=== PATIENT | male | born 1965 | race Caucasian/White ===

== ENCOUNTER 2020-05-24 00:37 | Inpatient (IN) | payer MEDICARE, MEDICAID, SELFPAY ==
[2020-05-24] VITALS (30 sets, daily range): BP systolic 86–154; BP diastolic 46–137; PULSE 53–120; RESP 16–44; TEMP 35.8–39.2; O2SAT 92–99; BMI 50.5; BMI 46.6
--- NOTE | 2020-05-24 00:38 | EKG12_ITS ---
Test Reason : SOB Blood Pressure : / mmHG Vent. Rate : 103 BPM Atrial Rate : 103 BPM P-R Int : 170 ms QRS Dur : 078 ms QT Int : 362 ms P-R-T Axes : 039 031 023 degrees QTc Int : 474 ms Sinus tachycardia Otherwise normal ECG Confirmed by CLOVER COYLE, ED ([id number]), metropolitan editor EUGENE SEGUNDO ([id number]) on 05/26/2020 10:57:55 AM Referred By: THOMAS Confirmed By:ED GALO MD
--- NOTE | 2020-05-24 00:53 | ED.VIS.GEN ---
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 Apparently, the patient was in his normal state of health this morning. Tonight, he was found to be confused, febrile, and in respiratory distress. There was another resident from the facility that was hospitalized this week with pneumonia that was concerning for COVID-19. The patient did have a fever on squad arrival. He did state that he was breathing approximately 40-50 times a minute. Patient has no history of underlying lung disease. Patient does not give any history. He is mostly alert and will try to answer questions, but does seem delirious. He currently denies any pain. Prior similar symptoms: No Recent Illness/Hospitalization: No Past Medical History - Allergies and Home Meds Allergies/Adverse Reactions: Allergies No Known Allergies Allergy (Verified 05/24/20 00:41) Primary Care Physician: Alonso Ramos MD [Primary Care Provider] - Prior records reviewed: Yes Past Medical History: - - Schizophrenia, developmental delay, diabetes, adrenal insufficiency Surgical History: noncontributory Lives: Alf Smoking Status: Unknown if ever smoked Review of Systems ROS: Unable to Obtain Physical Exam Vital Signs/Narrative: Vital Signs Temp Pulse Resp BP Pulse Ox 05/24/20 00:41 99.3 F H 108 H 44 H 96/55 L 95 05/24/20 00:38 99.3 F H 108 H 41 H 95/55 L 95 Inital Vital Signs reviewed: Yes General: Well nourished, Acute Distress Head: Normocephalic, Atraumatic Eyes: Perrl, EOMI ENT: Moist mucous membranes, No rhinorrhea Neck: Supple, Nontender, No lymphadenopathy Cardiovascular: Regular rate, Tachycardia Respiratory: Decreased Air Movement, Retractions Abdomen: Soft, Nontender, Nondistended, Normal bowel sounds, - - Small area of irritation at the distal pannus without cellulitis or abscess. Back: Nontender Extremities: Tenderness - Mild erythema of the left lower extremity with normal pulses. Neurological: Cranial nerves II-XII grossly intact, Inattentive Psychological: Normal affect Diagnostic/Tx/Re-eval Clinical Impression(s) from Imaging Studies Chest X-Ray 05/24/20 00:56 IMPRESSION: Pulmonary hypoexpansion with pulmonary venous congestion. at 0128 Reported and signed by: Baldemar Angulo MD Electronically Signed: Baldemar Angulo MD at 1:27 EDT Tel , Service support , Abnormal Lab Results 05/24/20 05/24/20 05/24/20 00:45 00:45 00:45 WBC 17.1 H RBC 4.85 Hgb 13.1 Hct 39.3 L MCV 81.0 MCH 27.0 MCHC 33.3 RDW Std Deviation 39.7 RDW Coeff of Gume 13.6 Plt Count 127 L MPV 11.7 Immature Gran % (Auto) 1.100 H Neut % (Auto) 90.7 H Lymph % (Auto) 2.3 L [place] % (Auto) 4.7 Eos % (Auto) 1.0 Baso % (Auto) 0.2 Absolute Neuts (auto) 15.5 H Absolute Lymphs (auto) 0.40 L Nucleated RBC % 0 Differential Comment COMMENT Platelet Estimate SLT DEC pH Bicarbonate Actual POC Total CO2 Base Excess O2 Saturation ABG pCO2 ABG pO2 Sodium 127 L Potassium 3.3 L Chloride 94 L Carbon Dioxide 20.0 L Anion Gap 13 BUN 22 H Creatinine 2.29 H Estim Creat Clear Calc 37.19 Est GFR (MDRD) Af Amer 38 L Est GFR (MDRD) Non-Af 32 L BUN/Creatinine Ratio 9.6 L Glucose 171 H Lactic Acid 2.5 H* Calcium 8.2 L Total Bilirubin 1.00 AST 116 H ALT 40 Alkaline Phosphatase 75 Troponin I 0.059 H B-Natriuretic Peptide Total Protein 7.7 Albumin 2.9 L Globulin 4.8 H Albumin/Globulin Ratio 0.6 L Procalcitonin 05/24/20 05/24/20 05/24/20 00:45 00:45 00:54 WBC RBC Hgb Hct MCV MCH MCHC RDW Std Deviation RDW Coeff of Gume Plt Count MPV Immature Gran % (Auto) Neut % (Auto) Lymph % (Auto) [place] % (Auto) Eos % (Auto) Baso % (Auto) Absolute Neuts (auto) Absolute Lymphs (auto) Nucleated RBC % Differential Comment Platelet Estimate pH 7.51 H Bicarbonate Actual 19.3 L POC Total CO2 20 Base Excess -4 L O2 Saturation 95 ABG pCO2 24.1 L ABG pO2 65 L Sodium Potassium Chloride Carbon Dioxide Anion Gap BUN Creatinine Estim Creat Clear Calc Est GFR (MDRD) Af Amer Est GFR (MDRD) Non-Af BUN/Creatinine Ratio Glucose Lactic Acid Calcium Total Bilirubin AST ALT Alkaline Phosphatase Troponin I B-Natriuretic Peptide 136.4 H Total Protein Albumin Globulin Albumin/Globulin Ratio Procalcitonin 17.97 H - Rhythm Strip Rhythm Strip: Sinus Rhythm Rate: 100 Ectopy: None - EKG Initial EKG Interpretation: Sinus Rhythm, No Acute Injury Pattern Prior: No Prior - Medical Decision Making Patient presents with fever, tachypnea, and confusion. There was questionable COVID exposure with someone else at the facility 2 days ago. Blood gas was obtained on patient arrival. It did appear as if he had respiratory alkalosis with likely metabolic acidosis. Patient does have history of adrenal insufficiency. He was given IV fluids and Cortef. I do not want to aggressively bolus him especially in light of suspicion for COVID-19. Chest x-ray shows mild cardiomegaly with some patchy infiltrative changes. Screening labs demonstrate leukocytosis, elevated procalcitonin, elevated lactic acid, evidence of acute kidney injury, and indeterminate troponin. The patient does have some cellulitic changes of the left lower extremity, but I do not feel that this effectively explains his respiratory distress and overwhelming illness. I did cover him with broad-spectrum antibiotics and cultures were obtained. After fluids, the patient's mental status has improved. He is still delirious, but much more active. I did discuss his care with his father, Alon, who is his POA. He does confirm that he wants his son to be full code including intubation. Given the patient's significant infectious symptoms, I do feel that he would benefit from at least observation closely in the ICU until he can demonstrate clinical improvement. The patient was discussed with the hospitalist. Impression 1. Severe sepsis 2. Suspicion for novel COVID-19 infection 3. Left lower extremity cellulitis 4. Dyspnea 5. History of adrenal insufficiency 6. History of significant psychiatric disease - Critical Care Time Critical care time (excluding procedures): 30-74 minutes, Discussing w/Patient &/or Family/Business Education Instructor, Discussing w/Consultants, Arranging Admission or Transfer, Performing Direct Patient Care at Bedside ED Disposition - Plan for ED Patient: Referrals: Alonso Ramos MD [Primary Care Provider] -
[2020-05-24] MEDS: 0.9% Normal Saline 1,000 ML 999 ML IV ×2 (00:56→02:50)
[2020-05-24] MEDS: Hydrocortisone Sod Succinate 100 MG/2 ML Vial IV (00:56)
--- NOTE | 2020-05-24 00:56 | RAD_ITS ---
HISTORY: PER FACILITY PATIENT BECAME CONFUSED AND HAD A FEVER THIS EVENING, ALSO APPEARING SOB. PT IS NORMALLY ORIENTED AND INDEPENDENT. PER EMS BREATHING IN THE 70'S FOR RR EXAM: XR Chest 1 View: COMPARISON: None FINDINGS: # of images incl. paperwork: 2 Perihilar pulmonary venous congestion Lungs are hypoexpanded Heart is borderline enlarged. No acute osseous pathology perceived. Pulmonary vascularity is indistinct. Possible pleural effusions. RAD/Chest 1 View (Portable) IMPRESSION: Pulmonary hypoexpansion with pulmonary venous congestion. at 0128 Reported and signed by: Baldemar Angulo MD Electronically Signed: Baldemar Angulo MD at 1:27 EDT Tel , Service support ,
[2020-05-24 01:18] LABS: Absolute Neutrophil Count 15.5 X10^3/uL (2.0-7.7); Basophil# 0.04 X10^3/uL; Basophil% 0.2 % (0-1); Eosinophil# 0.17 X10^3/uL; Hematocrit 39.3 % (40-54); Hemoglobin 13.1 g/dL (13.0-16.5); Lymphocyte % 2.3 % (19-41); Mean Corp Hgb Conc 33.3 g/dL (32-36); Mean Platelet Vol. 11.7 fl (6.2-12.0); Monocyte% 4.7 % (0-10); NRBC Flagged by Analyzer 0 % (0-5); Neutrophil # 15.54 X10^3/uL (2.7-7.7); Neutrophil % 90.7 % (47-70); POSITIVE DIFFERENTIAL YES; POSITIVE MORPHOLOGY YES; Platelet Count 127 K/mm3 (150-450); RBC Distribution Width CV 13.6 % (11.6-14.6); RBC Distribution Width SD 39.7 fl (35.1-43.9); Red Blood Count 4.85 M/mm3 (4.6-6.2); White Blood Count 17.1 K/mm3 (4.4-11.0)
[2020-05-24 01:30] LABS: ALB/GLOB Ratio 0.6 RATIO (0.9-2.4); AST(SGOT) 116 U/L (15-37); Alanine Aminotransfer ALT/SGPT 40 U/L (16-61); Albumin, Serum 2.9 g/dL (3.2-5.0); Alkaline Phosphatase 75 U/L (45-117); Anion Gap 13 (5-15); BUN 22 mg/dL (7-18); BUN/Creat Ratio 9.6 RATIO (10-20); Calcium,Total 8.2 mg/dL (8.5-10.1); Chloride 94 mmol/L (98-107); Creatinine, Serum 2.29 mg/dL (0.70-1.30); EST Glomerular Filtration Rate 32 mL/min (>60); Est Glom Filt Rate - Afr Amer 38 mL/min (>60); Estimated Creatinine Clearance 37.19 ml/min; Globulin 4.8 g/dL (2.2-4.2); Glucose 171 mg/dL (74-106); Potassium 3.3 mmol/L (3.5-5.1); Protein, Total 7.7 g/dL (6.4-8.2); Sodium Level 127 mmol/L (136-145)
[2020-05-24 01:33] LABS: Procalcitonin 17.97 ng/mL (0.00-0.09)
[2020-05-24 01:41] LABS: Base Excess -4 mmol/L (-2 to +2); Bicarbonate 19.3 mmol/L (22-26); PO2 65 mmHG (75-100); SO2 95 % (95-99); Total Carbon Dioxide 20 mmol/L; pCO2 24.1 mmHg (35-45); pH 7.51 (7.35-7.45)
[2020-05-24 01:44] LABS: BNP,B-Type NATRIURETIC PEPTIDE 136.4 pg/mL (0-100)
[2020-05-24 02:02] LABS: Differential Indicated SCAN CRITERIA MET
[2020-05-24 02:03] LABS: Platelet Estimate SLT DEC (ADEQ)
[2020-05-24] MEDS: LORazepam 2 MG/ML Syringe 1 MG IV ×2 (02:19→05:08)
[2020-05-24 02:35] LABS: Lactic Acid 2.5 mmol/L (0.4-1.9)
[2020-05-24 02:45] LABS: Mucous, Urine 0 SEEN /hpf (<or=2+)
[2020-05-24 02:54] LABS: Color, Urine Yellow (Yellow); Glucose, Dipstick Normal (Normal); Ketone-Dipstick 15 mg/dl (Negative); Leukocyte Esterase-Dipstick 25 /ul (Negative); Nitrite-Dipstick Negative (Negative); Occult Blood-Urine 250 /ul (Negative); Protein-Dipstick 500 mg/dl (Negative); Urine Bilirubin Dipstick Negative (Negative); Urine Clarity Sl. Cloudy (Clear); Urine Urobilinogen Normal (Normal)
[2020-05-24 03:14] LABS: Coarse Granular Cast 5-10 SEEN /lpf (0-5 /lpf); Red Blood Cells-Urine 0-5 SEEN /hpf (0-5); Squamous Epithelial Cells - UA 0-5 SEEN /hpf (0-5); White Blood Cells 5-10 SEEN /hpf (0-5)
[2020-05-24 03:15] LABS: Amorphous Sediment 2+; Bacteria 1+ /hpf (None Seen)
--- NOTE | 2020-05-24 03:39 | PCM.HP.STD ---
Problem List (1) Suspected 2019 novel coronavirus infection Status: Acute (2) Severe sepsis Status: Acute (3) Schizophrenia Status: Acute History of Present Illness Date of Admission: 05/24/20 Chief Complaint: fever The patient is a 55 year old M with a significant history of schizophrenia; diabetes mellitus ; adrenal insufficiency and who lives at the nursing home presenting to the emergency department with fever. Reportedly patient's fever at a nursing home was 102 Fahrenheit. History was taken from emergency department doctor since patient is unable to provide history. Associated with his symptoms is confusion and hypoxia. Reportedly eccentrically patient is alert and oriented to self and place. Reportedly his oxygen saturation was in the 80s. Emergency department doctor reported that per paramedics patient's respiratory rate was in the 70s. Reportedly, one resident at the nursing home where patient lives is currently hospitalized at the hospital with a diagnosis of suspected COVID-19 infection. Per emergency department nurses on arrival patient was unresponsive. At time of examination patient was alert but confused to answer questions. Past Medical History Medical History: Medical History (Last Reviewed 05/24/20 @ 04:[address] Aubrey Powell MD) Diabetes mellitus E11.9 Allergies No Known Allergies Allergy (Verified 05/24/20 00:41) Home Medications: Ambulatory Orders Medication Instructions Recorded Acetaminophen [Tylenol] 650 mg PO Q4H PRN PRN 05/24/20 Aspirin [Aspirin, Baby] 81 mg PO DAILY@0800 05/24/20 Benztropine Mesylate 2 mg PO DAILY 05/24/20 Bisacodyl [Dulcolax] 10 mg RECTAL DAILY PRN PRN 05/24/20 Calcium (Elemental) [Os-Alfredo 500] 500 mg PO BIDCM 05/24/20 Cholecalciferol (Vitamin D3) 2,000 unit PO DAILY 05/24/20 [Vitamin D3] Ergocalciferol [Vitamin D] 50,000 unit PO Q7D 05/24/20 Escitalopram Oxalate [Lexapro] 10 mg PO DAILY 05/24/20 Famotidine [Pepcid] 20 mg PO DAILY 05/24/20 Fludrocortisone Acetate 0.2 mg PO DAILY 05/24/20 Haloperidol [Haldol] 5 mg PO BID 05/24/20 Insulin Aspart [Novolog Flexpen 10 units SUBCUT TIDCM 05/24/20 ([facility])] Insulin Glargine [Lantus (BK)] 36 units SUBCUT QHS 05/24/20 Linagliptin [Tradjenta] 5 mg PO DAILY 05/24/20 Lorazepam 1 mg IM Q6H PRN PRN 05/24/20 Lorazepam [Ativan] 1 mg PO Q6H PRN PRN 05/24/20 Lorazepam [Ativan] 2 mg PO TID 05/24/20 Magnesium Hydroxide [Milk Of 30 ml PO DAILY PRN PRN 05/24/20 Magnesia] Quetiapine Fumarate [Seroquel Xr] 400 mg PO BID 05/24/20 Simvastatin [Zocor] 10 mg PO QHS 05/24/20 Tamsulosin HCl [Flomax] 0.4 mg PO DAILY 05/24/20 Surgical History: - - Unable to obtain since patient is confused. 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 Lives: [facility] Smoking Status: Unknown if ever smoked - *Family History Maternal History Items: - - Unable to obtain since patient is confused. 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 Paternal History Items: - - Unable to obtain since patient is confused. 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 Review of Systems Unable to obtain accurate/complete ROS d/t: Patient is confused. No family by bedside and it is night/telegraphic typewriter operator chief VTE Information - Inpt Only VTE Present on Admission: No VTE Mechan Device Prophylaxis: None VTE Pharm Prophylaxis ordered?: Yes Patient Problems: Active and Suspected Problems (Last Updated 05/24/20 @ 04:[address] Aubrey Powell MD) Suspected 2019 novel coronavirus infection (Acute) Severe sepsis (Acute) Schizophrenia (Acute) - Physical Exam Vitals/I&O's: Vital Signs Temp Pulse Resp BP Pulse Ox 102.1 F H 120 H 21 H 154/93 H 96 05/24/20 02:52 05/24/20 02:52 05/24/20 02:52 05/24/20 02:52 05/24/20 02:52 Oxygen Delivery Method Room Air Weight: 160 kg Body Mass Index (BMI) 50.5 Intake and Output for Last 24 Hours 05/22/20 05/23/20 05/24/20 23:59 23:59 23:59 Intake Total 1000 / 1000 Balance 1000 / 1000 General: Alert, Confused HEENT: Atraumatic, Normocephalic, - - Patient does not allow eye examination. Neck: Supple, Trachea Midline Lungs: Clear to auscultation, Normal air movement Cardiovascular: Normal S1, Normal S2, No murmurs, Tachycardic Abdomen: Bowel Sounds Present, Soft, Non Tender Extremities: Capillary Refill Less than 3 Seconds, Edema - Bilateral legs Skin: Rash Present - Scaly rash on bilateral legs, - - Erythema of left leg with mild increased warmth. Musculoskeletal: No Muscle Wasting Neurological: - - Patient is confused. Does not follow many commands. Open eyes to command. Psych/Mental Status: Agitated Laboratory Results 05/24/20 00:45: WBC 17.1 H, RBC 4.85, Hgb 13.1, Hct 39.3 L, MCV 81.0, MCH 27.0, MCHC 33.3, RDW Std Deviation 39.7, RDW Coeff of Gume 13.6, Plt Count 127 L, MPV 11.7, Immature Gran % (Auto) 1.100 H, Neut % (Auto) 90.7 H, Lymph % (Auto) 2.3 L, [place] % (Auto) 4.7, Eos % (Auto) 1.0, Baso % (Auto) 0.2, Absolute Neuts (auto) 15.5 H, Absolute Lymphs (auto) 0.40 L, Nucleated RBC % 0, Differential Comment COMMENT, Platelet Estimate SLT 05/24/20 00:45: Sodium 127 L, Potassium 3.3 L, Chloride 94 L, Carbon Dioxide 20.0 L, Anion Gap 13, BUN 22 H, Creatinine 2.29 H, Estim Creat Clear Calc 37.19, Est GFR (MDRD) Af Amer 38 L, Est GFR (MDRD) Non-Af 32 L, BUN/Creatinine Ratio 9.6 L, Glucose 171 H, Calcium 8.2 L, Total Bilirubin 1.00, AST 116 H, ALT 40, Alkaline Phosphatase 75, Troponin I 0.059 H, Total Protein 7.7, Albumin 2.9 L, Globulin 4.8 H, Albumin/Globulin Ratio 0.6 L 05/24/20 00:45: Lactic Acid 2.5 H* 05/24/20 00:45: B-Natriuretic Peptide 136.4 H 05/24/20 00:45: Procalcitonin 17.97 H 05/24/20 00:54: pH 7.51 H, Bicarbonate Actual 19.3 L, POC Total CO2 20, Base Excess -4 L, O2 Saturation 95, ABG pCO2 24.1 L, ABG pO2 65 L 05/24/20 00:55: COVID-19 (MARTI) Pending 05/24/20 02:20: Urine Color Yellow, Urine Clarity Sl. Cloudy, Urine pH 6.0, Ur Specific [place] 1.020, Urine Protein 500 H, Urine Glucose (UA) Normal, Urine Ketones 15 H, Urine Occult Blood 250 H, Urine Nitrite Negative, Urine Bilirubin Negative, Urine Urobilinogen Normal, Ur Leukocyte Esterase 25 H, Urine RBC 0-5 SEEN, Urine WBC 5-10 SEEN, Ur Squamous Epith Cells 0-5 SEEN, Amorphous Sediment 2+, Urine Bacteria 1+, Coarse Granular Casts 5-10 SEEN, Urine Mucus 0 SEEN Current Medications Acetaminophen (Tylenol) 650 mg RECTAL Q4H PRN PRN PRN Reason: Pain Score 1-10/Temp > 100.7 F Albuterol Sulfate (Ventolin Aerosols) 2.5 mg INHALATION Q2H PRN PRN PRN Reason: SOB/Wheezing Dextrose (D50w Syringe) 0 gm IV X1 PRN; Protocol PRN Reason: Hypoglycemia Enoxaparin Sodium (Lovenox) 40 mg SC DAILY [facility] Glucagon () 1 mg IM .X1 PRN PRN Reason: Hypoglycemia Haloperidol Lactate (Haldol) 2 mg IV Q4H PRN PRN PRN Reason: AGITATION Hydrocortisone Sodium Succinate (Solu-Cortef) 50 mg IV Q8 [facility] Vancomycin HCl 1,500 mg/ (Sodium Chloride) 530 mls @ 250 mls/hr IV X1 ONE Stop: 05/24/20 03:55 Last Admin: 05/24/20 03:06 Dose: 250 mls/hr Documented by: Piperacillin Sod/Tazobactam (Sod 2.25 mg/ Sodium Chloride) 50.0113 mls @ 100 mls/hr IV X1 [facility] Last Admin: 05/24/20 02:30 Dose: 100 mls/hr Documented by: Potassium Chloride () 10 meq in 100 mls @ 100 mls/hr IV BOLUS Q1H [facility] Stop: 05/24/20 07:29 Sodium Chloride () 1,000 mls @ 100 mls/hr IV .Q10H [facility] Piperacillin Sod/Tazobactam (Sod 3.375 gm/ Sodium Chloride) 50 mls @ 12.5 mls/hr IV Q6 [facility] Stop: 05/31/20 08:01 Famotidine 20 mg/ Sodium (Chloride) 10 mls @ 300 mls/hr IV Q24 [facility] Vancomycin IV Pharmacy to Dose (1 ea/ Sodium Chloride) 500 mls @ 250 mls/hr IV X1 PRN; Protocol PRN Reason: Rx to Dose Insulin Glargine (Lantus (Bkc)) 15 units SC QHS [facility] Insulin Human Lispro (Humalog Kwikpen ([facility])) 0 unit SC Q6 [facility]; Protocol Lorazepam (Ativan) 1 mg IV Q4H PRN PRN PRN Reason: AGITATION Ondansetron HCl (Zofran) 4 mg IV Q8H PRN PRN PRN Reason: NAUSEA/VOMITING Assessment/Plan All Active Problems (Last Updated 05/24/20 @ 04:[address] Aubrey Powell MD) Suspected 2019 novel coronavirus infection (Acute) Severe sepsis (Acute) Schizophrenia (Acute) The patient is a 55 year old M with a significant history of schizophrenia; diabetes mellitus ; adrenal insufficiency and who lives at the nursing home presenting to the emergency department with fever; confusion; hypoxia and tachypnea and found to have neutrophilic leukocytosis with bandemia; lymphopenia; respiratory alkalosis; elevated creatinine; leukocytosis; and with abnormal chest x-ray findings. Suspect SARS secondary to COVID-19 infection. Reportedly one other resident at the nursing home the patient lives is being ruled out for covid Patient with neutrophilic leukocytosis with bandemia; and lymphopenia. At the time of examination at emergency department temperature per Hodgson was 102.9 Fahrenheit. Review of actual chest x-ray image showed enlarged cardiac silhouette with pulmonary infiltrates as well as venous congestion. Admit to the intensive care unit. [employer]or[employer] Operator consult. Received 2 L of normal saline bolus. Judicious use of fluid encouraged. Placed on enhanced covid precautions. Rectal Tylenol PRN. npo CPK; d-dimer; fibrinogen; ferritin; and LDH ordered. Review of emergency department labs shows respiratory alkalosis; hypoxia; and mild anion gap metabolic acidosis likely from lactic acid. Covid test was obtained at the emergency department; follow. Severe sepsis likely from pneumonia Patient with elevated procalcitonin. Although he has MARIA T his procalcitonin of 17.97 is difficult to explain with only MARIA T. Cannot rule out pneumonia. Gram-positive or gram-negative. Strep pneumonia antigen and Legionella urine antigen ordered. Culture and Gram stain of sputum. MRSA nasal screen. Albuterol PRN for shortness of breath. Patient is on home Florinef. In the setting of severe sepsis patient received hydrocortisone IV at emergency department. Will put patient on scheduled hydrocortisone IV as we hold all p.o. medications including home Florinef. And in acute sickness escalates steroids. Lactic acid was 2.5. Trend. Blood cultures x2 was obtained in the emergency department; follow-up. Urinalysis was ordered at emergency department; not impressive for infection. Received vancomycin and Zosyn in the emergency department Vancomycin and Zosyn ordered. Acute encephalopathy Likely source likely secondary to infection. Treat infection as above. Hold all p.o. medication because of risk of aspiration. Venous stasis Patient with bilateral scales on leg. His left leg is erythematous and mildly warm. Most likely this from venous stasis. In case patient has been placed on broad-spectrum antibiotics. Apply Jaspreet wrap to bilateral legs. Diabetes mellitus with nephropathy Urine protein 500. Occult blood in urine. Patient with hyperglycemia on presentation. Hold home oral blood glucose regimen. Put patient n.p.o. because of encephalopathy. Accu-Chek every 6 hours with correction scale insulin. De-escalate home basal insulin secondary to n.p.o. status.. MARIA T His creatinine on presentation was 2.29 Review of nursing home records shows that in May 2020 his creatinine was 1.3. BUN over creatinine is 9.6. Likely prerenal and intrinsic renal from sepsis. Received 2 L normal saline bolus in the emergency department. Gentle IV hydration. Avoid nephrotoxins. Trend CMP. Elevated troponin EKG is unremarkable. Patient is confused and but he is alert enough to say whether he has chest pain. He has no chest pain. Likely demand ischemia. Cannot rule out contributing factors from COVID. We will trend troponin. Hypokalemia Potassium on presentation was 3.3. Replace by IV. However patient is at risk of hyperkalemia because of MARIA T. Hyponatremia This could secondary to lung infection. Treat infection as above. IV hydration. Trend CMP. Schizophrenia On home Haldol p.o. and p.o. Ativan. At the emergency department because of agitation patient required Ativan IV. Haldol IV PRN Ativan IV. Ordered. On home Cogentin p.o. Change Cogentin to IV. GERD On home Pepcid p.o. Change to IV. DVT prophylaxis Subcutaneous Lovenox per COVID protocol. Inpatient E&M: 38915 Init Hosp L3
[2020-05-24] MEDS: Acetaminophen 650 MG Suppository RECTAL (03:50)
[2020-05-24] MEDS: Haloperidol Lactate 5 MG/ML Vial 2 MG IV (03:51)
[2020-05-24 03:58] LABS: Allen Test POS; Blood Gas Specimen Type ART; O2 Delivery Device Room Air; SITE R RADIAL
[2020-05-24 04:00] LABS: Time Given 54
[2020-05-24] MEDS: 0.9% Normal Saline 1,000 ML 100 ML IV ×3 (04:15→19:50)
--- NOTE | 2020-05-24 04:22 | PCM.RX.CS ---
Consult Pharmacy has been consulted to manage selected antiobiotic: Vancomycin Type of Consult: New start Suspected Infection: Sepsis Prior Doses of Antibiotics Received/Current Regimen: Medications Vancomycin HCl 1,500 mg/ (Sodium Chloride) 530 mls @ 250 mls/hr IV Q24H [facility] Discontinued Medications Vancomycin HCl 1,500 mg/ (Sodium Chloride) 530 mls @ 250 mls/hr IV X1 ONE Stop: 05/24/20 03:55 Last Admin: 05/24/20 03:06 Dose: 250 mls/hr Labs: Sodium 127 mmol/L (136-145) L 05/24/20 00:45 Potassium 3.3 mmol/L (3.5-5.1) L 05/24/20 00:45 Chloride 94 mmol/L (98-107) L 05/24/20 00:45 Carbon Dioxide 20.0 mmol/L (21.0-32.0) L 05/24/20 00:45 Anion Gap 13 (5-15) 05/24/20 00:45 BUN 22 mg/dL (7-18) H 05/24/20 00:45 Creatinine 2.29 mg/dL (0.70-1.30) H 05/24/20 00:45 Est GFR (MDRD) Af Amer 38 mL/min (>60) L 05/24/20 00:45 Est GFR (MDRD) Non-Af 32 mL/min (>60) L 05/24/20 00:45 BUN/Creatinine Ratio 9.6 RATIO (10-20) L 05/24/20 00:45 Glucose 171 mg/dL (74-106) H 05/24/20 00:45 Weight used for dosin kg Estimated Creatinine Clearance: 37 Goal Trough: 15-20 mcg/mL Pharmacy Plan for Drug Dosing: Pharmacy Service will continue to monitor and adjust dosing as required. Follow-Up Labs: Trough Vancomycin Labs to be done on [date and time ordered]: 05/26/20 @[id number]
[2020-05-24 04:35] LABS: International Normalized Ratio 1.5; Prothrombin Time (Protime)PT. 17.3 SECONDS (11.7-14.9)
[2020-05-24 04:36] LABS: Fibrinogen 693 mg/dl (203-444)
[2020-05-24 05:01] LABS: Reflex Lactate? Y
[2020-05-24 05:09] LABS: D-Dimer Quantitative (DVT/PE) 7.52 FEU/ug/m (0.27-0.49)
[2020-05-24] MEDS: Hydrocortisone Sod Succinate 100 MG/2 ML Vial 50 MG IV ×3 (05:16→20:52)
[2020-05-24] MEDS: Famotidine 200 MG/20 ML MDV 20 MG in 0.9% Normal Saline (Pres. free 8 ML 300 MG IV (05:18)
[2020-05-24] MEDS: Potassium Chloride 10mEq/100mL 10 MEQ/100 ML IV.SOLN. 100 MEQ IV BOLUS ×4 (05:20→11:09)
[2020-05-24] MEDS: 0.9% Saline Lock 10 ML Syringe IV ×2 (05:22→20:53)
[2020-05-24 06:11] LABS: CPK Total, Creatine Kinase 12192 U/L (39-308); Ferritin 243 ng/mL (26-388); LDH 517 U/L (87-241); Triglycerides 124 mg/dL
[2020-05-24 06:23] LABS: Lactic Acid 1.9 mmol/L (0.4-1.9)
[2020-05-24 06:49] LABS: Magnesium 1.4 mg/dL (1.6-2.6); Phosphorus 2.5 mg/dL (2.5-4.9)
[2020-05-24 07:23] LABS: Partial Thromboplast Time 46.5 Seconds (24.1-36.2)
[2020-05-24 07:30] LABS: Absolute Lymphocyte Count 0.51 X10^3/uL (0.83-4.51); Absolute Neutrophil Count 18.1 X10^3/uL (2.0-7.7); Basophil# 0.05 X10^3/uL; Basophil% 0.3 % (0-1); Eosinophil# 0.09 X10^3/uL; Eosinophils% 0.5 % (0-5); Hematocrit 37.7 % (40-54); Hemoglobin 12.3 g/dL (13.0-16.5); Lymphocyte # 0.51 X10^3/ul (4.0); Lymphocyte % 2.6 % (19-41); Mean Corp Hgb Conc 32.6 g/dL (32-36); Mean Corpuscular Hgb 27.1 pg (27.0-32.0); Mean Platelet Vol. 12.9 fl (6.2-12.0); Monocyte# 0.89 X10^3/uL; Monocyte% 4.5 % (0-10); NRBC Flagged by Analyzer 0 % (0-5); Neutrophil % 91.5 % (47-70); POSITIVE DIFFERENTIAL YES; POSITIVE MORPHOLOGY YES; Platelet Count 134 K/mm3 (150-450); RBC Distribution Width CV 13.8 % (11.6-14.6); RBC Distribution Width SD 41.6 fl (35.1-43.9); Red Blood Count 4.54 M/mm3 (4.6-6.2); White Blood Count 19.8 K/mm3 (4.4-11.0)
[2020-05-24 07:31] LABS: Bedside Glucose 141 mg/dL (70-110)
[2020-05-24] MEDS: Heparin Injection (Vial) 5,000 UNIT/ML VIAL 12000 UNIT IV (07:33)
[2020-05-24 07:34] LABS: Probe Check PASS
[2020-05-24 07:35] LABS: M R Staph aureus DNA By PCR POSITIVE (Negative)
[2020-05-24] MEDS: HEPARIN/D5w 25,000 UNITS 25,000 UNITS/250 ML IV.SOLN. 19 UNITS IV (07:35)
[2020-05-24 07:52] LABS: ALB/GLOB Ratio 0.6 RATIO (0.9-2.4); AST(SGOT) 198 U/L (15-37); Alanine Aminotransfer ALT/SGPT 50 U/L (16-61); Albumin, Serum 2.7 g/dL (3.2-5.0); Alkaline Phosphatase 68 U/L (45-117); Anion Gap 15 (5-15); BUN 24 mg/dL (7-18); BUN/Creat Ratio 10.6 RATIO (10-20); Calcium,Total 7.8 mg/dL (8.5-10.1); Chloride 96 mmol/L (98-107); Creatinine, Serum 2.26 mg/dL (0.70-1.30); EST Glomerular Filtration Rate 32 mL/min (>60); Est Glom Filt Rate - Afr Amer 39 mL/min (>60); Estimated Creatinine Clearance 40.06 ml/min; Globulin 4.5 g/dL (2.2-4.2); Glucose 187 mg/dL (74-106); Potassium 3.4 mmol/L (3.5-5.1); Protein, Total 7.2 g/dL (6.4-8.2); Sodium Level 129 mmol/L (136-145)
[2020-05-24 08:43] LABS: Differential Indicated SCAN CRITERIA MET
[2020-05-24] MEDS: Dexmedetomidine 1,000 mcg in 0.9% NS 240 mL 19.5 MCG CONT INF (08:45)
[2020-05-24 09:09] LABS: Differential Comment SCANNED
--- NOTE | 2020-05-24 09:41 | PN_ITS ---
Patient Problems: Active and Suspected Problems (Last Reviewed 05/24/20 @ 04:[address] Aubrey Powell MD) Suspected 2019 novel coronavirus infection (Acute) Severe sepsis (Acute) Schizophrenia (Acute) Reason for Visit: severe sepsis Subjective: Agitated requiring 4-point restraints. Dexmedetomidine started. Vitals/I&O's: Vital Signs Temp Pulse Resp BP Pulse Ox 38.6 C H 110 H 43 H 138/56 H 93 05/24/20 06:00 05/24/20 06:00 05/24/20 06:00 05/24/20 06:00 05/24/20 06:00 Oxygen Delivery Method Room Air Weight: 156.1 kg Body Mass Index (BMI) 46.6 Intake and Output for Last 24 Hours 05/22/20 05/23/20 05/24/20 23:59 23:59 23:59 Intake Total 2790.5113 / 2790.5113 Output Total 950 / 950 Balance 1840.5113 / 1840.5113 General: - - alert a+o x2 HEENT: Atraumatic, Normocephalic Oral: Dry Mucosa Neck: No Nodes, Thyroid Normal Size and Texture Lungs: Diminished, Tachypneic, - - coarse breath sounds Cardiovascular: Regular rate, Regular Rhythm, Normal S1, Normal S2 Abdomen: Bowel Sounds Present, Soft, Non Tender, Non-Distended Extremities: No edema, No Calf Tenderness Skin: No rashes, No breakdown Psych/Mental Status: Normal Affect, Appropriate Microbiology Past 72 Hours 05/24/20 00:55 Mucosa - Nasopharyngeal Respiratory Panel (PCR) - Final 05/24/20 02:20 Urine Catheter - Catheter Streptococcus pneumoniae Antigen (M - Final 05/24/20 02:20 Urine Catheter - Catheter Legionella Antigen - Final Laboratory Results 05/24/20 00:45: WBC 17.1 H, RBC 4.85, Hgb 13.1, Hct 39.3 L, MCV 81.0, MCH 27.0, MCHC 33.3, RDW Std Deviation 39.7, RDW Coeff of Gume 13.6, Plt Count 127 L, MPV 11.7, Immature Gran % (Auto) 1.100 H, Neut % (Auto) 90.7 H, Lymph % (Auto) 2.3 L , Taylor % (Auto) 4.7, Eos % (Auto) 1.0, Baso % (Auto) 0.2, Absolute Neuts (auto) 15.5 H, Absolute Lymphs (auto) 0.40 L, Nucleated RBC % 0, Differential Comment COMMENT, Platelet Estimate SLT 05/24/20 00:45: Sodium 127 L, Potassium 3.3 L, Chloride 94 L, Carbon Dioxide 20.0 L, Anion Gap 13, BUN 22 H, Creatinine 2.29 H, Estim Creat Clear Calc 37.19, Est GFR (MDRD) Af Amer 38 L, Est GFR (MDRD) Non-Af 32 L, BUN/Creatinine Ratio 9.6 L, Glucose 171 H, Calcium 8.2 L, Total Bilirubin 1.00, AST 116 H, ALT 40, Alkaline Phosphatase 75, Troponin I 0.059 H, Total Protein 7.7, Albumin 2.9 L, Globulin 4.8 H, Albumin/Globulin Ratio 0.6 L 05/24/20 00:45: Lactic Acid 2.5 H* 05/24/20 00:45: B-Natriuretic Peptide 136.4 H 05/24/20 00:45: Procalcitonin 17.97 H 05/24/20 00:54: Specimen Type ART, Sample Site R RADIAL, pH 7.51 H, Bicarbonate Actual 19.3 L, POC Total CO2 20, Base Excess -4 L, O2 Saturation 95, ABG pCO2 24.1 L, ABG pO2 65 L, Nick Test POS, O2 Delivery Device Room Air, Blood Gas Notified Whom ED MD, Blood Gas Notified Time 54 05/24/20 00:55: COVID-19 (MARTI) Pending 05/24/20 00:55: COVID-19 (MARTI) Pending 05/24/20 02:20: Urine Color Yellow, Urine Clarity Sl. Cloudy, Urine pH 6.0, Ur Specific [place] 1.020, Urine Protein 500 H, Urine Glucose (UA) Normal, Urine Ketones 15 H, Urine Occult Blood 250 H, Urine Nitrite Negative, Urine Bilirubin Negative, Urine Urobilinogen Normal, Ur Leukocyte Esterase 25 H, Urine RBC 0-5 SEEN, Urine WBC 5-10 SEEN, Ur Squamous Epith Cells 0-5 SEEN, Amorphous Sediment 2+, Urine Bacteria 1+, Coarse Granular Casts 5-10 SEEN, Urine Mucus 0 SEEN 05/24/20 04:00: PT 17.3 H, INR 1.5, Fibrinogen 693 H, D-Dimer Quant (PE/DVT) 7.52 H* 05/24/20 04:00: Ferritin 243, Lactate Dehydrogenase 517 H, Total Creatine Kinase 97301 H, C-React Prot Ext Range 210.00 H, Triglycerides 124 05/24/20 04:00: WBC 19.8 H, RBC 4.54 L, Hgb 12.3 L, Hct 37.7 L, MCV 83.0, MCH 27.1, MCHC 32.6, RDW Std Deviation 41.6, RDW Coeff of Gume 13.8, Plt Count 134 L, MPV 12.9 H, Immature Gran % (Auto) 0.600, Neut % (Auto) 91.5 H, Lymph % (Auto) 2.6 L, Taylor % (Auto) 4.5, Eos % (Auto) 0.5, Baso % (Auto) 0.3, Absolute Neuts (auto) 18.1 H, Absolute Lymphs (auto) 0.51 L, Nucleated RBC % 0, Differential Comment SCANNED 05/24/20 04:00: Sodium 129 L, Potassium 3.4 L, Chloride 96 L, Carbon Dioxide 18.0 L, Anion Gap 15, BUN 24 H, Creatinine 2.26 H, Estim Creat Clear Calc 40.06, Est GFR (MDRD) Af Amer 39 L, Est GFR (MDRD) Non-Af 32 L, BUN/Creatinine Ratio 10.6, Glucose 187 H, Calcium 7.8 L, Total Bilirubin 1.20 H, AST 198 H, ALT 50, Alkaline Phosphatase 68, Total Protein 7.2, Albumin 2.7 L, Globulin 4.5 H, Albumin/Globulin Ratio 0.6 L 05/24/20 04:00: MRSA (PCR) POSITIVE H 05/24/20 04:00: Troponin I 0.151 H 05/24/20 04:00: APTT 46.5 H 05/24/20 05:15: POC Glucose 141 H 05/24/20 05:30: Phosphorus 2.5, Magnesium 1.4 L, Troponin I 0.195 H 05/24/20 05:30: Lactic Acid 1.9 Current Medications Acetaminophen (Tylenol) 650 mg RECTAL Q4H PRN PRN PRN Reason: Pain Score 1-10/Temp > 100.7 F Last Admin: 05/24/20 03:50 Dose: 650 mg Documented by: Albuterol Sulfate (Ventolin Aerosols) 2.5 mg INHALATION Q2H PRN PRN PRN Reason: SOB/Wheezing Benztropine Mesylate (Cogentin) 1 mg IV BID CATHLEEN Dextrose (D50w Syringe) 0 gm IV X1 PRN; Protocol PRN Reason: Hypoglycemia Glucagon () 1 mg IM .X1 PRN PRN Reason: Hypoglycemia Haloperidol Lactate (Haldol) 2 mg IV Q4H PRN PRN PRN Reason: AGITATION Last Admin: 05/24/20 03:51 Dose: 2 mg Documented by: Heparin Sodium (Porcine) (Heparin Na) 0 unit IV UD PRN; Protocol Hydrocortisone Sodium Succinate (Solu-Cortef) 50 mg IV Q8 CATHLEEN Last Admin: 05/24/20 05:16 Dose: 50 mg Documented by: Sodium Chloride () 1,000 mls @ 100 mls/hr IV .Q10H CATHLEEN Last Admin: 05/24/20 04:15 Dose: 100 mls/hr Documented by: Piperacillin Sod/Tazobactam (Sod 3.375 gm/ Sodium Chloride) 50 mls @ 12.5 mls/hr IV Q8 CATHLEEN Famotidine 20 mg/ Sodium (Chloride) 10 mls @ 300 mls/hr IV Q24 CATHLEEN Last Infusion: 05/24/20 05:23 Dose: Infused Documented by: Vancomycin IV Pharmacy to Dose (1 ea/ Sodium Chloride) 500 mls @ 250 mls/hr IV PRN PRN; Protocol PRN Reason: Rx to Dose Sodium Chloride () 250 mls @ 15 mls/hr IV .[id number] PRN PRN Reason: Saline Flush Last Infusion: 05/24/20 05:20 Dose: 0 mls/hr Documented by: Sodium Chloride () 250 mls @ 15 mls/hr IV .[id number] PRN PRN Reason: Additional IVPB Infusion Vancomycin HCl 1,500 mg/ (Sodium Chloride) 530 mls @ 250 mls/hr IV Q24H CATHLEEN Heparin Sodium/Dextrose () 25,000 units in 250 mls @ 19 mls/hr IV .[id number] CATHLEEN; Protocol Last Admin: 05/24/20 07:35 Dose: 1,900 units/hr, 19 mls/hr Documented by: Magnesium Sulfate 2 gm/ Sodium (Chloride) 104 mls @ 52 mls/hr IV X1 ONE Stop: 05/24/20 09:59 Dexmedetomidine HCl 1,000 mcg/ (Sodium Chloride) 250 mls @ 19.513 mls/hr CONT INF .[id number] [facility]; Protocol Insulin Glargine (Lantus (Bkc)) 15 units SC QHS CATHLEEN Insulin Human Lispro (Humalog Kwikpen (Bkc)) 0 unit SC Q6 CATHLEEN; Protocol Last Admin: 05/24/20 05:21 Dose: Not Given Documented by: Lorazepam (Ativan) 1 mg IV Q4H PRN PRN PRN Reason: AGITATION Last Admin: 05/24/20 05:08 Dose: 1 mg Documented by: Ondansetron HCl (Zofran) 4 mg IV Q8H PRN PRN PRN Reason: NAUSEA/VOMITING Sodium Chloride () 10 - 40 ml IV UD PRN PRN Reason: SALINE FLUSH Last Admin: 05/24/20 05:22 Dose: 20 ml Documented by: STROKE Vital Signs/Narrative: Vital Signs Temp Pulse Resp BP Pulse Ox 05/24/20 06:00 38.6 C H 110 H 43 H 138/56 H 93 Medical Necessity - Tobacco Use Smoking Status: Unknown if ever smoked Assessment/Plan All Active Problems (Last Reviewed 05/24/20 @ 04:[address] Aubrey Powell MD) Suspected 2018 novel coronavirus infection (Acute) Severe sepsis (Acute) Schizophrenia (Acute) 1. severe sepsis * 2/2 pneumonia +/- COVID * COVID [facility], COVID test pending * MRSA positive * Strep Ag, Leg Ag, respiratory panel negative * follow up BCx * continue pip/tazo and vanc 2. pneumonia * abx as above * pulm toilet as able * consider CT imaging when condition warrants 3. MARIA T * suspected, no baseline labs available. * on IVF * monitor 4. rhabdomyolysis * CPK 12k * continue with IVF * monitor 5. elevated troponin * maybe demand ischemia v skewed due to rhabdomyolysis v other * anticoagulated with heparin gtt 6. metabolic encephalopathy * agitated, though A+O * due to severe sepsis, pneumonia in patient with known schizophrenia * dexmedetomidine gtt and 4-point restraints in place 7. Elevated d-dimer * 7.52. maybe secondary to severe sepsis, pneumonia. though cannot rule out VTE at this time. * on heparin gtt * consider VTE evaluation as condition improves 8. Schizophrenia * quetiapine held 9. DM2 * on glargine and SSI 10. VTE prophylaxis: anticoagulated. Procedures: Other Procedure - See Report - non-billable rounding as patient was admitted after midnight.
[2020-05-24] MEDS: Haloperidol Lactate 5 MG/ML Vial IV (09:43)
--- NOTE | 2020-05-24 10:24 | PCM.CON.CC ---
Problem List (1) Suspected 2019 novel coronavirus infection Status: Acute (2) Severe sepsis Status: Acute (3) Schizophrenia Status: Acute Reason for Consult Date of Consultation: 05/24/20 Reason for Consultation: Sepsis History of Present Illness: The patient is a 55 year old M, with past medical history listed below, who presented to [facility] 05/24[facility]2020 secondary to confusion, fever and respiratory distress. Patient reportedly is from a long term facility and had developed fever prior to squad arrival. Patient was also tachypneic at 40 to 50 breaths/min. Patient reportedly has no underlying lung disease and is a very poor historian. Earlier in the week, the patient was transferred to the intensive care unit secondary to a pneumonia. No COVID cases have been noted in the [facility] to this point. In the ER, patient had fever, tachypnea and confusion. ABG showed a respiratory metabolic derangement. Patient was given Cortef secondary to a history of relative adrenal insufficiency. Chest x-ray was reportedly unremarkable, but patient was given broad-spectrum antibiotics and transferred to the intensive care unit for further evaluation. Since being in the intensive care unit, patient has been agitated requiring multiple as needed doses of medications. Patient eventually had to be placed on Precedex therapy. Patient has had fever and tachycardia, but has been saturating well on room air. Patient denies any dyspnea on my examination, but does have abdominal contractions with breathing. No cough is been reported. Patient does have some lower extremity edema, but this appears to be chronic. Patient is not able to provide any further information. Patient does have a POA (father) the reportedly told the ER that he was a full code. Past Medical History Medical History: Medical History (Last Reviewed 05/24/20 @ 04:[address] Aubrey Powell MD) Diabetes mellitus E11.9 Allergies No Known Allergies Allergy (Verified 05/24/20 00:41) Home Medications: Ambulatory Orders Medication Instructions Recorded Acetaminophen [Tylenol] 650 mg PO Q4H PRN PRN 05/24/20 Aspirin [Aspirin, Baby] 81 mg PO DAILY@0800 05/24/20 Benztropine Mesylate 2 mg PO DAILY 05/24/20 Bisacodyl [Dulcolax] 10 mg RECTAL DAILY PRN PRN 05/24/20 Calcium (Elemental) [Os-Alfredo 500] 500 mg PO BIDCM 05/24/20 Cholecalciferol (Vitamin D3) 2,000 unit PO DAILY 05/24/20 [Vitamin D3] Ergocalciferol [Vitamin D] 50,000 unit PO Q7D 05/24/20 Escitalopram Oxalate [Lexapro] 10 mg PO DAILY 05/24/20 Famotidine [Pepcid] 20 mg PO DAILY 05/24/20 Fludrocortisone Acetate 0.2 mg PO DAILY 05/24/20 Haloperidol [Haldol] 5 mg PO BID 05/24/20 Insulin Aspart [Novolog Flexpen 10 units SUBCUT TIDCM 05/24/20 ([facility])] Insulin Glargine [Lantus ([facility])] 36 units SUBCUT QHS 05/24/20 Linagliptin [Tradjenta] 5 mg PO DAILY 05/24/20 Lorazepam 1 mg IM Q6H PRN PRN 05/24/20 Lorazepam [Ativan] 1 mg PO Q6H PRN PRN 05/24/20 Lorazepam [Ativan] 2 mg PO TID 05/24/20 Magnesium Hydroxide [Milk Of 30 ml PO DAILY PRN PRN 05/24/20 Magnesia] Quetiapine Fumarate [Seroquel Xr] 400 mg PO BID 05/24/20 Simvastatin [Zocor] 10 mg PO QHS 05/24/20 Tamsulosin HCl [Flomax] 0.4 mg PO DAILY 05/24/20 Surgical History: - - Unable to obtain since patient is confused. 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 Lives: [facility] Smoking Status: Unknown if ever smoked - *Family History Maternal History Items: - - Unable to obtain since patient is confused. 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 Paternal History Items: - - Unable to obtain since patient is confused. 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 Review of Systems Unable to obtain accurate/complete ROS d/t: [facility] Patient Problems: Active and Suspected Problems (Last Reviewed 05/24/20 @ 04:[address] Aubrey Powell MD) Suspected 2019 novel coronavirus infection (Acute) Severe sepsis (Acute) Schizophrenia (Acute) Objective: Chest x-ray was personally reviewed. This does show hypoinflation, but I believe there is a right lower lobe infiltrate. There is cardiomegaly noted. Some old records were provided by the [facility] showing a normal renal function in the past. - Physical Exam Vitals/I&O's: Vital Signs Temp Pulse Resp BP Pulse Ox 38.6 C H 110 H 43 H 138/56 H 93 05/24/20 06:00 05/24/20 06:00 05/24/20 06:00 05/24/20 06:00 05/24/20 06:00 Oxygen Delivery Method Room Air Weight: 156.1 kg Body Mass Index (BMI) 46.6 Intake and Output for Last 24 Hours 05/22/20 05/23/20 05/24/20 23:59 23:59 23:59 Intake Total 2815.8713 / 2815.8713 Output Total 950 / 950 Balance 1865.8713 / 1865.8713 General: Alert, Confused, Disoriented, - - Morbidly obese. Speaks in abrupt sentences, but does not appear to have conversational dyspnea HEENT: Atraumatic, PERRLA, EOMI, Normocephalic, - - Slight scleral injection without icterus Oral: Moist Mucosa, No Gingival or Mucosal Lesions/ Ulcerations Neck: Supple, No Nodes, Trachea Midline, - - JVD difficult to assess secondary to a lack of cooperation and body habitus Lungs: No wheeze, No rales, Diminished, Rhonchi - Right base Cardiovascular: Normal S1, Normal S2, No murmurs, No rub noted, No Gallop, Tachycardic Abdomen: Bowel Sounds Present, Soft, Non Tender, Non-Distended, Obese Extremities: No clubbing, No cyanosis, Edema Skin: - - Venous stasis changes noted of bilateral lower extremities Musculoskeletal: No Tenderness to Palpation of Joints or Extremities Lymphatic: No Cervical, Supraclavicular, or Inguinal Adenopathy Neurological: Cranial nerves II-XII grossly intact, Neuro grossly intact Psych/Mental Status: Anxious, Impulsive, Restless Microbiology Past 72 Hours 05/24/20 00:55 Mucosa - Nasopharyngeal Respiratory Panel (PCR) - Final 05/24/20 02:20 Urine Catheter - Catheter Streptococcus pneumoniae Antigen (M - Final 05/24/20 02:20 Urine Catheter - Catheter Legionella Antigen - Final Laboratory Results 05/24/20 00:45: WBC 17.1 H, RBC 4.85, Hgb 13.1, Hct 39.3 L, MCV 81.0, MCH 27.0, MCHC 33.3, RDW Std Deviation 39.7, RDW Coeff of Gume 13.6, Plt Count 127 L, MPV 11.7, Immature Gran % (Auto) 1.100 H, Neut % (Auto) 90.7 H, Lymph % (Auto) 2.3 L, [place] % (Auto) 4.7, Eos % (Auto) 1.0, Baso % (Auto) 0.2, Absolute Neuts (auto) 15.5 H, Absolute Lymphs (auto) 0.40 L, Nucleated RBC % 0, Differential Comment COMMENT, Platelet Estimate SLT 05/24/20 00:45: Sodium 127 L, Potassium 3.3 L, Chloride 94 L, Carbon Dioxide 20.0 L, Anion Gap 13, BUN 22 H, Creatinine 2.29 H, Estim Creat Clear Calc 37.19, Est GFR (MDRD) Af Amer 38 L, Est GFR (MDRD) Non-Af 32 L, BUN/Creatinine Ratio 9.6 L, Glucose 171 H, Calcium 8.2 L, Total Bilirubin 1.00, AST 116 H, ALT 40, Alkaline Phosphatase 75, Troponin I 0.059 H, Total Protein 7.7, Albumin 2.9 L, Globulin 4.8 H, Albumin/Globulin Ratio 0.6 L 05/24/20 00:45: Lactic Acid 2.5 H* 05/24/20 00:45: B-Natriuretic Peptide 136.4 H 05/24/20 00:45: Procalcitonin 17.97 H 05/24/20 00:54: Specimen Type ART, Sample Site R RADIAL, pH 7.51 H, Bicarbonate Actual 19.3 L, POC Total CO2 20, Base Excess -4 L, O2 Saturation 95, ABG pCO2 24.1 L, ABG pO2 65 L, Nick Test POS, O2 Delivery Device Room Air, Blood Gas Notified Whom ED , Blood Gas Notified Time 54 05/24/20 00:55: COVID-19 (MARTI) Pending 05/24/20 00:55: COVID-19 (MARTI) Pending 05/24/20 02:20: Urine Color Yellow, Urine Clarity Sl. Cloudy, Urine pH 6.0, Ur Specific [place] 1.020, Urine Protein 500 H, Urine Glucose (UA) Normal, Urine Ketones 15 H, Urine Occult Blood 250 H, Urine Nitrite Negative, Urine Bilirubin Negative, Urine Urobilinogen Normal, Ur Leukocyte Esterase 25 H, Urine RBC 0-5 SEEN, Urine WBC 5-10 SEEN, Ur Squamous Epith Cells 0-5 SEEN, Amorphous Sediment 2+, Urine Bacteria 1+, Coarse Granular Casts 5-10 SEEN, Urine Mucus 0 SEEN 05/24/20 04:00: PT 17.3 H, INR 1.5, Fibrinogen 693 H, D-Dimer Quant (PE/DVT) 7.52 H* 05/24/20 04:00: Ferritin 243, Lactate Dehydrogenase 517 H, Total Creatine Kinase 44688 H, C-React Prot Ext Range 210.00 H, Triglycerides 124 05/24/20 04:00: WBC 19.8 H, RBC 4.54 L, Hgb 12.3 L, Hct 37.7 L, MCV 83.0, MCH 27.1, MCHC 32.6, RDW Std Deviation 41.6, RDW Coeff of Gume 13.8, Plt Count 134 L, MPV 12.9 H, Immature Gran % (Auto) 0.600, Neut % (Auto) 91.5 H, Lymph % (Auto) 2.6 L, [place] % (Auto) 4.5, Eos % (Auto) 0.5, Baso % (Auto) 0.3, Absolute Neuts (auto) 18.1 H, Absolute Lymphs (auto) 0.51 L, Nucleated RBC % 0, Differential Comment SCANNED 05/24/20 04:00: Sodium 129 L, Potassium 3.4 L, Chloride 96 L, Carbon Dioxide 18.0 L, Anion Gap 15, BUN 24 H, Creatinine 2.26 H, Estim Creat Clear Calc 40.06, Est GFR (MDRD) Af Amer 39 L, Est GFR (MDRD) Non-Af 32 L, BUN/Creatinine Ratio 10.6, Glucose 187 H, Calcium 7.8 L, Total Bilirubin 1.20 H, AST 198 H, ALT 50, Alkaline Phosphatase 68, Total Protein 7.2, Albumin 2.7 L, Globulin 4.5 H, Albumin/Globulin Ratio 0.6 L 05/24/20 04:00: MRSA (PCR) POSITIVE H 05/24/20 04:00: Troponin I 0.151 H 05/24/20 04:00: APTT 46.5 H 05/24/20 05:15: POC Glucose 141 H 05/24/20 05:30: Phosphorus 2.5, Magnesium 1.4 L, Troponin I 0.195 H 05/24/20 05:30: Lactic Acid 1.9 Current Medications Acetaminophen (Tylenol) 650 mg RECTAL Q4H PRN PRN PRN Reason: Pain Score 1-10/Temp > 100.7 F Last Admin: 05/24/20 03:50 Dose: 650 mg Documented by: Albuterol Sulfate (Ventolin Aerosols) 2.5 mg INHALATION Q2H PRN PRN PRN Reason: SOB/Wheezing Benztropine Mesylate (Cogentin) 1 mg IV BID CATHLEEN Dextrose (D50w Syringe) 0 gm IV X1 PRN; Protocol PRN Reason: Hypoglycemia Glucagon () 1 mg IM .X1 PRN PRN Reason: Hypoglycemia Haloperidol Lactate (Haldol) 2 mg IV Q4H PRN PRN PRN Reason: AGITATION Last Admin: 05/24/20 03:51 Dose: 2 mg Documented by: Heparin Sodium (Porcine) (Heparin Na) 0 unit IV UD PRN; Protocol Hydrocortisone Sodium Succinate (Solu-Cortef) 50 mg IV Q8 CATHLEEN Last Admin: 05/24/20 05:16 Dose: 50 mg Documented by: Sodium Chloride () 1,000 mls @ 100 mls/hr IV .Q10H CATHLEEN Last Admin: 05/24/20 04:15 Dose: 100 mls/hr Documented by: Piperacillin Sod/Tazobactam (Sod 3.375 gm/ Sodium Chloride) 50 mls @ 12.5 mls/hr IV Q8 CATHLEEN Famotidine 20 mg/ Sodium (Chloride) 10 mls @ 300 mls/hr IV Q24 CATHLEEN Last Infusion: 05/24/20 05:23 Dose: Infused Documented by: Vancomycin IV Pharmacy to Dose (1 ea/ Sodium Chloride) 500 mls @ 250 mls/hr IV PRN PRN; Protocol PRN Reason: Rx to Dose Sodium Chloride () 250 mls @ 15 mls/hr IV .[id number] PRN PRN Reason: Saline Flush Last Infusion: 05/24/20 05:20 Dose: 0 mls/hr Documented by: Sodium Chloride () 250 mls @ 15 mls/hr IV .[id number] PRN PRN Reason: Additional IVPB Infusion Vancomycin HCl 1,500 mg/ (Sodium Chloride) 530 mls @ 250 mls/hr IV Q24H CATHLEEN Heparin Sodium/Dextrose () 25,000 units in 250 mls @ 19 mls/hr IV .[id number] CATHLEEN; Protocol Last Admin: 05/24/20 07:35 Dose: 1,900 units/hr, 19 mls/hr Documented by: Dexmedetomidine HCl 1,000 mcg/ (Sodium Chloride) 250 mls @ 19.513 mls/hr CONT INF .[id number] CATHLEEN; Protocol Last Titration: 05/24/20 09:45 Dose: 0.9 mcg/kg/hr, 35.1 mls/hr Documented by: Insulin Glargine (Lantus (Bkc)) 15 units SC QHS CATHLEEN Insulin Human Lispro (Humalog Kwikpen (Bk)) 0 unit SC Q6 CATHLEEN; Protocol Last Admin: 05/24/20 05:21 Dose: Not Given Documented by: Lorazepam (Ativan) 1 mg IV Q4H PRN PRN PRN Reason: AGITATION Last Admin: 05/24/20 05:08 Dose: 1 mg Documented by: Ondansetron HCl (Zofran) 4 mg IV Q8H PRN PRN PRN Reason: NAUSEA/VOMITING Sodium Chloride () 10 - 40 ml IV UD PRN PRN Reason: SALINE FLUSH Last Admin: 05/24/20 05:22 Dose: 20 ml Documented by: Clinical Impression(s) from Imaging Studies Chest X-Ray 05/24/20 00:56 IMPRESSION: Pulmonary hypoexpansion with pulmonary venous congestion. at 0128 Reported and signed by: Baldemar Angulo MD Electronically Signed: Baldemar Angulo MD at 1:27 EDT Tel , Service support , Assessment/Plan Active and Suspected Problems (Last Reviewed 05/24/20 @ 04:[address] Aubrey Powell MD) Suspected 2019 novel coronavirus infection (Acute) Severe sepsis (Acute) Schizophrenia (Acute) RECOMMENDATIONS: 1. Continue empiric antibiotics pending culture results, keep Vanco given MRSA swab positive 2. Continue fluid resuscitation 3. Obtain echocardiogram 4. Initiate systemic anticoagulation 5. Hold on steroids for now. Monitor sugars closely IMPRESSIONS: 1. Severe sepsis with possible right-sided pneumonia versus COVID-19 Hypoventilation and body habitus make chest x-ray difficult to interpret. Patient does appear to have a right-sided infiltrate on my evaluation of the x-ray. Antigens have been sent. Patient's MRSA swab is positive, so would continue vancomycin. Symptomatic therapy for fevers would be appropriate. Continue to monitor blood cultures. COVID test is currently pending. Difficult to obtain a CT scan of the chest at this time given patient's mentation. 2. Acute kidney injury Baseline renal function is within normal limits. Patient is on IV fluids at this time. Anticipate prerenal etiology. No indication for renal replacement therapy at this time. Will attempt to avoid nephrotoxic medications. Patient does have some mild increase in CPK, but would not account for elevated MARIA T in my opinion. 3. Elevated d-dimer/elevated troponin Unclear etiology. Patient does appear to have RVH on chest x-ray. Will obtain an echocardiogram for evaluation. Given concerns for COVID-19, reasonable to initiate systemic anticoagulation with heparin drip. Renal function precludes Lovenox at this time. 4. Schizophrenia/diabetes mellitus type 2/morbid obesity/metabolic encephalopathy Complicates care, management, recovery and prognosis. Continue with sliding scale insulin. Variable p.o. intake anticipated, so would be careful with basal insulin. Patient has been placed on Precedex drip to attempt to avoid physical restraints. TIME: 33 minutes critical care time spent addressing patient's severe sepsis, acute kidney injury, metabolic encephalopathy, review of all data and collaboration with care team (9 AM to 10:30 AM) [phone] [id number] Critical care first hour
--- NOTE | 2020-05-24 10:28 | ECHOCS_ITS ---
Reason For Study: SOB Procedure This was a 2D Doppler, Color Flow transthoracic echocardiogram. The study was technically difficult. Exam performed portable in ICU/CCU. Left Ventricle Normal LV size. Left ventricular systolic function is normal. No regional wall motion abnormalities noted. Great Vessels Normal aortic root. Pericardium/Pleural No pericardial effusion. MMode/2D Measurements & Calculations RVDd: 3.4 cm Ao root diam: 3.3 cm LAV(MOD-bp): 40.7 ml LAV(MOD-bp) Indexed: 15.1 ml/m2 LAV(MOD-sp2): 32.0 ml LAV(MOD-sp4): 46.4 ml LA dimension(2D): 3.6 cm LA A4 area: 16.9 cm2 RA A4 area: 13.8 cm2 Doppler Measurements & Calculations MV E max rudy: 106.7 cm/sec Lat Peak E' Rudy: 10.6 cm/sec Med Peak E' Rudy: 8.5 cm/sec MV A max rudy: 115.3 cm/sec E/E' lat: 10.0 E/E' med: 12.5 MV E/A: 0.93 Ao V2 max: 138.9 cm/sec LV V1 max: 112.7 cm/sec PA V2 max: 114.6 cm/sec Ao max P.7 mmHg LV V1 max P.1 mmHg Interpretation Summary Normal LV size. Left ventricular systolic function is normal. The study was technically limited. The study was technically difficult. Contrast injection was performed. Ordering Physician: Vishnu Medley Referring Physician: Alonso Ramos Performed By: Julianna Castelan RDCS
[2020-05-24] MEDS: Dexmedetomidine 1,000 mcg in 0.9% NS 240 mL 54.6 MCG CONT INF (12:45)
--- NOTE | 2020-05-24 13:06 | CPS ---
PT AGITATED AND IN RESTRAINTS UNABLE TO DO/COMPREHEND HOW TO USE PEP DEVICE
[2020-05-24] MEDS: Insulin Lispro 100 UNIT/ML INSULN.PEN SC ×2 (13:39→18:10)
[2020-05-24 13:46] LABS: Bedside Glucose 199 mg/dL (70-110)
[2020-05-24 14:52] LABS: Partial Thromboplast Time > 250.0 Seconds (24.1-36.2)
[2020-05-24 15:07] LABS: CPK Total, Creatine Kinase 19511 U/L (39-308)
[2020-05-24] MEDS: Dexmedetomidine 1,000 mcg in 0.9% NS 240 mL 35.1 MCG CONT INF (17:56)
[2020-05-24 18:21] LABS: Bedside Glucose 224 mg/dL (70-110)
[2020-05-24] MEDS: HEPARIN/D5w 25,000 UNITS 25,000 UNITS/250 ML IV.SOLN. 16 UNITS IV (21:05)
[2020-05-25] VITALS (30 sets, daily range): BP systolic 96–184; BP diastolic 49–100; PULSE 54–115; RESP 13–34; TEMP 36.1–39.7; O2SAT 86–99
[2020-05-25] MEDS: Insulin Lispro 100 UNIT/ML INSULN.PEN SC ×5 (00:09→23:50)
[2020-05-25 00:47] LABS: Partial Thromboplast Time 114.4 Seconds (24.1-36.2)
[2020-05-25] MEDS: Dexmedetomidine 1,000 mcg in 0.9% NS 240 mL 35.1 MCG CONT INF (01:10)
[2020-05-25 01:36] LABS: Bedside Glucose 217 mg/dL (70-110)
[2020-05-25 04:39] LABS: Absolute Lymphocyte Count 0.88 X10^3/uL (0.83-4.51); Absolute Neutrophil Count 14.1 X10^3/uL (2.0-7.7); Basophil# 0.03 X10^3/uL; Basophil% 0.2 % (0-1); Eosinophils% 0.6 % (0-5); Hematocrit 38.8 % (40-54); Hemoglobin 12.3 g/dL (13.0-16.5); Lymphocyte # 0.88 X10^3/ul (4.0); Lymphocyte % 5.3 % (19-41); Mean Corp Hgb Conc 31.7 g/dL (32-36); Mean Corpuscular Hgb 27.2 pg (27.0-32.0); Mean Corpuscular Volume 85.7 fL (80-94); Mean Platelet Vol. 12.1 fl (6.2-12.0); Monocyte# 1.09 X10^3/uL; Monocyte% 6.6 % (0-10); NRBC Flagged by Analyzer 0 % (0-5); Neutrophil # 14.07 X10^3/uL (2.7-7.7); POSITIVE MORPHOLOGY YES; Platelet Count 134 K/mm3 (150-450); RBC Distribution Width CV 14.3 % (11.6-14.6); RBC Distribution Width SD 44.2 fl (35.1-43.9); Red Blood Count 4.53 M/mm3 (4.6-6.2); White Blood Count 16.6 K/mm3 (4.4-11.0)
[2020-05-25 04:47] LABS: Differential Indicated SCAN CRITERIA MET
[2020-05-25 05:19] LABS: Differential Comment SCANNED; Toxic Granulation 1+
[2020-05-25 05:20] LABS: Vacuolated Cells 1+
[2020-05-25] MEDS: 0.9% Normal Saline 1,000 ML 100 ML IV (05:22)
[2020-05-25] MEDS: Hydrocortisone Sod Succinate 100 MG/2 ML Vial 50 MG IV ×3 (05:32→20:50)
[2020-05-25 06:16] LABS: ALB/GLOB Ratio 0.5 RATIO (0.9-2.4); AST(SGOT) 276 U/L (15-37); Alanine Aminotransfer ALT/SGPT 94 U/L (16-61); Albumin, Serum 2.2 g/dL (3.2-5.0); Alkaline Phosphatase 60 U/L (45-117); Anion Gap 13 (5-15); BUN 29 mg/dL (7-18); BUN/Creat Ratio 13.1 RATIO (10-20); CPK Total, Creatine Kinase 16141 U/L (39-308); Calcium,Total 7.5 mg/dL (8.5-10.1); Chloride 104 mmol/L (98-107); Creatinine, Serum 2.22 mg/dL (0.70-1.30); EST Glomerular Filtration Rate 33 mL/min (>60); Est Glom Filt Rate - Afr Amer 40 mL/min (>60); Estimated Creatinine Clearance 40.78 ml/min; Globulin 4.8 g/dL (2.2-4.2); Glucose 202 mg/dL (74-106); Magnesium 2.2 mg/dL (1.6-2.6); Potassium 3.4 mmol/L (3.5-5.1); Sodium Level 134 mmol/L (136-145)
--- NOTE | 2020-05-25 06:20 | PN_ITS ---
Subjective: The patient was seen and examined at the bedside this morning. Events from the last 24 hours have been reviewed. The patient is currently febrile but remains hemodynamically stable. Oxygen saturations are stable on room air. Patient remains on Precedex due to underlying behavioral disturbances. The patient remains on a continuous heparin infusion. Potassium was low this morning at 3.4. Creatinine is stable. Objective: The patient's most recent lab work, culture data and imaging studies have all been personally reviewed. Coronavirus PCR pending. MRSA screen was positive. Strep and urine Legionella antigens were negative. Respiratory viral panel was negative. General: Alert, Confused, Disoriented HEENT: Atraumatic, Normocephalic Oral: No Gingival or Mucosal Lesions/ Ulcerations Neck: Supple, No Nodes, Trachea Midline Lungs: Diminished, Rhonchi, Tachypneic Cardiovascular: Normal S1, Normal S2, Tachycardic Abdomen: Bowel Sounds Present, Soft, Non Tender, Obese Extremities: No clubbing, No cyanosis, Edema Skin: - - Lower extremity venous stasis dermatitis Musculoskeletal: No Muscle Wasting Lymphatic: No Cervical, Supraclavicular, or Inguinal Adenopathy Neurological: Neuro grossly intact Psych/Mental Status: Agitated, Impulsive, Restless Vital Signs Temp Pulse Resp BP Pulse Ox 100.6 F H 72 29 H 161/87 H 95 05/25/20 06:00 05/25/20 06:00 05/25/20 06:00 05/25/20 06:00 05/25/20 06:00 Oxygen Delivery Method Room Air Weight: 347 lb 0.121 oz Body Mass Index (BMI) 46.6 Intake and Output for Last 24 Hours 05/23/20 05/24/20 05/25/20 23:59 23:59 23:59 Intake Total 5510.7313 / 5510.7313 1933.14 / 1933.14 Output Total 2050 / 2400 350 / 350 Balance 3460.7313 / 3110.7313 1583.14 / 1583.14 Labs (Last 48 Hours) 05/24/20 05/24/20 05/24/20 00:45 00:45 00:45 WBC 17.1 H RBC 4.85 Hgb 13.1 Hct 39.3 L MCV 81.0 MCH 27.0 MCHC 33.3 RDW Std Deviation 39.7 RDW Coeff of Gume 13.6 Plt Count 127 L MPV 11.7 Immature Gran % (Auto) 1.100 H Neut % (Auto) 90.7 H Lymph % (Auto) 2.3 L [place] % (Auto) 4.7 Eos % (Auto) 1.0 Baso % (Auto) 0.2 Absolute Neuts (auto) 15.5 H Absolute Lymphs (auto) 0.40 L Nucleated RBC % 0 Differential Comment COMMENT Toxic Granulation Toxic Vacuolation Platelet Estimate SLT DEC PT INR APTT Fibrinogen D-Dimer Quant (PE/DVT) Specimen Type Sample Site pH Bicarbonate Actual POC Total CO2 Base Excess O2 Saturation ABG pCO2 ABG pO2 Nick Test O2 Delivery Device Blood Gas Notified Whom Blood Gas Notified Time Sodium 127 L Potassium 3.3 L Chloride 94 L Carbon Dioxide 20.0 L Anion Gap 13 BUN 22 H Creatinine 2.29 H Estim Creat Clear Calc 37.19 Est GFR (MDRD) Af Amer 38 L Est GFR (MDRD) Non-Af 32 L BUN/Creatinine Ratio 9.6 L Glucose 171 H Lactic Acid 2.5 H* Calcium 8.2 L Phosphorus Magnesium Ferritin Total Bilirubin 1.00 AST 116 H ALT 40 Alkaline Phosphatase 75 Lactate Dehydrogenase Total Creatine Kinase Troponin I 0.059 H C-React Prot Ext Range B-Natriuretic Peptide Total Protein 7.7 Albumin 2.9 L Globulin 4.8 H Albumin/Globulin Ratio 0.6 L Triglycerides Procalcitonin Urine Color Urine Clarity Urine pH Ur Specific Midway Urine Protein Urine Glucose (UA) Urine Ketones Urine Occult Blood Urine Nitrite Urine Bilirubin Urine Urobilinogen Ur Leukocyte Esterase Urine RBC Urine WBC Ur Squamous Epith Cells Amorphous Sediment Urine Bacteria Coarse Granular Casts Urine Mucus COVID-19 (MARTI) MRSA (PCR) POC Glucose 05/24/20 05/24/20 05/24/20 00:45 00:45 00:54 WBC RBC Hgb Hct MCV MCH MCHC RDW Std Deviation RDW Coeff of Gume Plt Count MPV Immature Gran % (Auto) Neut % (Auto) Lymph % (Auto) [place] % (Auto) Eos % (Auto) Baso % (Auto) Absolute Neuts (auto) Absolute Lymphs (auto) Nucleated RBC % Differential Comment Toxic Granulation Toxic Vacuolation Platelet Estimate PT INR APTT Fibrinogen D-Dimer Quant (PE/DVT) Specimen Type ART Sample Site R RADIAL pH 7.51 H Bicarbonate Actual 19.3 L POC Total CO2 20 Base Excess -4 L O2 Saturation 95 ABG pCO2 24.1 L ABG pO2 65 L Nick Test POS O2 Delivery Device Room Air Blood Gas Notified Whom ED MD Blood Gas Notified Time 54 Sodium Potassium Chloride Carbon Dioxide Anion Gap BUN Creatinine Estim Creat Clear Calc Est GFR (MDRD) Af Amer Est GFR (MDRD) Non-Af BUN/Creatinine Ratio Glucose Lactic Acid Calcium Phosphorus Magnesium Ferritin Total Bilirubin AST ALT Alkaline Phosphatase Lactate Dehydrogenase Total Creatine Kinase Troponin I C-React Prot Ext Range B-Natriuretic Peptide 136.4 H Total Protein Albumin Globulin Albumin/Globulin Ratio Triglycerides Procalcitonin 17.97 H Urine Color Urine Clarity Urine pH Ur Specific [place]way Urine Protein Urine Glucose (UA) Urine Ketones Urine Occult Blood Urine Nitrite Urine Bilirubin Urine Urobilinogen Ur Leukocyte Esterase Urine RBC Urine WBC Ur Squamous Epith Cells Amorphous Sediment Urine Bacteria Coarse Granular Casts Urine Mucus COVID-19 (MARTI) MRSA (PCR) POC Glucose 05/24/20 05/24/20 05/24/20 00:55 00:55 02:20 WBC RBC Hgb Hct MCV MCH MCHC RDW Std Deviation RDW Coeff of Gume Plt Count MPV Immature Gran % (Auto) Neut % (Auto) Lymph % (Auto) [place] % (Auto) Eos % (Auto) Baso % (Auto) Absolute Neuts (auto) Absolute Lymphs (auto) Nucleated RBC % Differential Comment Toxic Granulation Toxic Vacuolation Platelet Estimate PT INR APTT Fibrinogen D-Dimer Quant (PE/DVT) Specimen Type Sample Site pH Bicarbonate Actual POC Total CO2 Base Excess O2 Saturation ABG pCO2 ABG pO2 Nick Test O2 Delivery Device Blood Gas Notified Whom Blood Gas Notified Time Sodium Potassium Chloride Carbon Dioxide Anion Gap BUN Creatinine Estim Creat Clear Calc Est GFR (MDRD) Af Amer Est GFR (MDRD) Non-Af BUN/Creatinine Ratio Glucose Lactic Acid Calcium Phosphorus Magnesium Ferritin Total Bilirubin AST ALT Alkaline Phosphatase Lactate Dehydrogenase Total Creatine Kinase Troponin I C-React Prot Ext Range B-Natriuretic Peptide Total Protein Albumin Globulin Albumin/Globulin Ratio Triglycerides Procalcitonin Urine Color Yellow Urine Clarity Sl. Cloudy Urine pH 6.0 Ur Specific [place]way 1.020 Urine Protein 500 H Urine Glucose (UA) Normal Urine Ketones 15 H Urine Occult Blood 250 H Urine Nitrite Negative Urine Bilirubin Negative Urine Urobilinogen Normal Ur Leukocyte Esterase 25 H Urine RBC 0-5 SEEN Urine WBC 5-10 SEEN Ur Squamous Epith Cells 0-5 SEEN Amorphous Sediment 2+ Urine Bacteria 1+ Coarse Granular Casts 5-10 SEEN Urine Mucus 0 SEEN COVID-19 (MARTI) Pending Pending MRSA (PCR) POC Glucose 05/24/20 05/24/20 05/24/20 04:00 04:00 04:00 WBC 19.8 H RBC 4.54 L Hgb 12.3 L Hct 37.7 L MCV 83.0 MCH 27.1 MCHC 32.6 RDW Std Deviation 41.6 RDW Coeff of Gume 13.8 Plt Count 134 L MPV 12.9 H Immature Gran % (Auto) 0.600 Neut % (Auto) 91.5 H Lymph % (Auto) 2.6 L [place] % (Auto) 4.5 Eos % (Auto) 0.5 Baso % (Auto) 0.3 Absolute Neuts (auto) 18.1 H Absolute Lymphs (auto) 0.51 L Nucleated RBC % 0 Differential Comment SCANNED Toxic Granulation Toxic Vacuolation Platelet Estimate PT 17.3 H INR 1.5 APTT Fibrinogen 693 H D-Dimer Quant (PE/DVT) 7.52 H* Specimen Type Sample Site pH Bicarbonate Actual POC Total CO2 Base Excess O2 Saturation ABG pCO2 ABG pO2 Nick Test O2 Delivery Device Blood Gas Notified Whom Blood Gas Notified Time Sodium Potassium Chloride Carbon Dioxide Anion Gap BUN Creatinine Estim Creat Clear Calc Est GFR (MDRD) Af Amer Est GFR (MDRD) Non-Af BUN/Creatinine Ratio Glucose Lactic Acid Calcium Phosphorus Magnesium Ferritin 243 Total Bilirubin AST ALT Alkaline Phosphatase Lactate Dehydrogenase 517 H Total Creatine Kinase 69631 H Troponin I C-React Prot Ext Range 210.00 H B-Natriuretic Peptide Total Protein Albumin Globulin Albumin/Globulin Ratio Triglycerides 124 Procalcitonin Urine Color Urine Clarity Urine pH Ur Specific [place] Urine Protein Urine Glucose (UA) Urine Ketones Urine Occult Blood Urine Nitrite Urine Bilirubin Urine Urobilinogen Ur Leukocyte Esterase Urine RBC Urine WBC Ur Squamous Epith Cells Amorphous Sediment Urine Bacteria Coarse Granular Casts Urine Mucus COVID-19 (MARTI) MRSA (PCR) POC Glucose 05/24/20 05/24/20 05/24/20 04:00 04:00 04:00 WBC RBC Hgb Hct MCV MCH MCHC RDW Std Deviation RDW Coeff of Gume Plt Count MPV Immature Gran % (Auto) Neut % (Auto) Lymph % (Auto) [place] % (Auto) Eos % (Auto) Baso % (Auto) Absolute Neuts (auto) Absolute Lymphs (auto) Nucleated RBC % Differential Comment Toxic Granulation Toxic Vacuolation Platelet Estimate PT INR APTT Fibrinogen D-Dimer Quant (PE/DVT) Specimen Type Sample Site pH Bicarbonate Actual POC Total CO2 Base Excess O2 Saturation ABG pCO2 ABG pO2 Nick Test O2 Delivery Device Blood Gas Notified Whom Blood Gas Notified Time Sodium 129 L Potassium 3.4 L Chloride 96 L Carbon Dioxide 18.0 L Anion Gap 15 BUN 24 H Creatinine 2.26 H Estim Creat Clear Calc 40.06 Est GFR (MDRD) Af Amer 39 L Est GFR (MDRD) Non-Af 32 L BUN/Creatinine Ratio 10.6 Glucose 187 H Lactic Acid Calcium 7.8 L Phosphorus Magnesium Ferritin Total Bilirubin 1.20 H AST 198 H ALT 50 Alkaline Phosphatase 68 Lactate Dehydrogenase Total Creatine Kinase Troponin I 0.151 H C-React Prot Ext Range B-Natriuretic Peptide Total Protein 7.2 Albumin 2.7 L Globulin 4.5 H Albumin/Globulin Ratio 0.6 L Triglycerides Procalcitonin Urine Color Urine Clarity Urine pH Ur Specific [place] Urine Protein Urine Glucose (UA) Urine Ketones Urine Occult Blood Urine Nitrite Urine Bilirubin Urine Urobilinogen Ur Leukocyte Esterase Urine RBC Urine WBC Ur Squamous Epith Cells Amorphous Sediment Urine Bacteria Coarse Granular Casts Urine Mucus COVID-19 (MARTI) MRSA (PCR) POSITIVE H POC Glucose 05/24/20 05/24/20 05/24/20 04:00 05:15 05:30 WBC RBC Hgb Hct MCV MCH MCHC RDW Std Deviation RDW Coeff of Gume Plt Count MPV Immature Gran % (Auto) Neut % (Auto) Lymph % (Auto) [place] % (Auto) Eos % (Auto) Baso % (Auto) Absolute Neuts (auto) Absolute Lymphs (auto) Nucleated RBC % Differential Comment Toxic Granulation Toxic Vacuolation Platelet Estimate PT INR APTT 46.5 H Fibrinogen D-Dimer Quant (PE/DVT) Specimen Type Sample Site pH Bicarbonate Actual POC Total CO2 Base Excess O2 Saturation ABG pCO2 ABG pO2 Nick Test O2 Delivery Device Blood Gas Notified Whom Blood Gas Notified Time Sodium Potassium Chloride Carbon Dioxide Anion Gap BUN Creatinine Estim Creat Clear Calc Est GFR (MDRD) Af Amer Est GFR (MDRD) Non-Af BUN/Creatinine Ratio Glucose Lactic Acid Calcium Phosphorus 2.5 Magnesium 1.4 L Ferritin Total Bilirubin AST ALT Alkaline Phosphatase Lactate Dehydrogenase Total Creatine Kinase Troponin I 0.195 H C-React Prot Ext Range B-Natriuretic Peptide Total Protein Albumin Globulin Albumin/Globulin Ratio Triglycerides Procalcitonin Urine Color Urine Clarity Urine pH Ur Specific [place] Urine Protein Urine Glucose (UA) Urine Ketones Urine Occult Blood Urine Nitrite Urine Bilirubin Urine Urobilinogen Ur Leukocyte Esterase Urine RBC Urine WBC Ur Squamous Epith Cells Amorphous Sediment Urine Bacteria Coarse Granular Casts Urine Mucus COVID-19 (MARTI) MRSA (PCR) POC Glucose 141 H 05/24/20 05/24/20 05/24/20 05:30 11:00 13:23 WBC RBC Hgb Hct MCV MCH MCHC RDW Std Deviation RDW Coeff of Gume Plt Count MPV Immature Gran % (Auto) Neut % (Auto) Lymph % (Auto) [place] % (Auto) Eos % (Auto) Baso % (Auto) Absolute Neuts (auto) Absolute Lymphs (auto) Nucleated RBC % Differential Comment Toxic Granulation Toxic Vacuolation Platelet Estimate PT INR APTT Fibrinogen D-Dimer Quant (PE/DVT) Specimen Type Sample Site pH Bicarbonate Actual POC Total CO2 Base Excess O2 Saturation ABG pCO2 ABG pO2 Nick Test O2 Delivery Device Blood Gas Notified Whom Blood Gas Notified Time Sodium Potassium Chloride Carbon Dioxide Anion Gap BUN Creatinine Estim Creat Clear Calc Est GFR (MDRD) Af Amer Est GFR (MDRD) Non-Af BUN/Creatinine Ratio Glucose Lactic Acid 1.9 Calcium Phosphorus Magnesium Ferritin Total Bilirubin AST ALT Alkaline Phosphatase Lactate Dehydrogenase Total Creatine Kinase Troponin I 0.168 H C-React Prot Ext Range B-Natriuretic Peptide Total Protein Albumin Globulin Albumin/Globulin Ratio Triglycerides Procalcitonin Urine Color Urine Clarity Urine pH Ur Specific [place] Urine Protein Urine Glucose (UA) Urine Ketones Urine Occult Blood Urine Nitrite Urine Bilirubin Urine Urobilinogen Ur Leukocyte Esterase Urine RBC Urine WBC Ur Squamous Epith Cells Amorphous Sediment Urine Bacteria Coarse Granular Casts Urine Mucus COVID-19 (MARTI) MRSA (PCR) POC Glucose 199 H 05/24/20 05/24/20 05/24/20 13:35 13:35 18:09 WBC RBC Hgb Hct MCV MCH MCHC RDW Std Deviation RDW Coeff of Gume Plt Count MPV Immature Gran % (Auto) Neut % (Auto) Lymph % (Auto) [place] % (Auto) Eos % (Auto) Baso % (Auto) Absolute Neuts (auto) Absolute Lymphs (auto) Nucleated RBC % Differential Comment Toxic Granulation Toxic Vacuolation Platelet Estimate PT INR APTT > 250.0 H* Fibrinogen D-Dimer Quant (PE/DVT) Specimen Type Sample Site pH Bicarbonate Actual POC Total CO2 Base Excess O2 Saturation ABG pCO2 ABG pO2 Nick Test O2 Delivery Device Blood Gas Notified Whom Blood Gas Notified Time Sodium Potassium Chloride Carbon Dioxide Anion Gap BUN Creatinine Estim Creat Clear Calc Est GFR (MDRD) Af Amer Est GFR (MDRD) Non-Af BUN/Creatinine Ratio Glucose Lactic Acid Calcium Phosphorus Magnesium Ferritin Total Bilirubin AST ALT Alkaline Phosphatase Lactate Dehydrogenase Total Creatine Kinase 89171 H Troponin I C-React Prot Ext Range B-Natriuretic Peptide Total Protein Albumin Globulin Albumin/Globulin Ratio Triglycerides Procalcitonin Urine Color Urine Clarity Urine pH Ur Specific [place] Urine Protein Urine Glucose (UA) Urine Ketones Urine Occult Blood Urine Nitrite Urine Bilirubin Urine Urobilinogen Ur Leukocyte Esterase Urine RBC Urine WBC Ur Squamous Epith Cells Amorphous Sediment Urine Bacteria Coarse Granular Casts Urine Mucus COVID-19 (MARTI) MRSA (PCR) POC Glucose 224 H 05/25/20 05/25/20 05/25/20 00:00 00:08 04:20 WBC 16.6 H RBC 4.53 L Hgb 12.3 L Hct 38.8 L MCV 85.7 MCH 27.2 MCHC 31.7 L RDW Std Deviation 44.2 H RDW Coeff of Gume 14.3 Plt Count 134 L MPV 12.1 H Immature Gran % (Auto) 2.300 H Neut % (Auto) 85.0 H Lymph % (Auto) 5.3 L [place] % (Auto) 6.6 Eos % (Auto) 0.6 Baso % (Auto) 0.2 Absolute Neuts (auto) 14.1 H Absolute Lymphs (auto) 0.88 Nucleated RBC % 0 Differential Comment SCANNED Toxic Granulation 1+ Toxic Vacuolation 1+ Platelet Estimate PT INR APTT 114.4 H* Fibrinogen D-Dimer Quant (PE/DVT) Specimen Type Sample Site pH Bicarbonate Actual POC Total CO2 Base Excess O2 Saturation ABG pCO2 ABG pO2 Nick Test O2 Delivery Device Blood Gas Notified Whom Blood Gas Notified Time Sodium Potassium Chloride Carbon Dioxide Anion Gap BUN Creatinine Estim Creat Clear Calc Est GFR (MDRD) Af Amer Est GFR (MDRD) Non-Af BUN/Creatinine Ratio Glucose Lactic Acid Calcium Phosphorus Magnesium Ferritin Total Bilirubin AST ALT Alkaline Phosphatase Lactate Dehydrogenase Total Creatine Kinase Troponin I C-React Prot Ext Range B-Natriuretic Peptide Total Protein Albumin Globulin Albumin/Globulin Ratio Triglycerides Procalcitonin Urine Color Urine Clarity Urine pH Ur Specific [place] Urine Protein Urine Glucose (UA) Urine Ketones Urine Occult Blood Urine Nitrite Urine Bilirubin Urine Urobilinogen Ur Leukocyte Esterase Urine RBC Urine WBC Ur Squamous Epith Cells Amorphous Sediment Urine Bacteria Coarse Granular Casts Urine Mucus COVID-19 (MARTI) MRSA (PCR) POC Glucose 217 H 05/25/20 04:20 WBC RBC Hgb Hct MCV MCH MCHC RDW Std Deviation RDW Coeff of Gume Plt Count MPV Immature Gran % (Auto) Neut % (Auto) Lymph % (Auto) [place] % (Auto) Eos % (Auto) Baso % (Auto) Absolute Neuts (auto) Absolute Lymphs (auto) Nucleated RBC % Differential Comment Toxic Granulation Toxic Vacuolation Platelet Estimate PT INR APTT Fibrinogen D-Dimer Quant (PE/DVT) Specimen Type Sample Site pH Bicarbonate Actual POC Total CO2 Base Excess O2 Saturation ABG pCO2 ABG pO2 Nick Test O2 Delivery Device Blood Gas Notified Whom Blood Gas Notified Time Sodium 134 L Potassium 3.4 L Chloride 104 Carbon Dioxide 17.0 L Anion Gap 13 BUN 29 H Creatinine 2.22 H Estim Creat Clear Calc 40.78 Est GFR (MDRD) Af Amer 40 L Est GFR (MDRD) Non-Af 33 L BUN/Creatinine Ratio 13.1 Glucose 202 H Lactic Acid Calcium 7.5 L Phosphorus Magnesium 2.2 Ferritin Total Bilirubin 0.60 AST 276 H ALT 94 H Alkaline Phosphatase 60 Lactate Dehydrogenase Total Creatine Kinase 63685 H Troponin I C-React Prot Ext Range B-Natriuretic Peptide Total Protein 7.0 Albumin 2.2 L Globulin 4.8 H Albumin/Globulin Ratio 0.5 L Triglycerides Procalcitonin Urine Color Urine Clarity Urine pH Ur Specific [place] Urine Protein Urine Glucose (UA) Urine Ketones Urine Occult Blood Urine Nitrite Urine Bilirubin Urine Urobilinogen Ur Leukocyte Esterase Urine RBC Urine WBC Ur Squamous Epith Cells Amorphous Sediment Urine Bacteria Coarse Granular Casts Urine Mucus COVID-19 (MARTI) MRSA (PCR) POC Glucose Microbiology 05/24/20 00:45 Blood Culture (Wb) - Right Hand Blood Culture - Preliminary 05/24/20 00:55 Mucosa - Nasopharyngeal Respiratory Panel (PCR) - Final 05/24/20 02:20 Urine Catheter - Catheter Streptococcus pneumoniae Antigen (M - Final 05/24/20 02:20 Urine Catheter - Catheter Legionella Antigen - Final Clinical Impression(s) from Imaging Studies Chest X-Ray 05/24/20 00:56 IMPRESSION: Pulmonary hypoexpansion with pulmonary venous congestion. at 0128 Reported and signed by: Baldemar Angulo MD Electronically Signed: Baldemar Angulo MD at 1:27 EDT Tel , Service support , Medical Necessity - Tobacco Use Smoking Status: Unknown if ever smoked Assessment/Plan All Active Problems (Last Reviewed 05/24/20 @ 04:[address] Aubrey Powell MD) Suspected 2019 novel coronavirus infection (Acute) Severe sepsis (Acute) Schizophrenia (Acute) RECOMMENDATIONS: 1. Continue empiric antimicrobials. 2. Await coronavirus PCR testing. 3. Obtain echocardiogram. 4. Check QT and if not prolonged, restart baseline Haldol and Seroquel. 5. Wean from Precedex therapy as tolerated. 6. Continue stress dose steroids. IMPRESSIONS: 1. Severe sepsis with possible right-sided pneumonia versus COVID-19 infection The patient's initial chest x-ray was difficult to interpret given poor inspiratory effort. However, there is a questionable right-sided infiltrate. Procalcitonin level is also elevated. Therefore, it is reasonable to continue empiric broad-spectrum antimicrobials for now. Coronavirus PCR is pending. Patient will remain in precautions accordingly. Continue systemic anticoagulation, given elevated d-dimer levels. It would be difficult to obtain a new plain film chest x-ray, given the patient's significant underlying behavioral disturbances. 2. Acute kidney injury Unclear etiology. The patient remains on supplemental IV fluids. Continue to monitor urine output for now. No current indication for renal replacement therapy. 3. Hypokalemia Electrolyte repletion as ordered. Recheck levels in the morning. 4. Elevated inflammatory markers/d-dimer Continue systemic anticoagulation for now. 5. History of adrenal insufficiency/schizophrenia/diabetes mellitus/morbid obesity Complicates care, management, recovery and prognosis. Continue stress dose steroids as ordered. If corrected QT is not prolonged, we will plan to add back the patient's baseline Haldol and Seroquel. This note was generated with Dragon dictation software. It may contain incorrect words, spelling, and punctuation that were not noted in checking the note before signing. Inpatient E&M: 21396 Subs Hosp L3
[2020-05-25] MEDS: Dexmedetomidine 1,000 mcg in 0.9% NS 240 mL 42.9 MCG CONT INF (06:33)
[2020-05-25] MEDS: Acetaminophen 650 MG Suppository RECTAL ×2 (09:15→17:13)
[2020-05-25] MEDS: LORazepam 2 MG/ML Syringe 1 MG IV ×3 (09:15→22:14)
[2020-05-25] MEDS: Haloperidol Lactate 5 MG/ML Vial IV (09:30)
--- NOTE | 2020-05-25 09:58 | CASEMGMT ---
RN CM Note: patient presented from SNF with fever, confusion, hypoxia and tachypnea. Suspected SARS secondary to COVID-19. Testing is pending. Currently febrile, and 90% on RA. Presedex, Solu-Cortef, Insulin and BS monitoring w/coverage. DC Planning: consult placed for dc planning to SNF. Shaheed HAYDEN RN ACM
--- NOTE | 2020-05-25 10:15 | CASEMGMT ---
MARIJA called [facility] and spoke with Sweta. She said patient will have to go to one of their other facilities to quarantine for 14 days. She said this is even if he tests negative. She said whichever facility he goes to will need to get insurance authorization. She will have to call her production administrator to see which facility he will go to. She will get back with MARIJA. Noni RAE
[2020-05-25] MEDS: Haloperidol 5 MG Tablet PO ×2 (10:30→20:55)
[2020-05-25] MEDS: QUEtiapine 100 MG Tablet 200 MG PO ×2 (10:30→20:55)
[2020-05-25] MEDS: Famotidine 200 MG/20 ML MDV 20 MG in 0.9% Normal Saline (Pres. free 8 ML 300 MG IV (11:00)
[2020-05-25 11:04] LABS: D-Dimer Quantitative (DVT/PE) 8.97 FEU/ug/m (0.27-0.49)
[2020-05-25 11:56] LABS: Bedside Glucose 171 mg/dL (70-110)
[2020-05-25] MEDS: Dexmedetomidine 1,000 mcg in 0.9% NS 240 mL 58.5 MCG CONT INF ×3 (12:15→20:37)
--- NOTE | 2020-05-25 13:53 | NURSING ---
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 pt info given
[2020-05-25 14:37] LABS: LDH 759 U/L (87-241)
[2020-05-25 14:54] LABS: Procalcitonin 22.43 ng/mL (0.00-0.09)
--- NOTE | 2020-05-25 15:28 | CON.PCM_ITS ---
Problem List (1) Suspected 2019 novel coronavirus infection Status: Acute Reason for Consult: suspected covid Consulted by: Dr. Dumont History of Present Illness: The patient is a 55 year old M with schizophrenia, lives in [facility], presented 05/24 with acute onset tachypnea, dyspnea, fever, altered mental status. Admitted on vanc/zosyn, still febrile, not on O2. Unable to answer questions due to mental status. - Medical History Surgical History: reviewed Allergies/Adverse Reactions: Allergies No Known Allergies Allergy (Verified 05/24/20 00:41) Home Medications: Ambulatory Orders Medication Instructions Recorded Acetaminophen [Tylenol] 650 mg PO Q4H PRN PRN 05/24/20 Aspirin [Aspirin, Baby] 81 mg PO DAILY@0800 05/24/20 Benztropine Mesylate 2 mg PO DAILY 05/24/20 Bisacodyl [Dulcolax] 10 mg RECTAL DAILY PRN PRN 05/24/20 Calcium (Elemental) [Os-Alfredo 500] 500 mg PO BIDCM 05/24/20 Cholecalciferol (Vitamin D3) 2,000 unit PO DAILY 05/24/20 [Vitamin D3] Ergocalciferol [Vitamin D] 50,000 unit PO Q7D 05/24/20 Escitalopram Oxalate [Lexapro] 10 mg PO DAILY 05/24/20 Famotidine [Pepcid] 20 mg PO DAILY 05/24/20 Fludrocortisone Acetate 0.2 mg PO DAILY 05/24/20 Haloperidol [Haldol] 5 mg PO BID 05/24/20 Insulin Aspart [Novolog Flexpen 10 units SUBCUT TIDCM 05/24/20 ([facility])] Insulin Glargine [Lantus ([facility])] 36 units SUBCUT QHS 05/24/20 Linagliptin [Tradjenta] 5 mg PO DAILY 05/24/20 Lorazepam 1 mg IM Q6H PRN PRN 05/24/20 Lorazepam [Ativan] 1 mg PO Q6H PRN PRN 05/24/20 Lorazepam [Ativan] 2 mg PO TID 05/24/20 Magnesium Hydroxide [Milk Of 30 ml PO DAILY PRN PRN 05/24/20 Magnesia] Quetiapine Fumarate [Seroquel Xr] 400 mg PO BID 05/24/20 Simvastatin [Zocor] 10 mg PO QHS 05/24/20 Tamsulosin HCl [Flomax] 0.4 mg PO DAILY 05/24/20 - Social History SMOKING STATUS:: Unknow if ever smoked Vital Signs Temp Pulse Resp BP Pulse Ox 101.8 F H 70 27 H 102/71 92 05/25/20 15:00 05/25/20 15:14 05/25/20 15:00 05/25/20 15:00 05/25/20 15:00 Oxygen Delivery Method Room Air Weight: 157.4 kg Body Mass Index (BMI) 46.6 Microbiology Past 72 Hours 05/24/20 00:45 Blood Culture - Preliminary Blood Culture (Wb) - Right Hand 05/24/20 00:55 Respiratory Panel (PCR) - Final Mucosa - Nasopharyngeal 05/24/20 02:20 Streptococcus pneumoniae Antigen (M - Final Urine Catheter - Catheter 05/24/20 02:20 Legionella Antigen - Final Urine Catheter - Catheter Laboratory Tests Past 24 Hrs 05/25/20 05/25/20 05/25/20 00:00 04:20 04:20 WBC 16.6 H RBC 4.53 L Hgb 12.3 L Hct 38.8 L MCV 85.7 MCH 27.2 MCHC 31.7 L RDW Std Deviation 44.2 H RDW Coeff of Gume 14.3 Plt Count 134 L MPV 12.1 H Immature Gran % (Auto) 2.300 H Neut % (Auto) 85.0 H Lymph % (Auto) 5.3 L Haines % (Auto) 6.6 Eos % (Auto) 0.6 Baso % (Auto) 0.2 Absolute Neuts (auto) 14.1 H Absolute Lymphs (auto) 0.88 Nucleated RBC % 0 Differential Comment SCANNED Toxic Granulation 1+ Toxic Vacuolation 1+ APTT 114.4 H* D-Dimer Quant (PE/DVT) Sodium 134 L Potassium 3.4 L Chloride 104 Carbon Dioxide 17.0 L Anion Gap 13 BUN 29 H Creatinine 2.22 H Estim Creat Clear Calc 40.78 Est GFR (MDRD) Af Amer 40 L Est GFR (MDRD) Non-Af 33 L BUN/Creatinine Ratio 13.1 Glucose 202 H Calcium 7.5 L Magnesium 2.2 Total Bilirubin 0.60 AST 276 H ALT 94 H Alkaline Phosphatase 60 Lactate Dehydrogenase Total Creatine Kinase 26972 H C-React Prot Ext Range Total Protein 7.0 Albumin 2.2 L Globulin 4.8 H Albumin/Globulin Ratio 0.5 L Procalcitonin 05/25/20 05/25/20 05/25/20 10:20 10:20 13:45 WBC RBC Hgb Hct MCV MCH MCHC RDW Std Deviation RDW Coeff of Gume Plt Count MPV Immature Gran % (Auto) Neut % (Auto) Lymph % (Auto) Haines % (Auto) Eos % (Auto) Baso % (Auto) Absolute Neuts (auto) Absolute Lymphs (auto) Nucleated RBC % Differential Comment Toxic Granulation Toxic Vacuolation APTT 34.0 D-Dimer Quant (PE/DVT) 8.97 H* Sodium Potassium Chloride Carbon Dioxide Anion Gap BUN Creatinine Estim Creat Clear Calc Est GFR (MDRD) Af Amer Est GFR (MDRD) Non-Af BUN/Creatinine Ratio Glucose Calcium Magnesium Total Bilirubin AST ALT Alkaline Phosphatase Lactate Dehydrogenase 759 H Total Creatine Kinase C-React Prot Ext Range 222.00 H Total Protein Albumin Globulin Albumin/Globulin Ratio Procalcitonin 05/25/20 13:45 WBC RBC Hgb Hct MCV MCH MCHC RDW Std Deviation RDW Coeff of Gume Plt Count MPV Immature Gran % (Auto) Neut % (Auto) Lymph % (Auto) Haines % (Auto) Eos % (Auto) Baso % (Auto) Absolute Neuts (auto) Absolute Lymphs (auto) Nucleated RBC % Differential Comment Toxic Granulation Toxic Vacuolation APTT D-Dimer Quant (PE/DVT) Sodium Potassium Chloride Carbon Dioxide Anion Gap BUN Creatinine Estim Creat Clear Calc Est GFR (MDRD) Af Amer Est GFR (MDRD) Non-Af BUN/Creatinine Ratio Glucose Calcium Magnesium Total Bilirubin AST ALT Alkaline Phosphatase Lactate Dehydrogenase Total Creatine Kinase C-React Prot Ext Range Total Protein Albumin Globulin Albumin/Globulin Ratio Procalcitonin 22.43 H - Other Studies Radiology: [] reviewed Other Studies: [] Route of nutrition/ use of supplements: [] Nutritional Intake: [] IV Site: [] Hodgson Catheter: [] - Physical Exam General: Non-Cooperative, - - diaphoretic HEENT: Atraumatic, PERRLA, EOMI Neck: Supple, No Nodes Lungs: Diminished Cardiovascular: Tachycardic Abdomen: Soft, Non Tender, Non-Distended, Obese Extremities: No edema Skin: - - L slaughter erythema and warmth IV Site: Peripheral, without redness Musculoskeletal: No Tenderness to Palpation of Joints or Extremities Neurological: Cranial nerves II-XII grossly intact - Assessment/Plan Antibiotics: [] Assessment/Plan: [] Active and Suspected Problems (Last Reviewed 05/24/20 @ 04:[address] Aubrey Powell MD) Suspected 2019 novel coronavirus infection (Acute) Severe sepsis (Acute) Schizophrenia (Acute) Fever, tachypnea, hypoxia at ECF, lymphopenia, elevated CK/Cr/d- dimer/ferritin/CRP. Covid pcr neg here. MRSA nares (+). Some L slaughter cellulitis. Cont vanc/zosyn, keep in isolation for suspected covid. Will order BLE doppler. Will follow, thank you, d/w Dr. Dumont and nursing.
--- NOTE | 2020-05-25 15:43 | PN_ITS ---
Patient Problems: Active and Suspected Problems (Last Reviewed 05/24/20 @ 04:[address] Aubrey Powell MD) Suspected 2019 novel coronavirus infection (Acute) Severe sepsis (Acute) Schizophrenia (Acute) Subjective: Patient was seen and examined today in the ICU, he remains confused and he is in soft restraints. We are still awaiting his COVID test result. Patient's creatinine today was 2.22, CPK still remains elevated but is trending downward. White blood cell count is still elevated but is trending downward from yesterday, d-dimer is elevated at 8.97 and patient is still on full anticoagulation. - Physical Exam Vitals/I&O's: Vital Signs Temp Pulse Resp BP Pulse Ox 101.8 F H 70 27 H 102/71 92 05/25/20 15:00 05/25/20 15:14 05/25/20 15:00 05/25/20 15:00 05/25/20 15:00 Oxygen Delivery Method Room Air Weight: 157.4 kg Body Mass Index (BMI) 46.6 Intake and Output for Last 24 Hours 05/23/20 05/24/20 05/25/20 23:59 23:59 23:59 Intake Total 5510.7313 / 5510.7313 3242.35 / 3242.35 Output Total 2050 / 2400 975 / 975 Balance 3460.7313 / 3110.7313 2267.35 / 2267.35 General: No apparent distress, Well developed, Confused, Lethargic HEENT: Atraumatic, PERRLA, EOMI, Normocephalic Oral: Moist Mucosa Neck: Supple, No JVD, Negative Carotid Bruits, Trachea Midline, Thyroid Normal Size and Texture Lungs: Clear to auscultation, Normal air movement Cardiovascular: Regular rate, Regular Rhythm, Normal S1, Normal S2, No murmurs, PMI Normal Abdomen: Bowel Sounds Present, Soft, Non Tender, Non-Distended, Obese Extremities: No clubbing, No cyanosis, Capillary Refill Less than 3 Seconds Skin: No rashes, No breakdown Neurological: Cranial nerves II-XII grossly intact, Neuro grossly intact Psych/Mental Status: - - Patient is somnolent and at times mildly agitated, he is confused Microbiology Past 72 Hours 05/24/20 00:45 Blood Culture (Wb) - Right Hand Blood Culture - Preliminary 05/24/20 00:55 Mucosa - Nasopharyngeal Respiratory Panel (PCR) - Final 05/24/20 02:20 Urine Catheter - Catheter Streptococcus pneumoniae Antigen (M - Final 05/24/20 02:20 Urine Catheter - Catheter Legionella Antigen - Final Laboratory Results 05/24/20 18:09: POC Glucose 224 H 05/25/20 00:00: APTT 114.4 H* 05/25/20 00:08: POC Glucose 217 H 05/25/20 04:20: WBC 16.6 H, RBC 4.53 L, Hgb 12.3 L, Hct 38.8 L, MCV 85.7, MCH 27.2, MCHC 31.7 L, RDW Std Deviation 44.2 H, RDW Coeff of Gume 14.3, Plt Count 134 L, MPV 12.1 H, Immature Gran % (Auto) 2.300 H, Neut % (Auto) 85.0 H, Lymph % (Auto) 5.3 L, Parker % (Auto) 6.6, Eos % (Auto) 0.6, Baso % (Auto) 0.2, Absolute Neuts (auto) 14.1 H, Absolute Lymphs (auto) 0.88, Nucleated RBC % 0, Differential Comment SCANNED, Toxic Granulation 1+, Toxic Vacuolation 1+ 05/25/20 04:20: Sodium 134 L, Potassium 3.4 L, Chloride 104, Carbon Dioxide 17.0 L, Anion Gap 13, BUN 29 H, Creatinine 2.22 H, Estim Creat Clear Calc 40.78, Est GFR (MDRD) Af Amer 40 L, Est GFR (MDRD) Non-Af 33 L, BUN/Creatinine Ratio 13.1, Glucose 202 H, Calcium 7.5 L, Magnesium 2.2, Total Bilirubin 0.60, AST 276 H, ALT 94 H, Alkaline Phosphatase 60, Total Creatine Kinase 39111 H, Total Protein 7.0, Albumin 2.2 L, Globulin 4.8 H, Albumin/Globulin Ratio 0.5 L 05/25/20 10:20: APTT 34.0 05/25/20 10:20: D-Dimer Quant (PE/DVT) 8.97 H* 05/25/20 11:28: POC Glucose 171 H 05/25/20 13:45: Lactate Dehydrogenase 759 H, C-React Prot Ext Range 222.00 H 05/25/20 13:45: Procalcitonin 22.43 H Current Medications Acetaminophen (Tylenol) 650 mg RECTAL Q4H PRN PRN PRN Reason: Pain Score 1-10/Temp > 100.7 F Last Admin: 05/24/20 03:50 Dose: 650 mg Documented by: Albuterol Sulfate (Ventolin Aerosols) 2.5 mg INHALATION Q2H PRN PRN PRN Reason: SOB/Wheezing Benztropine Mesylate (Cogentin) 1 mg IV BID [facility] Last Admin: 05/25/20 10:30 Dose: 1 mg Documented by: Dextrose (D50w Syringe) 0 gm IV X1 PRN; Protocol PRN Reason: Hypoglycemia Glucagon () 1 mg IM .X1 PRN PRN Reason: Hypoglycemia Haloperidol (Haldol) 5 mg PO BID [facility] Last Admin: 05/25/20 10:30 Dose: 5 mg Documented by: Heparin Sodium (Porcine) (Heparin Na) 0 unit IV UD PRN; Protocol Hydrocortisone Sodium Succinate (Solu-Cortef) 50 mg IV Q8 [facility] Last Admin: 05/25/20 15:16 Dose: 50 mg Documented by: Sodium Chloride () 1,000 mls @ 100 mls/hr IV .Q10H [facility] Last Infusion: 05/25/20 11:00 Dose: 0 mls/hr Documented by: Piperacillin Sod/Tazobactam (Sod 3.375 gm/ Sodium Chloride) 50 mls @ 12.5 mls/hr IV Q8 [facility] Last Admin: 05/25/20 15:17 Dose: Not Given Documented by: Famotidine 20 mg/ Sodium (Chloride) 10 mls @ 300 mls/hr IV Q24 [facility] Last Infusion: 05/25/20 14:51 Dose: Infused Documented by: Vancomycin IV Pharmacy to Dose (1 ea/ Sodium Chloride) 500 mls @ 250 mls/hr IV PRN PRN; Protocol PRN Reason: Rx to Dose Sodium Chloride () 250 mls @ 15 mls/hr IV .[id number] PRN PRN Reason: Saline Flush Last Infusion: 05/25/20 06:36 Dose: 0 mls/hr Documented by: Sodium Chloride () 250 mls @ 15 mls/hr IV .[id number] PRN PRN Reason: Additional IVPB Infusion Vancomycin HCl 1,500 mg/ (Sodium Chloride) 530 mls @ 250 mls/hr IV Q24H [facility] Last Infusion: 05/25/20 05:08 Dose: Infused Documented by: Heparin Sodium/Dextrose () 25,000 units in 250 mls @ 19 mls/hr IV .[id number] [facility]; Protocol Last Admin: 05/25/20 10:00 Dose: Not Given Documented by: Dexmedetomidine HCl 1,000 mcg/ (Sodium Chloride) 250 mls @ 19.513 mls/hr CONT INF .[id number] [facility]; Protocol Last Titration: 05/25/20 14:00 Dose: 1.5 mcg/kg/hr, 58.5 mls/hr Documented by: Insulin Glargine (Lantus ([facility])) 15 units SC QHS [facility] Last Admin: 05/25/20 00:08 Dose: 15 u Documented by: Insulin Human Lispro (Humalog Kwikpen ([facility])) 0 unit SC Q6 [facility]; Protocol Last Admin: 05/25/20 11:45 Dose: 1 u Documented by: Iopamidol (Contrast Allergy Check) 0 ml IV X1 [facility] Last Admin: 05/25/20 08:26 Dose: Not Given Documented by: Lorazepam (Ativan) 1 mg IV Q4H PRN PRN PRN Reason: AGITATION Last Admin: 05/24/20 05:08 Dose: 1 mg Documented by: Quetiapine Fumarate (Seroquel) 200 mg PO BID [facility] Last Admin: 05/25/20 10:30 Dose: 200 mg Documented by: Sodium Chloride () 10 - 40 ml IV UD PRN PRN Reason: SALINE FLUSH Last Admin: 05/24/20 20:53 Dose: 20 ml Documented by: Medical Necessity - Tobacco Use Smoking Status: Unknown if ever smoked Assessment/Plan All Active Problems (Last Reviewed 05/24/20 @ 04:[address] Aubrey Powell MD) Suspected 2019 novel coronavirus infection (Acute) Severe sepsis (Acute) Schizophrenia (Acute) #1 severe sepsis secondary to community-acquired pneumonia-at this point COVID- 19 is being ruled out-patient will remain on his current antibiotic coverage per infectious diseases #2 elevated [id number] unknown at this time, due to the patient's poor renal function he is unable to undergo a CTA of his chest, he will remain anticoagulated for now #3 rhabdomyolysis #4 elevated creatinine-unfortunately I do not have the patient's baseline creatinine, patient's labs will be monitored #5 hypokalemia-this is minor, patient is receiving potassium supplementation #6 schizophrenia #7 type 2 diabetes-to continue to monitor blood sugar and administer sliding scale insulin #8 community-acquired pneumonia-organism unknown, again patient's COVID-19 test is pending at this time #9 adrenal insufficiency-per medical history #10 anxiety disorder Inpatient E&M: 56179 Subs Hosp L2
[2020-05-25 17:47] LABS: Partial Thromboplast Time 54.6 Seconds (24.1-36.2)
--- NOTE | 2020-05-25 19:50 | NURSING ---
Pt's behavior is worsening, attempting to stretch soft restraints to their limits and coming close to rolling self out of bed; unable to redirect pt. Upon entering room, IV tubing found disconnected from pt and a very lg puddle of fluid beside bed on floor. Complete bedbath given, new statlock applied to F/C to lessen tension on penis, chest shaved to have better electrode contact, electrodes and pulse ox sensor changed as well. IV patency verified by flush, Heparin and Precedex reconnected to pt w/new tubing. This RN at bedside until 2099, HS meds given at this time as well in attempt to bundle care. At this time pt has calmed significantly, remains impulsive but redirectable at times.
[2020-05-25] MEDS: HEPARIN/D5w 25,000 UNITS 25,000 UNITS/250 ML IV.SOLN. 17 UNITS IV (20:30)
--- NOTE | 2020-05-25 20:31 | CPS ---
pt unable to do
[2020-05-25 23:31] LABS: Bedside Glucose 162 mg/dL (70-110)
[2020-05-26] VITALS (31 sets, daily range): BP systolic 99–155; BP diastolic 30–105; PULSE 51–123; RESP 15–35; TEMP 37.7–39.4; O2SAT 87–99
[2020-05-26] MEDS: Dexmedetomidine 1,000 mcg in 0.9% NS 240 mL 58.5 MCG CONT INF ×4 (00:36→18:00)
[2020-05-26 02:01] LABS: Bedside Glucose 151 mg/dL (70-110)
[2020-05-26] MEDS: LORazepam 2 MG/ML Syringe 1 MG IV ×2 (02:15→09:28)
[2020-05-26] MEDS: 0.9% Saline Lock 10 ML Syringe IV ×2 (02:32→09:33)
[2020-05-26 02:54] LABS: Partial Thromboplast Time 60.6 Seconds (24.1-36.2)
[2020-05-26] MEDS: Acetaminophen 650 MG Suppository RECTAL ×3 (03:00→15:33)
[2020-05-26] MEDS: Insulin Lispro 100 UNIT/ML INSULN.PEN SC (05:16)
[2020-05-26] MEDS: Hydrocortisone Sod Succinate 100 MG/2 ML Vial 50 MG IV ×3 (05:19→21:00)
--- NOTE | 2020-05-26 06:18 | PN_ITS ---
Subjective: The patient was seen and examined at the bedside this morning. Events from the last 24 hours have been reviewed. The patient remains febrile with a T-max noted to be 103.4 ?F. He remains hemodynamically stable on 3 L/min via nasal cannula. The patient continues to have significant behavioral outbursts. The patient missed a dose of antibiotics overnight due to a lack of access. PICC line is to be placed this morning. Objective: The patient's most recent lab work, culture data and imaging studies have all been personally reviewed. Coronavirus PCR is pending. MRSA screen was positive. Strep and urine Legionella antigens were negative. Respiratory viral panel was negative. General: Alert, - - Ill in appearance HEENT: Atraumatic, Normocephalic Oral: Moist Mucosa Neck: Supple, No Nodes, Trachea Midline Lungs: Diminished, Tachypneic Cardiovascular: Regular rate, Regular Rhythm Abdomen: Bowel Sounds Present, Soft, Non Tender, Obese Extremities: No clubbing, No cyanosis, Edema Skin: - - Left pretibial erythema Musculoskeletal: No Muscle Wasting Lymphatic: No Cervical, Supraclavicular, or Inguinal Adenopathy Neurological: - - No focal deficits. Moves all extremities spontaneously. Psych/Mental Status: Agitated, Impulsive, Restless Vital Signs Temp Pulse Resp BP Pulse Ox 102.1 F H 73 15 133/105 H 97 05/26/20 06:00 05/26/20 06:00 05/26/20 06:00 05/26/20 06:00 05/26/20 06:00 Oxygen Flow Rate (L/min) 3 Oxygen Delivery Method Nasal Cannula Weight: 344 lb 2.265 oz Body Mass Index (BMI) 46.6 Intake and Output for Last 24 Hours 05/24/20 05/25/20 05/26/20 23:59 23:59 23:59 Intake Total 5510.7313 / 5510.7313 4052.67 / 4111.17 517.77 / 517.77 Output Total 2050 / 2400 1600 / 1775 510 / 510 Balance 3460.7313 / 3110.7313 2452.67 / 2336.17 7.77 / 7.77 Labs (Last 48 Hours) 05/24/20 05/24/20 05/24/20 00:55 04:00 04:00 WBC 19.8 H RBC 4.54 L Hgb 12.3 L Hct 37.7 L MCV 83.0 MCH 27.1 MCHC 32.6 RDW Std Deviation 41.6 RDW Coeff of Gume 13.8 Plt Count 134 L MPV 12.9 H Immature Gran % (Auto) 0.600 Neut % (Auto) 91.5 H Lymph % (Auto) 2.6 L Randolph % (Auto) 4.5 Eos % (Auto) 0.5 Baso % (Auto) 0.3 Absolute Neuts (auto) 18.1 H Absolute Lymphs (auto) 0.51 L Nucleated RBC % 0 Differential Comment SCANNED Toxic Granulation Toxic Vacuolation APTT D-Dimer Quant (PE/DVT) Sodium 129 L Potassium 3.4 L Chloride 96 L Carbon Dioxide 18.0 L Anion Gap 15 BUN 24 H Creatinine 2.26 H Estim Creat Clear Calc 40.06 Est GFR (MDRD) Af Amer 39 L Est GFR (MDRD) Non-Af 32 L BUN/Creatinine Ratio 10.6 Glucose 187 H Lactic Acid Calcium 7.8 L Phosphorus Magnesium Total Bilirubin 1.20 H AST 198 H ALT 50 Alkaline Phosphatase 68 Lactate Dehydrogenase Total Creatine Kinase Troponin I C-React Prot Ext Range Total Protein 7.2 Albumin 2.7 L Globulin 4.5 H Albumin/Globulin Ratio 0.6 L Procalcitonin COVID-19 (MARTI) Pending MRSA (PCR) POC Glucose 05/24/20 05/24/20 05/24/20 04:00 04:00 04:00 WBC RBC Hgb Hct MCV MCH MCHC RDW Std Deviation RDW Coeff of Gume Plt Count MPV Immature Gran % (Auto) Neut % (Auto) Lymph % (Auto) Randolph % (Auto) Eos % (Auto) Baso % (Auto) Absolute Neuts (auto) Absolute Lymphs (auto) Nucleated RBC % Differential Comment Toxic Granulation Toxic Vacuolation APTT 46.5 H D-Dimer Quant (PE/DVT) Sodium Potassium Chloride Carbon Dioxide Anion Gap BUN Creatinine Estim Creat Clear Calc Est GFR (MDRD) Af Amer Est GFR (MDRD) Non-Af BUN/Creatinine Ratio Glucose Lactic Acid Calcium Phosphorus Magnesium Total Bilirubin AST ALT Alkaline Phosphatase Lactate Dehydrogenase Total Creatine Kinase Troponin I 0.151 H C-React Prot Ext Range Total Protein Albumin Globulin Albumin/Globulin Ratio Procalcitonin COVID-19 (MARTI) MRSA (PCR) POSITIVE H POC Glucose 05/24/20 05/24/20 05/24/20 05:15 05:30 05:30 WBC RBC Hgb Hct MCV MCH MCHC RDW Std Deviation RDW Coeff of Gume Plt Count MPV Immature Gran % (Auto) Neut % (Auto) Lymph % (Auto) Randolph % (Auto) Eos % (Auto) Baso % (Auto) Absolute Neuts (auto) Absolute Lymphs (auto) Nucleated RBC % Differential Comment Toxic Granulation Toxic Vacuolation APTT D-Dimer Quant (PE/DVT) Sodium Potassium Chloride Carbon Dioxide Anion Gap BUN Creatinine Estim Creat Clear Calc Est GFR (MDRD) Af Amer Est GFR (MDRD) Non-Af BUN/Creatinine Ratio Glucose Lactic Acid 1.9 Calcium Phosphorus 2.5 Magnesium 1.4 L Total Bilirubin AST ALT Alkaline Phosphatase Lactate Dehydrogenase Total Creatine Kinase Troponin I 0.195 H C-React Prot Ext Range Total Protein Albumin Globulin Albumin/Globulin Ratio Procalcitonin COVID-19 (MARTI) MRSA (PCR) POC Glucose 141 H 05/24/20 05/24/20 05/24/20 11:00 13:23 13:35 WBC RBC Hgb Hct MCV MCH MCHC RDW Std Deviation RDW Coeff of Gume Plt Count MPV Immature Gran % (Auto) Neut % (Auto) Lymph % (Auto) Randolph % (Auto) Eos % (Auto) Baso % (Auto) Absolute Neuts (auto) Absolute Lymphs (auto) Nucleated RBC % Differential Comment Toxic Granulation Toxic Vacuolation APTT D-Dimer Quant (PE/DVT) Sodium Potassium Chloride Carbon Dioxide Anion Gap BUN Creatinine Estim Creat Clear Calc Est GFR (MDRD) Af Amer Est GFR (MDRD) Non-Af BUN/Creatinine Ratio Glucose Lactic Acid Calcium Phosphorus Magnesium Total Bilirubin AST ALT Alkaline Phosphatase Lactate Dehydrogenase Total Creatine Kinase 01883 H Troponin I 0.168 H C-React Prot Ext Range Total Protein Albumin Globulin Albumin/Globulin Ratio Procalcitonin COVID-19 (MARTI) MRSA (PCR) POC Glucose 199 H 05/24/20 05/24/20 05/25/20 13:35 18:09 00:00 WBC RBC Hgb Hct MCV MCH MCHC RDW Std Deviation RDW Coeff of Gume Plt Count MPV Immature Gran % (Auto) Neut % (Auto) Lymph % (Auto) Randolph % (Auto) Eos % (Auto) Baso % (Auto) Absolute Neuts (auto) Absolute Lymphs (auto) Nucleated RBC % Differential Comment Toxic Granulation Toxic Vacuolation APTT > 250.0 H* 114.4 H* D-Dimer Quant (PE/DVT) Sodium Potassium Chloride Carbon Dioxide Anion Gap BUN Creatinine Estim Creat Clear Calc Est GFR (MDRD) Af Amer Est GFR (MDRD) Non-Af BUN/Creatinine Ratio Glucose Lactic Acid Calcium Phosphorus Magnesium Total Bilirubin AST ALT Alkaline Phosphatase Lactate Dehydrogenase Total Creatine Kinase Troponin I C-React Prot Ext Range Total Protein Albumin Globulin Albumin/Globulin Ratio Procalcitonin COVID-19 (MARTI) MRSA (PCR) POC Glucose 224 H 05/25/20 05/25/20 05/25/20 00:08 04:20 04:20 WBC 16.6 H RBC 4.53 L Hgb 12.3 L Hct 38.8 L MCV 85.7 MCH 27.2 MCHC 31.7 L RDW Std Deviation 44.2 H RDW Coeff of Gume 14.3 Plt Count 134 L MPV 12.1 H Immature Gran % (Auto) 2.300 H Neut % (Auto) 85.0 H Lymph % (Auto) 5.3 L Randolph % (Auto) 6.6 Eos % (Auto) 0.6 Baso % (Auto) 0.2 Absolute Neuts (auto) 14.1 H Absolute Lymphs (auto) 0.88 Nucleated RBC % 0 Differential Comment SCANNED Toxic Granulation 1+ Toxic Vacuolation 1+ APTT D-Dimer Quant (PE/DVT) Sodium 134 L Potassium 3.4 L Chloride 104 Carbon Dioxide 17.0 L Anion Gap 13 BUN 29 H Creatinine 2.22 H Estim Creat Clear Calc 40.78 Est GFR (MDRD) Af Amer 40 L Est GFR (MDRD) Non-Af 33 L BUN/Creatinine Ratio 13.1 Glucose 202 H Lactic Acid Calcium 7.5 L Phosphorus Magnesium 2.2 Total Bilirubin 0.60 AST 276 H ALT 94 H Alkaline Phosphatase 60 Lactate Dehydrogenase Total Creatine Kinase 80518 H Troponin I C-React Prot Ext Range Total Protein 7.0 Albumin 2.2 L Globulin 4.8 H Albumin/Globulin Ratio 0.5 L Procalcitonin COVID-19 (MARTI) MRSA (PCR) POC Glucose 217 H 05/25/20 05/25/20 05/25/20 10:20 10:20 11:28 WBC RBC Hgb Hct MCV MCH MCHC RDW Std Deviation RDW Coeff of Gume Plt Count MPV Immature Gran % (Auto) Neut % (Auto) Lymph % (Auto) Randolph % (Auto) Eos % (Auto) Baso % (Auto) Absolute Neuts (auto) Absolute Lymphs (auto) Nucleated RBC % Differential Comment Toxic Granulation Toxic Vacuolation APTT 34.0 D-Dimer Quant (PE/DVT) 8.97 H* Sodium Potassium Chloride Carbon Dioxide Anion Gap BUN Creatinine Estim Creat Clear Calc Est GFR (MDRD) Af Amer Est GFR (MDRD) Non-Af BUN/Creatinine Ratio Glucose Lactic Acid Calcium Phosphorus Magnesium Total Bilirubin AST ALT Alkaline Phosphatase Lactate Dehydrogenase Total Creatine Kinase Troponin I C-React Prot Ext Range Total Protein Albumin Globulin Albumin/Globulin Ratio Procalcitonin COVID-19 (MARTI) MRSA (PCR) POC Glucose 171 H 05/25/20 05/25/20 05/25/20 13:45 13:45 17:15 WBC RBC Hgb Hct MCV MCH MCHC RDW Std Deviation RDW Coeff of Gume Plt Count MPV Immature Gran % (Auto) Neut % (Auto) Lymph % (Auto) Randolph % (Auto) Eos % (Auto) Baso % (Auto) Absolute Neuts (auto) Absolute Lymphs (auto) Nucleated RBC % Differential Comment Toxic Granulation Toxic Vacuolation APTT 54.6 H D-Dimer Quant (PE/DVT) Sodium Potassium Chloride Carbon Dioxide Anion Gap BUN Creatinine Estim Creat Clear Calc Est GFR (MDRD) Af Amer Est GFR (MDRD) Non-Af BUN/Creatinine Ratio Glucose Lactic Acid Calcium Phosphorus Magnesium Total Bilirubin AST ALT Alkaline Phosphatase Lactate Dehydrogenase 759 H Total Creatine Kinase Troponin I C-React Prot Ext Range 222.00 H Total Protein Albumin Globulin Albumin/Globulin Ratio Procalcitonin 22.43 H COVID-19 (MARTI) MRSA (PCR) POC Glucose 05/25/20 05/25/20 05/26/20 17:19 23:31 02:20 WBC RBC Hgb Hct MCV MCH MCHC RDW Std Deviation RDW Coeff of Gume Plt Count MPV Immature Gran % (Auto) Neut % (Auto) Lymph % (Auto) Randolph % (Auto) Eos % (Auto) Baso % (Auto) Absolute Neuts (auto) Absolute Lymphs (auto) Nucleated RBC % Differential Comment Toxic Granulation Toxic Vacuolation APTT 60.6 H D-Dimer Quant (PE/DVT) Sodium Potassium Chloride Carbon Dioxide Anion Gap BUN Creatinine Estim Creat Clear Calc Est GFR (MDRD) Af Amer Est GFR (MDRD) Non-Af BUN/Creatinine Ratio Glucose Lactic Acid Calcium Phosphorus Magnesium Total Bilirubin AST ALT Alkaline Phosphatase Lactate Dehydrogenase Total Creatine Kinase Troponin I C-React Prot Ext Range Total Protein Albumin Globulin Albumin/Globulin Ratio Procalcitonin COVID-19 (MARTI) MRSA (PCR) POC Glucose 162 H 151 H Microbiology 05/24/20 00:45 Blood Culture (Wb) - Right Hand Blood Culture - Preliminary 05/24/20 00:55 Mucosa - Nasopharyngeal Respiratory Panel (PCR) - Final 05/24/20 02:20 Urine Catheter - Catheter Streptococcus pneumoniae Antigen (M - Final 05/24/20 02:20 Urine Catheter - Catheter Legionella Antigen - Final Clinical Impression(s) from Imaging Studies Chest X-Ray 05/24/20 00:56 IMPRESSION: Pulmonary hypoexpansion with pulmonary venous congestion. at 0128 Reported and signed by: Baldemar Angulo MD Electronically Signed: Baldemar Angulo MD at 1:27 EDT Tel , Service support , Medical Necessity - Tobacco Use Smoking Status: Unknown if ever smoked Assessment/Plan All Active Problems (Last Reviewed 05/24/20 @ 04:[address] Aubrey Powell MD) Suspected 2019 novel coronavirus infection (Acute) Severe sepsis (Acute) Schizophrenia (Acute) RECOMMENDATIONS: 1. Continue empiric antimicrobials. 2. Await coronavirus PCR testing. 3. Restart baseline Seroquel XR and scheduled Ativan. Attempt to wean Precedex today. 4. Continue stress dose steroids. 5. Patient to remain n.p.o. for now. 6. PICC line placement today. IMPRESSIONS: 1. Severe sepsis with possible right-sided pneumonia versus COVID-19 infection The patient's initial chest x-ray was difficult to interpret given poor inspiratory effort. However, there is a questionable right-sided infiltrate. Procalcitonin level is also elevated. Therefore, it is reasonable to continue empiric broad-spectrum antimicrobials for now. Coronavirus PCR is pending. Patient will remain in precautions accordingly. Continue systemic anticoagulation, given elevated d-dimer levels. 2. Acute kidney injury Unclear etiology. The patient was initially being maintained on normal saline supplemental IV fluids, but is becoming hyperchloremic. Therefore, fluids have been discontinued. Will obtain renal ultrasound today. Continue to monitor urine output for now. No current indication for renal replacement therapy. 3. Elevated inflammatory markers/d-dimer Continue systemic anticoagulation for now. 4. History of adrenal insufficiency/schizophrenia/diabetes mellitus/morbid obesity Complicates care, management, recovery and prognosis. Continue stress dose steroids as ordered. The patient's baseline Seroquel, Haldol and scheduled Ativan have been restarted. Recommend weaning Precedex as tolerated today, as this may be contributing to the patient's fever curve as well. This note was generated with [employer] dictation software. It may contain incorrect words, spelling, and punctuation that were not noted in checking the note before signing. Inpatient E&M: 02930 [facility] L[facility]
--- NOTE | 2020-05-26 06:30 | CPS ---
Patient currently restrained, PEP/CPT not done.
[2020-05-26 07:07] LABS: Absolute Neutrophil Count 8.7 X10^3/uL (2.0-7.7); Basophil# 0.03 X10^3/uL; Basophil% 0.3 % (0-1); Eosinophil# 0.02 X10^3/uL; Eosinophils% 0.2 % (0-5); Hematocrit 35.1 % (40-54); Hemoglobin 11.3 g/dL (13.0-16.5); Lymphocyte % 5.8 % (19-41); Mean Corp Hgb Conc 32.2 g/dL (32-36); Mean Corpuscular Hgb 27.3 pg (27.0-32.0); Mean Corpuscular Volume 84.8 fL (80-94); Mean Platelet Vol. 13.2 fl (6.2-12.0); Monocyte# 0.96 X10^3/uL; Monocyte% 9.2 % (0-10); NRBC Flagged by Analyzer 0 % (0-5); Neutrophil # 8.71 X10^3/uL (2.7-7.7); Neutrophil % 83.8 % (47-70); POSITIVE DIFFERENTIAL YES; POSITIVE MORPHOLOGY YES; Platelet Count 122 K/mm3 (150-450); RBC Distribution Width CV 14.6 % (11.6-14.6); RBC Distribution Width SD 44.6 fl (35.1-43.9); Red Blood Count 4.14 M/mm3 (4.6-6.2); White Blood Count 10.4 K/mm3 (4.4-11.0)
[2020-05-26 07:12] LABS: Differential Indicated SCAN CRITERIA MET
[2020-05-26 07:31] LABS: Bedside Glucose 159 mg/dL (70-110)
[2020-05-26] MEDS: QUEtiapine 100 MG Tablet 200 MG PO (07:39)
[2020-05-26] MEDS: Haloperidol 5 MG Tablet PO ×2 (07:40→21:00)
--- NOTE | 2020-05-26 08:50 | RAD_ITS ---
STUDY: X-RAY CHEST REASON FOR EXAM: Male, 55 years old. Severe sepsis. Suspected covid-19 infection. TECHNIQUE: Single AP portable view of the chest. COMPARISON: Comparison is made with prior examination dated May 24, 2020.. FINDINGS: EKG electrodes are seen. Pulmonary vascular sedation included with the mild degree of CHF. There is no demonstrated pleural abnormality. There is borderline cardiomegaly. Normal mediastinum and dwaine. Normal visualized pulmonary arteries. Normal visualized aortic arch and descending thoracic aorta. Normal visualized thoracic spine. Normal visualized ribs, clavicles, and shoulders. There is no demonstrated abnormality of the visualized soft tissue structures of the upper abdomen. RAD/Chest 1 View (Portable) IMPRESSION: Borderline cardiomegaly with venous congestion. Electronically Signed: Alfredito Hampton, at 9:25 EDT , Service support ,
[2020-05-26 08:55] LABS: Anion Gap 10 (5-15); BUN 46 mg/dL (7-18); BUN/Creat Ratio 17.1 RATIO (10-20); Calcium,Total 7.5 mg/dL (8.5-10.1); Chloride 110 mmol/L (98-107); Creatinine, Serum 2.69 mg/dL (0.70-1.30); EST Glomerular Filtration Rate 26 mL/min (>60); Est Glom Filt Rate - Afr Amer 32 mL/min (>60); Estimated Creatinine Clearance 33.66 ml/min; Glucose 136 mg/dL (74-106); Magnesium 2.9 mg/dL (1.6-2.6); Phosphorus 3.8 mg/dL (2.5-4.9); Sodium Level 140 mmol/L (136-145)
[2020-05-26] MEDS: Famotidine 200 MG/20 ML MDV 20 MG in 0.9% Normal Saline (Pres. free 8 ML 300 MG IV (09:30)
[2020-05-26 09:54] LABS: CPK Total, Creatine Kinase 18998 U/L (39-308)
--- NOTE | 2020-05-26 10:10 | PN.ID_ITS ---
Patient Problems: Active and Suspected Problems (Last Reviewed 05/24/20 @ 04:[address] Aubrey Powell MD) Suspected 2019 novel coronavirus infection (Acute) Severe sepsis (Acute) Schizophrenia (Acute) Subjective: Still high fever overnight. - Physical Exam Vitals/I&O's: Vital Signs Temp Pulse Resp BP Pulse Ox 102.5 F H 64 30 H 119/94 H 92 05/26/20 10:00 05/26/20 10:00 05/26/20 10:00 05/26/20 10:00 05/26/20 10:00 Oxygen Flow Rate (L/min) 3 Oxygen Delivery Method Room Air Weight: 156.1 kg Body Mass Index (BMI) 46.6 Intake and Output for Last 24 Hours 05/24/20 05/25/20 05/26/20 23:59 23:59 23:59 Intake Total 5510.7313 / 5510.7313 4052.67 / 4111.17 854.93 / 854.93 Output Total 2050 / 2400 1600 / 1775 760 / 760 Balance 3460.7313 / 3110.7313 2452.67 / 2336.17 94.93 / 94.93 General: No apparent distress Lungs: Diminished Cardiovascular: Regular rate, Regular Rhythm Abdomen: Soft, Non Tender, Non-Distended Skin: Rash Present - L slaughter erythema Microbiology Past 72 Hours 05/24/20 00:45 Blood Culture (Wb) - Anticubital Left Blood Culture - Preliminary No growth in 48 hours. 05/24/20 00:45 Blood Culture (Wb) - Right Hand Blood Culture - Preliminary Bacillus sp., not anthracis 05/24/20 00:55 Mucosa - Nasopharyngeal Respiratory Panel (PCR) - Final 05/24/20 02:20 Urine Catheter - Catheter Streptococcus pneumoniae Antigen (M - Final 05/24/20 02:20 Urine Catheter - Catheter Legionella Antigen - Final Laboratory Results 05/25/20 10:20: APTT 34.0 05/25/20 10:20: D-Dimer Quant (PE/DVT) 8.97 H* 05/25/20 11:28: POC Glucose 171 H 05/25/20 13:45: Lactate Dehydrogenase 759 H, C-React Prot Ext Range 222.00 H 05/25/20 13:45: Procalcitonin 22.43 H 05/25/20 17:15: APTT 54.6 H 05/25/20 17:19: POC Glucose 162 H 05/25/20 23:31: POC Glucose 151 H 05/26/20 02:20: APTT 60.6 H 05/26/20 02:20: WBC 10.4, RBC 4.14 L, Hgb 11.3 L, Hct 35.1 L, MCV 84.8, MCH 27 .3, MCHC 32.2, RDW Std Deviation 44.6 H, RDW Coeff of Gume 14.6, Plt Count 122 L, MPV 13.2 H, Immature Gran % (Auto) 0.700, Neut % (Auto) 83.8 H, Lymph % (Auto) 5.8 L, [place] % (Auto) 9.2, Eos % (Auto) 0.2, Baso % (Auto) 0.3, Absolute Neuts (auto) 8.7 H, Absolute Lymphs (auto) 0.60 L, Nucleated RBC % 0 05/26/20 05:15: POC Glucose 159 H 05/26/20 08:05: APTT 75.0 H 05/26/20 08:05: Sodium 140, Potassium 4.0, Chloride 110 H, Carbon Dioxide 20.0 L , Anion Gap 10, BUN 46 H, Creatinine 2.69 H, Estim Creat Clear Calc 33.66, Est GFR (MDRD) Af Amer 32 L, Est GFR (MDRD) Non-Af 26 L, BUN/Creatinine Ratio 17.1, Glucose 136 H, Calcium 7.5 L, Phosphorus 3.8, Magnesium 2.9 H 05/26/20 08:05: Total Creatine Kinase 25829 H Current Medications Acetaminophen (Tylenol) 650 mg RECTAL Q4H PRN PRN PRN Reason: Pain Score 1-10/Temp > 100.7 F Last Admin: 05/26/20 09:29 Dose: 650 mg Documented by: Albuterol Sulfate (Ventolin Aerosols) 2.5 mg INHALATION Q2H PRN PRN PRN Reason: SOB/Wheezing Benztropine Mesylate (Cogentin) 1 mg IV BID CATHLEEN Last Admin: 05/26/20 07:40 Dose: 1 mg Documented by: Dextrose (D50w Syringe) 0 gm IV X1 PRN; Protocol PRN Reason: Hypoglycemia Glucagon () 1 mg IM .X1 PRN PRN Reason: Hypoglycemia Haloperidol (Haldol) 5 mg PO BID [facility] Last Admin: 05/26/20 07:40 Dose: 5 mg Documented by: Heparin Sodium (Porcine) (Heparin Na) 0 unit IV UD PRN; Protocol Hydrocortisone Sodium Succinate (Solu-Cortef) 50 mg IV Q8 [facility] Last Admin: 05/26/20 05:19 Dose: 50 mg Documented by: Sodium Chloride () 1,000 mls @ 100 mls/hr IV .Q10H [facility] Last Admin: 05/26/20 07:23 Dose: Not Given Documented by: Piperacillin Sod/Tazobactam (Sod 3.375 gm/ Sodium Chloride) 50 mls @ 12.5 mls/hr IV Q8 [facility] Last Admin: 05/26/20 05:19 Dose: Not Given Documented by: Famotidine 20 mg/ Sodium (Chloride) 10 mls @ 300 mls/hr IV Q24 [facility] Last Admin: 05/26/20 09:30 Dose: 300 mls/hr Documented by: Vancomycin IV Pharmacy to Dose (1 ea/ Sodium Chloride) 500 mls @ 250 mls/hr IV PRN PRN; Protocol PRN Reason: Rx to Dose Sodium Chloride () 250 mls @ 15 mls/hr IV .[id number] PRN PRN Reason: Saline Flush Last Infusion: 05/25/20 06:36 Dose: 0 mls/hr Documented by: Sodium Chloride () 250 mls @ 15 mls/hr IV .[id number] PRN PRN Reason: Additional IVPB Infusion Vancomycin HCl 1,500 mg/ (Sodium Chloride) 530 mls @ 250 mls/hr IV Q24H [facility] Last Admin: 05/26/20 01:45 Dose: Not Given Documented by: Heparin Sodium/Dextrose () 25,000 units in 250 mls @ 19 mls/hr IV .[id number] [facility]; Protocol Last Titration: 05/26/20 08:00 Dose: 1,700 units/hr, 17 mls/hr Documented by: Dexmedetomidine HCl 1,000 mcg/ (Sodium Chloride) 250 mls @ 19.513 mls/hr CONT INF .[id number] [facility]; Protocol Last Titration: 05/26/20 09:00 Dose: 1.5 mcg/kg/hr, 58.5 mls/hr Documented by: Insulin Glargine (Lantus (Bkc)) 20 units SC QHS CATHLEEN Insulin Human Lispro (Humalog Kwikpen (Bkc)) 0 unit SC Q6 CATHLEEN; Protocol Last Admin: 05/26/20 05:16 Dose: 1 u Documented by: Lorazepam (Ativan) 1 mg IV Q4H PRN PRN PRN Reason: AGITATION Last Admin: 05/26/20 09:28 Dose: 1 mg Documented by: Quetiapine Fumarate (Seroquel) 200 mg PO BID CATHLEEN Last Admin: 05/26/20 07:39 Dose: 200 mg Documented by: Sodium Chloride () 10 - 40 ml IV UD PRN PRN Reason: SALINE FLUSH Last Admin: 05/26/20 09:33 Dose: 10 ml Documented by: Medical Necessity - Tobacco Use Smoking Status: Unknown if ever smoked Route of nutrition/ use of supplements: [] Nutritional Intake: [] IV Site: [] Hodgson Catheter: [] - Assessment/Plan Antibiotics: [] Assessment/Plan: [] Active and Suspected Problems (Last Reviewed 05/24/20 @ 04:[address] Aubrey Powell MD) Suspected 2019 novel coronavirus infection (Acute) Severe sepsis (Acute) Schizophrenia (Acute) Fever, tachypnea, hypoxia at ECF, lymphopenia, elevated CK/Cr/d- dimer/ferritin/CRP. Covid pcr pending here. MRSA nares (+). Some L slaughter cellulitis. Cont vanc/zosyn, keep in isolation for suspected covid. Pending BLE doppler. On hep gtt and steroids. Will follow, d/w Dr. Dumont
--- NOTE | 2020-05-26 11:10 | RAD_ITS ---
STUDY: X-RAY CHEST REASON FOR EXAM: Male, 55 years old. PICC INSERTION TECHNIQUE: Single AP portable view of the chest. COMPARISON: Comparison is made with prior study done earlier in the day at 8:53 AM. FINDINGS: A right-sided PICC line catheter has been placed. The tip is at the junction of the superior vena cava and right atrium. The vascular congestion has improved. There is no demonstrated pleural abnormality. There is borderline cardiomegaly. Normal mediastinum and dwaine. Normal visualized pulmonary arteries. Normal visualized aortic arch and descending thoracic aorta. Normal visualized thoracic spine. Normal visualized ribs, clavicles, and shoulders. There is no demonstrated abnormality of the visualized soft tissue structures of the upper abdomen. RAD/CXR for Line Placement IMPRESSION: The tip of the right PICC line catheter is at the junction of the superior vena cava and right atrium. The vascular congestion has improved. Electronically Signed: Alfredito Hampton, at 12:22 EDT , Service support ,
--- NOTE | 2020-05-26 11:19 | US_ITS ---
STUDY: RENAL ULTRASOUND - COMPLETE REASON FOR EXAM: Male, 55 years old. MARIA T TECHNIQUE: Ultrasound evaluation of the kidneys was performed with real-time and static honeycutt-scale imaging. COMPARISON: None. FINDINGS: RIGHT KIDNEY: Normal location of the right kidney, which is normal in size. The right kidney measures 12.6 cm x 5.5 cm x 5.4 cm. There is a normal cortex of the right kidney. The renal cortex measures 1.6 cm. There is no right renal mass or cyst. There are no right renal calculi. There is no right hydronephrosis. DISTAL RIGHT URETER: There is non-visualization of the distal right ureter. There is no demonstrated right ureterovesical junction calculus. There is no demonstrated right ureteral jet. LEFT KIDNEY: Normal location of the left kidney, which is normal in size. The left kidney measures 12.4 cm x 6.3 cm x 6.2 cm. There is a normal cortex of the left kidney. The renal cortex measures 1.5 cm. There is no left renal mass or cyst. There are no left renal calculi. There is no left hydronephrosis. DISTAL LEFT URETER: There is non-visualization of the distal left ureter. There is no demonstrated left ureterovesical junction calculus. There is no demonstrated left ureteral jet. BLADDER: The bladder was not adequately distended for evaluation at the time of the examination. US/Kidney and Bladder IMPRESSION: Normal ultrasound of the kidneys. Electronically Signed: Alfredito Hampton, at 15:32 EDT , Service support ,
[2020-05-26 11:31] LABS: Bedside Glucose 124 mg/dL (70-110)
[2020-05-26] MEDS: Lactated Ringers 1,000 ML 125 ML IV ×3 (12:40→23:24)
[2020-05-26] MEDS: HEPARIN/D5w 25,000 UNITS 25,000 UNITS/250 ML IV.SOLN. 17 UNITS IV (12:43)
--- NOTE | 2020-05-26 13:07 | CASEMGMT ---
[facility] Sw[facility] and Sandra. Sandra said she thinks patient will go to [facility] at discharge for a 14 day quarantine. She has to confirm this and will hopefully be able to let MARIJA know this information by the end of today. Noni PALENCIA MSW
--- NOTE | 2020-05-26 15:29 | CASEMGMT ---
MARIJA received a call from Sandra at [facility]. Patient will be going to [facility] at discharge for 14 days to quarantine. Sandra said MARIJA will just need to send them patient's information and they will get the pre-cert. They will do whatever they can to help. She will take his belongings to [facility]. They will notify patient's dad of the quarantine plan. SW to follow for d/c to SNF. Plan: Patient will discharge to [facility] where he will quarantine for 14 days. After his quarantine he will return to [facility]. Noni PALENCIA ASSET LIABILITY ANALYST
[2020-05-26] MEDS: LORazepam 1 MG Tablet 2 MG PO ×2 (15:32→20:55)
--- NOTE | 2020-05-26 16:42 | PN_ITS ---
Patient Problems: Active and Suspected Problems (Last Reviewed 05/24/20 @ 04:[address] Aubrey Powell MD) Suspected 2019 novel coronavirus infection (Acute) Severe sepsis (Acute) Schizophrenia (Acute) Subjective: Patient was seen and examined today, he still running high fevers, I discussed his care with pulmonary medicine and infectious diseases, there is no obvious source for his presumed infection at this time, one blood culture showed positive for gram-positive bacillus-according to ID, they did not think this was significant. I also talked with ID and pulmonary medicine about possible neuroleptic malignant [id number] thinks that this is probably unlikely but possible, pulmonary medicine stated that they would try to wean the patient from Precedex to make sure that his temperature elevation was not from the use of Precedex for sedation. Patient remains confused at this time and under sedation. - Physical Exam Vitals/I&O's: Vital Signs Temp Pulse Resp BP Pulse Ox 102.5 F H 90 34 H 110/89 H 94 05/26/20 16:00 05/26/20 16:00 05/26/20 16:00 05/26/20 16:00 05/26/20 16:00 Oxygen Flow Rate (L/min) 2 Oxygen Delivery Method Nasal Cannula Weight: 156.1 kg Body Mass Index (BMI) 46.6 Intake and Output for Last 24 Hours 05/24/20 05/25/20 05/26/20 23:59 23:59 23:59 Intake Total 5510.7313 / 5510.7313 4052.67 / 4111.17 1178.60 / 1178.60 Output Total 2050 / 2400 1600 / 1775 1335 / 1335 Balance 3460.7313 / 3110.7313 2452.67 / 2336.17 -156.40 / -156.40 General: Confused, Lethargic HEENT: Atraumatic, PERRLA, EOMI, Normocephalic Oral: Moist Mucosa Neck: Supple, Trachea Midline, Thyroid Normal Size and Texture Lungs: Clear to auscultation, Normal air movement, No rhonchi, No wheeze, No rales Cardiovascular: Regular rate, Regular Rhythm, Normal S1, Normal S2, No murmurs, PMI Normal, No rub noted Abdomen: Bowel Sounds Present, Soft, Non Tender, Non-Distended Extremities: No clubbing, No cyanosis, Capillary Refill Less than 3 Seconds, Edema - There is bilateral lower leg edema worse on the left, there is also redness of the skin over the left lower leg noted. Skin: No breakdown, Rash Present - There is a reddened area over the left lower leg noted along with warmth of the area Neurological: Cranial nerves II-XII grossly intact, Neuro grossly intact Psych/Mental Status: - - Patient is lethargic and confused, he is also under sedation. Microbiology Past 72 Hours 05/24/20 00:45 Blood Culture (Wb) - Anticubital Left Blood Culture - Preliminary No growth in 48 hours. 05/24/20 00:45 Blood Culture (Wb) - Right Hand Blood Culture - Preliminary Bacillus sp., not anthracis 05/24/20 00:55 Mucosa - Nasopharyngeal Respiratory Panel (PCR) - Final 05/24/20 02:20 Urine Catheter - Catheter Streptococcus pneumoniae Antigen (M - Final 05/24/20 02:20 Urine Catheter - Catheter Legionella Antigen - Final Laboratory Results 05/25/20 17:15: APTT 54.6 H 05/25/20 17:19: POC Glucose 162 H 05/25/20 23:31: POC Glucose 151 H 05/26/20 02:20: APTT 60.6 H 05/26/20 02:20: WBC 10.4, RBC 4.14 L, Hgb 11.3 L, Hct 35.1 L, MCV 84.8, MCH 27.3, MCHC 32.2, RDW Std Deviation 44.6 H, RDW Coeff of Gume 14.6, Plt Count 122 L, MPV 13.2 H, Immature Gran % (Auto) 0.700, Neut % (Auto) 83.8 H, Lymph % (Auto) 5.8 L, [place] % (Auto) 9.2, Eos % (Auto) 0.2, Baso % (Auto) 0.3, Absolute Neuts (auto) 8.7 H, Absolute Lymphs (auto) 0.60 L, Nucleated RBC % 0 05/26/20 05:15: POC Glucose 159 H 05/26/20 08:05: APTT 75.0 H 05/26/20 08:05: Sodium 140, Potassium 4.0, Chloride 110 H, Carbon Dioxide 20.0 L , Anion Gap 10, BUN 46 H, Creatinine 2.69 H, Estim Creat Clear Calc 33.66, Est GFR (MDRD) Af Amer 32 L, Est GFR (MDRD) Non-Af 26 L, BUN/Creatinine Ratio 17.1, Glucose 136 H, Calcium 7.5 L, Phosphorus 3.8, Magnesium 2.9 H 05/26/20 08:05: Total Creatine Kinase 53745 H 05/26/20 11:12: POC Glucose 124 H Current Medications Acetaminophen (Tylenol) 650 mg RECTAL Q4H PRN PRN PRN Reason: Pain Score 1-10/Temp > 100.7 F Last Admin: 05/26/20 15:33 Dose: 650 mg Documented by: Albuterol Sulfate (Ventolin Aerosols) 2.5 mg INHALATION Q2H PRN PRN PRN Reason: SOB/Wheezing Benztropine Mesylate (Cogentin) 1 mg IV BID [facility] Last Admin: 05/26/20 07:40 Dose: 1 mg Documented by: Dextrose (D50w Syringe) 0 gm IV X1 PRN; Protocol PRN Reason: Hypoglycemia Glucagon () 1 mg IM .X1 PRN PRN Reason: Hypoglycemia Haloperidol (Haldol) 5 mg PO BID [facility] Last Admin: 05/26/20 07:40 Dose: 5 mg Documented by: Heparin Sodium (Porcine) (Heparin Na) 0 unit IV UD PRN; Protocol Hydrocortisone Sodium Succinate (Solu-Cortef) 50 mg IV Q8 [facility] Last Admin: 05/26/20 12:41 Dose: 50 mg Documented by: Piperacillin Sod/Tazobactam (Sod 3.375 gm/ Sodium Chloride) 50 mls @ 12.5 mls/hr IV Q8 [facility] Last Admin: 05/26/20 12:41 Dose: 12.5 mls/hr Documented by: Famotidine 20 mg/ Sodium (Chloride) 10 mls @ 300 mls/hr IV Q24 [facility] Last Infusion: 05/26/20 10:09 Dose: Infused Documented by: Vancomycin IV Pharmacy to Dose (1 ea/ Sodium Chloride) 500 mls @ 250 mls/hr IV PRN PRN; Protocol PRN Reason: Rx to Dose Sodium Chloride () 250 mls @ 15 mls/hr IV .[id number] PRN PRN Reason: Saline Flush Last Infusion: 05/25/20 06:36 Dose: 0 mls/hr Documented by: Sodium Chloride () 250 mls @ 15 mls/hr IV .[id number] PRN PRN Reason: Additional IVPB Infusion Vancomycin HCl 1,500 mg/ (Sodium Chloride) 530 mls @ 250 mls/hr IV Q24H [facility]ATHLEEN Last Admin: 05/26/20 01:45 Dose: Not Given Documented by: Heparin Sodium/Dextrose () 25,000 units in 250 mls @ 19 mls/hr IV .[id number] [facility]ATHLEEN; Protocol Last Admin: 05/26/20 12:43 Dose: 1,700 units/hr, 17 mls/hr Documented by: Dexmedetomidine HCl 1,000 mcg/ (Sodium Chloride) 250 mls @ 19.513 mls/hr CONT INF .[id number] [facility]ATHLEEN; Protocol Last Titration: 05/26/20 16:00 Dose: Infused Documented by: Lactated Ringer's () 1,000 mls @ 125 mls/hr IV .Q8H [facility]ATH[facility] Last Admin: 05/26/20 12:40 Dose: 125 mls/hr Documented by: Insulin Glargine (Lantus (Bkc)) 20 units SC QHS [facility]ATHLEEN Insulin Human Lispro (Humalog Kwikpen (Bkc)) 0 unit SC Q6 CATHLEEN; Protocol Last Admin: 05/26/20 11:22 Dose: Not Given Documented by: Lorazepam (Ativan) 2 mg PO 0800,1700,2000 [facility]ATHLEEN Last Admin: 05/26/20 15:32 Dose: 2 mg Documented by: Quetiapine Fumarate (Seroquel) 400 mg PO BID [facility] Sodium Chloride () 10 - 40 ml IV UD PRN PRN Reason: SALINE FLUSH Last Admin: 05/26/20 09:33 Dose: 10 ml Documented by: Medical Necessity - Tobacco Use Smoking Status: Unknown if ever smoked Assessment/Plan All Active Problems (Last Reviewed 05/24/20 @ 04:[address] Aubrey Powell MD) Suspected 2019 novel coronavirus infection (Acute) Severe sepsis (Acute) Schizophrenia (Acute) #1 severe sepsis secondary to community-acquired pneumonia-at this point COVID- 19 is being ruled out-patient will remain on his current antibiotic coverage per infectious diseases #2 elevated t-rlfrj-[id number] unknown at this time, due to the patient's poor renal function he is unable to undergo a CTA of his chest, he will remain anticoagulated for now #3 rhabdomyolysis #4 elevated creatinine-this has risen since yesterday, labs will be rechecked tomorrow #5 hypokalemia-corrected at this time #6 schizophrenia #7 type 2 diabetes-to continue to monitor blood sugar and administer sliding scale insulin #8 community-acquired pneumonia-organism unknown, again patient's COVID-19 test is pending at this time, patient's chest x-ray today did not show an extensive infiltrate #9 adrenal insufficiency-per medical history #10 anxiety disorder Inpatient E&M: 20839 Subs Hosp L2
--- NOTE | 2020-05-26 20:30 | NURSING ---
Orders received on day shift from Dr. Dumont to place pt on cooling blanket. Cooling blanket applied d/t elevated temp.
[2020-05-26] MEDS: QUEtiapine 100 MG Tablet 400 MG PO (21:00)
[2020-05-26 22:11] LABS: Bedside Glucose 134 mg/dL (70-110)
[2020-05-26] MEDS: Dexmedetomidine 1,000 mcg in 0.9% NS 240 mL 42.9 MCG CONT INF (23:26)
[2020-05-26 23:36] LABS: Bedside Glucose 142 mg/dL (70-110)
[2020-05-27] VITALS (27 sets, daily range): BP systolic 94–206; BP diastolic 50–101; PULSE 44–121; RESP 13–35; TEMP 35–37.7; O2SAT 94–99
[2020-05-27] MEDS: HEPARIN/D5w 25,000 UNITS 25,000 UNITS/250 ML IV.SOLN. 17 UNITS IV (01:46)
[2020-05-27] MEDS: Albuterol 2.5 MG/3 ML VIAL.NEB. INHALATION (02:30)
[2020-05-27 04:44] LABS: BNP,B-Type NATRIURETIC PEPTIDE 731.4 pg/mL (0-100)
--- NOTE | 2020-05-27 05:13 | EKG12_ITS ---
Test Reason : BRADYCARDIA Blood Pressure : / mmHG Vent. Rate : 067 BPM Atrial Rate : 067 BPM P-R Int : 168 ms QRS Dur : 088 ms QT Int : 482 ms P-R-T Axes : 050 039 018 degrees QTc Int : 509 ms Normal sinus rhythm Low Voltage QRS (Limb Leads) Prolonged QT Abnormal ECG Confirmed by CLOVER COYLE, ED ([id number]), editor magazine DENZEL KOEHLER ([id number]) on 06/03/2020 10:28:47 AM Referred By: COURT Confirmed By:ED GALO MD
[2020-05-27 05:19] LABS: CPK Total, Creatine Kinase 10284 U/L (39-308); Ferritin 602 ng/mL (26-388); LDH 560 U/L (87-241)
[2020-05-27] MEDS: Hydrocortisone Sod Succinate 100 MG/2 ML Vial 50 MG IV ×2 (05:39→22:01)
[2020-05-27 05:47] LABS: Allen Test POS; Bicarbonate 18.1 mmol/L (22-26); Blood Gas Specimen Type ART; O2 Delivery Device Nasal Can; PO2 88 mmHG (75-100); SITE R RADIAL; pCO2 38.7 mmHg (35-45); pH 7.28 (7.35-7.45)
[2020-05-27 05:48] LABS: Base Excess -9 mmol/L (-2 to +2); SO2 95 % (95-99); Total Carbon Dioxide 19 mmol/L
--- NOTE | 2020-05-27 06:38 | PN_ITS ---
Subjective: The patient was seen and examined at the bedside this morning. Events from the last 24 hours have been reviewed. Yesterday afternoon, the patient's fever remained persistently elevated. In light of his presenting symptoms, altered mentation and elevated CK there was some clinical concern for neuroleptic malignant syndrome. However, there was also concern that the patient's Precedex was contributing to his high-grade fevers. Therefore, the patient's Precedex was aggressively weaned and subsequently discontinued at 2 AM this morning. Overnight, the patient actually became hypothermic requiring Tyrese hugger application. For approximately 5 hours, the patient was bradycardic as well. Nevertheless, upon awakening this morning, his bradycardia has resolved. He remains hemodynamically stable on minimal supplemental oxygen. The patient's left lower extremity appears worse and nursing staff accordingly consulted the wound care team. The patient is currently documented to be overall net +7.6 L for the hospital admission. EKG obtained this morning revealed normal sinus rhythm with QT prolongation of 509 ms. Objective: The patient's most recent lab work, culture data and imaging studies have all been personally reviewed. Renal ultrasound was unremarkable. Coronavirus PCR is negative. MRSA screen was positive. Strep and urine Legionella antigens were negative. Respiratory viral panel was negative. Blood and urine cultures are pending. Sputum culture is pending. General: Alert, Confused, Disoriented HEENT: Atraumatic, Normocephalic Oral: Dry Mucosa Neck: Supple, No Nodes, Trachea Midline Lungs: Diminished Cardiovascular: Normal S1, Normal S2, Tachycardic Abdomen: Bowel Sounds Present, Soft, Non Tender, Obese Extremities: No clubbing, No cyanosis, Edema Skin: - - Significant left lower extremity erythema with superficial ulceration Musculoskeletal: No Muscle Wasting Lymphatic: No Cervical, Supraclavicular, or Inguinal Adenopathy Neurological: - - No focal neurological deficits. Moves extremities spontaneously. Psych/Mental Status: Agitated, Impulsive, Restless Vital Signs Temp Pulse Resp BP Pulse Ox 95.0 F L 49 L 14 94/59 L 98 05/27/20 05:00 05/27/20 05:00 05/27/20 05:00 05/27/20 05:00 05/27/20 05:00 Oxygen Flow Rate (L/min) 2 Oxygen Delivery Method Nasal Cannula Weight: 350 lb 5.032 oz Body Mass Index (BMI) 46.6 Intake and Output for Last 24 Hours 05/25/20 05/26/20 05/27/20 23:59 23:59 23:59 Intake Total 4052.67 / 4111.17 2900.27 / 2924.58 1325.02 / 1325.02 Output Total 1600 / 1775 2140 / 2140 350 / 350 Balance 2452.67 / 2336.17 760.27 / 784.58 975.02 / 975.02 Labs (Last 48 Hours) 05/25/20 05/25/20 05/25/20 10:20 10:20 11:28 WBC RBC Hgb Hct MCV MCH MCHC RDW Std Deviation RDW Coeff of Gume Plt Count MPV Immature Gran % (Auto) Neut % (Auto) Lymph % (Auto) [place] % (Auto) Eos % (Auto) Baso % (Auto) Absolute Neuts (auto) Absolute Lymphs (auto) Nucleated RBC % APTT 34.0 D-Dimer Quant (PE/DVT) 8.97 H* Specimen Type Sample Site pH Bicarbonate Actual POC Total CO2 Base Excess O2 Saturation ABG pCO2 ABG pO2 Nick Test O2 Delivery Device Liter Flow Blood Gas Notified Whom Sodium Potassium Chloride Carbon Dioxide Anion Gap BUN Creatinine Estim Creat Clear Calc Est GFR (MDRD) Af Amer Est GFR (MDRD) Non-Af BUN/Creatinine Ratio Glucose Calcium Phosphorus Magnesium Ferritin Lactate Dehydrogenase Total Creatine Kinase Troponin I C-React Prot Ext Range B-Natriuretic Peptide Procalcitonin POC Glucose 171 H 05/25/20 05/25/20 05/25/20 13:45 13:45 17:15 WBC RBC Hgb Hct MCV MCH MCHC RDW Std Deviation RDW Coeff of Gume Plt Count MPV Immature Gran % (Auto) Neut % (Auto) Lymph % (Auto) [place] % (Auto) Eos % (Auto) Baso % (Auto) Absolute Neuts (auto) Absolute Lymphs (auto) Nucleated RBC % APTT 54.6 H D-Dimer Quant (PE/DVT) Specimen Type Sample Site pH Bicarbonate Actual POC Total CO2 Base Excess O2 Saturation ABG pCO2 ABG pO2 Nick Test O2 Delivery Device Liter Flow Blood Gas Notified Whom Sodium Potassium Chloride Carbon Dioxide Anion Gap BUN Creatinine Estim Creat Clear Calc Est GFR (MDRD) Af Amer Est GFR (MDRD) Non-Af BUN/Creatinine Ratio Glucose Calcium Phosphorus Magnesium Ferritin Lactate Dehydrogenase 759 H Total Creatine Kinase Troponin I C-React Prot Ext Range 222.00 H B-Natriuretic Peptide Procalcitonin 22.43 H POC Glucose 05/25/20 05/25/20 05/26/20 17:19 23:31 02:20 WBC RBC Hgb Hct MCV MCH MCHC RDW Std Deviation RDW Coeff of Gume Plt Count MPV Immature Gran % (Auto) Neut % (Auto) Lymph % (Auto) [place] % (Auto) Eos % (Auto) Baso % (Auto) Absolute Neuts (auto) Absolute Lymphs (auto) Nucleated RBC % APTT 60.6 H D-Dimer Quant (PE/DVT) Specimen Type Sample Site pH Bicarbonate Actual POC Total CO2 Base Excess O2 Saturation ABG pCO2 ABG pO2 Nick Test O2 Delivery Device Liter Flow Blood Gas Notified Whom Sodium Potassium Chloride Carbon Dioxide Anion Gap BUN Creatinine Estim Creat Clear Calc Est GFR (MDRD) Af Amer Est GFR (MDRD) Non-Af BUN/Creatinine Ratio Glucose Calcium Phosphorus Magnesium Ferritin Lactate Dehydrogenase Total Creatine Kinase Troponin I C-React Prot Ext Range B-Natriuretic Peptide Procalcitonin POC Glucose 162 H 151 H 05/26/20 05/26/20 05/26/20 02:20 05:15 08:05 WBC 10.4 RBC 4.14 L Hgb 11.3 L Hct 35.1 L MCV 84.8 MCH 27.3 MCHC 32.2 RDW Std Deviation 44.6 H RDW Coeff of Gume 14.6 Plt Count 122 L MPV 13.2 H Immature Gran % (Auto) 0.700 Neut % (Auto) 83.8 H Lymph % (Auto) 5.8 L [place] % (Auto) 9.2 Eos % (Auto) 0.2 Baso % (Auto) 0.3 Absolute Neuts (auto) 8.7 H Absolute Lymphs (auto) 0.60 L Nucleated RBC % 0 APTT 75.0 H D-Dimer Quant (PE/DVT) Specimen Type Sample Site pH Bicarbonate Actual POC Total CO2 Base Excess O2 Saturation ABG pCO2 ABG pO2 Nick Test O2 Delivery Device Liter Flow Blood Gas Notified Whom Sodium Potassium Chloride Carbon Dioxide Anion Gap BUN Creatinine Estim Creat Clear Calc Est GFR (MDRD) Af Amer Est GFR (MDRD) Non-Af BUN/Creatinine Ratio Glucose Calcium Phosphorus Magnesium Ferritin Lactate Dehydrogenase Total Creatine Kinase Troponin I C-React Prot Ext Range B-Natriuretic Peptide Procalcitonin POC Glucose 159 H 05/26/20 05/26/20 05/26/20 08:05 08:05 11:12 WBC RBC Hgb Hct MCV MCH MCHC RDW Std Deviation RDW Coeff of Gume Plt Count MPV Immature Gran % (Auto) Neut % (Auto) Lymph % (Auto) [place] % (Auto) Eos % (Auto) Baso % (Auto) Absolute Neuts (auto) Absolute Lymphs (auto) Nucleated RBC % APTT D-Dimer Quant (PE/DVT) Specimen Type Sample Site pH Bicarbonate Actual POC Total CO2 Base Excess O2 Saturation ABG pCO2 ABG pO2 Nick Test O2 Delivery Device Liter Flow Blood Gas Notified Whom Sodium 140 Potassium 4.0 Chloride 110 H Carbon Dioxide 20.0 L Anion Gap 10 BUN 46 H Creatinine 2.69 H Estim Creat Clear Calc 33.66 Est GFR (MDRD) Af Amer 32 L Est GFR (MDRD) Non-Af 26 L BUN/Creatinine Ratio 17.1 Glucose 136 H Calcium 7.5 L Phosphorus 3.8 Magnesium 2.9 H Ferritin Lactate Dehydrogenase Total Creatine Kinase 18761 H Troponin I C-React Prot Ext Range B-Natriuretic Peptide Procalcitonin POC Glucose 124 H 05/26/20 05/26/20 05/27/20 20:51 23:12 04:00 WBC RBC Hgb Hct MCV MCH MCHC RDW Std Deviation RDW Coeff of Gume Plt Count MPV Immature Gran % (Auto) Neut % (Auto) Lymph % (Auto) [place] % (Auto) Eos % (Auto) Baso % (Auto) Absolute Neuts (auto) Absolute Lymphs (auto) Nucleated RBC % APTT D-Dimer Quant (PE/DVT) Specimen Type Sample Site pH Bicarbonate Actual POC Total CO2 Base Excess O2 Saturation ABG pCO2 ABG pO2 Nick Test O2 Delivery Device Liter Flow Blood Gas Notified Whom Sodium Potassium Chloride Carbon Dioxide Anion Gap BUN Creatinine Estim Creat Clear Calc Est GFR (MDRD) Af Amer Est GFR (MDRD) Non-Af BUN/Creatinine Ratio Glucose Calcium Phosphorus Magnesium Ferritin 602 H Lactate Dehydrogenase 560 H Total Creatine Kinase 97549 H Troponin I 0.291 H C-React Prot Ext Range 186.00 H B-Natriuretic Peptide Procalcitonin POC Glucose 134 H 142 H 05/27/20 05/27/20 05/27/20 04:00 04:00 04:00 WBC RBC Hgb Hct MCV MCH MCHC RDW Std Deviation RDW Coeff of Gume Plt Count MPV Immature Gran % (Auto) Neut % (Auto) Lymph % (Auto) [place] % (Auto) Eos % (Auto) Baso % (Auto) Absolute Neuts (auto) Absolute Lymphs (auto) Nucleated RBC % APTT D-Dimer Quant (PE/DVT) Specimen Type Sample Site pH Bicarbonate Actual POC Total CO2 Base Excess O2 Saturation ABG pCO2 ABG pO2 Nick Test O2 Delivery Device Liter Flow Blood Gas Notified Whom Sodium Pending Potassium Pending Chloride Pending Carbon Dioxide Pending Anion Gap Pending BUN Pending Creatinine Pending Estim Creat Clear Calc Est GFR (MDRD) Af Amer Pending Est GFR (MDRD) Non-Af Pending BUN/Creatinine Ratio Pending Glucose Pending Calcium Pending Phosphorus Pending Magnesium Pending Ferritin Lactate Dehydrogenase Total Creatine Kinase Troponin I C-React Prot Ext Range B-Natriuretic Peptide 731.4 H Procalcitonin Pending POC Glucose 05/27/20 05/27/20 04:00 05:35 WBC RBC Hgb Hct MCV MCH MCHC RDW Std Deviation RDW Coeff of Gume Plt Count MPV Immature Gran % (Auto) Neut % (Auto) Lymph % (Auto) [place] % (Auto) Eos % (Auto) Baso % (Auto) Absolute Neuts (auto) Absolute Lymphs (auto) Nucleated RBC % APTT Pending D-Dimer Quant (PE/DVT) Specimen Type ART Sample Site R RADIAL pH 7.28 L Bicarbonate Actual 18.1 L POC Total CO2 19 Base Excess -9 L O2 Saturation 95 ABG pCO2 38.7 ABG pO2 88 Nick Test POS O2 Delivery Device Nasal Can Liter Flow 2.0 Blood Gas Notified Whom ICU MD Sodium Potassium Chloride Carbon Dioxide Anion Gap BUN Creatinine Estim Creat Clear Calc Est GFR (MDRD) Af Amer Est GFR (MDRD) Non-Af BUN/Creatinine Ratio Glucose Calcium Phosphorus Magnesium Ferritin Lactate Dehydrogenase Total Creatine Kinase Troponin I C-React Prot Ext Range B-Natriuretic Peptide Procalcitonin POC Glucose Microbiology 05/24/20 00:45 Blood Culture (Wb) - Anticubital Left Blood Culture - Preliminary No growth in 48 hours. 05/24/20 00:45 Blood Culture (Wb) - Right Hand Blood Culture - Preliminary Bacillus sp., not anthracis Clinical Impression(s) from Imaging Studies Chest X-Ray 05/24/20 00:56 IMPRESSION: Pulmonary hypoexpansion with pulmonary venous congestion. at 0128 Reported and signed by: Baldemar Angulo MD Electronically Signed: Baldemar Angulo MD at 1:27 EDT Tel , Service support , Chest X-Ray 05/26/20 08:50 IMPRESSION: Borderline cardiomegaly with venous congestion. Electronically Signed: Alfredito Hampton, at 9:25 EDT , Service support , Chest X-Ray 05/26/20 11:10 IMPRESSION: The tip of the right PICC line catheter is at the junction of the superior vena cava and right atrium. The vascular congestion has improved. Electronically Signed: Alfredito Hampton, at 12:22 EDT , Service support , Renal Ultrasound 05/26/20 11:19 IMPRESSION: Normal ultrasound of the kidneys. Electronically Signed: Alfredito Hampton at 15:32 EDT , Service support , Medical Necessity - Tobacco Use Smoking Status: Unknown if ever smoked Assessment/Plan All Active Problems (Last Reviewed 05/24/20 @ 04:[address] Aubrey Powell MD) Suspected 2019 novel coronavirus infection (Acute) Severe sepsis (Acute) Schizophrenia (Acute) RECOMMENDATIONS: 1. Continue antimicrobials per ID recommendations. 2. Obtain arterial blood gas and check TSH. 3. Obtain wound care consultation. 4. Continue baseline psychiatric medications and monitor QT closely. 5. Begin to wean stress dose steroids. 6. Continue systemic anticoagulation. IMPRESSIONS: 1. Severe sepsis with possible right-sided pneumonia versus COVID-19 infection The patient's initial chest x-ray was difficult to interpret given poor inspiratory effort. However, there is a questionable right-sided infiltrate. Procalcitonin level is also elevated. Therefore, it is reasonable to continue empiric broad-spectrum antimicrobials for now. Coronavirus PCR was negative. The patient will remain on systemic anticoagulation given elevated d-dimer levels. The patient's overall fever has improved since Precedex was discontinued. Although there was initial concern for possible neuroleptic malignant syndrome, the patient appears to have stabilized clinically once the Precedex was discontinued. Nevertheless, we will continue to monitor his QT interval closely, given that he is on Seroquel and scheduled Haldol at his baseline. 2. Acute kidney injury Unclear etiology. Renal ultrasound was unremarkable. Will ask nephrology to evaluate. 3. Elevated inflammatory markers/d-dimer Continue systemic anticoagulation for now. 4. History of adrenal insufficiency/schizophrenia/diabetes mellitus/morbid obesity Complicates care, management, recovery and prognosis. Continue stress dose steroids as ordered. Continue baseline Seroquel, Haldol and scheduled Ativan. This note was generated with [employer] dictation software. It may contain incorrect words, spelling, and punctuation that were not noted in checking the note before signing. Inpatient E&M: [id number] [facility] Hosp L3
[2020-05-27 06:57] LABS: Anion Gap 9 (5-15); BUN 51 mg/dL (7-18); Calcium,Total 7.5 mg/dL (8.5-10.1); Chloride 110 mmol/L (98-107); Creatinine, Serum 2.68 mg/dL (0.70-1.30); EST Glomerular Filtration Rate 26 mL/min (>60); Est Glom Filt Rate - Afr Amer 32 mL/min (>60); Estimated Creatinine Clearance 33.78 ml/min; Glucose 169 mg/dL (74-106); Magnesium 3.2 mg/dL (1.6-2.6); Potassium 4.1 mmol/L (3.5-5.1); Sodium Level 139 mmol/L (136-145)
[2020-05-27 07:05] LABS: Partial Thromboplast Time 115.4 Seconds (24.1-36.2)
[2020-05-27 07:14] LABS: Absolute Lymphocyte Count 1.01 X10^3/uL (0.83-4.51); Absolute Neutrophil Count 10.4 X10^3/uL (2.0-7.7); Basophil# 0.04 X10^3/uL; Basophil% 0.3 % (0-1); Eosinophil# 0.02 X10^3/uL; Eosinophils% 0.2 % (0-5); Hematocrit 33.9 % (40-54); Hemoglobin 10.9 g/dL (13.0-16.5); Lymphocyte # 1.01 X10^3/ul (4.0); Mean Corp Hgb Conc 32.2 g/dL (32-36); Mean Corpuscular Volume 84.1 fL (80-94); Mean Platelet Vol. 11.3 fl (6.2-12.0); Monocyte# 0.97 X10^3/uL; Monocyte% 7.7 % (0-10); NRBC Flagged by Analyzer 0 % (0-5); Neutrophil # 10.41 X10^3/uL (2.7-7.7); Neutrophil % 82.6 % (47-70); Platelet Count 127 K/mm3 (150-450); RBC Distribution Width CV 15.1 % (11.6-14.6); Red Blood Count 4.03 M/mm3 (4.6-6.2); White Blood Count 12.6 K/mm3 (4.4-11.0)
[2020-05-27] MEDS: Lactated Ringers 1,000 ML 125 ML IV ×3 (08:12→22:02)
[2020-05-27] MEDS: Famotidine 200 MG/20 ML MDV 20 MG in 0.9% Normal Saline (Pres. free 8 ML 300 MG IV (08:12)
[2020-05-27] MEDS: LORazepam 1 MG Tablet 2 MG PO ×3 (08:51→20:22)
[2020-05-27] MEDS: QUEtiapine 100 MG Tablet 400 MG PO ×2 (08:52→22:01)
[2020-05-27] MEDS: Haloperidol 5 MG Tablet PO ×2 (08:52→22:02)
[2020-05-27 09:29] LABS: Procalcitonin 9.13 ng/mL (0.00-0.09)
--- NOTE | 2020-05-27 10:38 | CASEMGMT ---
MARIJA faxed updates to [facility]. Noni [employer]
[2020-05-27] MEDS: Labetalol 20 MG/4 ML Vial IV (11:28)
--- NOTE | 2020-05-27 12:02 | PCM.CONS.R ---
Consultation - Renal 05/27/20 PCP/ Referring MD: Requesting physician: [] Primary care physician: Dr. Alonso Ramos MD Reason for Consultation:: maria t atn - History of Present Illness History of Present Illness: The patient is a 55 year old with ?component of CKD admitted with severe sepsis secondary to community-acquired pneumonia-at this point COVID-19 is being ruled out-patient will remain on his current antibiotic coverage per infectious diseases. now has MARIA T ATN creatinine peaked at 2.69 with CXR minimal infiltrate - Allergies Allergies: Allergies No Known Allergies Allergy (Verified 05/24/20 00:41) - Current Medications Current Medications: Current Medications Acetaminophen (Tylenol) 650 mg RECTAL Q4H PRN PRN PRN Reason: Pain Score 1-10/Temp > 100.7 F Last Admin: 05/26/20 15:33 Dose: 650 mg Documented by: Albuterol Sulfate (Ventolin Aerosols) 2.5 mg INHALATION Q2H PRN PRN PRN Reason: SOB/Wheezing Last Admin: 05/27/20 02:30 Dose: 2.5 mg Documented by: Benztropine Mesylate (Cogentin) 2 mg PO DAILY [facility] Dextrose (D50w Syringe) 0 gm IV X1 PRN; Protocol PRN Reason: Hypoglycemia Famotidine (Pepcid) 20 mg PO DAILY [facility] Glucagon () 1 mg IM .X1 PRN PRN Reason: Hypoglycemia Haloperidol (Haldol) 5 mg PO BID [facility] Last Admin: 05/27/20 08:52 Dose: 5 mg Documented by: Heparin Sodium (Porcine) (Heparin Na) 0 unit IV UD PRN; Protocol Hydrocortisone Sodium Succinate (Solu-Cortef) 50 mg IV Q12 [facility] Piperacillin Sod/Tazobactam (Sod 3.375 gm/ Sodium Chloride) 50 mls @ 12.5 mls/hr IV Q8 [facility] Last Admin: 05/27/20 07:47 Dose: 12.5 mls/hr Documented by: Vancomycin IV Pharmacy to Dose (1 ea/ Sodium Chloride) 500 mls @ 250 mls/hr IV PRN PRN; Protocol PRN Reason: Rx to Dose Sodium Chloride () 250 mls @ 15 mls/hr IV .[id number] PRN PRN Reason: Saline Flush Last Infusion: 05/25/20 06:36 Dose: 0 mls/hr Documented by: Sodium Chloride () 250 mls @ 15 mls/hr IV .[id number] PRN PRN Reason: Additional IVPB Infusion Vancomycin HCl 1,500 mg/ (Sodium Chloride) 530 mls @ 250 mls/hr IV Q24H [facility] Last Infusion: 05/27/20 08:53 Dose: Infused Documented by: Heparin Sodium/Dextrose () 25,000 units in 250 mls @ 19 mls/hr IV .[id number] [facility]; Protocol Last Titration: 05/27/20 09:05 Dose: 1,400 units/hr, 14 mls/hr Documented by: Lactated Ringer's () 1,000 mls @ 125 mls/hr IV .Q8H [facility] Last Admin: 05/27/20 08:12 Dose: 125 mls/hr Documented by: Insulin Glargine (Lantus ([facility])) 20 units SC QHS [facility] Last Admin: 05/26/20 23:07 Dose: Not Given Documented by: Insulin Human Lispro (Humalog Kwikpen ([facility])) 0 unit SC Q6 [facility]; Protocol Last Admin: 05/27/20 07:35 Dose: Not Given Documented by: Lorazepam (Ativan) 2 mg PO 0800,1700,2000 [facility] Last Admin: 05/27/20 08:51 Dose: 2 mg Documented by: Quetiapine Fumarate (Seroquel) 400 mg PO BID [facility] Last Admin: 05/27/20 08:52 Dose: 400 mg Documented by: Sodium Chloride () 10 - 40 ml IV UD PRN PRN Reason: SALINE FLUSH Last Admin: 05/26/20 09:33 Dose: 10 ml Documented by: - Past Surgical History Surgical History: - - Unable to obtain since patient is confused. No family by bedside and it is late night/audioprosthologist. - Social History Smoking Status: Unknown if ever smoked - Family History Maternal History Items: - - Unable to obtain since patient is confused. No family by bedside and it is late night/audioprosthologist. Paternal History Items: - - Unable to obtain since patient is confused. No family by bedside and it is late night/audioprosthologist. Patient Problems: Active and Suspected Problems (Last Reviewed 05/24/20 @ 04:[address] Aubrey Powell MD) Suspected 2019 novel coronavirus infection (Acute) Severe sepsis (Acute) Schizophrenia (Acute) Objective: not done on COVID floor - Physical Exam Vitals/I&O's: Vital Signs Temp Pulse Resp BP Pulse Ox 98.8 F 120 H 35 H 179/97 H 95 05/27/20 10:00 05/27/20 10:00 05/27/20 10:00 05/27/20 10:00 05/27/20 10:00 Oxygen Flow Rate (L/min) 2 Oxygen Delivery Method Nasal Cannula Weight: 158.9 kg Body Mass Index (BMI) 46.6 Intake and Output for Last 24 Hours 05/25/20 05/26/20 05/27/20 23:59 23:59 23:59 Intake Total 4052.67 / 4111.17 2900.27 / 2924.58 2055.79 / 2055.79 Output Total 1600 / 1775 2140 / 2140 700 / 700 Balance 2452.67 / 2336.17 760.27 / 784.58 1355.79 / 1355.79 Microbiology Past 72 Hours 05/27/20 04:05 Sputum, Expectorated/Coughed Gram Stain - Final 05/25/20 02:20 Urine Catheter - Hodgson Urine Culture - Preliminary Culture exhibits no growth. 05/24/20 00:45 Blood Culture (Wb) - Anticubital Left Blood Culture - Preliminary No growth in 48 hours. 05/24/20 00:45 Blood Culture (Wb) - Right Hand Blood Culture - Preliminary Bacillus sp., not anthracis Laboratory Results 05/24/20 00:55: COVID-19 ([facility]I) Not Detected 05/24/20 00:55: COVID-19 ([facility]ARTI) [employer] 05/26/20 20:51: POC Glucose 134 H 05/26/20 23:12: POC Glucose 142 H 05/27/20 04:00: Ferritin 602 H, Lactate Dehydrogenase 560 H, Total Creatine Kinase 03217 H, Troponin I 0.291 H, C-React Prot Ext Range 186.00 H 05/27/20 04:00: B-Natriuretic Peptide 731.4 H 05/27/20 04:00: Procalcitonin 9.13 H 05/27/20 04:00: Sodium 139, Potassium 4.1, Chloride 110 H, Carbon Dioxide 20.0 L, Anion Gap 9, BUN 51 H, Creatinine 2.68 H, Estim Creat Clear Calc 33.78, Est GFR (MDRD) Af Amer 32 L, Est GFR (MDRD) Non-Af 26 L, BUN/Creatinine Ratio 19.0, Glucose 169 H, Calcium 7.5 L, Phosphorus 4.0, Magnesium 3.2 H 05/27/20 04:00: APTT 115.4 H* 05/27/20 04:00: TSH 1.20 05/27/20 05:35: Specimen Type ART, Sample Site R RADIAL, pH 7.28 L, Bicarbonate Actual 18.1 L, POC Total CO2 19, Base Excess -9 L, O2 Saturation 95, ABG pCO2 38.7, ABG pO2 88, Nick Test POS, O2 Delivery Device Nasal Can, Liter Flow 2.0, Blood Gas Notified Whom ICU 05/27/20 05:41: Specimen Type Cancelled, Sample Site Cancelled, pH Cancelled, Bicarbonate Actual Cancelled, POC Total CO2 Cancelled, Base Excess Cancelled, O2 Saturation Cancelled, O2 % Cancelled, ABG pCO2 Cancelled, ABG pO2 Cancelled, Nick Test Cancelled, Respiration Rate Cancelled, O2 Delivery Device Cancelled, Liter Flow Cancelled, Minute Volume Cancelled, Vent Mode Cancelled, Tidal Volume Cancelled, POC PEEP Cancelled, POC Pressure Suppt Cancelled, Pressure High Cancelled, Pressure Low Cancelled, Time High Cancelled, Time Low Cancelled, EPAP Cancelled, IPAP Cancelled, Blood Gas Notified Whom Cancelled, Blood Gas Notified Time Cancelled 05/27/20 06:40: WBC 12.6 H, RBC 4.03 L, Hgb 10.9 L, Hct 33.9 L, MCV 84.1, MCH 27.0, MCHC 32.2, RDW Std Deviation 46.0 H, RDW Coeff of Gume 15.1 H, Plt Count 127 L, MPV 11.3, Immature Gran % (Auto) 1.200 H, Neut % (Auto) 82.6 H, Lymph % (Auto) 8.0 L, [place] % (Auto) 7.7, Eos % (Auto) 0.2, Baso % (Auto) 0.3, Absolute Neuts (auto) 10.4 H, Absolute Lymphs (auto) 1.01, Nucleated RBC % 0 05/27/20 06:53: COVID-19 ([facility]ARTI) Negative Current Medications Acetaminophen (Tylenol) 650 mg RECTAL Q4H PRN PRN PRN Reason: Pain Score 1-10/Temp > 100.7 F Last Admin: 05/26/20 15:33 Dose: 650 mg Documented by: Albuterol Sulfate (Ventolin Aerosols) 2.5 mg INHALATION Q2H PRN PRN PRN Reason: SOB/Wheezing Last Admin: 05/27/20 02:30 Dose: 2.5 mg Documented by: Benztropine Mesylate (Cogentin) 2 mg PO DAILY [facility] Dextrose (D50w Syringe) 0 gm IV X1 PRN; Protocol PRN Reason: Hypoglycemia Famotidine (Pepcid) 20 mg PO DAILY [facility] Glucagon () 1 mg IM .X1 PRN PRN Reason: Hypoglycemia Haloperidol (Haldol) 5 mg PO BID [facility] Last Admin: 05/27/20 08:52 Dose: 5 mg Documented by: Heparin Sodium (Porcine) (Heparin Na) 0 unit IV UD PRN; Protocol Hydrocortisone Sodium Succinate (Solu-Cortef) 50 mg IV Q12 [facility] Piperacillin Sod/Tazobactam (Sod 3.375 gm/ Sodium Chloride) 50 mls @ 12.5 mls/hr IV Q8 [facility] Last Admin: 05/27/20 07:47 Dose: 12.5 mls/hr Documented by: Vancomycin IV Pharmacy to Dose (1 ea/ Sodium Chloride) 500 mls @ 250 mls/hr IV PRN PRN; Protocol PRN Reason: Rx to Dose Sodium Chloride () 250 mls @ 15 mls/hr IV .[id number] PRN PRN Reason: Saline Flush Last Infusion: 05/25/20 06:36 Dose: 0 mls/hr Documented by: Sodium Chloride () 250 mls @ 15 mls/hr IV .[id number] PRN PRN Reason: Additional IVPB Infusion Vancomycin HCl 1,500 mg/ (Sodium Chloride) 530 mls @ 250 mls/hr IV Q24H [facility] Last Infusion: 05/27/20 08:53 Dose: Infused Documented by: Heparin Sodium/Dextrose () 25,000 units in 250 mls @ 19 mls/hr IV .[id number] [facility]; Protocol Last Titration: 05/27/20 09:05 Dose: 1,400 units/hr, 14 mls/hr Documented by: Lactated Ringer's () 1,000 mls @ 125 mls/hr IV .Q8H [facility] Last Admin: 05/27/20 08:12 Dose: 125 mls/hr Documented by: Insulin Glargine (Lantus ([facility])) 20 units SC QHS [facility] Last Admin: 05/26/20 23:07 Dose: Not Given Documented by: Insulin Human Lispro (Humalog Kwikpen ([facility])) 0 unit SC Q6 [facility]; Protocol Last Admin: 05/27/20 07:35 Dose: Not Given Documented by: Lorazepam (Ativan) 2 mg PO 0800,1700,2000 [facility] Last Admin: 05/27/20 08:51 Dose: 2 mg Documented by: Quetiapine Fumarate (Seroquel) 400 mg PO BID [facility] Last Admin: 05/27/20 08:52 Dose: 400 mg Documented by: Sodium Chloride () 10 - 40 ml IV UD PRN PRN Reason: SALINE FLUSH Last Admin: 05/26/20 09:33 Dose: 10 ml Documented by: Assessment/Plan All Active Problems (Last Reviewed 05/24/20 @ 04:[address] Aubrey Powell MD) Suspected 2019 novel coronavirus infection (Acute) Severe sepsis (Acute) Schizophrenia (Acute) MARIA T ATN non oliguruic MARIA T ERNESTO Class II seconadry to severe sepsis secondary to community-acquired pneumonia-at this point COVID-19 is being ruled out-patient will remain on his current antibiotic coverage per infectious diseases -MARIA T creatinine 2.69 -Solute accumulating ?chemokine burst -Resuscitate with LR -Keep MAP.65 -Hold emma and no IV contrast -hypokalemia-corrected at this time -BP tenous -no need of [employer] - adrenal insufficiency-stress dsoe gina=y help in COVID resp failure
[2020-05-27] MEDS: Insulin Lispro 100 UNIT/ML INSULN.PEN SC ×3 (12:46→23:44)
[2020-05-27 13:29] LABS: Partial Thromboplast Time 52.5 Seconds (24.1-36.2)
[2020-05-27] MEDS: Benztropine 2 MG Tablet 1 MG PO (13:46)
[2020-05-27] MEDS: Heparin Injection (Vial) 5,000 UNIT/ML VIAL IV (15:01)
[2020-05-27] MEDS: LORazepam 2 MG/ML Syringe 1 MG IV (15:02)
--- NOTE | 2020-05-27 15:35 | NURSING ---
wound photo: left posteromedial lower leg
--- NOTE | 2020-05-27 15:47 | PN_ITS ---
Patient Problems: Active and Suspected Problems (Last Reviewed 05/24/20 @ 04:[address] Aubrey Powell MD) Suspected 2019 novel coronavirus infection (Acute) Severe sepsis (Acute) Schizophrenia (Acute) Subjective: Patient was seen and examined today and ICU, he still remains confused but does not appear to be in any distress. Patient was seen by nephrology today who felt that he had ATN and recommended continuing fluid administration. Patient's COVID test came back negative, I talked briefly with infectious diseases about r emoving the patient from isolation, infectious diseases wanted to examine the patient today before making any decisions about removing his isolation. Patient's temperature is been down today, he is not on Precedex presently. Objective: General: Confused, Lethargic HEENT: Atraumatic, PERRLA, EOMI, Normocephalic Oral: Dry mucosa Neck: Supple, Trachea Midline, Thyroid Normal Size and Texture Lungs: Clear to auscultation, Normal air movement, No rhonchi, No wheeze, No rales Cardiovascular: Regular rate, Regular Rhythm, Normal S1, Normal S2, No murmurs, PMI Normal, No rub noted Abdomen: Bowel Sounds Present, Soft, Non Tender, Non-Distended Extremities: No clubbing, No cyanosis, Capillary Refill Less than 3 Seconds, Edema - There is bilateral lower leg edema worse on the left, there is also redness of the skin over the left lower leg noted. Skin: No breakdown, Rash Present - There is a reddened area over the left lower leg noted along with warmth of the area Neurological: Cranial nerves II-XII grossly intact, Neuro grossly intact Psych/Mental Status: - - Patient is lethargic and confused - Physical Exam Vitals/I&O's: Vital Signs Temp Pulse Resp BP Pulse Ox 99.6 F H 103 H 29 H 170/78 H 95 05/27/20 15:05/27/20 15:42 05/27/20 15:05/27/20 15:05/27/20 15:00 Oxygen Flow Rate (L/min) 2 Oxygen Delivery Method Nasal Cannula Weight: 158.9 kg Body Mass Index (BMI) 46.6 Intake and Output for Last 24 Hours 05/25/20 05/26/20 05/27/20 23:59 23:59 23:59 Intake Total 4052.67 / 4111.17 2900.27 / 2924.58 2920.37 / 2920.37 Output Total 1600 / 1775 2140 / 2140 700 / 700 Balance 2452.67 / 2336.17 760.27 / 784.58 2220.37 / 2220.37 Microbiology Past 72 Hours 05/27/20 04:05 Sputum, Expectorated/Coughed Gram Stain - Final 05/25/20 02:20 Urine Catheter - Hodgson Urine Culture - Preliminary Culture exhibits no growth. 05/24/20 00:45 Blood Culture (Wb) - Anticubital Left Blood Culture - Preliminary No growth in 48 hours. 05/24/20 00:45 Blood Culture (Wb) - Right Hand Blood Culture - Preliminary Bacillus sp., not anthracis Laboratory Results 05/24/20 00:55: COVID-19 ([facility]ARTI) Not Detected 05/24/20 00:55: COVID-19 ([facility]I) [employer] 05/26/20 20:51: POC Glucose 134 H 05/26/20 23:12: POC Glucose 142 H 05/27/20 04:00: Ferritin 602 H, Lactate Dehydrogenase 560 H, Total Creatine Kinase 95446 H, Troponin I 0.291 H, C-React Prot Ext Range 186.00 H 05/27/20 04:00: B-Natriuretic Peptide 731.4 H 05/27/20 04:00: Procalcitonin 9.13 H 05/27/20 04:00: Sodium 139, Potassium 4.1, Chloride 110 H, Carbon Dioxide 20.0 L , Anion Gap 9, BUN 51 H, Creatinine 2.68 H, Estim Creat Clear Calc 33.78, Est GFR (MDRD) Af Amer 32 L, Est GFR (MDRD) Non-Af 26 L, BUN/Creatinine Ratio 19.0, Glucose 169 H, Calcium 7.5 L, Phosphorus 4.0, Magnesium 3.2 H 05/27/20 04:00: APTT 115.4 H* 05/27/20 04:00: TSH 1.20 05/27/20 05:35: Specimen Type ART, Sample Site R RADIAL, pH 7.28 L, Bicarbonate Actual 18.1 L, POC Total CO2 19, Base Excess -9 L, O2 Saturation 95, ABG pCO2 38.7, ABG pO2 88, Nick Test POS, O2 Delivery Device Nasal Can, Liter Flow 2.0, Blood Gas Notified Whom ICU 05/27/20 05:41: Specimen Type Cancelled, Sample Site Cancelled, pH Cancelled, Bicarbonate Actual Cancelled, POC Total CO2 Cancelled, Base Excess Cancelled, O2 Saturation Cancelled, O2 % Cancelled, ABG pCO2 Cancelled, ABG pO2 Cancelled, Nick Test Cancelled, Respiration Rate Cancelled, O2 Delivery Device Cancelled, Liter Flow Cancelled, Minute Volume Cancelled, Vent Mode Cancelled, Tidal Volume Cancelled, POC PEEP Cancelled, POC Pressure Suppt Cancelled, Pressure High Cancelled, Pressure Low Cancelled, Time High Cancelled, Time Low Cancelled, EPAP Cancelled, IPAP Cancelled, Blood Gas Notified Whom Cancelled, Blood Gas Notified Time Cancelled 05/27/20 06:40: WBC 12.6 H, RBC 4.03 L, Hgb 10.9 L, Hct 33.9 L, MCV 84.1, MCH 27.0, MCHC 32.2, RDW Std Deviation 46.0 H, RDW Coeff of Gume 15.1 H, Plt Count 127 L, MPV 11.3, Immature Gran % (Auto) 1.200 H, Neut % (Auto) 82.6 H, Lymph % (Auto) 8.0 L, [place] % (Auto) 7.7, Eos % (Auto) 0.2, Baso % (Auto) 0.3, Absolute Neuts (auto) 10.4 H, Absolute Lymphs (auto) 1.01, Nucleated RBC % 0 05/27/20 06:53: COVID-19 ([facility]ARTI) Negative 05/27/20 12:45: APTT 52.5 H Current Medications Acetaminophen (Tylenol) 650 mg RECTAL Q4H PRN PRN PRN Reason: Pain Score 1-10/Temp > 100.7 F Last Admin: 05/26/20 15:33 Dose: 650 mg Documented by: Albuterol Sulfate (Ventolin Aerosols) 2.5 mg INHALATION Q2H PRN PRN PRN Reason: SOB/Wheezing Last Admin: 05/27/20 02:30 Dose: 2.5 mg Documented by: Benztropine Mesylate (Cogentin) 2 mg PO DAILY [facility] Dextrose (D50w Syringe) 0 gm IV X1 PRN; Protocol PRN Reason: Hypoglycemia Famotidine (Pepcid) 20 mg PO DAILY [facility] Glucagon () 1 mg IM .X1 PRN PRN Reason: Hypoglycemia Haloperidol (Haldol) 5 mg PO BID [facility] Last Admin: 05/27/20 08:52 Dose: 5 mg Documented by: Heparin Sodium (Porcine) (Heparin Na) 0 unit IV UD PRN; Protocol Last Admin: 05/27/20 15:01 Dose: 1,000 unit Documented by: Hydrocortisone Sodium Succinate (Solu-Cortef) 50 mg IV Q12 [facility] Piperacillin Sod/Tazobactam (Sod 3.375 gm/ Sodium Chloride) 50 mls @ 12.5 mls/hr IV Q8 [facility] Last Admin: 05/27/20 14:41 Dose: 12.5 mls/hr Documented by: Sodium Chloride () 250 mls @ 15 mls/hr IV .[id number] PRN PRN Reason: Saline Flush Last Infusion: 05/25/20 06:36 Dose: 0 mls/hr Documented by: Sodium Chloride () 250 mls @ 15 mls/hr IV .[id number] PRN PRN Reason: Additional IVPB Infusion Heparin Sodium/Dextrose () 25,000 units in 250 mls @ 19 mls/hr IV .[id number] [facility]; Protocol Last Titration: 05/27/20 09:05 Dose: 1,400 units/hr, 14 mls/hr Documented by: Lactated Ringer's () 1,000 mls @ 125 mls/hr IV .Q8H [facility] Last Admin: 05/27/20 14:43 Dose: 125 mls/hr Documented by: Insulin Glargine (Lantus ([facility])) 20 units SC QHS [facility] Last Admin: 05/26/20 23:07 Dose: Not Given Documented by: Insulin Human Lispro (Humalog Kwikpen ([facility])) 0 unit SC Q6 [facility]; Protocol Last Admin: 05/27/20 12:46 Dose: 2 u Documented by: Lorazepam (Ativan) 2 mg PO 0800,1700,2000 [facility] Last Admin: 05/27/20 08:51 Dose: 2 mg Documented by: Quetiapine Fumarate (Seroquel) 400 mg PO BID [facility] Last Admin: 05/27/20 08:52 Dose: 400 mg Documented by: Sodium Chloride () 10 - 40 ml IV UD PRN PRN Reason: SALINE FLUSH Last Admin: 05/26/20 09:33 Dose: 10 ml Documented by: Medical Necessity - Tobacco Use Smoking Status: Unknown if ever smoked Assessment/Plan All Active Problems (Last Reviewed 05/24/20 @ 04:[address] Aubrey Powell MD) Suspected 2019 novel coronavirus infection (Acute) Severe sepsis (Acute) Schizophrenia (Acute) #1 severe sepsis secondary to community-acquired pneumonia-patient's COVID test was negative, antibiotic coverage per infectious diseases #2 elevated [id number] unknown at this time, due to the patient's poor renal function he is unable to undergo a CTA of his chest, he will remain anticoagulated for now #3 rhabdomyolysis #4 elevated creatinine-secondary to ATN, nephrology recommends continuing IV fluids #5 hypokalemia-corrected at this time #6 schizophrenia #7 type 2 diabetes-to continue to monitor blood sugar and administer sliding scale insulin #8 community-acquired pneumonia-organism unknown, again patient's COVID-19 test resulted negative, antibiotic coverage per infectious diseases #9 adrenal insufficiency-per medical history #10 anxiety disorder Inpatient E&M: 22237 Subs Hosp L2
--- NOTE | 2020-05-27 16:49 | PN.ID_ITS ---
Patient Problems: Active and Suspected Problems (Last Reviewed 05/24/20 @ 04:[address] Aubrey Powell MD) Suspected 2019 novel coronavirus infection (Acute) Severe sepsis (Acute) Schizophrenia (Acute) Subjective: No fever, off precedex. - Physical Exam Vitals/I&O's: Vital Signs Temp Pulse Resp BP Pulse Ox 99.6 F H 103 H 29 H 170/78 H 95 05/27/20 15:00 05/27/20 15:42 05/27/20 15:00 05/27/20 15:00 05/27/20 15:00 Oxygen Flow Rate (L/min) 2 Oxygen Delivery Method Nasal Cannula Weight: 158.9 kg Body Mass Index (BMI) 46.6 Intake and Output for Last 24 Hours 05/25/20 05/26/20 05/27/20 23:59 23:59 23:59 Intake Total 4052.67 / 4111.17 2900.27 / 2924.58 2920.37 / 2920.37 Output Total 1600 / 1775 2140 / 2140 700 / 700 Balance 2452.67 / 2336.17 760.27 / 784.58 2220.37 / 2220.37 General: Confused, - - ill appearing Lungs: Clear to auscultation, Normal air movement Cardiovascular: Tachycardic Abdomen: Soft, Non Tender, Non-Distended, Obese Extremities: Edema Skin: Ulcer/ Wound - L slaughter wrapped Microbiology Past 72 Hours 05/27/20 04:05 Sputum, Expectorated/Coughed Gram Stain - Final 05/25/20 02:20 Urine Catheter - Hodgson Urine Culture - Preliminary Culture exhibits no growth. 05/24/20 00:45 Blood Culture (Wb) - Anticubital Left Blood Culture - Preliminary No growth in 48 hours. 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 05/26/20 20:51: POC Glucose 134 H 05/26/20 23:12: POC Glucose 142 H 05/27/20 04:00: Ferritin 602 H, Lactate Dehydrogenase 560 H, Total Creatine Kinase 68504 H, Troponin I 0.291 H, C-React Prot Ext Range 186.00 H 05/27/20 04:00: B-Natriuretic Peptide 731.4 H 05/27/20 04:00: Procalcitonin 9.13 H 05/27/20 04:00: Sodium 139, Potassium 4.1, Chloride 110 H, Carbon Dioxide 20.0 L , Anion Gap 9, BUN 51 H, Creatinine 2.68 H, Estim Creat Clear Calc 33.78, Est GFR (MDRD) Af Amer 32 L, Est GFR (MDRD) Non-Af 26 L, BUN/Creatinine Ratio 19.0, Glucose 169 H, Calcium 7.5 L, Phosphorus 4.0, Magnesium 3.2 H 05/27/20 04:00: APTT 115.4 H* 05/27/20 04:00: TSH 1.20 05/27/20 05:35: Specimen Type ART, Sample Site R RADIAL, pH 7.28 L, Bicarbonate Actual 18.1 L, POC Total CO2 19, Base Excess -9 L, O2 Saturation 95, ABG pCO2 38.7, ABG pO2 88, Nick Test POS, O2 Delivery Device Nasal Can, Liter Flow 2.0, Blood Gas Notified Whom ICU 05/27/20 05:41: Specimen Type Cancelled, Sample Site Cancelled, pH Cancelled, Bicarbonate Actual Cancelled, POC Total CO2 Cancelled, Base Excess Cancelled, O2 Saturation Cancelled, O2 % Cancelled, ABG pCO2 Cancelled, ABG pO2 Cancelled, Nick Test Cancelled, Respiration Rate Cancelled, O2 Delivery Device Cancelled, Liter Flow Cancelled, Minute Volume Cancelled, Vent Mode Cancelled, Tidal Volume Cancelled, POC PEEP Cancelled, POC Pressure Suppt Cancelled, Pressure High Cancelled, Pressure Low Cancelled, Time High Cancelled, Time Low Cancelled, EPAP Cancelled, IPAP Cancelled, Blood Gas Notified Whom Cancelled, Blood Gas Notified Time Cancelled 05/27/20 06:40: WBC 12.6 H, RBC 4.03 L, Hgb 10.9 L, Hct 33.9 L, MCV 84.1, MCH 27.0, MCHC 32.2, RDW Std Deviation 46.0 H, RDW Coeff of Gume 15.1 H, Plt Count 127 L, MPV 11.3, Immature Gran % (Auto) 1.200 H, Neut % (Auto) 82.6 H, Lymph % (Auto) 8.0 L, [place] % (Auto) 7.7, Eos % (Auto) 0.2, Baso % (Auto) 0.3, Absolute Neuts (auto) 10.4 H, Absolute Lymphs (auto) 1.01, Nucleated RBC % 0 05/27/20 06:53: COVID-19 (MARTI) Negative 05/27/20 12:45: APTT 52.5 H Current Medications Acetaminophen (Tylenol) 650 mg RECTAL Q4H PRN PRN PRN Reason: Pain Score 1-10/Temp > 100.7 F Last Admin: 05/26/20 15:33 Dose: 650 mg Documented by: Albuterol Sulfate (Ventolin Aerosols) 2.5 mg INHALATION Q2H PRN PRN PRN Reason: SOB/Wheezing Last Admin: 05/27/20 02:30 Dose: 2.5 mg Documented by: Benztropine Mesylate (Cogentin) 2 mg PO DAILY [facility] Dextrose (D50w Syringe) 0 gm IV X1 PRN; Protocol PRN Reason: Hypoglycemia Famotidine (Pepcid) 20 mg PO DAILY CATHLEEN Glucagon () 1 mg IM .X1 PRN PRN Reason: Hypoglycemia Haloperidol (Haldol) 5 mg PO BID CATHLEEN Last Admin: 05/27/20 08:52 Dose: 5 mg Documented by: Heparin Sodium (Porcine) (Heparin Na) 0 unit IV UD PRN; Protocol Last Admin: 05/27/20 15:01 Dose: 1,000 unit Documented by: Hydrocortisone Sodium Succinate (Solu-Cortef) 50 mg IV Q12 [facility] Sodium Chloride () 250 mls @ 15 mls/hr IV .[id number] PRN PRN Reason: Saline Flush Last Infusion: 05/25/20 06:36 Dose: 0 mls/hr Documented by: Sodium Chloride () 250 mls @ 15 mls/hr IV .[id number] PRN PRN Reason: Additional IVPB Infusion Heparin Sodium/Dextrose () 25,000 units in 250 mls @ 19 mls/hr IV .[id number] [facility]; Protocol Last Titration: 05/27/20 09:05 Dose: 1,400 units/hr, 14 mls/hr Documented by: Lactated Ringer's () 1,000 mls @ 125 mls/hr IV .Q8H [facility] Last Admin: 05/27/20 14:43 Dose: 125 mls/hr Documented by: Cefazolin Sodium 2 gm/ Sodium (Chloride) 110 mls @ 150 mls/hr IV Q8 CATHLEEN Insulin Glargine (Lantus (Bkc)) 20 units SC QHS [facility] Last Admin: 05/26/20 23:07 Dose: Not Given Documented by: Insulin Human Lispro (Humalog Kwikpen (Bkc)) 0 unit SC Q6 [facility]; Protocol Last Admin: 05/27/20 12:46 Dose: 2 u Documented by: Lorazepam (Ativan) 2 mg PO 0800,1700,2000 [facility] Last Admin: 05/27/20 08:51 Dose: 2 mg Documented by: Quetiapine Fumarate (Seroquel) 400 mg PO BID [facility] Last Admin: 05/27/20 08:52 Dose: 400 mg Documented by: Sodium Chloride () 10 - 40 ml IV UD PRN PRN Reason: SALINE FLUSH Last Admin: 05/26/20 09:33 Dose: 10 ml Documented by: Medical Necessity - Tobacco Use Smoking Status: Unknown if ever smoked Route of nutrition/ use of supplements: [] Nutritional Intake: [] IV Site: [] Hodgson Catheter: [] - Assessment/Plan Antibiotics: [] Assessment/Plan: [] Active and Suspected Problems (Last Reviewed 05/24/20 @ 04:[address] Aubrey Powell MD) Suspected 2019 novel coronavirus infection (Acute) Severe sepsis (Acute) Schizophrenia (Acute) Fever, tachypnea, hypoxia at ECF, lymphopenia, elevated CK/Cr/d- dimer/ferritin/CRP. Covid pcr neg x2. MRSA nares (+). Some L slaughter cellulitis. Narrow abx to cefazolin. Wbc, fever, CK, and PCT improving. Presentation may have been some combination neuroleptic malignant syndrome, adrenal insufficiency, and rhabdo. Will check covid serology, if neg, ok to remove isolation. Will follow, d/w nursing.
[2020-05-27 17:10] LABS: Bedside Glucose 203 mg/dL (70-110)
[2020-05-27 18:41] LABS: Bedside Glucose 204 mg/dL (70-110)
[2020-05-27] MEDS: 0.9% Saline Lock 10 ML Syringe IV ×2 (20:29→23:44)
[2020-05-27 20:32] LABS: Partial Thromboplast Time 54.2 Seconds (24.1-36.2)
[2020-05-27] MEDS: HEPARIN/D5w 25,000 UNITS 25,000 UNITS/250 ML IV.SOLN. 16 UNITS IV (20:42)
[2020-05-27] MEDS: Cefazolin 2 GM in 0.9% Normal Saline 100 ML IV (22:11)
[2020-05-27 23:26] LABS: Bedside Glucose 156 mg/dL (70-110)
[2020-05-27] MEDS: Labetalol 20 MG/4 ML Vial 10 MG IV (23:44)
[2020-05-28] VITALS (28 sets, daily range): BP systolic 127–193; BP diastolic 57–95; PULSE 67–94; RESP 7–30; TEMP 37.2–37.9; O2SAT 94–100
[2020-05-28 03:01] LABS: Hematocrit 32.6 % (40-54); Hemoglobin 10.5 g/dL (13.0-16.5); Mean Corp Hgb Conc 32.2 g/dL (32-36); Mean Corpuscular Hgb 27.1 pg (27.0-32.0); Mean Platelet Vol. 10.9 fl (6.2-12.0); Platelet Count 157 K/mm3 (150-450); RBC Distribution Width CV 15.1 % (11.6-14.6); RBC Distribution Width SD 45.6 fl (35.1-43.9); Red Blood Count 3.88 M/mm3 (4.6-6.2); White Blood Count 13.1 K/mm3 (4.4-11.0)
[2020-05-28 03:10] LABS: Partial Thromboplast Time 66.8 Seconds (24.1-36.2)
[2020-05-28] MEDS: 0.9% Saline Lock 10 ML Syringe IV ×4 (04:13→23:24)
[2020-05-28] MEDS: Lactated Ringers 1,000 ML 125 ML IV (04:47)
[2020-05-28] MEDS: Insulin Lispro 100 UNIT/ML INSULN.PEN SC ×4 (05:16→23:23)
[2020-05-28] MEDS: Labetalol 20 MG/4 ML Vial 10 MG IV ×2 (05:25→18:53)
--- NOTE | 2020-05-28 05:57 | PN_ITS ---
Subjective: The patient was seen and examined at the bedside this morning. Events from the last 24 hours have been reviewed. The patient is currently running a low-grade fever. Blood pressures have been elevated. Oxygen requirement is stable at 2 L/min via nasal cannula. The patient is still not directable and is still not opening his eyes to verbal stimulation. The patient is currently documented to be overall net +9.5 L for the hospital admission. Objective: The patient's most recent lab work, culture data and imaging studies have all been personally reviewed. Renal ultrasound was unremarkable. Coronavirus PCR is negative. MRSA screen was positive. Strep and urine Legionella antigens were negative. Respiratory viral panel was negative. Blood and urine cultures are pending. Sputum culture is pending. General: Confused, Disoriented, Lethargic, - - Not easily directable. HEENT: Atraumatic, Normocephalic Oral: Dry Mucosa Neck: Supple, No Nodes, Trachea Midline Lungs: No rhonchi, No wheeze, No rales, Diminished Cardiovascular: Regular rate, Regular Rhythm Abdomen: Bowel Sounds Present, Soft, Non Tender, Obese Extremities: No clubbing, No cyanosis, Edema Skin: - - No significant change from previous Musculoskeletal: No Muscle Wasting Lymphatic: No Cervical, Supraclavicular, or Inguinal Adenopathy Neurological: - - Moves all extremities spontaneously. Psych/Mental Status: Impulsive, Restless Vital Signs Temp Pulse Resp BP Pulse Ox 99.3 F H 81 27 H 193/95 H 97 05/28/20 05:00 05/28/20 05:00 05/28/20 05:00 05/28/20 05:00 05/28/20 05:00 Oxygen Flow Rate (L/min) 2 Oxygen Delivery Method Nasal Cannula Weight: 350 lb 5.032 oz Body Mass Index (BMI) 46.6 Intake and Output for Last 24 Hours 05/26/20 05/27/20 05/28/20 23:59 23:59 23:59 Intake Total 2900.27 / 2924.58 4322.32 / 4322.32 1027.60 / 1027.60 Output Total 2140 / 2140 1925 / 1925 700 / 700 Balance 760.27 / 784.58 2397.32 / 2397.32 327.60 / 327.60 Labs (Last 48 Hours) 05/24/20 05/24/2005/26/20 00:55 00:55 02:20 WBC 10.4 RBC 4.14 L Hgb 11.3 L Hct 35.1 L MCV 84.8 MCH 27.3 MCHC 32.2 RDW Std Deviation 44.6 H RDW Coeff of Gume 14.6 Plt Count 122 L MPV 13.2 H Immature Gran % (Auto) 0.700 Neut % (Auto) 83.8 H Lymph % (Auto) 5.8 L [place] % (Auto) 9.2 Eos % (Auto) 0.2 Baso % (Auto) 0.3 Absolute Neuts (auto) 8.7 H Absolute Lymphs (auto) 0.60 L Nucleated RBC % 0 APTT Specimen Type Sample Site pH Bicarbonate Actual POC Total CO2 Base Excess O2 Saturation O2 % ABG pCO2 ABG pO2 Nick Test Respiration Rate O2 Delivery Device Liter Flow Minute Volume Vent Mode Tidal Volume POC PEEP POC Pressure Suppt Pressure High Pressure Low Time High Time Low EPAP IPAP Blood Gas Notified Whom Blood Gas Notified Time Sodium Potassium Chloride Carbon Dioxide Anion Gap BUN Creatinine Estim Creat Clear Calc Est GFR (MDRD) Af Amer Est GFR (MDRD) Non-Af BUN/Creatinine Ratio Glucose Calcium Phosphorus Magnesium Ferritin Lactate Dehydrogenase Total Creatine Kinase Troponin I C-React Prot Ext Range B-Natriuretic Peptide Procalcitonin TSH COVID-19 (MARTI) Not Detected 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 Serology POC Glucose 05/26/20 05/26/20 05/26/20 05:15 08:05 08:05 WBC RBC Hgb Hct MCV MCH MCHC RDW Std Deviation RDW Coeff of Gume Plt Count MPV Immature Gran % (Auto) Neut % (Auto) Lymph % (Auto) [place] % (Auto) Eos % (Auto) Baso % (Auto) Absolute Neuts (auto) Absolute Lymphs (auto) Nucleated RBC % APTT 75.0 H Specimen Type Sample Site pH Bicarbonate Actual POC Total CO2 Base Excess O2 Saturation O2 % ABG pCO2 ABG pO2 Nick Test Respiration Rate O2 Delivery Device Liter Flow Minute Volume Vent Mode Tidal Volume POC PEEP POC Pressure Suppt Pressure High Pressure Low Time High Time Low EPAP IPAP Blood Gas Notified Whom Blood Gas Notified Time Sodium 140 Potassium 4.0 Chloride 110 H Carbon Dioxide 20.0 L Anion Gap 10 BUN 46 H Creatinine 2.69 H Estim Creat Clear Calc 33.66 Est GFR (MDRD) Af Amer 32 L Est GFR (MDRD) Non-Af 26 L BUN/Creatinine Ratio 17.1 Glucose 136 H Calcium 7.5 L Phosphorus 3.8 Magnesium 2.9 H Ferritin Lactate Dehydrogenase Total Creatine Kinase Troponin I C-React Prot Ext Range B-Natriuretic Peptide Procalcitonin TSH COVID-19 (MARTI) SARS Serology POC Glucose 159 H 05/26/20 05/26/20 05/26/20 08:05 11:12 20:51 WBC RBC Hgb Hct MCV MCH MCHC RDW Std Deviation RDW Coeff of Gume Plt Count MPV Immature Gran % (Auto) Neut % (Auto) Lymph % (Auto) [place] % (Auto) Eos % (Auto) Baso % (Auto) Absolute Neuts (auto) Absolute Lymphs (auto) Nucleated RBC % APTT Specimen Type Sample Site pH Bicarbonate Actual POC Total CO2 Base Excess O2 Saturation O2 % ABG pCO2 ABG pO2 Nick Test Respiration Rate O2 Delivery Device Liter Flow Minute Volume Vent Mode Tidal Volume POC PEEP POC Pressure Suppt Pressure High Pressure Low Time High Time Low EPAP IPAP Blood Gas Notified Whom Blood Gas Notified Time Sodium Potassium Chloride Carbon Dioxide Anion Gap BUN Creatinine Estim Creat Clear Calc Est GFR (MDRD) Af Amer Est GFR (MDRD) Non-Af BUN/Creatinine Ratio Glucose Calcium Phosphorus Magnesium Ferritin Lactate Dehydrogenase Total Creatine Kinase 64276 H Troponin I C-React Prot Ext Range B-Natriuretic Peptide Procalcitonin TSH COVID-19 (MARTI) SARS Serology POC Glucose 124 H 134 H 05/26/20 05/27/20 05/27/20 23:12 04:00 04:00 WBC RBC Hgb Hct MCV MCH MCHC RDW Std Deviation RDW Coeff of Gume Plt Count MPV Immature Gran % (Auto) Neut % (Auto) Lymph % (Auto) [place] % (Auto) Eos % (Auto) Baso % (Auto) Absolute Neuts (auto) Absolute Lymphs (auto) Nucleated RBC % APTT Specimen Type Sample Site pH Bicarbonate Actual POC Total CO2 Base Excess O2 Saturation O2 % ABG pCO2 ABG pO2 Nick Test Respiration Rate O2 Delivery Device Liter Flow Minute Volume Vent Mode Tidal Volume POC PEEP POC Pressure Suppt Pressure High Pressure Low Time High Time Low EPAP IPAP Blood Gas Notified Whom Blood Gas Notified Time Sodium Potassium Chloride Carbon Dioxide Anion Gap BUN Creatinine Estim Creat Clear Calc Est GFR (MDRD) Af Amer Est GFR (MDRD) Non-Af BUN/Creatinine Ratio Glucose Calcium Phosphorus Magnesium Ferritin 602 H Lactate Dehydrogenase 560 H Total Creatine Kinase 57290 H Troponin I 0.291 H C-React Prot Ext Range 186.00 H B-Natriuretic Peptide 731.4 H Procalcitonin TSH COVID-19 (MARTI) SARS Serology POC Glucose 142 H 05/27/20 05/27/20 05/27/20 04:00 04:00 04:00 WBC RBC Hgb Hct MCV MCH MCHC RDW Std Deviation RDW Coeff of Gume Plt Count MPV Immature Gran % (Auto) Neut % (Auto) Lymph % (Auto) [place] % (Auto) Eos % (Auto) Baso % (Auto) Absolute Neuts (auto) Absolute Lymphs (auto) Nucleated RBC % APTT 115.4 H* Specimen Type Sample Site pH Bicarbonate Actual POC Total CO2 Base Excess O2 Saturation O2 % ABG pCO2 ABG pO2 Nick Test Respiration Rate O2 Delivery Device Liter Flow Minute Volume Vent Mode Tidal Volume POC PEEP POC Pressure Suppt Pressure High Pressure Low Time High Time Low EPAP IPAP Blood Gas Notified Whom Blood Gas Notified Time Sodium 139 Potassium 4.1 Chloride 110 H Carbon Dioxide 20.0 L Anion Gap 9 BUN 51 H Creatinine 2.68 H Estim Creat Clear Calc 33.78 Est GFR (MDRD) Af Amer 32 L Est GFR (MDRD) Non-Af 26 L BUN/Creatinine Ratio 19.0 Glucose 169 H Calcium 7.5 L Phosphorus 4.0 Magnesium 3.2 H Ferritin Lactate Dehydrogenase Total Creatine Kinase Troponin I C-React Prot Ext Range B-Natriuretic Peptide Procalcitonin 9.13 H TSH COVID-19 (MARTI) SARS Serology POC Glucose 05/27/20 05/27/20 05/27/20 04:00 05:35 05:41 WBC RBC Hgb Hct MCV MCH MCHC RDW Std Deviation RDW Coeff of Gume Plt Count MPV Immature Gran % (Auto) Neut % (Auto) Lymph % (Auto) [place] % (Auto) Eos % (Auto) Baso % (Auto) Absolute Neuts (auto) Absolute Lymphs (auto) Nucleated RBC % APTT Specimen Type ART Cancelled Sample Site R RADIAL Cancelled pH 7.28 L Cancelled Bicarbonate Actual 18.1 L Cancelled POC Total CO2 19 Cancelled Base Excess -9 L Cancelled O2 Saturation 95 Cancelled O2 % Cancelled ABG pCO2 38.7 Cancelled ABG pO2 88 Cancelled Nick Test POS Cancelled Respiration Rate Cancelled O2 Delivery Device Nasal Can Cancelled Liter Flow 2.0 Cancelled Minute Volume Cancelled Vent Mode Cancelled Tidal Volume Cancelled POC PEEP Cancelled POC Pressure Suppt Cancelled Pressure High Cancelled Pressure Low Cancelled Time High Cancelled Time Low Cancelled EPAP Cancelled IPAP Cancelled Blood Gas Notified Whom ICU MD Cancelled Blood Gas Notified Time Cancelled Sodium Potassium Chloride Carbon Dioxide Anion Gap BUN Creatinine Estim Creat Clear Calc Est GFR (MDRD) Af Amer Est GFR (MDRD) Non-Af BUN/Creatinine Ratio Glucose Calcium Phosphorus Magnesium Ferritin Lactate Dehydrogenase Total Creatine Kinase Troponin I C-React Prot Ext Range B-Natriuretic Peptide Procalcitonin TSH 1.20 COVID-19 (MARTI) SARS Serology POC Glucose 05/27/20 05/27/20 05/27/20 06:40 06:53 12:41 WBC 12.6 H RBC 4.03 L Hgb 10.9 L Hct 33.9 L MCV 84.1 MCH 27.0 MCHC 32.2 RDW Std Deviation 46.0 H RDW Coeff of Gume 15.1 H Plt Count 127 L MPV 11.3 Immature Gran % (Auto) 1.200 H Neut % (Auto) 82.6 H Lymph % (Auto) 8.0 L [place] % (Auto) 7.7 Eos % (Auto) 0.2 Baso % (Auto) 0.3 Absolute Neuts (auto) 10.4 H Absolute Lymphs (auto) 1.01 Nucleated RBC % 0 APTT Specimen Type Sample Site pH Bicarbonate Actual POC Total CO2 Base Excess O2 Saturation O2 % ABG pCO2 ABG pO2 Nick Test Respiration Rate O2 Delivery Device Liter Flow Minute Volume Vent Mode Tidal Volume POC PEEP POC Pressure Suppt Pressure High Pressure Low Time High Time Low EPAP IPAP Blood Gas Notified Whom Blood Gas Notified Time Sodium Potassium Chloride Carbon Dioxide Anion Gap BUN Creatinine Estim Creat Clear Calc Est GFR (MDRD) Af Amer Est GFR (MDRD) Non-Af BUN/Creatinine Ratio Glucose Calcium Phosphorus Magnesium Ferritin Lactate Dehydrogenase Total Creatine Kinase Troponin I C-React Prot Ext Range B-Natriuretic Peptide Procalcitonin TSH COVID-19 (MARTI) Negative SARS Serology POC Glucose 203 H 05/27/20 05/27/20 05/27/20 12:45 17:13 20:00 WBC RBC Hgb Hct MCV MCH MCHC RDW Std Deviation RDW Coeff of Gume Plt Count MPV Immature Gran % (Auto) Neut % (Auto) Lymph % (Auto) [place] % (Auto) Eos % (Auto) Baso % (Auto) Absolute Neuts (auto) Absolute Lymphs (auto) Nucleated RBC % APTT 52.5 H 54.2 H Specimen Type Sample Site pH Bicarbonate Actual POC Total CO2 Base Excess O2 Saturation O2 % ABG pCO2 ABG pO2 Nick Test Respiration Rate O2 Delivery Device Liter Flow Minute Volume Vent Mode Tidal Volume POC PEEP POC Pressure Suppt Pressure High Pressure Low Time High Time Low EPAP IPAP Blood Gas Notified Whom Blood Gas Notified Time Sodium Potassium Chloride Carbon Dioxide Anion Gap BUN Creatinine Estim Creat Clear Calc Est GFR (MDRD) Af Amer Est GFR (MDRD) Non-Af BUN/Creatinine Ratio Glucose Calcium Phosphorus Magnesium Ferritin Lactate Dehydrogenase Total Creatine Kinase Troponin I C-React Prot Ext Range B-Natriuretic Peptide Procalcitonin TSH COVID-19 (MARTI) SARS Serology POC Glucose 204 H 05/27/20 05/28/20 05/28/20 22:58 02:50 02:50 WBC RBC Hgb Hct MCV MCH MCHC RDW Std Deviation RDW Coeff of Gume Plt Count MPV Immature Gran % (Auto) Neut % (Auto) Lymph % (Auto) [place] % (Auto) Eos % (Auto) Baso % (Auto) Absolute Neuts (auto) Absolute Lymphs (auto) Nucleated RBC % APTT 66.8 H Specimen Type Sample Site pH Bicarbonate Actual POC Total CO2 Base Excess O2 Saturation O2 % ABG pCO2 ABG pO2 Nick Test Respiration Rate O2 Delivery Device Liter Flow Minute Volume Vent Mode Tidal Volume POC PEEP POC Pressure Suppt Pressure High Pressure Low Time High Time Low EPAP IPAP Blood Gas Notified Whom Blood Gas Notified Time Sodium Potassium Chloride Carbon Dioxide Anion Gap BUN Creatinine Estim Creat Clear Calc Est GFR (MDRD) Af Amer Est GFR (MDRD) Non-Af BUN/Creatinine Ratio Glucose Calcium Phosphorus Magnesium Ferritin Lactate Dehydrogenase Total Creatine Kinase Troponin I C-React Prot Ext Range B-Natriuretic Peptide Procalcitonin TSH COVID-19 (MARTI) SARS Serology Pending POC Glucose 156 H 05/28/20 02:50 WBC 13.1 H RBC 3.88 L Hgb 10.5 L Hct 32.6 L MCV 84.0 MCH 27.1 MCHC 32.2 RDW Std Deviation 45.6 H RDW Coeff of Gume 15.1 H Plt Count 157 MPV 10.9 Immature Gran % (Auto) Neut % (Auto) Lymph % (Auto) [place] % (Auto) Eos % (Auto) Baso % (Auto) Absolute Neuts (auto) Absolute Lymphs (auto) Nucleated RBC % APTT Specimen Type Sample Site pH Bicarbonate Actual POC Total CO2 Base Excess O2 Saturation O2 % ABG pCO2 ABG pO2 Nick Test Respiration Rate O2 Delivery Device Liter Flow Minute Volume Vent Mode Tidal Volume POC PEEP POC Pressure Suppt Pressure High Pressure Low Time High Time Low EPAP IPAP Blood Gas Notified Whom Blood Gas Notified Time Sodium Potassium Chloride Carbon Dioxide Anion Gap BUN Creatinine Estim Creat Clear Calc Est GFR (MDRD) Af Amer Est GFR (MDRD) Non-Af BUN/Creatinine Ratio Glucose Calcium Phosphorus Magnesium Ferritin Lactate Dehydrogenase Total Creatine Kinase Troponin I C-React Prot Ext Range B-Natriuretic Peptide Procalcitonin TSH COVID-19 (MARTI) SARS Serology POC Glucose Microbiology 05/27/20 04:05 Sputum, Expectorated/Coughed Gram Stain - Final 05/25/20 02:20 Urine Catheter - Hodgson Urine Culture - Preliminary Culture exhibits no growth. 05/24/20 00:45 Blood Culture (Wb) - Anticubital Left Blood Culture - Preliminary No growth in 48 hours. 05/24/20 00:45 Blood Culture (Wb) - Right Hand Blood Culture - Preliminary Bacillus sp., not anthracis Clinical Impression(s) from Imaging Studies Chest X-Ray 05/24/20 00:56 IMPRESSION: Pulmonary hypoexpansion with pulmonary venous congestion. at 0128 Reported and signed by: Baldemar Angulo MD Electronically Signed: Baldemar Angulo MD at 1:27 EDT Tel , Service support , Chest X-Ray 05/26/20 08:50 IMPRESSION: Borderline cardiomegaly with venous congestion. Electronically Signed: Alfredito Hampton, at 9:25 EDT , Service support , Chest X-Ray 05/26/20 11:10 IMPRESSION: The tip of the right PICC line catheter is at the junction of the superior vena cava and right atrium. The vascular congestion has improved. Electronically Signed: Alfredito Hampton, at 12:22 EDT , Service support , Renal Ultrasound 05/26/20 11:19 IMPRESSION: Normal ultrasound of the kidneys. Electronically Signed: Alfredito Hampton, at 15:32 EDT , Service support , Medical Necessity - Tobacco Use Smoking Status: Unknown if ever smoked Assessment/Plan All Active Problems (Last Reviewed 05/24/20 @ 04:[address] Aubrey Powell MD) Suspected 2019 novel coronavirus infection (Acute) Severe sepsis (Acute) Schizophrenia (Acute) RECOMMENDATIONS: 1. Continue antimicrobials per ID recommendations. 2. Stop continuous supplemental IV fluids. 3. Check liver function profile and ammonia. 4. Obtain CT head. 5. Await coronavirus serology. 6. Continue baseline psychiatric medications. 7. Wean stress dose steroids to once daily. 8. Continue systemic anticoagulation. IMPRESSIONS: 1. Severe sepsis with possible right-sided pneumonia versus COVID-19 infection The patient's initial chest x-ray was difficult to interpret given poor inspiratory effort. However, there is a questionable right-sided infiltrate. Procalcitonin level is also elevated. Therefore, it is reasonable to continue empiric broad-spectrum antimicrobials for now. Coronavirus PCR was negative. The patient will remain on systemic anticoagulation given elevated d-dimer levels. The patient's overall fever has improved since Precedex was discontinued. Although there was initial concern for possible neuroleptic malignant syndrome, the patient appears to have stabilized clinically once the Precedex was discontinued. Nevertheless, we will continue to monitor his QT interval closely, given that he is on Seroquel and scheduled Haldol at his baseline. 2. Encephalopathy Initially felt to be infectious/metabolic in nature. Unclear with the patient's baseline mentation is truly like. Will obtain CT head that this morning. 3. Acute kidney injury Possibly secondary to ATN in the setting #1. Renal ultrasound was unremarkable. Nephrology is currently following. Continue to monitor urine output. No current indication for renal replacement therapy. 4. Elevated inflammatory markers/d-dimer Continue systemic anticoagulation for now. 5. History of adrenal insufficiency/schizophrenia/diabetes mellitus/morbid obesity Complicates care, management, recovery and prognosis. Continue stress dose steroids as ordered. Continue baseline Seroquel, Haldol and scheduled Ativan. This note was generated with [employer] dictation software. It may contain incorrect words, spelling, and punctuation that were not noted in checking the note before signing. Inpatient E&M: 66906 Subs Hosp L3
[2020-05-28] MEDS: Cefazolin 2 GM in 0.9% Normal Saline 100 ML IV ×3 (06:08→21:40)
[2020-05-28 06:46] LABS: Bedside Glucose 183 mg/dL (70-110)
[2020-05-28 06:59] LABS: Anion Gap 7 (5-15); BUN 47 mg/dL (7-18); BUN/Creat Ratio 16.1 RATIO (10-20); CPK Total, Creatine Kinase 10808 U/L (39-308); Calcium,Total 7.4 mg/dL (8.5-10.1); Chloride 113 mmol/L (98-107); Creatinine, Serum 2.92 mg/dL (0.70-1.30); EST Glomerular Filtration Rate 24 mL/min (>60); Est Glom Filt Rate - Afr Amer 29 mL/min (>60); Glucose 185 mg/dL (74-106); Potassium 3.6 mmol/L (3.5-5.1); Sodium Level 144 mmol/L (136-145)
--- NOTE | 2020-05-28 07:48 | CT_ITS ---
STUDY: CT BRAIN WITHOUT CONTRAST REASON FOR EXAM: Male, 55 years old. ENCEPHALOPATHY, FEVER, CONFUSION, HYPOXIA, DB, SCHIZOPHRENIA, IN COVID PRECAUTIONS RADIATION DOSAGE (If Supplied By Facility): CTDIvol = ( 44.99 ) mGy, DLP = ( 1760.95 ) mGycm TECHNIQUE: Transaxial CT imaging of the brain was performed without administration of intravenous contrast material. Limited examination due to patient''s condition. Individualized dose optimization techniques were used for this CT. COMPARISON: No relevant priors. FINDINGS: Normal soft tissue structures. Normal calvarium. Normal size ventricles and extra-axial spaces for the patient''s age. Normal white matter tracts of the cerebral hemispheres. Normal basal ganglia and thalami. Normal brainstem. Normal cerebellum. There is no intracranial hemorrhage. There are no findings of an acute ischemic infarction. Normal visualized paranasal sinuses. CT/Brain/Head without Contrast IMPRESSION: Normal unenhanced CT scan of the brain. Electronically Signed: Alfredito Hampton, at 12:00 EDT , Service support ,
[2020-05-28] MEDS: LORazepam 1 MG Tablet 2 MG PO ×2 (08:49→21:18)
[2020-05-28] MEDS: Benztropine 2 MG Tablet PO (08:50)
[2020-05-28] MEDS: QUEtiapine 100 MG Tablet 400 MG PO ×2 (08:50→21:18)
[2020-05-28] MEDS: Famotidine 20 MG Tablet PO (08:50)
[2020-05-28] MEDS: Haloperidol 5 MG Tablet PO ×2 (08:50→21:18)
[2020-05-28] MEDS: Labetalol 200 MG Tablet PO ×2 (08:51→21:18)
[2020-05-28] MEDS: Hydrocortisone Sod Succinate 100 MG/2 ML Vial 50 MG IV (08:51)
[2020-05-28 09:36] LABS: AST(SGOT) 249 U/L (15-37); Alanine Aminotransfer ALT/SGPT 125 U/L (16-61); Alkaline Phosphatase 56 U/L (45-117); Bilirubin, Direct 0.27 mg/dL (0.00-0.30); Globulin 4.4 g/dL (2.2-4.2); Protein, Total 6.4 g/dL (6.4-8.2)
[2020-05-28 09:54] LABS: Partial Thromboplast Time > 250.0 Seconds (24.1-36.2)
--- NOTE | 2020-05-28 10:14 | PCM.PN.ID ---
Patient Problems: Active and Suspected Problems (Last Reviewed 05/24/20 @ 04:[address] Aubrey Powell MD) Suspected 2019 novel coronavirus infection (Acute) Severe sepsis (Acute) Schizophrenia (Acute) Subjective: Unable to answer questions, no fever - Physical Exam Vitals/I&O's: Vital Signs Temp Pulse Resp BP Pulse Ox 99.5 F H 90 20 H 179/76 H 95 05/28/20 09:00 05/28/20 09:00 05/28/20 09:00 05/28/20 09:00 05/28/20 09:00 Oxygen Flow Rate (L/min) 3 Oxygen Delivery Method Nasal Cannula Weight: 160.7 kg Body Mass Index (BMI) 46.6 Intake and Output for Last 24 Hours 05/26/20 05/27/20 05/28/20 23:59 23:59 23:59 Intake Total 2900.27 / 2924.58 4322.32 / 4322.32 1167.10 / 1167.10 Output Total 2140 / 2140 1925 / 1925 1125 / 1125 Balance 760.27 / 784.58 2397.32 / 2397.32 42.10 / 42.10 General: No apparent distress Lungs: Clear to auscultation, Normal air movement Cardiovascular: Regular rate, Regular Rhythm Abdomen: Soft, Non Tender, Non-Distended Extremities: Edema Skin: Rash Present - L slaughter much less red Microbiology Past 72 Hours 05/25/20 02:20 Urine Catheter - Hodgson Urine Culture - Final Culture exhibits no growth. 05/27/20 04:05 Sputum, Expectorated/Coughed Gram Stain - Final 05/24/20 00:45 Blood Culture (Wb) - Anticubital Left Blood Culture - Preliminary No growth in 48 hours. 05/24/20 00:45 Blood Culture (Wb) - Right Hand Blood Culture - Preliminary Bacillus sp., not anthracis Laboratory Results 05/27/20 12:41: POC Glucose 203 H 05/27/20 12:45: APTT 52.5 H 05/27/20 17:13: POC Glucose 204 H 05/27/20 20:00: APTT 54.2 H 05/27/20 22:58: POC Glucose 156 H 05/28/20 02:50: SARS Serology Pending 05/28/20 02:50: APTT 66.8 H 05/28/20 02:50: WBC 13.1 H, RBC 3.88 L, Hgb 10.5 L, Hct 32.6 L, MCV 84.0, MCH 27.1, MCHC 32.2, RDW Std Deviation 45.6 H, RDW Coeff of Gume 15.1 H, Plt Count 157, MPV 10.9 05/28/20 02:50: Sodium 144, Potassium 3.6, Chloride 113 H, Carbon Dioxide 24.0, Anion Gap 7, BUN 47 H, Creatinine 2.92 H, Estim Creat Clear Calc 31.00, Est GFR (MDRD) Af Amer 29 L, Est GFR (MDRD) Non-Af 24 L, BUN/Creatinine Ratio 16.1, Glucose 185 H, Calcium 7.4 L, Total Creatine Kinase 84109 H 05/28/20 02:50: Total Bilirubin 0.50, Direct Bilirubin 0.27, AST 249 H, ALT 125 H, Alkaline Phosphatase 56, Total Protein 6.4, Albumin 2.0 L, Globulin 4.4 H 05/28/20 05:15: POC Glucose 183 H 05/28/20 09:10: APTT > 250.0 H* 05/28/20 09:10: Ammonia 25.0 Current Medications Acetaminophen (Tylenol) 650 mg RECTAL Q4H PRN PRN PRN Reason: Pain Score 1-10/Temp > 100.7 F Last Admin: 05/26/20 15:33 Dose: 650 mg Documented by: Albuterol Sulfate (Ventolin Aerosols) 2.5 mg INHALATION Q2H PRN PRN PRN Reason: SOB/Wheezing Last Admin: 05/27/20 02:30 Dose: 2.5 mg Documented by: Benztropine Mesylate (Cogentin) 2 mg PO DAILY [facility] Last Admin: 05/28/20 08:50 Dose: 2 mg Documented by: Dextrose (D50w Syringe) 0 gm IV X1 PRN; Protocol PRN Reason: Hypoglycemia Famotidine (Pepcid) 20 mg PO DAILY [facility] Last Admin: 05/28/20 08:50 Dose: 20 mg Documented by: Glucagon () 1 mg IM .X1 PRN PRN Reason: Hypoglycemia Haloperidol (Haldol) 5 mg PO BID [facility] Last Admin: 05/28/20 08:50 Dose: 5 mg Documented by: Heparin Sodium (Porcine) (Heparin Na) 0 unit IV UD PRN; Protocol Last Admin: 05/27/20 15:01 Dose: 1,000 unit Documented by: Hydrocortisone Sodium Succinate (Solu-Cortef) 50 mg IV Q24 [facility] Last Admin: 05/28/20 08:51 Dose: 50 mg Documented by: Sodium Chloride () 250 mls @ 15 mls/hr IV .[id number] PRN PRN Reason: Saline Flush Last Infusion: 05/28/20 06:52 Dose: 15 mls/hr Documented by: Sodium Chloride () 250 mls @ 15 mls/hr IV .[id number] PRN PRN Reason: Additional IVPB Infusion Heparin Sodium/Dextrose () 25,000 units in 250 mls @ 19 mls/hr IV .[id number] [facility]; Protocol Last Admin: 05/28/20 04:14 Dose: Not Given Documented by: Cefazolin Sodium 2 gm/ Sodium (Chloride) 110 mls @ 150 mls/hr IV Q8 [facility] Last Infusion: 05/28/20 06:52 Dose: Infused Documented by: Insulin Glargine (Lantus (Bkc)) 20 units SC QHS [facility] Last Admin: 05/27/20 23:33 Dose: Not Given Documented by: Insulin Human Lispro (Humalog Kwikpen (Bk)) 0 unit SC Q6 [facility]; Protocol Last Admin: 05/28/20 05:16 Dose: 1 u Documented by: Labetalol HCl (Trandate) 10 mg IV Q6H PRN PRN Reason: SBP>160 Last Admin: 05/28/20 05:25 Dose: 10 mg Documented by: Labetalol HCl (Trandate) 200 mg PO BID [facility] Last Admin: 05/28/20 08:51 Dose: 200 mg Documented by: Lorazepam (Ativan) 2 mg PO 0800,1700,2000 [facility] Last Admin: 05/28/20 08:49 Dose: 2 mg Documented by: Quetiapine Fumarate (Seroquel) 400 mg PO BID [facility] Last Admin: 05/28/20 08:50 Dose: 400 mg Documented by: Sodium Chloride () 10 - 40 ml IV UD PRN PRN Reason: SALINE FLUSH Last Admin: 05/28/20 08:56 Dose: 10 ml Documented by: Medical Necessity - Tobacco Use Smoking Status: Unknown if ever smoked Route of nutrition/ use of supplements: [] Nutritional Intake: [] IV Site: [] Hodgson Catheter: [] - Assessment/Plan Antibiotics: [] Assessment/Plan: [] Active and Suspected Problems (Last Reviewed 05/24/20 @ 04:[address] Aubrey Powell MD) Suspected 2019 novel coronavirus infection (Acute) Severe sepsis (Acute) Schizophrenia (Acute) Fever, tachypnea, hypoxia at ECF, lymphopenia, elevated CK/Cr/d-dimer/ferritin/CRP. Covid pcr neg x2. MRSA nares (+). Some L slaughter cellulitis. Narrow abx to cefazolin. Fever, CK, and PCT improving. Presentation may have been some combination neuroleptic malignant syndrome, adrenal insufficiency, and rhabdo. Pending covid serology, if neg, ok to remove isolation. Leg much less red. Plan on stopping abx 05/30. Will follow
[2020-05-28 11:31] LABS: Bedside Glucose 184 mg/dL (70-110)
--- NOTE | 2020-05-28 12:34 | CASEMGMT ---
SW participated in ICU rounds. Pt is not ready to leave ICU yet. SW let both [facility] and [facility] pt is not ready, and is still in ICU, too soon to start precert. MARIJA will follow up Monday. JOY Mcfarlane
[2020-05-28] MEDS: HEPARIN/D5w 25,000 UNITS 25,000 UNITS/250 ML IV.SOLN. 13 UNITS IV (13:27)
--- NOTE | 2020-05-28 16:06 | PN.RENAL_ITS ---
Patient Problems: Active and Suspected Problems (Last Reviewed 05/24/20 @ 04:[address] Aubrey Powell MD) Suspected 2019 novel coronavirus infection (Acute) Severe sepsis (Acute) Schizophrenia (Acute) Subjective: no new events - Physical Exam Vitals/I&O's: Vital Signs Temp Pulse Resp BP Pulse Ox 99 F 72 19 H 136/69 H 99 05/28/20 13:00 05/28/20 13:00 05/28/20 13:00 05/28/20 13:00 05/28/20 13:00 Oxygen Flow Rate (L/min) 2 Oxygen Delivery Method Nasal Cannula Weight: 160.7 kg Body Mass Index (BMI) 46.6 Intake and Output for Last 24 Hours 05/26/20 05/27/20 05/28/20 23:59 23:59 23:59 Intake Total 2900.27 / 2924.58 4322.32 / 4322.32 2305.68 / 2305.68 Output Total 2140 / 2140 1925 / 1925 1125 / 1125 Balance 760.27 / 784.58 2397.32 / 2397.32 1180.68 / 1180.68 General: Alert HEENT: Atraumatic, PERRLA, EOMI, Normocephalic Neck: Supple, No JVD, Negative Carotid Bruits Lungs: Clear to auscultation, Normal air movement Cardiovascular: Regular rate, No murmurs Abdomen: Bowel Sounds Present, Soft, Non Tender Extremities: No edema, Capillary Refill Less than 3 Seconds Skin: No rashes, No breakdown Musculoskeletal: No Tenderness to Palpation of Joints or Extremities Neurological: Cranial nerves II-XII grossly intact Psych/Mental Status: Normal Affect, Appropriate Microbiology Past 72 Hours 05/27/20 04:05 Sputum, Expectorated/Coughed Gram Stain - Final 05/27/20 04:05 Sputum, Expectorated/Coughed Respiratory Culture - Preliminary Staphylococcus aureus 05/25/20 02:20 Urine Catheter - Hodgson Urine Culture - Final Culture exhibits no growth. 05/24/20 00:45 Blood Culture (Wb) - Anticubital Left Blood Culture - Preliminary No growth in 48 hours. 05/24/20 00:45 Blood Culture (Wb) - Right Hand Blood Culture - Preliminary Bacillus sp., not anthracis Laboratory Results 05/27/20 12:41: POC Glucose 203 H 05/27/20 17:13: POC Glucose 204 H 05/27/20 20:00: APTT 54.2 H 05/27/20 22:58: POC Glucose 156 H 05/28/20 02:50: SARS Serology Pending 05/28/20 02:50: APTT 66.8 H 05/28/20 02:50: WBC 13.1 H, RBC 3.88 L, Hgb 10.5 L, Hct 32.6 L, MCV 84.0, MCH 27.1, MCHC 32.2, RDW Std Deviation 45.6 H, RDW Coeff of Gume 15.1 H, Plt Count 157, MPV 10.9 05/28/20 02:50: Sodium 144, Potassium 3.6, Chloride 113 H, Carbon Dioxide 24.0, Anion Gap 7, BUN 47 H, Creatinine 2.92 H, Estim Creat Clear Calc 31.00, Est GFR (MDRD) Af Amer 29 L, Est GFR (MDRD) Non-Af 24 L, BUN/Creatinine Ratio 16.1, Glucose 185 H, Calcium 7.4 L, Total Creatine Kinase 62179 H 05/28/20 02:50: Total Bilirubin 0.50, Direct Bilirubin 0.27, AST 249 H, ALT 125 H, Alkaline Phosphatase 56, Total Protein 6.4, Albumin 2.0 L, Globulin 4.4 H 05/28/20 05:15: POC Glucose 183 H 05/28/20 09:10: APTT > 250.0 H* 05/28/20 09:10: Ammonia 25.0 05/28/20 11:20: POC Glucose 184 H Current Medications Acetaminophen (Tylenol) 650 mg RECTAL Q4H PRN PRN PRN Reason: Pain Score 1-10/Temp > 100.7 F Last Admin: 05/26/20 15:33 Dose: 650 mg Documented by: Albuterol Sulfate (Ventolin Aerosols) 2.5 mg INHALATION Q2H PRN PRN PRN Reason: SOB/Wheezing Last Admin: 05/27/20 02:30 Dose: 2.5 mg Documented by: Benztropine Mesylate (Cogentin) 2 mg PO DAILY [facility] Last Admin: 05/28/20 08:50 Dose: 2 mg Documented by: Dextrose (D50w Syringe) 0 gm IV X1 PRN; Protocol PRN Reason: Hypoglycemia Famotidine (Pepcid) 20 mg PO DAILY [facility] Last Admin: 05/28/20 08:50 Dose: 20 mg Documented by: Glucagon () 1 mg IM .X1 PRN PRN Reason: Hypoglycemia Haloperidol (Haldol) 5 mg PO BID [facility] Last Admin: 05/28/20 08:50 Dose: 5 mg Documented by: Heparin Sodium (Porcine) (Heparin Na) 0 unit IV UD PRN; Protocol Last Admin: 05/27/20 15:01 Dose: 1,000 unit Documented by: Hydrocortisone Sodium Succinate (Solu-Cortef) 50 mg IV Q24 [facility] Last Admin: 05/28/20 08:51 Dose: 50 mg Documented by: Sodium Chloride () 250 mls @ 15 mls/hr IV .[id number] PRN PRN Reason: Saline Flush Last Admin: 05/28/20 13:29 Dose: 15 mls/hr Documented by: Sodium Chloride () 250 mls @ 15 mls/hr IV .[id number] PRN PRN Reason: Additional IVPB Infusion Heparin Sodium/Dextrose () 25,000 units in 250 mls @ 19 mls/hr IV .[id number] [facility]; Protocol Last Admin: 05/28/20 13:27 Dose: 1,300 units/hr, 13 mls/hr Documented by: Cefazolin Sodium 2 gm/ Sodium (Chloride) 110 mls @ 150 mls/hr IV Q8 [facility] Last Admin: 05/28/20 13:27 Dose: 150 mls/hr Documented by: Insulin Glargine (Lantus (Bkc)) 20 units SC QHS [facility] Last Admin: 05/27/20 23:33 Dose: Not Given Documented by: Insulin Human Lispro (Humalog Kwikpen (Bkc)) 0 unit SC Q6 [facility]; Protocol Last Admin: 05/28/20 11:27 Dose: 1 u Documented by: Labetalol HCl (Trandate) 10 mg IV Q6H PRN PRN Reason: SBP>160 Last Admin: 05/28/20 05:25 Dose: 10 mg Documented by: Labetalol HCl (Trandate) 200 mg PO BID [facility] Last Admin: 05/28/20 08:51 Dose: 200 mg Documented by: Lorazepam (Ativan) 2 mg PO 0800,1700,2000 [facility] Last Admin: 05/28/20 08:49 Dose: 2 mg Documented by: Quetiapine Fumarate (Seroquel) 400 mg PO BID [facility] Last Admin: 05/28/20 08:50 Dose: 400 mg Documented by: Sodium Chloride () 10 - 40 ml IV UD PRN PRN Reason: SALINE FLUSH Last Admin: 05/28/20 08:56 Dose: 10 ml Documented by: Medical Necessity - Tobacco Use Smoking Status: Unknown if ever smoked Assessment/Plan All Active Problems (Last Reviewed 05/24/20 @ 04:[address] Aubrey Powell MD) Suspected 2019 novel coronavirus infection (Acute) Severe sepsis (Acute) Schizophrenia (Acute) MARIA T. Pneumonia suspected COVID Rhabdomyolysis possible NMS now better Urine output is adequate CK better UA shows protein and blood renal US is ok no acute indications for [employer] will decrease fluids to 75 cc hr can dc fluids once ck below 5000
--- NOTE | 2020-05-28 17:30 | PCM.PROGNOTE ---
Patient Problems: Active and Suspected Problems (Last Reviewed 05/24/20 @ 04:[address] Aubrey Powell MD) Suspected 2019 novel coronavirus infection (Acute) Severe sepsis (Acute) Schizophrenia (Acute) Subjective: Patient was seen and examined today, he remains confused and lethargic, according to nursing he did have some oral intake today however. We were not able to get his COVID 19 antibody test performed due to difficulties at the lab, this test will be done tomorrow, patient remains in isolation at this time Objective: General: Confused, Lethargic HEENT: Atraumatic, PERRLA, EOMI, Normocephalic Oral: Dry mucosa Neck: Supple, Trachea Midline, Thyroid Normal Size and Texture Lungs: Clear to auscultation, Normal air movement, No rhonchi, No wheeze, No rales Cardiovascular: Regular rate, Regular Rhythm, Normal S1, Normal S2, No murmurs, PMI Normal, No rub noted Abdomen: Bowel Sounds Present, Soft, Non Tender, Non-Distended Extremities: No clubbing, No cyanosis, Capillary Refill Less than 3 Seconds, Edema - There is bilateral lower leg edema worse on the left, there is also redness of the skin over the left lower leg noted. Skin: No breakdown, Rash Present - There is a reddened area over the left lower leg noted along with warmth of the area Neurological: Cranial nerves II-XII grossly intact, Neuro grossly intact Psych/Mental Status: - - Patient is lethargic and confused - Physical Exam Vitals/I&O's: Vital Signs Temp Pulse Resp BP Pulse Ox 98.9 F 77 15 155/71 H 100 05/28/20 16:00 05/28/20 16:00 05/28/20 16:00 05/28/20 16:00 05/28/20 16:00 Oxygen Flow Rate (L/min) 3 Oxygen Delivery Method Nasal Cannula Weight: 160.7 kg Body Mass Index (BMI) 46.6 Intake and Output for Last 24 Hours 05/26/20 05/27/20 05/28/20 23:59 23:59 23:59 Intake Total 2900.27 / 2924.58 4322.32 / 4322.32 2305.68 / 2305.68 Output Total 2140 / 2140 1925 / 1925 1725 / 1725 Balance 760.27 / 784.58 2397.32 / 2397.32 580.68 / 580.68 Microbiology Past 72 Hours 05/27/20 04:05 Sputum, Expectorated/Coughed Gram Stain - Final 05/27/20 04:05 Sputum, Expectorated/Coughed Respiratory Culture - Preliminary Staphylococcus aureus 05/25/20 02:20 Urine Catheter - Hodgson Urine Culture - Final Culture exhibits no growth. 05/24/20 00:45 Blood Culture (Wb) - Anticubital Left Blood Culture - Preliminary No growth in 48 hours. 05/24/20 00:45 Blood Culture (Wb) - Right Hand Blood Culture - Preliminary Bacillus sp., not anthracis Laboratory Results 05/27/20 17:13: POC Glucose 204 H 05/27/20 20:00: APTT 54.2 H 05/27/20 22:58: POC Glucose 156 H 05/28/20 02:50: SARS Serology Pending 05/28/20 02:50: APTT 66.8 H 05/28/20 02:50: WBC 13.1 H, RBC 3.88 L, Hgb 10.5 L, Hct 32.6 L, MCV 84.0, MCH 27.1, MCHC 32.2, RDW Std Deviation 45.6 H, RDW Coeff of Gume 15.1 H, Plt Count 157, MPV 10.9 05/28/20 02:50: Sodium 144, Potassium 3.6, Chloride 113 H, Carbon Dioxide 24.0, Anion Gap 7, BUN 47 H, Creatinine 2.92 H, Estim Creat Clear Calc 31.00, Est GFR (MDRD) Af Amer 29 L, Est GFR (MDRD) Non-Af 24 L, BUN/Creatinine Ratio 16.1, Glucose 185 H, Calcium 7.4 L, Total Creatine Kinase 98323 H 05/28/20 02:50: Total Bilirubin 0.50, Direct Bilirubin 0.27, AST 249 H, ALT 125 H, Alkaline Phosphatase 56, Total Protein 6.4, Albumin 2.0 L, Globulin 4.4 H 05/28/20 05:15: POC Glucose 183 H 05/28/20 09:10: APTT > 250.0 H* 05/28/20 09:10: Ammonia 25.0 05/28/20 11:20: POC Glucose 184 H Current Medications Acetaminophen (Tylenol) 650 mg RECTAL Q4H PRN PRN PRN Reason: Pain Score 1-10/Temp > 100.7 F Last Admin: 05/26/20 15:33 Dose: 650 mg Documented by: Albuterol Sulfate (Ventolin Aerosols) 2.5 mg INHALATION Q2H PRN PRN PRN Reason: SOB/Wheezing Last Admin: 05/27/20 02:30 Dose: 2.5 mg Documented by: Benztropine Mesylate (Cogentin) 2 mg PO DAILY [facility] Last Admin: 05/28/20 08:50 Dose: 2 mg Documented by: Dextrose (D50w Syringe) 0 gm IV X1 PRN; Protocol PRN Reason: Hypoglycemia Famotidine (Pepcid) 20 mg PO DAILY [facility] Last Admin: 05/28/20 08:50 Dose: 20 mg Documented by: Glucagon () 1 mg IM .X1 PRN PRN Reason: Hypoglycemia Haloperidol (Haldol) 5 mg PO BID [facility] Last Admin: 05/28/20 08:50 Dose: 5 mg Documented by: Heparin Sodium (Porcine) (Heparin Na) 0 unit IV UD PRN; Protocol Last Admin: 05/27/20 15:01 Dose: 1,000 unit Documented by: Hydrocortisone Sodium Succinate (Solu-Cortef) 50 mg IV Q24 [facility] Last Admin: 05/28/20 08:51 Dose: 50 mg Documented by: Sodium Chloride () 250 mls @ 15 mls/hr IV .[id number] PRN PRN Reason: Saline Flush Last Admin: 05/28/20 13:29 Dose: 15 mls/hr Documented by: Sodium Chloride () 250 mls @ 15 mls/hr IV .[id number] PRN PRN Reason: Additional IVPB Infusion Heparin Sodium/Dextrose () 25,000 units in 250 mls @ 19 mls/hr IV .[id number] [facility]; Protocol Last Admin: 05/28/20 13:27 Dose: 1,300 units/hr, 13 mls/hr Documented by: Cefazolin Sodium 2 gm/ Sodium (Chloride) 110 mls @ 150 mls/hr IV Q8 [facility] Last Admin: 05/28/20 13:27 Dose: 150 mls/hr Documented by: Lactated Ringer's () 1,000 mls @ 75 mls/hr IV .[id number] [facility] Insulin Glargine (Lantus (Bkc)) 20 units SC QHS [facility] Last Admin: 05/27/20 23:33 Dose: Not Given Documented by: Insulin Human Lispro (Humalog Kwikpen (Bk)) 0 unit SC Q6 [facility]; Protocol Last Admin: 05/28/20 11:27 Dose: 1 u Documented by: Labetalol HCl (Trandate) 10 mg IV Q6H PRN PRN Reason: SBP>160 Last Admin: 05/28/20 05:25 Dose: 10 mg Documented by: Labetalol HCl (Trandate) 200 mg PO BID [facility] Last Admin: 05/28/20 08:51 Dose: 200 mg Documented by: Lorazepam (Ativan) 2 mg PO 0800,1700,2000 [facility] Last Admin: 05/28/20 17:28 Dose: Not Given Documented by: Quetiapine Fumarate (Seroquel) 400 mg PO BID [facility] Last Admin: 05/28/20 08:50 Dose: 400 mg Documented by: Sodium Chloride () 10 - 40 ml IV UD PRN PRN Reason: SALINE FLUSH Last Admin: 05/28/20 08:56 Dose: 10 ml Documented by: Medical Necessity - Tobacco Use Smoking Status: Unknown if ever smoked Assessment/Plan All Active Problems (Last Reviewed 05/24/20 @ 04:[address] Aubrey Powell MD) Suspected 2019 novel coronavirus infection (Acute) Severe sepsis (Acute) Schizophrenia (Acute) #1 severe sepsis secondary to community-acquired pneumonia-patient's COVID test was negative, COVID antibody test will be performed tomorrow #2 elevated v-hucbo-fzjgvahuojcy unknown at this time, due to the patient's poor renal function he is unable to undergo a CTA of his chest, he will remain anticoagulated for now #3 rhabdomyolysis #4 elevated creatinine-secondary to ATN, remains on IV fluids, patient's creatinine was more elevated today than yesterday #5 hypokalemia-corrected at this time #6 schizophrenia #7 type 2 diabetes-to continue to monitor blood sugar and administer sliding scale insulin #8 community-acquired pneumonia-organism unknown, again patient's COVID-19 test resulted negative #9 adrenal insufficiency-per medical history #10 anxiety disorder #11 cellulitis of the left slaughter area-patient is now on IV Ancef per ID Inpatient E&M: 50113 Subs Hosp L2
[2020-05-28] MEDS: Lactated Ringers 1,000 ML 75 ML IV (17:34)
[2020-05-28 18:35] LABS: Partial Thromboplast Time 66.9 Seconds (24.1-36.2)
[2020-05-28] MEDS: Albuterol 2.5 MG/3 ML VIAL.NEB. INHALATION (19:01)
[2020-05-28 19:11] LABS: Bedside Glucose 189 mg/dL (70-110)
[2020-05-28 23:51] LABS: Bedside Glucose 171 mg/dL (70-110)
[2020-05-29] VITALS (24 sets, daily range): BP systolic 130–172; BP diastolic 51–82; PULSE 58–89; RESP 7–24; TEMP 36.6–37.7; O2SAT 68–99
[2020-05-29 05:12] LABS: Hematocrit 31.3 % (40-54); Mean Corp Hgb Conc 31.9 g/dL (32-36); Mean Corpuscular Hgb 27.3 pg (27.0-32.0); Mean Corpuscular Volume 85.5 fL (80-94); Mean Platelet Vol. 10.7 fl (6.2-12.0); Platelet Count 171 K/mm3 (150-450); RBC Distribution Width CV 15.7 % (11.6-14.6); RBC Distribution Width SD 47.4 fl (35.1-43.9); Red Blood Count 3.66 M/mm3 (4.6-6.2); White Blood Count 10.4 K/mm3 (4.4-11.0)
[2020-05-29] MEDS: 0.9% Saline Lock 10 ML Syringe IV ×2 (05:19→22:33)
[2020-05-29] MEDS: Insulin Lispro 100 UNIT/ML INSULN.PEN SC ×2 (05:19→17:31)
[2020-05-29 05:22] LABS: Partial Thromboplast Time 66.1 Seconds (24.1-36.2)
[2020-05-29] MEDS: Cefazolin 2 GM in 0.9% Normal Saline 100 ML IV ×3 (05:34→23:01)
--- NOTE | 2020-05-29 06:06 | PN_ITS ---
Subjective: The patient was seen and examined at the bedside this morning. Events from the last 24 hours have been reviewed. The patient is currently afebrile, hemodynamically stable and maintaining appropriate oxygen saturations on 2 L/min via nasal cannula. The patient is currently only in soft wrist restraints. His mentation appears to be slowly improving. No overnight issues were identified by the nursing staff. Unfortunately, the patient's coronavirus serology is still pending. Objective: The patient's most recent lab work, culture data and imaging studies have all been personally reviewed. Renal ultrasound was unremarkable. Coronavirus PCR is negative. MRSA screen was positive. Strep and urine Legionella antigens were negative. Respiratory viral panel was negative. Blood and urine cultures are pending. Sputum culture is pending. General: Confused, Disoriented, - - Seems a bit more responsive this morning. HEENT: Atraumatic, PERRLA, Normocephalic Oral: Dry Mucosa Neck: Supple, No Nodes, Trachea Midline Lungs: Diminished Cardiovascular: Regular rate, Regular Rhythm Abdomen: Bowel Sounds Present, Soft, Non Tender, Obese Extremities: No clubbing, No cyanosis, Edema Skin: - - No significant change from previous Musculoskeletal: No Muscle Wasting Lymphatic: No Cervical, Supraclavicular, or Inguinal Adenopathy Neurological: - - No focal deficits. Continues to move all extremities spontaneously. Psych/Mental Status: Restless Vital Signs Temp Pulse Resp BP Pulse Ox 99.5 F H 73 16 163/67 H 99 05/29/20 06:00 05/29/20 06:00 05/29/20 06:00 05/29/20 06:00 05/29/20 06:00 Oxygen Flow Rate (L/min) 2 Oxygen Delivery Method Nasal Cannula Weight: 351 lb 6.669 oz Body Mass Index (BMI) 46.6 Intake and Output for Last 24 Hours 05/27/20 05/28/20 05/29/20 23:59 23:59 23:59 Intake Total 4322.32 / 4322.32 3574.47 / 3574.47 503.12 / 503.12 Output Total 1925 / 1925 2975 / 2975 475 / 475 Balance 2397.32 / 2397.32 599.47 / 599.47 28.12 / 28.12 Labs (Last 48 Hours) 05/24/20 05/24/20 05/27/20 00:55 00:55 04:00 WBC RBC Hgb Hct MCV MCH MCHC RDW Std Deviation RDW Coeff of Gume Plt Count MPV Immature Gran % (Auto) Neut % (Auto) Lymph % (Auto) [place] % (Auto) Eos % (Auto) Baso % (Auto) Absolute Neuts (auto) Absolute Lymphs (auto) Nucleated RBC % APTT Specimen Type Sample Site pH Bicarbonate Actual POC Total CO2 Base Excess O2 Saturation O2 % ABG pCO2 ABG pO2 Nick Test Respiration Rate O2 Delivery Device Liter Flow Minute Volume Vent Mode Tidal Volume POC PEEP POC Pressure Suppt Pressure High Pressure Low Time High Time Low EPAP IPAP Blood Gas Notified Whom Blood Gas Notified Time Sodium Potassium Chloride Carbon Dioxide Anion Gap BUN Creatinine Estim Creat Clear Calc Est GFR (MDRD) Af Amer Est GFR (MDRD) Non-Af BUN/Creatinine Ratio Glucose Calcium Phosphorus Magnesium Total Bilirubin Direct Bilirubin AST ALT Alkaline Phosphatase Ammonia Total Creatine Kinase Total Protein Albumin Globulin Procalcitonin 9.13 H TSH COVID-19 ([facility]) Not Detected 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 SARS Serology POC Glucose 05/27/20 05/27/20 05/27/20 04:00 04:00 04:00 WBC RBC Hgb Hct MCV MCH MCHC RDW Std Deviation RDW Coeff of Gume Plt Count MPV Immature Gran % (Auto) Neut % (Auto) Lymph % (Auto) [place] % (Auto) Eos % (Auto) Baso % (Auto) Absolute Neuts (auto) Absolute Lymphs (auto) Nucleated RBC % APTT 115.4 H* Specimen Type Sample Site pH Bicarbonate Actual POC Total CO2 Base Excess O2 Saturation O2 % ABG pCO2 ABG pO2 Nick Test Respiration Rate O2 Delivery Device Liter Flow Minute Volume Vent Mode Tidal Volume POC PEEP POC Pressure Suppt Pressure High Pressure Low Time High Time Low EPAP IPAP Blood Gas Notified Whom Blood Gas Notified Time Sodium 139 Potassium 4.1 Chloride 110 H Carbon Dioxide 20.0 L Anion Gap 9 BUN 51 H Creatinine 2.68 H Estim Creat Clear Calc 33.78 Est GFR (MDRD) Af Amer 32 L Est GFR (MDRD) Non-Af 26 L BUN/Creatinine Ratio 19.0 Glucose 169 H Calcium 7.5 L Phosphorus 4.0 Magnesium 3.2 H Total Bilirubin Direct Bilirubin AST ALT Alkaline Phosphatase Ammonia Total Creatine Kinase Total Protein Albumin Globulin Procalcitonin TSH 1.20 COVID-19 ([facility]) SARS Serology POC Glucose 05/27/20 05/27/20 05/27/20 05:35 05:41 06:40 WBC 12.6 H RBC 4.03 L Hgb 10.9 L Hct 33.9 L MCV 84.1 MCH 27.0 MCHC 32.2 RDW Std Deviation 46.0 H RDW Coeff of Gume 15.1 H Plt Count 127 L MPV 11.3 Immature Gran % (Auto) 1.200 H Neut % (Auto) 82.6 H Lymph % (Auto) 8.0 L [place] % (Auto) 7.7 Eos % (Auto) 0.2 Baso % (Auto) 0.3 Absolute Neuts (auto) 10.4 H Absolute Lymphs (auto) 1.01 Nucleated RBC % 0 APTT Specimen Type ART Cancelled Sample Site R RADIAL Cancelled pH 7.28 L Cancelled Bicarbonate Actual 18.1 L Cancelled POC Total CO2 19 Cancelled Base Excess -9 L Cancelled O2 Saturation 95 Cancelled O2 % Cancelled ABG pCO2 38.7 Cancelled ABG pO2 88 Cancelled Nick Test POS Cancelled Respiration Rate Cancelled O2 Delivery Device Nasal Can Cancelled Liter Flow 2.0 Cancelled Minute Volume Cancelled Vent Mode Cancelled Tidal Volume Cancelled POC PEEP Cancelled POC Pressure Suppt Cancelled Pressure High Cancelled Pressure Low Cancelled Time High Cancelled Time Low Cancelled EPAP Cancelled IPAP Cancelled Blood Gas Notified Whom ICU MD Cancelled Blood Gas Notified Time Cancelled Sodium Potassium Chloride Carbon Dioxide Anion Gap BUN Creatinine Estim Creat Clear Calc Est GFR (MDRD) Af Amer Est GFR (MDRD) Non-Af BUN/Creatinine Ratio Glucose Calcium Phosphorus Magnesium Total Bilirubin Direct Bilirubin AST ALT Alkaline Phosphatase Ammonia Total Creatine Kinase Total Protein Albumin Globulin Procalcitonin TSH COVID-19 ([facility]) SARS Serology POC Glucose 05/27/20 05/27/20 05/27/20 06:53 12:41 12:45 WBC RBC Hgb Hct MCV MCH MCHC RDW Std Deviation RDW Coeff of Gume Plt Count MPV Immature Gran % (Auto) Neut % (Auto) Lymph % (Auto) [place] % (Auto) Eos % (Auto) Baso % (Auto) Absolute Neuts (auto) Absolute Lymphs (auto) Nucleated RBC % APTT 52.5 H Specimen Type Sample Site pH Bicarbonate Actual POC Total CO2 Base Excess O2 Saturation O2 % ABG pCO2 ABG pO2 Nick Test Respiration Rate O2 Delivery Device Liter Flow Minute Volume Vent Mode Tidal Volume POC PEEP POC Pressure Suppt Pressure High Pressure Low Time High Time Low EPAP IPAP Blood Gas Notified Whom Blood Gas Notified Time Sodium Potassium Chloride Carbon Dioxide Anion Gap BUN Creatinine Estim Creat Clear Calc Est GFR (MDRD) Af Amer Est GFR (MDRD) Non-Af BUN/Creatinine Ratio Glucose Calcium Phosphorus Magnesium Total Bilirubin Direct Bilirubin AST ALT Alkaline Phosphatase Ammonia Total Creatine Kinase Total Protein Albumin Globulin Procalcitonin TSH COVID-19 ([facility]) Negative SARS Serology POC Glucose 203 H 05/27/20 05/27/20 05/27/20 17:13 20:00 22:58 WBC RBC Hgb Hct MCV MCH MCHC RDW Std Deviation RDW Coeff of Gume Plt Count MPV Immature Gran % (Auto) Neut % (Auto) Lymph % (Auto) [place] % (Auto) Eos % (Auto) Baso % (Auto) Absolute Neuts (auto) Absolute Lymphs (auto) Nucleated RBC % APTT 54.2 H Specimen Type Sample Site pH Bicarbonate Actual POC Total CO2 Base Excess O2 Saturation O2 % ABG pCO2 ABG pO2 Nick Test Respiration Rate O2 Delivery Device Liter Flow Minute Volume Vent Mode Tidal Volume POC PEEP POC Pressure Suppt Pressure High Pressure Low Time High Time Low EPAP IPAP Blood Gas Notified Whom Blood Gas Notified Time Sodium Potassium Chloride Carbon Dioxide Anion Gap BUN Creatinine Estim Creat Clear Calc Est GFR (MDRD) Af Amer Est GFR (MDRD) Non-Af BUN/Creatinine Ratio Glucose Calcium Phosphorus Magnesium Total Bilirubin Direct Bilirubin AST ALT Alkaline Phosphatase Ammonia Total Creatine Kinase Total Protein Albumin Globulin Procalcitonin TSH COVID-19 ([facility]) SARS Serology POC Glucose 204 H 156 H 05/28/20 05/28/20 05/28/20 02:50 02:50 02:50 WBC 13.1 H RBC 3.88 L Hgb 10.5 L Hct 32.6 L MCV 84.0 MCH 27.1 MCHC 32.2 RDW Std Deviation 45.6 H RDW Coeff of Gume 15.1 H Plt Count 157 MPV 10.9 Immature Gran % (Auto) Neut % (Auto) Lymph % (Auto) [place] % (Auto) Eos % (Auto) Baso % (Auto) Absolute Neuts (auto) Absolute Lymphs (auto) Nucleated RBC % APTT 66.8 H Specimen Type Sample Site pH Bicarbonate Actual POC Total CO2 Base Excess O2 Saturation O2 % ABG pCO2 ABG pO2 Nick Test Respiration Rate O2 Delivery Device Liter Flow Minute Volume Vent Mode Tidal Volume POC PEEP POC Pressure Suppt Pressure High Pressure Low Time High Time Low EPAP IPAP Blood Gas Notified Whom Blood Gas Notified Time Sodium Potassium Chloride Carbon Dioxide Anion Gap BUN Creatinine Estim Creat Clear Calc Est GFR (MDRD) Af Amer Est GFR (MDRD) Non-Af BUN/Creatinine Ratio Glucose Calcium Phosphorus Magnesium Total Bilirubin Direct Bilirubin AST ALT Alkaline Phosphatase Ammonia Total Creatine Kinase Total Protein Albumin Globulin Procalcitonin TSH COVID-19 ([facility]) SARS Serology Pending POC Glucose 05/28/20 05/28/20 05/28/20 02:50 02:50 05:15 WBC RBC Hgb Hct MCV MCH MCHC RDW Std Deviation RDW Coeff of Gume Plt Count MPV Immature Gran % (Auto) Neut % (Auto) Lymph % (Auto) [place] % (Auto) Eos % (Auto) Baso % (Auto) Absolute Neuts (auto) Absolute Lymphs (auto) Nucleated RBC % APTT Specimen Type Sample Site pH Bicarbonate Actual POC Total CO2 Base Excess O2 Saturation O2 % ABG pCO2 ABG pO2 Nick Test Respiration Rate O2 Delivery Device Liter Flow Minute Volume Vent Mode Tidal Volume POC PEEP POC Pressure Suppt Pressure High Pressure Low Time High Time Low EPAP IPAP Blood Gas Notified Whom Blood Gas Notified Time Sodium 144 Potassium 3.6 Chloride 113 H Carbon Dioxide 24.0 Anion Gap 7 BUN 47 H Creatinine 2.92 H Estim Creat Clear Calc 31.00 Est GFR (MDRD) Af Amer 29 L Est GFR (MDRD) Non-Af 24 L BUN/Creatinine Ratio 16.1 Glucose 185 H Calcium 7.4 L Phosphorus Magnesium Total Bilirubin 0.50 Direct Bilirubin 0.27 AST 249 H ALT 125 H Alkaline Phosphatase 56 Ammonia Total Creatine Kinase 04351 H Total Protein 6.4 Albumin 2.0 L Globulin 4.4 H Procalcitonin TSH COVID-19 ([facility]) SARS Serology POC Glucose 183 H 05/28/20 05/28/20 05/28/20 09:10 09:10 11:20 WBC RBC Hgb Hct MCV MCH MCHC RDW Std Deviation RDW Coeff of Gume Plt Count MPV Immature Gran % (Auto) Neut % (Auto) Lymph % (Auto) [place] % (Auto) Eos % (Auto) Baso % (Auto) Absolute Neuts (auto) Absolute Lymphs (auto) Nucleated RBC % APTT > 250.0 H* Specimen Type Sample Site pH Bicarbonate Actual POC Total CO2 Base Excess O2 Saturation O2 % ABG pCO2 ABG pO2 Nick Test Respiration Rate O2 Delivery Device Liter Flow Minute Volume Vent Mode Tidal Volume POC PEEP POC Pressure Suppt Pressure High Pressure Low Time High Time Low EPAP IPAP Blood Gas Notified Whom Blood Gas Notified Time Sodium Potassium Chloride Carbon Dioxide Anion Gap BUN Creatinine Estim Creat Clear Calc Est GFR (MDRD) Af Amer Est GFR (MDRD) Non-Af BUN/Creatinine Ratio Glucose Calcium Phosphorus Magnesium Total Bilirubin Direct Bilirubin AST ALT Alkaline Phosphatase Ammonia 25.0 Total Creatine Kinase Total Protein Albumin Globulin Procalcitonin TSH COVID-19 ([facility]) SARS Serology POC Glucose 184 H 05/28/20 05/28/20 05/28/20 17:45 17:45 23:15 WBC RBC Hgb Hct MCV MCH MCHC RDW Std Deviation RDW Coeff of Gume Plt Count MPV Immature Gran % (Auto) Neut % (Auto) Lymph % (Auto) [place] % (Auto) Eos % (Auto) Baso % (Auto) Absolute Neuts (auto) Absolute Lymphs (auto) Nucleated RBC % APTT 66.9 H 55.0 H Specimen Type Sample Site pH Bicarbonate Actual POC Total CO2 Base Excess O2 Saturation O2 % ABG pCO2 ABG pO2 Nick Test Respiration Rate O2 Delivery Device Liter Flow Minute Volume Vent Mode Tidal Volume POC PEEP POC Pressure Suppt Pressure High Pressure Low Time High Time Low EPAP IPAP Blood Gas Notified Whom Blood Gas Notified Time Sodium Potassium Chloride Carbon Dioxide Anion Gap BUN Creatinine Estim Creat Clear Calc Est GFR (MDRD) Af Amer Est GFR (MDRD) Non-Af BUN/Creatinine Ratio Glucose Calcium Phosphorus Magnesium Total Bilirubin Direct Bilirubin AST ALT Alkaline Phosphatase Ammonia Total Creatine Kinase Total Protein Albumin Globulin Procalcitonin TSH COVID-19 ([facility]) SARS Serology POC Glucose 189 H 05/28/20 05/29/20 05/29/20 23:15 05:00 05:00 WBC 10.4 RBC 3.66 L Hgb 10.0 L Hct 31.3 L MCV 85.5 MCH 27.3 MCHC 31.9 L RDW Std Deviation 47.4 H RDW Coeff of Gume 15.7 H Plt Count 171 MPV 10.7 Immature Gran % (Auto) Neut % (Auto) Lymph % (Auto) [place] % (Auto) Eos % (Auto) Baso % (Auto) Absolute Neuts (auto) Absolute Lymphs (auto) Nucleated RBC % APTT 66.1 H Specimen Type Sample Site pH Bicarbonate Actual POC Total CO2 Base Excess O2 Saturation O2 % ABG pCO2 ABG pO2 Nick Test Respiration Rate O2 Delivery Device Liter Flow Minute Volume Vent Mode Tidal Volume POC PEEP POC Pressure Suppt Pressure High Pressure Low Time High Time Low EPAP IPAP Blood Gas Notified Whom Blood Gas Notified Time Sodium Potassium Chloride Carbon Dioxide Anion Gap BUN Creatinine Estim Creat Clear Calc Est GFR (MDRD) Af Amer Est GFR (MDRD) Non-Af BUN/Creatinine Ratio Glucose Calcium Phosphorus Magnesium Total Bilirubin Direct Bilirubin AST ALT Alkaline Phosphatase Ammonia Total Creatine Kinase Total Protein Albumin Globulin Procalcitonin TSH COVID-19 ([facility]) SARS Serology POC Glucose 171 H Microbiology 05/27/20 04:05 Sputum, Expectorated/Coughed Gram Stain - Final 05/27/20 04:05 Sputum, Expectorated/Coughed Respiratory Culture - Preliminary Staphylococcus aureus 05/25/20 02:20 Urine Catheter - Hodgson Urine Culture - Final Culture exhibits no growth. Clinical Impression(s) from Imaging Studies Chest X-Ray 05/24/20 00:56 IMPRESSION: Pulmonary hypoexpansion with pulmonary venous congestion. at 0128 Reported and signed by: Baldemar Angulo MD Electronically Signed: Baldemar Angulo MD at 1:27 EDT Tel , Service support , Chest X-Ray 05/26/20 08:50 IMPRESSION: Borderline cardiomegaly with venous congestion. Electronically Signed: Alfredito Hampton, at 9:25 EDT , Service support , Chest X-Ray 05/26/20 11:10 IMPRESSION: The tip of the right PICC line catheter is at the junction of the superior vena cava and right atrium. The vascular congestion has improved. Electronically Signed: Alfredito Hampton, at 12:22 EDT , Service support , Renal Ultrasound 05/26/20 11:19 IMPRESSION: Normal ultrasound of the kidneys. Electronically Signed: Alfredito Cesarmuniradiane, at 15:32 EDT , Service support , Brain CT 05/28/20 07:48 IMPRESSION: Normal unenhanced CT scan of the brain. Electronically Signed: Alfredito Cesarmuniradiane, at 12:00 EDT , Service support , Medical Necessity - Tobacco Use Smoking Status: Unknown if ever smoked Assessment/Plan All Active Problems (Last Reviewed 05/24/20 @ 04:[address] Aubrey Powell MD) Encephalopathy (Acute) Community acquired pneumonia (Acute) Rhabdomyolysis (Acute) Acute kidney injury (Acute) Severe sepsis (Acute) RECOMMENDATIONS: 1. Continue antimicrobials per ID recommendations. 2. Await coronavirus serology. 3. Continue baseline psychiatric medications. 4. Transition from IV stress dose steroids back to home Florinef regimen. 5. Continue systemic anticoagulation. 6. If coronavirus serology is negative, precautions can be discontinued and the patient can be transferred out of the intensive care unit. IMPRESSIONS: 1. Severe sepsis with possible right-sided pneumonia versus COVID-19 infection The patient's initial chest x-ray was difficult to interpret given poor inspiratory effort. However, there is a questionable right-sided infiltrate. The patient also appeared to have a possible source of infection with cellulitis affecting his left lower extremity. Procalcitonin level was also elevated. Therefore, it is reasonable to continue empiric antimicrobials. Coronavirus PCR was negative. The patient will remain on systemic anticoagulation given elevated d-dimer levels. The patient's overall fever has improved since Precedex was discontinued. Although there was initial concern for possible neuroleptic malignant syndrome, the patient appears to have stabilized clinically once the Precedex was discontinued. Nevertheless, we will continue to monitor his QT interval closely, given that he is on Seroquel and scheduled Haldol at his baseline. If the patient's coronavirus serology is negative, precautions can be discontinued. 2. Encephalopathy Improving. Initially felt to be infectious/metabolic in nature. Unclear with the patient's baseline mentation is truly like. CT head was obtained and found to be negative. 3. Acute kidney injury Possibly secondary to ATN in the setting #1. Renal ultrasound was unremarkable. Nephrology is currently following. Continue to monitor urine output. No c urrent indication for renal replacement therapy. 4. Elevated inflammatory markers/d-dimer Continue systemic anticoagulation for now. 5. History of adrenal insufficiency/schizophrenia/diabetes mellitus/morbid obesity Complicates care, management, recovery and prognosis. Continue baseline Seroquel, Haldol and scheduled Ativan. This note was generated with [employer] dictation software. It may contain incorrect words, spelling, and punctuation that were not noted in checking the note before signing. Inpatient E&M: 81297 Subs Hosp L2
[2020-05-29 06:15] LABS: Bedside Glucose 155 mg/dL (70-110)
[2020-05-29] MEDS: Lactated Ringers 1,000 ML 75 ML IV (06:15)
[2020-05-29] MEDS: HEPARIN/D5w 25,000 UNITS 25,000 UNITS/250 ML IV.SOLN. 13 UNITS IV (06:16)
[2020-05-29 06:44] LABS: Anion Gap 6 (5-15); BUN 43 mg/dL (7-18); BUN/Creat Ratio 15.1 RATIO (10-20); CPK Total, Creatine Kinase 4451 U/L (39-308); Calcium,Total 7.4 mg/dL (8.5-10.1); Chloride 117 mmol/L (98-107); Creatinine, Serum 2.85 mg/dL (0.70-1.30); EST Glomerular Filtration Rate 25 mL/min (>60); Est Glom Filt Rate - Afr Amer 30 mL/min (>60); Estimated Creatinine Clearance 31.77 ml/min; Glucose 174 mg/dL (74-106); Potassium 3.4 mmol/L (3.5-5.1); Sodium Level 149 mmol/L (136-145)
[2020-05-29 07:23] LABS: SARS-COV-2 TOTAL ABS Nonreactive (Nonreactive)
--- NOTE | 2020-05-29 08:47 | PN_ITS ---
Patient Problems: Active and Suspected Problems (Last Reviewed 05/24/20 @ 04:[address] Aubrey Powell MD) Encephalopathy (Acute) Community acquired pneumonia (Acute) Rhabdomyolysis (Acute) Acute kidney injury (Acute) Severe sepsis (Acute) Subjective: Chief complaint: Follow-up after admission for severe sepsis secondary to prob able pneumonia versus COVID-19 infection, encephalopathy, acute kidney injury and left leg cellulitis. Patient seen and examined. No acute events overnight. This morning, patient was alert, opening his eyes spontaneously to verbal stimuli, responds to questions appropriately. He denied any pain. Denied shortness of breath. He was coughing. Currently, he is on soft wrist restraints. Maximum temperature overnight was 99.5 Fahrenheit, heart rate stable, blood pressure slight elevated, pulse ox is 97% on 2 L. - Physical Exam Vitals/I&O's: Vital Signs Temp Pulse Resp BP Pulse Ox 99.3 F H 68 7 L 166/68 H 68 05/29/20 07:39 05/29/20 07:39 05/29/20 07:39 05/29/20 07:39 05/29/20 07:39 Oxygen Flow Rate (L/min) 2 Oxygen Delivery Method Nasal Cannula Weight: 351 lb 6.669 oz Body Mass Index (BMI) 46.6 Intake and Output for Last 24 Hours 05/27/20 05/28/20 05/29/20 23:59 23:59 23:59 Intake Total 4322.32 / 4322.32 3574.47 / 3574.47 1107.00 / 1107.00 Output Total 1925 / 1925 2975 / 2975 475 / 475 Balance 2397.32 / 2397.32 599.47 / 599.47 632.00 / 632.00 General: Alert, Cooperative, Confused, Disoriented, - - Opening eyes spontaneously, responds to simple questions. HEENT: Atraumatic, PERRLA, EOMI, Normocephalic Oral: Moist Mucosa, No Gingival or Mucosal Lesions/ Ulcerations Neck: Supple, No JVD, Negative Carotid Bruits, Trachea Midline, Thyroid Normal Size and Texture Lungs: Clear to auscultation, No rhonchi, No wheeze, No rales, Diminished Cardiovascular: Regular rate, Regular Rhythm, Normal S1, Normal S2, PMI Normal Abdomen: Bowel Sounds Present, Soft, Non Tender, Non-Distended, No Hepato- splenomegaly, Obese Extremities: No clubbing, No cyanosis, Edema, - - Swelling and erythema of the left leg is improving. Skin: No rashes, No breakdown Lymphatic: No Cervical, Supraclavicular, or Inguinal Adenopathy Neurological: Cranial nerves II-XII grossly intact, - - Moving all limbs. Psych/Mental Status: Agitated, Restless Microbiology Past 72 Hours 05/24/20 00:45 Blood Culture (Wb) - Right Hand Blood Culture - Final Bacillus sp., not anthracis 05/24/20 00:45 Blood Culture (Wb) - Anticubital Left Blood Culture - Final No growth in 5 days. 05/27/20 04:05 Sputum, Expectorated/Coughed Gram Stain - Final 05/27/20 04:05 Sputum, Expectorated/Coughed Respiratory Culture - Preliminary Staphylococcus aureus 05/25/20 02:20 Urine Catheter - Hodgson Urine Culture - Final Culture exhibits no growth. Laboratory Results 05/28/20 02:50: SARS Serology Nonreactive 05/28/20 02:50: Total Bilirubin 0.50, Direct Bilirubin 0.27, AST 249 H, ALT 125 H, Alkaline Phosphatase 56, Total Protein 6.4, Albumin 2.0 L, Globulin 4.4 H 05/28/20 09:10: APTT > 250.0 H* 05/28/20 09:10: Ammonia 25.0 05/28/20 11:20: POC Glucose 184 H 05/28/20 17:45: APTT 66.9 H 05/28/20 17:45: POC Glucose 189 H 05/28/20 23:15: APTT 55.0 H 05/28/20 23:15: POC Glucose 171 H 05/29/20 05:00: WBC 10.4, RBC 3.66 L, Hgb 10.0 L, Hct 31.3 L, MCV 85.5, MCH 27.3, MCHC 31.9 L, RDW Std Deviation 47.4 H, RDW Coeff of Gume 15.7 H, Plt Count 171, MPV 10.7 05/29/20 05:00: APTT 66.1 H 05/29/20 05:00: Sodium 149 H, Potassium 3.4 L, Chloride 117 H, Carbon Dioxide 26.0, Anion Gap 6, BUN 43 H, Creatinine 2.85 H, Estim Creat Clear Calc 31.77, Est GFR (MDRD) Af Amer 30 L, Est GFR (MDRD) Non-Af 25 L, BUN/Creatinine Ratio 15.1, Glucose 174 H, Calcium 7.4 L, Total Creatine Kinase 4451 H 05/29/20 05:03: POC Glucose 155 H Clinical Impression(s) from Imaging Studies Brain CT 05/28/20 07:48 IMPRESSION: Normal unenhanced CT scan of the brain. Electronically Signed: Alfredito Memo, at 12:00 EDT , Service support , Current Medications Acetaminophen (Tylenol) 650 mg RECTAL Q4H PRN PRN PRN Reason: Pain Score 1-10/Temp > 100.7 F Last Admin: 05/26/20 15:33 Dose: 650 mg Documented by: Albuterol Sulfate (Ventolin Aerosols) 2.5 mg INHALATION Q2H PRN PRN PRN Reason: SOB/Wheezing Last Admin: 05/28/20 19:01 Dose: 2.5 mg Documented by: Benztropine Mesylate (Cogentin) 2 mg PO DAILY [facility] Last Admin: 05/28/20 08:50 Dose: 2 mg Documented by: Dextrose (D50w Syringe) 0 gm IV X1 PRN; Protocol PRN Reason: Hypoglycemia Famotidine (Pepcid) 20 mg PO DAILY [facility] Last Admin: 05/28/20 08:50 Dose: 20 mg Documented by: Fludrocortisone Acetate (Florinef) 0.2 mg PO DAILY@0800 [facility] Glucagon () 1 mg IM .X1 PRN PRN Reason: Hypoglycemia Haloperidol (Haldol) 5 mg PO BID [facility] Last Admin: 05/28/20 21:18 Dose: 5 mg Documented by: Heparin Sodium (Porcine) (Heparin Na) 0 unit IV UD PRN; Protocol Last Admin: 05/27/20 15:01 Dose: 1,000 unit Documented by: Sodium Chloride () 250 mls @ 15 mls/hr IV .[id number] PRN PRN Reason: Saline Flush Last Admin: 07/03/20 06:18 Dose: 15 mls/hr Documented by: Sodium Chloride () 250 mls @ 15 mls/hr IV .[id number] PRN PRN Reason: Additional IVPB Infusion Heparin Sodium/Dextrose () 25,000 units in 250 mls @ 19 mls/hr IV .[id number] [facility]; Protocol Last Admin: 05/29/20 06:17 Dose: Not Given Documented by: Cefazolin Sodium 2 gm/ Sodium (Chloride) 110 mls @ 150 mls/hr IV Q8 [facility] Last Infusion: 05/29/20 06:18 Dose: Infused Documented by: Lactated Ringer's () 1,000 mls @ 75 mls/hr IV .[id number] [facility] Last Admin: 05/29/20 06:15 Dose: 75 mls/hr Documented by: Insulin Glargine (Lantus ([facility])) 20 units SC QHS [facility] Last Admin: 05/28/20 23:23 Dose: Not Given Documented by: Insulin Human Lispro (Humalog Kwikpen ([facility])) 0 unit SC Q6 [facility]; Protocol Last Admin: 05/29/20 05:19 Dose: 1 u Documented by: Labetalol HCl (Trandate) 10 mg IV Q6H PRN PRN Reason: SBP>160 Last Admin: 05/28/20 18:53 Dose: 10 mg Documented by: Labetalol HCl (Trandate) 200 mg PO BID [facility] Last Admin: 05/28/20 21:18 Dose: 200 mg Documented by: Lorazepam (Ativan) 2 mg PO 0800,1700,2000 [facility] Last Admin: 05/28/20 21:18 Dose: 2 mg Documented by: Quetiapine Fumarate (Seroquel) 400 mg PO BID [facility] Last Admin: 05/28/20 21:18 Dose: 400 mg Documented by: Sodium Chloride () 10 - 40 ml IV UD PRN PRN Reason: SALINE FLUSH Last Admin: 05/29/20 05:19 Dose: 20 ml Documented by: Medical Necessity - Tobacco Use Smoking Status: Unknown if ever smoked Assessment/Plan All Active Problems (Last Reviewed 05/24/20 @ 04:[address] Aubrey Powell MD) Encephalopathy (Acute) Community acquired pneumonia (Acute) Rhabdomyolysis (Acute) Acute kidney injury (Acute) Severe sepsis (Acute) This is a 55 years old male patient presented to the emergency room because of shortness of breath, has been having high-grade fever, initially there was a concern that patient may have neuroleptic management syndrome, found to have rhabdomyolysis with acute kidney injury as well as severe sepsis secondary to community-acquired pneumonia. #1 severe sepsis: Secondary to both probable pneumonia and left leg cellulitis. He is on IV cefazolin. Vital signs stabilized, maximum temperature overnight was 99.5 Fahrenheit. 1 bottle of blood culture revealed bacillus species, not bacillus anthracis and the other bottle of blood culture showed no growth in 5 days. Urine culture showed no growth. COVID-19 PCR came back negative. COVID- 19 antibody serology was nonreactive. Plan: Continue clear liquids, discontinue IV fluids, transfer to PCU, repeat CBC and BMP tomorrow morning. #2 probable community-acquired pneumonia: He is on IV cefazolin as above. Pneumococcal and Legionella antigen were negative. Sputum culture revealed staph aureus, final is pending. COVID-19 ruled out. Plan to continue same treatment, plan as above. #3 acute left leg cellulitis: He is on IV cefazolin as above. Erythema and swelling of the left leg is improving. Plan to continue same treatment. #4 acute kidney injury/rhabdomyolysis: IV fluids continued. CPK is 4451 today. Serum creatinine today is 2.85, remained almost the same compared to yesterday. Kidney ultrasound was unremarkable. Nephrology on the case. Nephrology fito mmended to stop IV fluids when CPK is less than 5000. #5 encephalopathy: Multifactorial secondary to severe sepsis in addition to history of schizophrenia and anxiety. Patient has been on high doses of Ativan and Seroquel XR. Today, patient is opening his eyes spontaneously, was able to answer couple of simple questions and his mentation is slowly improving. CT scan brain done yesterday and showed no acute findings. #6 type 2 diabetes mellitus: Blood sugar stable, he is only on sliding scale. #7 schizophrenia/anxiety: Doses of Ativan and Seroquel adjusted. #8 hyperlipidemia: Statins held. #9 history of adrenal insufficiency: Continue Florinef. #10 DVT prophylaxis: Subcu Lovenox. This note was generated with MOGation software. It may contain incorrect words, spelling, and punctuation that were not noted in checking the note before signing. Inpatient E&M: 91987 Subs Hosp L2
[2020-05-29] MEDS: Potassium Chloride 10mEq/100mL 10 MEQ/100 ML IV.SOLN. 100 MEQ IV BOLUS ×4 (09:53→13:44)
[2020-05-29] MEDS: LORazepam 1 MG Tablet 2 MG PO ×3 (10:00→19:52)
[2020-05-29] MEDS: Haloperidol 5 MG Tablet PO ×2 (10:00→22:33)
[2020-05-29] MEDS: Famotidine 20 MG Tablet PO (10:01)
[2020-05-29] MEDS: QUEtiapine 100 MG Tablet 400 MG PO ×2 (10:01→23:01)
[2020-05-29] MEDS: Benztropine 2 MG Tablet PO (10:01)
[2020-05-29] MEDS: Labetalol 200 MG Tablet PO ×2 (10:01→22:33)
[2020-05-29] MEDS: Fludrocortisone Acetate 0.1 MG Tablet 0.2 MG PO (10:01)
[2020-05-29] MEDS: Enoxaparin 40 MG/0.4 ML Syringe SC (10:03)
--- NOTE | 2020-05-29 10:58 | CASEMGMT ---
SOCIAL WORK Call to [facility], spoke with Kimber. Clinical information faxed to [facility] for precert. Alanna Manzano, [employer], [employer]
[2020-05-29 12:26] LABS: Bedside Glucose 76 mg/dL (70-110)
--- NOTE | 2020-05-29 14:38 | NURSING ---
face timed with pokodi Father
--- NOTE | 2020-05-29 15:37 | NURSING ---
report called to [facility] for transfer per bed with belongings to room 124
[2020-05-29 17:00] LABS: Bedside Glucose 168 mg/dL (70-110)
--- NOTE | 2020-05-29 20:11 | NURSING ---
unclear what time heparin gtt was stopped on 05/29. heparin gtt was not running when this RN arrived at 1900
[2020-05-29 22:41] LABS: Bedside Glucose 189 mg/dL (70-110)
[2020-05-30] VITALS (12 sets, daily range): BP systolic 137–158; BP diastolic 67–76; PULSE 50–69; RESP 2–26; TEMP 36.3–36.8; O2SAT 91–97
[2020-05-30] MEDS: Insulin Lispro 100 UNIT/ML INSULN.PEN SC ×5 (00:05→23:56)
[2020-05-30 00:11] LABS: Bedside Glucose 165 mg/dL (70-110)
[2020-05-30] MEDS: Cefazolin 2 GM in 0.9% Normal Saline 100 ML IV (05:13)
[2020-05-30 05:16] LABS: Bedside Glucose 184 mg/dL (70-110)
[2020-05-30 06:10] LABS: Hematocrit 31.1 % (40-54); Hemoglobin 9.5 g/dL (13.0-16.5); Mean Corp Hgb Conc 30.5 g/dL (32-36); Mean Corpuscular Hgb 26.6 pg (27.0-32.0); Mean Corpuscular Volume 87.1 fL (80-94); POSITIVE COUNT YES; POSITIVE MORPHOLOGY YES; Platelet Count 191 K/mm3 (150-450); RBC Distribution Width CV 15.7 % (11.6-14.6); RBC Distribution Width SD 49.6 fl (35.1-43.9); Red Blood Count 3.57 M/mm3 (4.6-6.2); White Blood Count 12.3 K/mm3 (4.4-11.0)
[2020-05-30 06:11] LABS: Differential Indicated MANUAL DIFF
[2020-05-30 06:44] LABS: Eosinophil 1 % (0-5); Lymphocyte 19 % (19-41); Metamyelocyte 3 % (0-1); Monocyte 5 % (0-10); Neutrophil-Band 7 % (0-5); Neutrophil-Segmented 65 % (47-70); Total Cells Counted 100 (MANUAL DIFF)
[2020-05-30 06:46] LABS: Absolute Lymphocyte Count 2.33 X10^3/uL (0.83-4.51); Absolute Neutrophil Count 8.8 X10^3/uL (2.0-7.7); Lymphocyte # 2.33 X10^3/ul (4.0); Neutrophil # 8.83 X10^3/uL (2.7-7.7)
[2020-05-30 06:47] LABS: Platelet Estimate ADEQUATE (ADEQ); Red Cell Morphology NORM C+C NORMAL (NORM C&C)
[2020-05-30 06:52] LABS: Anion Gap 6 (5-15); BUN 39 mg/dL (7-18); BUN/Creat Ratio 13.8 RATIO (10-20); Calcium,Total 7.4 mg/dL (8.5-10.1); Chloride 120 mmol/L (98-107); Creatinine, Serum 2.82 mg/dL (0.70-1.30); EST Glomerular Filtration Rate 25 mL/min (>60); Est Glom Filt Rate - Afr Amer 30 mL/min (>60); Glucose 194 mg/dL (74-106); Potassium 3.6 mmol/L (3.5-5.1); Sodium Level 149 mmol/L (136-145)
--- NOTE | 2020-05-30 07:53 | PN_ITS ---
Patient Problems: Active and Suspected Problems (Last Reviewed 05/24/20 @ 04:[address] Aubrey Powell MD) Severe sepsis (Acute) Subjective: Chief complaint: Follow-up after admission for severe sepsis secondary to probable pneumonia versus COVID-19 infection, encephalopathy, acute kidney injury and left leg cellulitis. Patient seen and examined. No acute events overnight. This morning, he is still very sleepy and lethargic. He is barely able to open his eyes, was not able to respond to questions appropriately. He has been afebrile, blood pressure and heart rate are stable, pulse ox is 96% on 2 L. - Physical Exam Vitals/I&O's: Vital Signs Temp Pulse Resp BP Pulse Ox 97.9 F 68 19 H 137/69 H 96 05/30/20 05:08 05/30/20 06:52 05/30/20 05:08 05/30/20 05:08 05/30/20 05:08 Oxygen Flow Rate (L/min) 2 Oxygen Delivery Method Nasal Cannula Weight: 350 lb 15.614 oz Body Mass Index (BMI) 46.6 Intake and Output for Last 24 Hours 05/28/20 05/29/20 05/30/20 23:59 23:59 23:59 Intake Total 3574.47 / 3574.47 4149.28 / 4149.28 561.25 / 561.25 Output Total 2975 / 2975 2300 / 2300 Balance 599.47 / 599.47 1849.28 / 1849.28 561.25 / 561.25 General: Cooperative, Lethargic, - - Sleeping, arousable. Minimally short of breath. HEENT: Atraumatic, PERRLA, EOMI, Normocephalic Oral: No Gingival or Mucosal Lesions/ Ulcerations, Dry Mucosa Neck: Supple, No JVD, Negative Carotid Bruits, Trachea Midline, Thyroid Normal Size and Texture Lungs: No rales, Diminished, Rhonchi, Wheezes, - - Decreased breath sounds bi lateral, bilateral end expiratory wheezes, scattered rhonchi. Cardiovascular: Regular rate, Regular Rhythm, Normal S1, Normal S2, PMI Normal Abdomen: Bowel Sounds Present, Soft, Non Tender, Non-Distended, No Hepato- splenomegaly, Obese Extremities: No clubbing, No cyanosis, Edema Skin: No rashes, No breakdown Lymphatic: No Cervical, Supraclavicular, or Inguinal Adenopathy Neurological: Cranial nerves II-XII grossly intact, - - Moving all limbs. Very sleepy and lethargic. Psych/Mental Status: - - Unable to assess, patient is very lethargic. Microbiology Past 72 Hours 05/27/20 04:05 Sputum, Expectorated/Coughed Gram Stain - Final 05/27/20 04:05 Sputum, Expectorated/Coughed Respiratory Culture - Final Meth. resistant Staph. aureus 05/24/20 00:45 Blood Culture (Wb) - Right Hand Blood Culture - Final Bacillus sp., not anthracis 05/24/20 00:45 Blood Culture (Wb) - Anticubital Left Blood Culture - Final No growth in 5 days. 05/25/20 02:20 Urine Catheter - Hodgson Urine Culture - Final Culture exhibits no growth. Laboratory Results 05/29/20 11:55: POC Glucose 76 05/29/20 16:26: POC Glucose 168 H 05/29/20 22:29: POC Glucose 189 H 05/29/20 23:58: POC Glucose 165 H 05/30/20 05:10: POC Glucose 184 H 05/30/20 05:38: WBC 12.3 H, RBC 3.57 L, Hgb 9.5 L, Hct 31.1 L, MCV 87.1, MCH 26.6 L, MCHC 30.5 L, RDW Std Deviation 49.6 H, RDW Coeff of Gume 15.7 H, Plt Count 191, MPV 11.0, Neut % (Auto) Not Reportable, Absolute Neuts (auto) 8.8 H, Absolute Lymphs (auto) 2.33, Total Counted 100, Neutrophils % (Manual) 65, Band Neutrophils % 7 H, Lymphocytes % (Manual) 19, Monocytes % (Manual) 5, Eosinophils % (Manual) 1, Metamyelocytes % 3 H, Diff Path Review May , Platelet Estimate ADEQUATE, RBC Morphology NORM C+C 05/30/20 05:38: Sodium 149 H, Potassium 3.6, Chloride 120 H, Carbon Dioxide 23.0, Anion Gap 6, BUN 39 H, Creatinine 2.82 H, Estim Creat Clear Calc 32.10, Est GFR (MDRD) Af Amer 30 L, Est GFR (MDRD) Non-Af 25 L, BUN/Creatinine Ratio 13.8, Glucose 194 H, Calcium 7.4 L Current Medications Acetaminophen (Tylenol) 650 mg RECTAL Q4H PRN PRN PRN Reason: Pain Score 1-10/Temp > 100.7 F Last Admin: 05/26/20 15:33 Dose: 650 mg Documented by: Albuterol Sulfate (Ventolin Aerosols) 2.5 mg INHALATION Q2H PRN PRN PRN Reason: SOB/Wheezing Last Admin: 05/28/20 19:01 Dose: 2.5 mg Documented by: Benztropine Mesylate (Cogentin) 2 mg PO DAILY [facility] Last Admin: 05/29/20 10:01 Dose: 2 mg Documented by: Dextrose (D50w Syringe) 0 gm IV X1 PRN; Protocol PRN Reason: Hypoglycemia Enoxaparin Sodium (Lovenox) 40 mg SC DAILY [facility] Last Admin: 05/29/20 10:03 Dose: 40 mg Documented by: Famotidine (Pepcid) 20 mg PO DAILY [facility] Last Admin: 05/29/20 10:01 Dose: 20 mg Documented by: Fludrocortisone Acetate (Florinef) 0.2 mg PO DAILY@0800 [facility] Last Admin: 05/29/20 10:01 Dose: 0.2 mg Documented by: Glucagon () 1 mg IM .X1 PRN PRN Reason: Hypoglycemia Haloperidol (Haldol) 5 mg PO BID [facility] Last Admin: 05/29/20 22:33 Dose: 5 mg Documented by: Sodium Chloride () 250 mls @ 15 mls/hr IV .[id number] PRN PRN Reason: Saline Flush Last Infusion: 05/29/20 19:00 Dose: 0 mls/hr Documented by: Sodium Chloride () 250 mls @ 15 mls/hr IV .[id number] PRN PRN Reason: Additional IVPB Infusion Cefazolin Sodium 2 gm/ Sodium (Chloride) 110 mls @ 150 mls/hr IV Q8 [facility] Stop: 05/30/20 22:43 Last Infusion: 05/30/20 05:57 Dose: Infused Documented by: Dextrose () 1,000 mls @ 75 mls/hr IV .[id number] [facility] Last Infusion: 05/30/20 06:00 Dose: 75 mls/hr Documented by: Insulin Glargine (Lantus ([facility])) 20 units SC QHS [facility] Last Admin: 05/29/20 22:30 Dose: Not Given Documented by: Insulin Human Lispro (Humalog Kwikpen ([facility])) 0 unit SC Q6 [facility]; Protocol Last Admin: 05/30/20 05:11 Dose: 1 u Documented by: Labetalol HCl (Trandate) 10 mg IV Q6H PRN PRN Reason: SBP>160 Last Admin: 05/28/20 18:53 Dose: 10 mg Documented by: Labetalol HCl (Trandate) 200 mg PO BID [facility] Last Admin: 05/29/20 22:33 Dose: 200 mg Documented by: Lorazepam (Ativan) 2 mg PO 0800,1700,2000 [facility] Last Admin: 05/29/20 19:52 Dose: 2 mg Documented by: Quetiapine Fumarate (Seroquel) 400 mg PO BID [facility] Last Admin: 05/29/20 23:01 Dose: 400 mg Documented by: Sodium Chloride () 10 - 40 ml IV UD PRN PRN Reason: SALINE FLUSH Last Admin: 05/29/20 22:33 Dose: 20 ml Documented by: Medical Necessity - Tobacco Use Smoking Status: Unknown if ever smoked Assessment/Plan All Active Problems (Last Reviewed 05/24/20 @ 04:[address] Aubrey Powell MD) Encephalopathy (Acute) Community acquired pneumonia (Acute) Rhabdomyolysis (Acute) Acute kidney injury (Acute) Severe sepsis (Acute) This is a 55 years old male patient presented to the emergency room because of shortness of breath, has been having high-grade fever, initially there was a concern that patient may have neuroleptic management syndrome, found to have r habdomyolysis with acute kidney injury as well as severe sepsis secondary to community-acquired pneumonia. #1 severe sepsis: Secondary to both probable pneumonia and left leg cellulitis. Remained on IV cefazolin. He has been afebrile since yesterday morning, blood pressure and heart rate are stable. 1 bottle of blood culture revealed bacillus species, not bacillus anthracis and the other bottle of blood culture showed no growth in 5 days. Urine culture showed no growth. COVID-19 PCR came back negative. COVID-19 antibody serology was nonreactive. Sputum culture revealed MRSA. Plan: DC IV cefazolin, start IV vancomycin, repeat CBC and CMP tomorrow morning. #2 probable community-acquired pneumonia: He is on IV cefazolin as above. Pneumococcal and Legionella antigen were negative. Sputum culture revealed MRSA. COVID-19 ruled out. Plan as above to start IV vancomycin, DC IV cefazolin. #3 acute left leg cellulitis: He is on day 5 of IV cefazolin as above. Erythema and swelling of the left leg is improving. Plan to discontinue IV cefazolin and start IV vancomycin as above. #4 acute kidney injury/rhabdomyolysis: IV fluids continued. CPK is trending down. Serum creatinine today is 2.82, remained the same as yesterday. Urine output satisfactory. Kidney ultrasound was unremarkable. Nephrology on the case. Patient is on maintenance fluids and clear liquids. #5 encephalopathy: Multifactorial secondary to severe sepsis in addition to history of schizophrenia and anxiety, being on Seroquel XL, Haldol and Ativan. Today, patient remained very sleepy and lethargic. CT scan brain done and showed no acute findings. Plan: Continue Seroquel and Haldol, taper Ativan down to 1 mg every 8 hours. #6 type 2 diabetes mellitus: Blood sugar stable, he is only on sliding scale. #7 schizophrenia/anxiety: Plan as above, continue Seroquel and Haldol, decrease Ativan down to 1 mg every 8 hours instead of 2 mg 8 hours. #8 hyperlipidemia: Statins held. #9 history of adrenal insufficiency: Continue Florinef. #10 DVT prophylaxis: Subcu Lovenox. This note was generated with [employer] dictation software. It may contain incorrect words, spelling, and punctuation that were not noted in checking the note before signing. Inpatient E&M: 57765 Subs Hosp L2
--- NOTE | 2020-05-30 08:22 | PCM.PN.PUL ---
Patient Problems: Active and Suspected Problems (Last Reviewed 05/24/20 @ 04:[address] Aubrey Powell MD) Severe sepsis (Acute) Subjective: The patient was seen and examined at the bedside this morning. Events from the last 24 hours have been reviewed. The patient is currently afebrile, hemodynamically stable and maintaining appropriate oxygen saturations on 2 L/min via nasal cannula. The patient was able to be transferred out of the intensive care unit yesterday after his coronavirus serology was found to be nonreactive. Patient seems more somnolent this morning. Objective: The patient's most recent lab work, culture data and imaging studies have all been personally reviewed. Renal ultrasound was unremarkable. Coronavirus PCR is negative. Coronavirus serology was nonreactive. MRSA screen was positive. Strep and urine Legionella antigens were negative. Respiratory viral panel was negative. Blood and urine cultures are pending. Sputum culture was positive for MRSA. - Physical Exam Vitals/I&O's: Vital Signs Temp Pulse Resp BP Pulse Ox 97.9 F 64 26 H 137/69 H 96 05/30/20 05:08 05/30/20 08:10 05/30/20 08:10 05/30/20 05:08 05/30/20 08:10 Oxygen Flow Rate (L/min) 2 Oxygen Delivery Method Nasal Cannula Weight: 350 lb 15.614 oz Body Mass Index (BMI) 46.6 Intake and Output for Last 24 Hours 05/28/20 05/29/20 05/30/20 23:59 23:59 23:59 Intake Total 3574.47 / 3574.47 4149.28 / 4149.28 561.25 / 561.25 Output Total 2975 / 2975 2300 / 2300 Balance 599.47 / 599.47 1849.28 / 1849.28 561.25 / 561.25 General: Lethargic HEENT: Atraumatic, Normocephalic Oral: Dry Mucosa Neck: Supple, No Nodes, Trachea Midline Lungs: Diminished, Rhonchi Cardiovascular: Regular rate, Regular Rhythm Abdomen: Bowel Sounds Present, Soft, Non Tender, Obese Extremities: No clubbing, No cyanosis, Edema Skin: - - No significant change from previous Musculoskeletal: No Muscle Wasting Lymphatic: No Cervical, Supraclavicular, or Inguinal Adenopathy Neurological: - - No focal deficits. The patient is quite somnolent. Labs (Last 48 Hours) 05/28/20 05/28/20 05/28/20 02:50 02:50 09:10 WBC RBC Hgb Hct MCV MCH MCHC RDW Std Deviation RDW Coeff of Gume Plt Count MPV Neut % (Auto) Absolute Neuts (auto) Absolute Lymphs (auto) Total Counted Neutrophils % (Manual) Band Neutrophils % Lymphocytes % (Manual) Monocytes % (Manual) Eosinophils % (Manual) Metamyelocytes % Diff Path Review Platelet Estimate RBC Morphology APTT > 250.0 H* Sodium Potassium Chloride Carbon Dioxide Anion Gap BUN Creatinine Estim Creat Clear Calc Est GFR (MDRD) Af Amer Est GFR (MDRD) Non-Af BUN/Creatinine Ratio Glucose Calcium Total Bilirubin 0.50 Direct Bilirubin 0.27 AST 249 H ALT 125 H Alkaline Phosphatase 56 Ammonia Total Creatine Kinase Total Protein 6.4 Albumin 2.0 L Globulin 4.4 H SARS Serology Nonreactive POC Glucose 05/28/20 05/28/20 05/28/20 09:10 11:20 17:45 WBC RBC Hgb Hct MCV MCH MCHC RDW Std Deviation RDW Coeff of Gume Plt Count MPV Neut % (Auto) Absolute Neuts (auto) Absolute Lymphs (auto) Total Counted Neutrophils % (Manual) Band Neutrophils % Lymphocytes % (Manual) Monocytes % (Manual) Eosinophils % (Manual) Metamyelocytes % Diff Path Review Platelet Estimate RBC Morphology APTT 66.9 H Sodium Potassium Chloride Carbon Dioxide Anion Gap BUN Creatinine Estim Creat Clear Calc Est GFR (MDRD) Af Amer Est GFR (MDRD) Non-Af BUN/Creatinine Ratio Glucose Calcium Total Bilirubin Direct Bilirubin AST ALT Alkaline Phosphatase Ammonia 25.0 Total Creatine Kinase Total Protein Albumin Globulin SARS Serology POC Glucose 184 H 05/28/20 05/28/20 05/28/20 17:45 23:15 23:15 WBC RBC Hgb Hct MCV MCH MCHC RDW Std Deviation RDW Coeff of Gume Plt Count MPV Neut % (Auto) Absolute Neuts (auto) Absolute Lymphs (auto) Total Counted Neutrophils % (Manual) Band Neutrophils % Lymphocytes % (Manual) Monocytes % (Manual) Eosinophils % (Manual) Metamyelocytes % Diff Path Review Platelet Estimate RBC Morphology APTT 55.0 H Sodium Potassium Chloride Carbon Dioxide Anion Gap BUN Creatinine Estim Creat Clear Calc Est GFR (MDRD) Af Amer Est GFR (MDRD) Non-Af BUN/Creatinine Ratio Glucose Calcium Total Bilirubin Direct Bilirubin AST ALT Alkaline Phosphatase Ammonia Total Creatine Kinase Total Protein Albumin Globulin SARS Serology POC Glucose 189 H 171 H 05/29/20 05/29/20 05/29/20 05:00 05:00 05:00 WBC 10.4 RBC 3.66 L Hgb 10.0 L Hct 31.3 L MCV 85.5 MCH 27.3 MCHC 31.9 L RDW Std Deviation 47.4 H RDW Coeff of Gume 15.7 H Plt Count 171 MPV 10.7 Neut % (Auto) Absolute Neuts (auto) Absolute Lymphs (auto) Total Counted Neutrophils % (Manual) Band Neutrophils % Lymphocytes % (Manual) Monocytes % (Manual) Eosinophils % (Manual) Metamyelocytes % Diff Path Review Platelet Estimate RBC Morphology APTT 66.1 H Sodium 149 H Potassium 3.4 L Chloride 117 H Carbon Dioxide 26.0 Anion Gap 6 BUN 43 H Creatinine 2.85 H Estim Creat Clear Calc 31.77 Est GFR (MDRD) Af Amer 30 L Est GFR (MDRD) Non-Af 25 L BUN/Creatinine Ratio 15.1 Glucose 174 H Calcium 7.4 L Total Bilirubin Direct Bilirubin AST ALT Alkaline Phosphatase Ammonia Total Creatine Kinase 4451 H Total Protein Albumin Globulin SARS Serology POC Glucose 05/29/20 05/29/20 05/29/20 05:03 11:55 16:26 WBC RBC Hgb Hct MCV MCH MCHC RDW Std Deviation RDW Coeff of Gume Plt Count MPV Neut % (Auto) Absolute Neuts (auto) Absolute Lymphs (auto) Total Counted Neutrophils % (Manual) Band Neutrophils % Lymphocytes % (Manual) Monocytes % (Manual) Eosinophils % (Manual) Metamyelocytes % Diff Path Review Platelet Estimate RBC Morphology APTT Sodium Potassium Chloride Carbon Dioxide Anion Gap BUN Creatinine Estim Creat Clear Calc Est GFR (MDRD) Af Amer Est GFR (MDRD) Non-Af BUN/Creatinine Ratio Glucose Calcium Total Bilirubin Direct Bilirubin AST ALT Alkaline Phosphatase Ammonia Total Creatine Kinase Total Protein Albumin Globulin SARS Serology POC Glucose 155 H 76 168 H 05/29/20 05/29/20 05/30/20 22:29 23:58 05:10 WBC RBC Hgb Hct MCV MCH MCHC RDW Std Deviation RDW Coeff of Gume Plt Count MPV Neut % (Auto) Absolute Neuts (auto) Absolute Lymphs (auto) Total Counted Neutrophils % (Manual) Band Neutrophils % Lymphocytes % (Manual) Monocytes % (Manual) Eosinophils % (Manual) Metamyelocytes % Diff Path Review Platelet Estimate RBC Morphology APTT Sodium Potassium Chloride Carbon Dioxide Anion Gap BUN Creatinine Estim Creat Clear Calc Est GFR (MDRD) Af Amer Est GFR (MDRD) Non-Af BUN/Creatinine Ratio Glucose Calcium Total Bilirubin Direct Bilirubin AST ALT Alkaline Phosphatase Ammonia Total Creatine Kinase Total Protein Albumin Globulin SARS Serology POC Glucose 189 H 165 H 184 H 05/30/20 05/30/20 05:38 05:38 WBC 12.3 H RBC 3.57 L Hgb 9.5 L Hct 31.1 L MCV 87.1 MCH 26.6 L MCHC 30.5 L RDW Std Deviation 49.6 H RDW Coeff of Gume 15.7 H Plt Count 191 MPV 11.0 Neut % (Auto) Not Reportable Absolute Neuts (auto) 8.8 H Absolute Lymphs (auto) 2.33 Total Counted 100 Neutrophils % (Manual) 65 Band Neutrophils % 7 H Lymphocytes % (Manual) 19 Monocytes % (Manual) 5 Eosinophils % (Manual) 1 Metamyelocytes % 3 H Diff Path Review May foll Platelet Estimate ADEQUATE RBC Morphology NORM C+C APTT Sodium 149 H Potassium 3.6 Chloride 120 H Carbon Dioxide 23.0 Anion Gap 6 BUN 39 H Creatinine 2.82 H Estim Creat Clear Calc 32.10 Est GFR (MDRD) Af Amer 30 L Est GFR (MDRD) Non-Af 25 L BUN/Creatinine Ratio 13.8 Glucose 194 H Calcium 7.4 L Total Bilirubin Direct Bilirubin AST ALT Alkaline Phosphatase Ammonia Total Creatine Kinase Total Protein Albumin Globulin SARS Serology POC Glucose Microbiology 05/27/20 04:05 Sputum, Expectorated/Coughed Gram Stain - Final 05/27/20 04:05 Sputum, Expectorated/Coughed Respiratory Culture - Final Meth. resistant Staph. aureus 05/24/20 00:45 Blood Culture (Wb) - Right Hand Blood Culture - Final Bacillus sp., not anthracis 05/24/20 00:45 Blood Culture (Wb) - Anticubital Left Blood Culture - Final No growth in 5 days. 05/25/20 02:20 Urine Catheter - Hodgson Urine Culture - Final Culture exhibits no growth. Clinical Impression(s) from Imaging Studies Chest X-Ray 05/24/20 00:56 IMPRESSION: Pulmonary hypoexpansion with pulmonary venous congestion. at 0128 Reported and signed by: Baldemar Angulo MD Electronically Signed: Baldemar Angulo MD at 1:27 EDT Tel , Service support , Chest X-Ray 05/26/20 08:50 IMPRESSION: Borderline cardiomegaly with venous congestion. Electronically Signed: Alfredito Hampton, at 9:25 EDT , Service support , Chest X-Ray 05/26/20 11:10 IMPRESSION: The tip of the right PICC line catheter is at the junction of the superior vena cava and right atrium. The vascular congestion has improved. Electronically Signed: Alfredito Hampton, at 12:22 EDT , Service support , Renal Ultrasound 05/26/20 11:19 IMPRESSION: Normal ultrasound of the kidneys. Electronically Signed: Alfredito Hampton, at 15:32 EDT , Service support , Brain CT 05/28/20 07:48 IMPRESSION: Normal unenhanced CT scan of the brain. Electronically Signed: Alfredito Hampton, at 12:00 EDT , Service support , Current Medications Acetaminophen (Tylenol) 650 mg RECTAL Q4H PRN PRN PRN Reason: Pain Score 1-10/Temp > 100.7 F Last Admin: 05/26/20 15:33 Dose: 650 mg Documented by: Albuterol Sulfate (Ventolin Aerosols) 2.5 mg INHALATION Q2H PRN PRN PRN Reason: SOB/Wheezing Last Admin: 05/28/20 19:01 Dose: 2.5 mg Documented by: Albuterol/Ipratropium (Duoneb) 3 ml INHALATION Q6H.RT [facility] Benztropine Mesylate (Cogentin) 2 mg PO DAILY [facility] Last Admin: 05/29/20 10:01 Dose: 2 mg Documented by: Dextrose (D50w Syringe) 0 gm IV X1 PRN; Protocol PRN Reason: Hypoglycemia Enoxaparin Sodium (Lovenox) 40 mg SC DAILY [facility] Last Admin: 05/29/20 10:03 Dose: 40 mg Documented by: Famotidine (Pepcid) 20 mg PO DAILY [facility] Last Admin: 05/29/20 10:01 Dose: 20 mg Documented by: Fludrocortisone Acetate (Florinef) 0.2 mg PO DAILY@0800 [facility] Last Admin: 05/29/20 10:01 Dose: 0.2 mg Documented by: Glucagon () 1 mg IM .X1 PRN PRN Reason: Hypoglycemia Haloperidol (Haldol) 5 mg PO BID [facility] Last Admin: 05/29/20 22:33 Dose: 5 mg Documented by: Sodium Chloride () 250 mls @ 15 mls/hr IV .[id number] PRN PRN Reason: Saline Flush Last Infusion: 05/29/20 19:00 Dose: 0 mls/hr Documented by: Sodium Chloride () 250 mls @ 15 mls/hr IV .[id number] PRN PRN Reason: Additional IVPB Infusion Dextrose () 1,000 mls @ 75 mls/hr IV .[id number] [facility] Last Infusion: 05/30/20 06:00 Dose: 75 mls/hr Documented by: Vancomycin HCl 1,250 mg/ (Sodium Chloride) 275 mls @ 167 mls/hr IV Q12H [facility] Insulin Glargine (Lantus (Bkc)) 20 units SC QHS [facility] Last Admin: 05/29/20 22:30 Dose: Not Given Documented by: Insulin Human Lispro (Humalog Kwikpen (Bkc)) 0 unit SC Q6 [facility]; Protocol Last Admin: 05/30/20 05:11 Dose: 1 u Documented by: Labetalol HCl (Trandate) 10 mg IV Q6H PRN PRN Reason: SBP>160 Last Admin: 05/28/20 18:53 Dose: 10 mg Documented by: Labetalol HCl (Trandate) 200 mg PO BID [facility] Last Admin: 05/29/20 22:33 Dose: 200 mg Documented by: Lorazepam (Ativan) 1 mg PO 0800,1700,2000 [facility] Quetiapine Fumarate (Seroquel) 400 mg PO BID [facility] Last Admin: 05/29/20 23:01 Dose: 400 mg Documented by: Sodium Chloride () 10 - 40 ml IV UD PRN PRN Reason: SALINE FLUSH Last Admin: 05/29/20 22:33 Dose: 20 ml Documented by: Medical Necessity - Tobacco Use Smoking Status: Unknown if ever smoked Assessment/Plan All Active Problems (Last Reviewed 05/24/20 @ 04:[address] Aubrey Powell MD) Encephalopathy (Acute) Community acquired pneumonia (Acute) Rhabdomyolysis (Acute) Acute kidney injury (Acute) Severe sepsis (Acute) RECOMMENDATIONS: 1. Continue antimicrobials per ID recommendations. 2. Consider de-escalation of Ativan while continuing Haldol and Seroquel for now. 3. Continue home Florinef regimen. IMPRESSIONS: 1. Severe sepsis with possible right-sided pneumonia versus COVID-19 infection The patient's initial chest x-ray was difficult to interpret given poor inspiratory effort. However, there is a questionable right-sided infiltrate. The patient also appeared to have a possible source of infection with cellulitis affecting his left lower extremity. Procalcitonin level was also elevated. Therefore, it is reasonable to continue empiric antimicrobials. Coronavirus PCR was negative. The patient will remain on systemic anticoagulation given elevated d-dimer levels. The patient's overall fever has improved since Precedex was discontinued. Although there was initial concern for possible neuroleptic malignant syndrome, the patient appears to have stabilized clinically once the Precedex was discontinued. Nevertheless, we will continue to monitor his QT interval closely, given that he is on Seroquel and scheduled Haldol at his baseline. If the patient's coronavirus serology is negative, precautions can be discontinued. 2. Encephalopathy Improving. Initially felt to be infectious/metabolic in nature. Unclear with the patient's baseline mentation is truly like. CT head was obtained and found to be negative. 3. Acute kidney injury Possibly secondary to ATN in the setting #1. Renal ultrasound was unremarkable. Nephrology is currently following. Continue to monitor urine output. No current indication for renal replacement therapy. 4. History of adrenal insufficiency/schizophrenia/diabetes mellitus/morbid obesity Complicates care, management, recovery and prognosis. Continue baseline Seroquel, Haldol and scheduled Ativan. This note was generated with [employer] dictation software. It may contain incorrect words, spelling, and punctuation that were not noted in checking the note before signing. Inpatient E&M: 54211 Subs Hosp L2
[2020-05-30] MEDS: LORazepam 1 MG Tablet PO (09:27)
[2020-05-30] MEDS: Haloperidol 5 MG Tablet PO (09:28)
[2020-05-30] MEDS: Benztropine 2 MG Tablet PO (09:28)
[2020-05-30] MEDS: Fludrocortisone Acetate 0.1 MG Tablet 0.2 MG PO (09:28)
[2020-05-30] MEDS: Labetalol 200 MG Tablet PO (09:29)
[2020-05-30] MEDS: Enoxaparin 40 MG/0.4 ML Syringe SC (09:29)
[2020-05-30] MEDS: Famotidine 20 MG Tablet PO (09:29)
[2020-05-30] MEDS: QUEtiapine 100 MG Tablet 400 MG PO (09:29)
[2020-05-30 11:14] LABS: Vancomycin, Random Level 3.8 ug/mL (0.0-15.0)
[2020-05-30 11:51] LABS: Bedside Glucose 189 mg/dL (70-110)
[2020-05-30] MEDS: Ipratropium/Albuterol Sulfate 3 ML AMPUL.NEB INHALATION ×2 (12:44→20:01)
--- NOTE | 2020-05-30 17:05 | EKG12_ITS ---
Test Reason : ARRYTHMIA Blood Pressure : / mmHG Vent. Rate : 051 BPM Atrial Rate : 051 BPM P-R Int : 164 ms QRS Dur : 078 ms QT Int : 510 ms P-R-T Axes : 017 054 023 degrees QTc Int : 470 ms Sinus bradycardia Low Voltage QRS (Limb Leads) Nonspecific T wave abnormality Prolonged QT Abnormal ECG Confirmed by CLOVER COYLE, ED ([id number]), index editor DENZEL KOEHLER ([id number]) on 06/03/2020 10:38:20 AM Referred By: GI Confirmed By:ED GALO MD
--- NOTE | 2020-05-30 17:24 | PCM.RX.CS ---
Consult Pharmacy has been consulted to manage selected antiobiotic: Vancomycin Type of Consult: New start Suspected Infection: Pneumonia Labs: Sodium 149 mmol/L (136-145) H 05/30/20 05:38 Potassium 3.6 mmol/L (3.5-5.1) 05/30/20 05:38 Chloride 120 mmol/L (98-107) H 05/30/20 05:38 Carbon Dioxide 23.0 mmol/L (21.0-32.0) 05/30/20 05:38 Anion Gap 6 (5-15) 05/30/20 05:38 BUN 39 mg/dL (7-18) H 05/30/20 05:38 Creatinine 2.82 mg/dL (0.70-1.30) H 05/30/20 05:38 Est GFR (MDRD) Af Amer 30 mL/min (>60) L 05/30/20 05:38 Est GFR (MDRD) Non-Af 25 mL/min (>60) L 05/30/20 05:38 BUN/Creatinine Ratio 13.8 RATIO (10-20) 05/30/20 05:38 Glucose 194 mg/dL (74-106) H 05/30/20 05:38 Random Vancomycin 3.8 ug/mL (0.0-15.0) 05/30/20 10:10 Microbiology: Microbiology 05/27/20 04:05 Sputum, Expectorated/Coughed Gram Stain - Final 05/27/20 04:05 Sputum, Expectorated/Coughed Respiratory Culture - Final Meth. resistant Staph. aureus 05/24/20 00:45 Blood Culture (Wb) - Right Hand Blood Culture - Final Bacillus sp., not anthracis 05/24/20 00:45 Blood Culture (Wb) - Anticubital Left Blood Culture - Final No growth in 5 days. 05/25/20 02:20 Urine Catheter - Hodgson Urine Culture - Final Culture exhibits no growth. 05/24/20 00:55 Mucosa - Nasopharyngeal Respiratory Panel (PCR) - Final 05/24/20 02:20 Urine Catheter - Catheter Streptococcus pneumoniae Antigen (M - Final 05/24/20 02:20 Urine Catheter - Catheter Legionella Antigen - Final Goal Trough: 15-20 mcg/mL Pharmacy Plan for Drug Dosing: NEW START IV VANCOMYCIN Consulting Physician: Gabriela Indication: Pneumonia Goal Trough: 15-20 SrCr: 2.82 CrCl: 45 Comments: sputum is MRSA (+), random level from drawn before any doses sent due to poor renal function and previous Vancomycin therapy. Random level resulted at 3.6. Will load with a 15mg/kg loading dose = 2000mg IV x1 Vancomcyin Dose: 1000mg IV q12h () Pending Level: 05/31 Pharmacy Service will continue to monitor and adjust dosing as required. Follow-Up Labs: Trough Vancomycin - 05/31
[2020-05-30 18:41] LABS: Bedside Glucose 162 mg/dL (70-110)
[2020-05-30] MEDS: Vancomycin IV 1,000 MG/200 ML BAG 200 MG IV (21:25)
[2020-05-31] VITALS (14 sets, daily range): BP systolic 144–167; BP diastolic 72–91; PULSE 55–77; RESP 16–24; TEMP 36.2–36.7; O2SAT 92–97
[2020-05-31 00:11] LABS: Bedside Glucose 183 mg/dL (70-110)
[2020-05-31] MEDS: Haloperidol 5 MG Tablet PO (00:40)
[2020-05-31] MEDS: Ipratropium/Albuterol Sulfate 3 ML AMPUL.NEB INHALATION ×4 (00:51→20:09)
--- NOTE | 2020-05-31 02:27 | PCM.PN.BLA ---
Progress Note Called to bedside to evaluate patient after a fall. Patient alert and oriented x 2 and with baseline mental activation. Nurse reported patient has been lethargic entire night. Reportedly with patient's fall he landed on his buttocks. The fall was witnessed and patient did not hit his head. -S1-S2 present Patient with mild rhonchi. Extremities without any edema Fall Likely secondary to patient's baseline mental retardation and in the setting of new environment. Routine vitals. STROKE Vital Signs/Narrative: Vital Signs Temp Pulse Resp BP Pulse Ox 05/31/20 02:10 98.0 F 65 20 H 161/78 H 94 05/31/20 00:51 55 L 24 H 05/31/20 00:00 55 L 05/30/20 23:10 97.3 F L 55 L 20 H 146/67 H 97
--- NOTE | 2020-05-31 02:53 | NURSING ---
nursing staff walking past room and noted patient at the edge of the bed, standing up. She entered the room and the patient turned around and fall, landing on his butt. Per staff member who witnessed the fall the patient did not hit his head. When this nurse entered the room the patient was on belly on all 4 trying to get up. Patient assisted to lay on his back while this nurse supported his head and neck. Hover Wally was brought into the room and patient was placed on it with the assist of 5 staff members. Hover Wally was inflated and patient was assisted back into bed. No injuries noted on full assessment. Patient did have some stool around his rectum. Care done and patient denies need to have BM. Patient unable to state why he was attempting to get out of bed. Dr. Powell notified of patient fall and came to the bedside to assess patient. Patient more alert than he was previously and states he is in [place]. Able to verbalize his name and date of . Condom cath roberson placed on patient due to incontinence and patient reminded not to get out of bed. Bed alarm set to the exiting setting. Will continue to monitor.
[2020-05-31 02:56] LABS: Bedside Glucose 175 mg/dL (70-110)
--- NOTE | 2020-05-31 05:55 | EKG12_ITS ---
Test Reason : LONG QT Blood Pressure : / mmHG Vent. Rate : 059 BPM Atrial Rate : 059 BPM P-R Int : 166 ms QRS Dur : 078 ms QT Int : 542 ms P-R-T Axes : 040 041 005 degrees QTc Int : 536 ms Sinus bradycardia Nonspecific T wave abnormality Prolonged QT Abnormal ECG Confirmed by CLOVER COYLE, ED ([id number]), publications editor DENZEL KOEHLER ([id number]) on 06/03/2020 10:31:49 AM Referred By: DR EDWARDS Confirmed By:ED GALO MD
[2020-05-31] MEDS: Insulin Lispro 100 UNIT/ML INSULN.PEN SC ×4 (06:32→23:18)
[2020-05-31 06:45] LABS: Bedside Glucose 166 mg/dL (70-110)
[2020-05-31] MEDS: LORazepam 1 MG Tablet PO ×3 (06:52→20:21)
[2020-05-31 07:17] LABS: Absolute Lymphocyte Count 1.93 X10^3/uL (0.83-4.51); Absolute Neutrophil Count 12.6 X10^3/uL (2.0-7.7); Basophil# 0.08 X10^3/uL; Basophil% 0.5 % (0-1); Eosinophil# 0.52 X10^3/uL; Hematocrit 32.8 % (40-54); Hemoglobin 10.4 g/dL (13.0-16.5); Lymphocyte # 1.93 X10^3/ul (4.0); Lymphocyte % 11.3 % (19-41); Mean Corp Hgb Conc 31.7 g/dL (32-36); Mean Corpuscular Hgb 26.9 pg (27.0-32.0); Mean Corpuscular Volume 84.8 fL (80-94); Mean Platelet Vol. 11.7 fl (6.2-12.0); Monocyte# 1.23 X10^3/uL; Monocyte% 7.2 % (0-10); NRBC Flagged by Analyzer 0 % (0-5); Neutrophil # 12.59 X10^3/uL (2.7-7.7); Neutrophil % 73.7 % (47-70); POSITIVE COUNT YES; POSITIVE MORPHOLOGY YES; Platelet Count 144 K/mm3 (150-450); RBC Distribution Width CV 15.8 % (11.6-14.6); RBC Distribution Width SD 47.7 fl (35.1-43.9); Red Blood Count 3.87 M/mm3 (4.6-6.2); White Blood Count 17.1 K/mm3 (4.4-11.0)
[2020-05-31 07:18] LABS: Differential Indicated SCAN CRITERIA MET
[2020-05-31 07:28] LABS: Atypical Lymphocyte 2+ %; Differential Comment SCANNED; Reactive Lymphocyte 1+
[2020-05-31 07:38] LABS: ALB/GLOB Ratio 0.4 RATIO (0.9-2.4); AST(SGOT) 85 U/L (15-37); Alanine Aminotransfer ALT/SGPT 29 U/L (16-61); Alkaline Phosphatase 75 U/L (45-117); Anion Gap 7 (5-15); BUN 38 mg/dL (7-18); BUN/Creat Ratio 13.5 RATIO (10-20); CPK Total, Creatine Kinase 2217 U/L (39-308); Calcium,Total 7.6 mg/dL (8.5-10.1); Chloride 116 mmol/L (98-107); Creatinine, Serum 2.81 mg/dL (0.70-1.30); EST Glomerular Filtration Rate 25 mL/min (>60); Est Glom Filt Rate - Afr Amer 30 mL/min (>60); Estimated Creatinine Clearance 32.22 ml/min; Globulin 5.1 g/dL (2.2-4.2); Glucose 187 mg/dL (74-106); Potassium 3.4 mmol/L (3.5-5.1); Protein, Total 7.1 g/dL (6.4-8.2); Sodium Level 148 mmol/L (136-145)
--- NOTE | 2020-05-31 08:02 | PCM.PN.PUL ---
Patient Problems: Active and Suspected Problems (Last Reviewed 05/24/20 @ 04:[address] Aubrey Powell MD) Severe sepsis (Acute) Subjective: The patient was seen and examined at the bedside this morning. Events from the last 24 hours have been reviewed. The patient is currently afebrile, hemodynamically stable and maintaining appropriate oxygen saturations on room air. Last evening, the patient apparently developed QT prolongation. Given that he was also more somnolent yesterday, his evening dose of Seroquel was held. The patient then developed an acute behavioral disturbance overnight, requiring additional Ativan. During this episode, the patient apparently fell from his bed. Objective: The patient's most recent lab work, culture data and imaging studies have all been personally reviewed. Renal ultrasound was unremarkable. Coronavirus PCR is negative. Coronavirus serology was nonreactive. MRSA screen was positive. Strep and urine Legionella antigens were negative. Respiratory viral panel was negative. Sputum culture was positive for MRSA. - Physical Exam Vitals/I&O's: Vital Signs Temp Pulse Resp BP Pulse Ox 98.0 F 66 22 H 161/78 H 92 05/31/20 02:10 05/31/20 07:26 05/31/20 07:26 05/31/20 02:10 05/31/20 07:26 Oxygen Flow Rate (L/min) 2 Oxygen Delivery Method Room Air Weight: 353 lb 6.416 oz Body Mass Index (BMI) 46.6 Intake and Output for Last 24 Hours 05/29/20 05/30/20 05/31/20 23:59 23:59 23:59 Intake Total 4149.28 / 4149.28 50 / 240 / 240 Output Total 2300 / 2300 550 / 800 370 / 370 Balance 1849.28 / 1849.28 1462.50 / 1212.50 -130 / -130 General: - - The patient is more alert this morning. He will open his eyes to verbal stimulation but still nonverbal. HEENT: Atraumatic, Normocephalic Oral: No Gingival or Mucosal Lesions/ Ulcerations, Dry Mucosa Neck: Supple, No Nodes, Trachea Midline Lungs: Diminished, Rhonchi - Scant, Wheezes Cardiovascular: Regular rate, Regular Rhythm, Normal S1, Normal S2 Abdomen: Bowel Sounds Present, Soft, Non Tender, Obese Extremities: No clubbing, No cyanosis, Edema, - - Wrapped lower extremities Skin: - - No significant change from previous. Musculoskeletal: No Muscle Wasting Lymphatic: No Cervical, Supraclavicular, or Inguinal Adenopathy Neurological: - - Neurologically unchanged from previous. Psych/Mental Status: Flat Affect Labs (Last 48 Hours) 05/29/20 05/29/20 05/29/20 11:55 16:26 22:29 WBC RBC Hgb Hct MCV MCH MCHC RDW Std Deviation RDW Coeff of Gume Plt Count MPV Immature Gran % (Auto) Neut % (Auto) Lymph % (Auto) [place] % (Auto) Eos % (Auto) Baso % (Auto) Absolute Neuts (auto) Absolute Lymphs (auto) Total Counted Neutrophils % (Manual) Band Neutrophils % Lymphocytes % (Manual) Monocytes % (Manual) Eosinophils % (Manual) Metamyelocytes % Nucleated RBC % Differential Comment Diff Path Review Atypical Lymphocytes Reactive Lymphocytes Platelet Estimate RBC Morphology Sodium Potassium Chloride Carbon Dioxide Anion Gap BUN Creatinine Estim Creat Clear Calc Est GFR (MDRD) Af Amer Est GFR (MDRD) Non-Af BUN/Creatinine Ratio Glucose Calcium Total Bilirubin AST ALT Alkaline Phosphatase Total Creatine Kinase Total Protein Albumin Globulin Albumin/Globulin Ratio Random Vancomycin POC Glucose 76 168 H 189 H 05/29/20 05/30/20 05/30/20 23:58 05:10 05:38 WBC 12.3 H RBC 3.57 L Hgb 9.5 L Hct 31.1 L MCV 87.1 MCH 26.6 L MCHC 30.5 L RDW Std Deviation 49.6 H RDW Coeff of Gume 15.7 H Plt Count 191 MPV 11.0 Immature Gran % (Auto) Neut % (Auto) Not Reportable Lymph % (Auto) [place] % (Auto) Eos % (Auto) Baso % (Auto) Absolute Neuts (auto) 8.8 H Absolute Lymphs (auto) 2.33 Total Counted 100 Neutrophils % (Manual) 65 Band Neutrophils % 7 H Lymphocytes % (Manual) 19 Monocytes % (Manual) 5 Eosinophils % (Manual) 1 Metamyelocytes % 3 H Nucleated RBC % Differential Comment Diff Path Review May foll Atypical Lymphocytes Reactive Lymphocytes Platelet Estimate ADEQUATE RBC Morphology NORM C+C Sodium Potassium Chloride Carbon Dioxide Anion Gap BUN Creatinine Estim Creat Clear Calc Est GFR (MDRD) Af Amer Est GFR (MDRD) Non-Af BUN/Creatinine Ratio Glucose Calcium Total Bilirubin AST ALT Alkaline Phosphatase Total Creatine Kinase Total Protein Albumin Globulin Albumin/Globulin Ratio Random Vancomycin POC Glucose 165 H 184 H 05/30/20 05/30/20 05/30/20 05:38 10:10 11:42 WBC RBC Hgb Hct MCV MCH MCHC RDW Std Deviation RDW Coeff of Gume Plt Count MPV Immature Gran % (Auto) Neut % (Auto) Lymph % (Auto) [place] % (Auto) Eos % (Auto) Baso % (Auto) Absolute Neuts (auto) Absolute Lymphs (auto) Total Counted Neutrophils % (Manual) Band Neutrophils % Lymphocytes % (Manual) Monocytes % (Manual) Eosinophils % (Manual) Metamyelocytes % Nucleated RBC % Differential Comment Diff Path Review Atypical Lymphocytes Reactive Lymphocytes Platelet Estimate RBC Morphology Sodium 149 H Potassium 3.6 Chloride 120 H Carbon Dioxide 23.0 Anion Gap 6 BUN 39 H Creatinine 2.82 H Estim Creat Clear Calc 32.10 Est GFR (MDRD) Af Amer 30 L Est GFR (MDRD) Non-Af 25 L BUN/Creatinine Ratio 13.8 Glucose 194 H Calcium 7.4 L Total Bilirubin AST ALT Alkaline Phosphatase Total Creatine Kinase Total Protein Albumin Globulin Albumin/Globulin Ratio Random Vancomycin 3.8 POC Glucose 189 H 05/30/20 05/30/20 05/31/20 17:35 23:51 02:50 WBC RBC Hgb Hct MCV MCH MCHC RDW Std Deviation RDW Coeff of Gume Plt Count MPV Immature Gran % (Auto) Neut % (Auto) Lymph % (Auto) [place] % (Auto) Eos % (Auto) Baso % (Auto) Absolute Neuts (auto) Absolute Lymphs (auto) Total Counted Neutrophils % (Manual) Band Neutrophils % Lymphocytes % (Manual) Monocytes % (Manual) Eosinophils % (Manual) Metamyelocytes % Nucleated RBC % Differential Comment Diff Path Review Atypical Lymphocytes Reactive Lymphocytes Platelet Estimate RBC Morphology Sodium Potassium Chloride Carbon Dioxide Anion Gap BUN Creatinine Estim Creat Clear Calc Est GFR (MDRD) Af Amer Est GFR (MDRD) Non-Af BUN/Creatinine Ratio Glucose Calcium Total Bilirubin AST ALT Alkaline Phosphatase Total Creatine Kinase Total Protein Albumin Globulin Albumin/Globulin Ratio Random Vancomycin POC Glucose 162 H 183 H 175 H 05/31/20 05/31/20 05/31/20 06:00 06:19 06:50 WBC 17.1 H RBC 3.87 L Hgb 10.4 L Hct 32.8 L MCV 84.8 MCH 26.9 L MCHC 31.7 L RDW Std Deviation 47.7 H RDW Coeff of Gume 15.8 H Plt Count 144 L MPV 11.7 Immature Gran % (Auto) 4.300 H Neut % (Auto) 73.7 H Lymph % (Auto) 11.3 L [place] % (Auto) 7.2 Eos % (Auto) 3.0 Baso % (Auto) 0.5 Absolute Neuts (auto) 12.6 H Absolute Lymphs (auto) 1.93 Total Counted Neutrophils % (Manual) Band Neutrophils % Lymphocytes % (Manual) Monocytes % (Manual) Eosinophils % (Manual) Metamyelocytes % Nucleated RBC % 0 Differential Comment SCANNED Diff Path Review Atypical Lymphocytes 2+ Reactive Lymphocytes 1+ Platelet Estimate RBC Morphology Sodium 148 H Potassium 3.4 L Chloride 116 H Carbon Dioxide 25.0 Anion Gap 7 BUN 38 H Creatinine 2.81 H Estim Creat Clear Calc 32.22 Est GFR (MDRD) Af Amer 30 L Est GFR (MDRD) Non-Af 25 L BUN/Creatinine Ratio 13.5 Glucose 187 H Calcium 7.6 L Total Bilirubin 0.80 AST 85 H ALT 29 Alkaline Phosphatase 75 Total Creatine Kinase 2217 H Total Protein 7.1 Albumin 2.0 L Globulin 5.1 H Albumin/Globulin Ratio 0.4 L Random Vancomycin POC Glucose 166 H Microbiology 05/27/20 04:05 Sputum, Expectorated/Coughed Gram Stain - Final 05/27/20 04:05 Sputum, Expectorated/Coughed Respiratory Culture - Final Meth. resistant Staph. aureus 05/24/20 00:45 Blood Culture (Wb) - Right Hand Blood Culture - Final Bacillus sp., not anthracis 05/24/20 00:45 Blood Culture (Wb) - Anticubital Left Blood Culture - Final No growth in 5 days. Clinical Impression(s) from Imaging Studies Chest X-Ray 05/24/20 00:56 IMPRESSION: Pulmonary hypoexpansion with pulmonary venous congestion. at 0128 Reported and signed by: Baldemar Angulo MD Electronically Signed: Baldemar Angulo MD at 1:27 EDT Tel , Service support , Chest X-Ray 05/26/20 08:50 IMPRESSION: Borderline cardiomegaly with venous congestion. Electronically Signed: Alfredito Hampton, at 9:25 EDT , Service support , Chest X-Ray 05/26/20 11:10 IMPRESSION: The tip of the right PICC line catheter is at the junction of the superior vena cava and right atrium. The vascular congestion has improved. Electronically Signed: Alfredito Hampton, at 12:22 EDT , Service support , Renal Ultrasound 05/26/20 11:19 IMPRESSION: Normal ultrasound of the kidneys. Electronically Signed: Alfredito Hampton, at 15:32 EDT , Service support , Brain CT 05/28/20 07:48 IMPRESSION: Normal unenhanced CT scan of the brain. Electronically Signed: Alfredito Hampton, at 12:00 EDT , Service support , Current Medications Acetaminophen (Tylenol) 650 mg RECTAL Q4H PRN PRN PRN Reason: Pain Score 1-10/Temp > 100.7 F Last Admin: 05/26/20 15:33 Dose: 650 mg Documented by: Albuterol Sulfate (Ventolin Aerosols) 2.5 mg INHALATION Q2H PRN PRN PRN Reason: SOB/Wheezing Last Admin: 05/28/20 19:01 Dose: 2.5 mg Documented by: Albuterol/Ipratropium (Duoneb) 3 ml INHALATION Q6H.RT CATHLENE Last Admin: 05/31/20 07:26 Dose: 3 ml Documented by: Benztropine Mesylate (Cogentin) 2 mg PO DAILY [facility] Last Admin: 05/30/20 09:28 Dose: 2 mg Documented by: Dextrose (D50w Syringe) 0 gm IV X1 PRN; Protocol PRN Reason: Hypoglycemia Enoxaparin Sodium (Lovenox) 40 mg SC DAILY [facility] Last Admin: 05/30/20 09:29 Dose: 40 mg Documented by: Famotidine (Pepcid) 20 mg PO DAILY [facility] Last Admin: 05/30/20 09:29 Dose: 20 mg Documented by: Fludrocortisone Acetate (Florinef) 0.2 mg PO DAILY@0800 [facility] Last Admin: 05/30/20 09:28 Dose: 0.2 mg Documented by: Glucagon () 1 mg IM .X1 PRN PRN Reason: Hypoglycemia Haloperidol (Haldol) 5 mg PO BID [facility] Last Admin: 05/31/20 00:40 Dose: 5 mg Documented by: Sodium Chloride () 250 mls @ 15 mls/hr IV .[id number] PRN PRN Reason: Saline Flush Last Infusion: 05/31/20 00:32 Dose: Infused Documented by: Sodium Chloride () 250 mls @ 15 mls/hr IV .[id number] PRN PRN Reason: Additional IVPB Infusion Dextrose () 1,000 mls @ 75 mls/hr IV .[id number] [facility] Last Infusion: 05/30/20 22:25 Dose: 75 mls/hr Documented by: Vancomycin HCl (Vancomycin) 1,000 mg in 200 mls @ 200 mls/hr IV Q12H [facility] Last Infusion: 05/30/20 22:25 Dose: Infused Documented by: Insulin Glargine (Lantus (Bkc)) 20 units SC QHS [facility] Last Admin: 05/31/20 00:07 Dose: Not Given Documented by: Insulin Human Lispro (Humalog Kwikpen (Bkc)) 0 unit SC Q6 [facility]; Protocol Last Admin: 05/31/20 06:32 Dose: 1 u Documented by: Labetalol HCl (Trandate) 10 mg IV Q6H PRN PRN Reason: SBP>160 Last Admin: 05/28/20 18:53 Dose: 10 mg Documented by: Labetalol HCl (Trandate) 200 mg PO BID [facility] Last Admin: 05/30/20 17:37 Dose: Not Given Documented by: Lorazepam (Ativan) 1 mg PO 0800,1700,2000 [facility] Last Admin: 05/31/20 06:52 Dose: 1 mg Documented by: Quetiapine Fumarate (Seroquel) 400 mg PO BID [facility] Last Admin: 05/30/20 17:37 Dose: Not Given Documented by: Sodium Chloride () 10 - 40 ml IV UD PRN PRN Reason: SALINE FLUSH Last Admin: 05/29/20 22:33 Dose: 20 ml Documented by: Medical Necessity - Tobacco Use Smoking Status: Unknown if ever smoked Assessment/Plan All Active Problems (Last Reviewed 05/24/20 @ 04:[address] Aubrey Poewll MD) Encephalopathy (Acute) Community acquired pneumonia (Acute) Rhabdomyolysis (Acute) Acute kidney injury (Acute) Severe sepsis (Acute) RECOMMENDATIONS: 1. Continue antimicrobials per ID recommendations. 2. Consider current psychiatric medication regimen with dose adjustments having been made to Ativan, Haldol and Seroquel. 3. Continue home Florinef regimen. 4. Continue to work with therapy. IMPRESSIONS: 1. Severe sepsis with possible right-sided pneumonia versus COVID-19 infection The patient's initial chest x-ray was difficult to interpret given poor inspiratory effort. However, there is a questionable right-sided infiltrate. The patient also appeared to have a possible source of infection with cellulitis affecting his left lower extremity. Procalcitonin level was also elevated. The patient has been managed with antimicrobials under the discretion of infectious diseases. Although there was initial concern for possible neuroleptic malignant syndrome, the patient appears to have stabilized clinically once the Precedex was discontinued. Coronavirus PCR was negative and serology was nonreactive. 2. Encephalopathy Improving. Initially felt to be infectious/metabolic in nature. Unclear with the patient's baseline mentation is truly like. CT head was obtained and found to be negative. Adjustments have been made to the patient's baseline psychiatric medication regimen. 3. Acute kidney injury Possibly secondary to ATN in the setting #1. Renal ultrasound was unremarkable. Nephrology is currently following. Continue to monitor urine output. No current indication for renal replacement therapy. 4. History of adrenal insufficiency/schizophrenia/diabetes mellitus/morbid obesity Complicates care, management, recovery and prognosis. Continue baseline Seroquel, Haldol and scheduled Ativan. This note was generated with Book[employer] software. It may contain incorrect words, spelling, and punctuation that were not noted in checking the note before signing. Inpatient E&M: 07988 Subs Hosp L2
--- NOTE | 2020-05-31 08:10 | PCM.PROGNOTE ---
Patient Problems: Active and Suspected Problems (Last Reviewed 05/24/20 @ 04:[address] Aubrey Powell MD) Severe sepsis (Acute) Subjective: Chief complaint: Follow-up after admission for severe sepsis secondary to probable pneumonia versus COVID-19 infection, encephalopathy, acute kidney injury and left leg cellulitis. Patient seen and examined. Early this morning, he had fallen from bed, there was no significant trauma. This morning, patient is sleepy, lethargic but arousable, opens eyes to verbal stimuli. He was able to answer call questions. He denied any pain. Denied shortness of breath. He goes back to sleep very quick. He has been afebrile, blood pressure slight elevated, heart rate stable, pulse ox is 94% on room air. - Physical Exam Vitals/I&O's: Vital Signs Temp Pulse Resp BP Pulse Ox 98.0 F 66 22 H 161/78 H 92 05/31/20 02:10 05/31/20 07:26 05/31/20 07:26 05/31/20 02:10 05/31/20 07:26 Oxygen Flow Rate (L/min) 2 Oxygen Delivery Method Room Air Weight: 353 lb 6.416 oz Body Mass Index (BMI) 46.6 Intake and Output for Last 24 Hours 05/29/20 05/30/20 05/31/20 23:59 23:59 23:59 Intake Total 4149.28 / 4149.28 50 / 2011.50 240 / 240 Output Total 2300 / 2300 550 / 800 370 / 370 Balance 1849.28 / 1849.28 1462.50 / 1212.50 -130 / -130 General: Cooperative, Confused, - - Sleepy, lethargic, arousable. HEENT: Atraumatic, PERRLA, EOMI, Normocephalic Oral: Moist Mucosa, No Gingival or Mucosal Lesions/ Ulcerations Neck: Supple, No JVD, Negative Carotid Bruits, Trachea Midline, Thyroid Normal Size and Texture Lungs: No wheeze, No rales, Diminished, Rhonchi, - - Decreased breath sounds bilateral, bilateral scattered rhonchi. Cardiovascular: Regular rate, Regular Rhythm, Normal S1, Normal S2, PMI Normal Abdomen: Bowel Sounds Present, Soft, Non Tender, Non-Distended, No Hepato-splenomegaly Extremities: No clubbing, No cyanosis, No edema Skin: No rashes, No breakdown Lymphatic: No Cervical, Supraclavicular, or Inguinal Adenopathy Neurological: Cranial nerves II-XII grossly intact, - - Moving all limbs. Psych/Mental Status: - - Unable to assess, patient is sleepy and lethargic. Microbiology Past 72 Hours 05/27/20 04:05 Sputum, Expectorated/Coughed Gram Stain - Final 05/27/20 04:05 Sputum, Expectorated/Coughed Respiratory Culture - Final Meth. resistant Staph. aureus 05/24/20 00:45 Blood Culture (Wb) - Right Hand Blood Culture - Final Bacillus sp., not anthracis 05/24/20 00:45 Blood Culture (Wb) - Anticubital Left Blood Culture - Final No growth in 5 days. 05/25/20 02:20 Urine Catheter - Hodgson Urine Culture - Final Culture exhibits no growth. Laboratory Results 05/30/20 10:10: Random Vancomycin 3.8 05/30/20 11:42: POC Glucose 189 H 05/30/20 17:35: POC Glucose 162 H 05/30/20 23:51: POC Glucose 183 H 05/31/20 02:50: POC Glucose 175 H 05/31/20 06:00: POC Glucose 166 H 05/31/20 06:19: WBC 17.1 H, RBC 3.87 L, Hgb 10.4 L, Hct 32.8 L, MCV 84.8, MCH 26.9 L, MCHC 31.7 L, RDW Std Deviation 47.7 H, RDW Coeff of Gume 15.8 H, Plt Count 144 L, MPV 11.7, Immature Gran % (Auto) 4.300 H, Neut % (Auto) 73.7 H, Lymph % (Auto) 11.3 L, [place] % (Auto) 7.2, Eos % (Auto) 3.0, Baso % (Auto) 0.5, Absolute Neuts (auto) 12.6 H, Absolute Lymphs (auto) 1.93, Nucleated RBC % 0, Differential Comment SCANNED, Atypical Lymphocytes 2+, Reactive Lymphocytes 1+ 05/31/20 06:50: Sodium 148 H, Potassium 3.4 L, Chloride 116 H, Carbon Dioxide 25.0, Anion Gap 7, BUN 38 H, Creatinine 2.81 H, Estim Creat Clear Calc 32.22, Est GFR (MDRD) Af Amer 30 L, Est GFR (MDRD) Non-Af 25 L, BUN/Creatinine Ratio 13.5, Glucose 187 H, Calcium 7.6 L, Total Bilirubin 0.80, AST 85 H, ALT 29, Alkaline Phosphatase 75, Total Creatine Kinase 2217 H, Total Protein 7.1, Albumin 2.0 L, Globulin 5.1 H, Albumin/Globulin Ratio 0.4 L Current Medications Acetaminophen (Tylenol) 650 mg RECTAL Q4H PRN PRN PRN Reason: Pain Score 1-10/Temp > 100.7 F Last Admin: 05/26/20 15:33 Dose: 650 mg Documented by: Albuterol Sulfate (Ventolin Aerosols) 2.5 mg INHALATION Q2H PRN PRN PRN Reason: SOB/Wheezing Last Admin: 05/28/20 19:01 Dose: 2.5 mg Documented by: Albuterol/Ipratropium (Duoneb) 3 ml INHALATION Q6H.RT [facility] Last Admin: 05/31/20 07:26 Dose: 3 ml Documented by: Benztropine Mesylate (Cogentin) 2 mg PO DAILY [facility] Last Admin: 05/30/20 09:28 Dose: 2 mg Documented by: Dextrose (D50w Syringe) 0 gm IV X1 PRN; Protocol PRN Reason: Hypoglycemia Enoxaparin Sodium (Lovenox) 40 mg SC DAILY [facility] Last Admin: 05/30/20 09:29 Dose: 40 mg Documented by: Famotidine (Pepcid) 20 mg PO DAILY [facility] Last Admin: 05/30/20 09:29 Dose: 20 mg Documented by: Fludrocortisone Acetate (Florinef) 0.2 mg PO DAILY@0800 [facility] Last Admin: 05/30/20 09:28 Dose: 0.2 mg Documented by: Glucagon () 1 mg IM .X1 PRN PRN Reason: Hypoglycemia Haloperidol (Haldol) 2.5 mg PO BID [facility] Sodium Chloride () 250 mls @ 15 mls/hr IV .[id number] PRN PRN Reason: Saline Flush Last Infusion: 05/31/20 00:32 Dose: Infused Documented by: Sodium Chloride () 250 mls @ 15 mls/hr IV .[id number] PRN PRN Reason: Additional IVPB Infusion Dextrose () 1,000 mls @ 75 mls/hr IV .[id number] [facility] Last Admin: 05/31/20 08:04 Dose: Not Given Documented by: Vancomycin HCl (Vancomycin) 1,000 mg in 200 mls @ 200 mls/hr IV Q12H [facility] Last Infusion: 05/30/20 22:25 Dose: Infused Documented by: Insulin Glargine (Lantus (Bk)) 20 units SC QHS [facility] Last Admin: 05/31/20 00:07 Dose: Not Given Documented by: Insulin Human Lispro (Humalog Kwikpen ([facility])) 0 unit SC Q6 [facility]; Protocol Last Admin: 05/31/20 06:32 Dose: 1 u Documented by: Labetalol HCl (Trandate) 10 mg IV Q6H PRN PRN Reason: SBP>160 Last Admin: 05/28/20 18:53 Dose: 10 mg Documented by: Labetalol HCl (Trandate) 200 mg PO BID [facility] Last Admin: 05/30/20 17:37 Dose: Not Given Documented by: Lorazepam (Ativan) 1 mg PO 0800,1700,2000 [facility] Last Admin: 05/31/20 06:52 Dose: 1 mg Documented by: Quetiapine Fumarate (Seroquel) 400 mg PO BID [facility] Last Admin: 05/30/20 17:37 Dose: Not Given Documented by: Sodium Chloride () 10 - 40 ml IV UD PRN PRN Reason: SALINE FLUSH Last Admin: 05/29/20 22:33 Dose: 20 ml Documented by: Medical Necessity - Tobacco Use Smoking Status: Unknown if ever smoked Assessment/Plan All Active Problems (Last Reviewed 05/24/20 @ 04:[address] Aubrey Powell MD) Encephalopathy (Acute) Community acquired pneumonia (Acute) Rhabdomyolysis (Acute) Acute kidney injury (Acute) Severe sepsis (Acute) This is a 55 years old male patient presented to the emergency room because of shortness of breath, has been having high-grade fever, initially there was a concern that patient may have neuroleptic management syndrome, found to have rhabdomyolysis with acute kidney injury as well as severe sepsis secondary to community-acquired pneumonia. He developed QT prolongation and bradycardia. #1 severe sepsis: Secondary to both probable pneumonia and left leg cellulitis. Switch it to IV vancomycin because sputum culture revealed MRSA, IV cefazolin discontinued. He has been afebrile, WBC is trending up but also he is on Florinef. 1 bottle of blood culture revealed bacillus species, not bacillus anthracis and the other bottle of blood culture showed no growth in 5 days. Urine culture showed no growth. COVID-19 PCR came back negative. COVID-19 antibody serology was nonreactive. Sputum culture revealed MRSA. Infectious disease is already on the case. Plan to continue same treatment. #2 probable community-acquired pneumonia: Now, he is on IV vancomycin. Sputum culture revealed MRSA. Pneumococcal and Legionella antigen were negative. COVID-19 ruled out. Plan as above. #3 acute left leg cellulitis: Received a total 5 days of IV cefazolin as above. Erythema and swelling of the left leg is improving. Currently is on IV vancomycin as above. #4 acute kidney injury/rhabdomyolysis: IV fluids continued. CPK continues to drop, it is down to 2217 today. Serum creatinine today is 2.82, remained the same, no significant improvement urine output satisfactory. Kidney ultrasound was unremarkable. Nephrology on the case. Patient is on maintenance fluids and clear liquids. #5 encephalopathy: Multifactorial secondary to severe sepsis in addition to history of schizophrenia and anxiety, being on Seroquel XL, Haldol and Ativan. Today, patient remained very sleepy and lethargic. CT scan brain done and showed no acute findings. Both Seroquel and Ativan are excreted through the urine. Dose of Ativan decreased down yesterday. Today, we decreased her dose down to half, continue Seroquel. Monitor QT prolongation. #6 bradycardia/prolonged QT interval: EKG from yesterday reviewed, revealed QTC of 470 ms, it was up to 520 ms. Patient was bradycardic. This morning, repeat EKG revealed QTC of 494 ms, heart rate was in 60s, stabilized. Both haloperidol and Seroquel can cause QT prolongation. As mentioned above, we decreased her dose down to half, continue Seroquel, monitor QT prolongation and monitor for bradycardia. #7 type 2 diabetes mellitus: Blood sugar stable, he is only on sliding scale. #8 schizophrenia/anxiety: Continue Seroquel, adjust albuterol as above, Ativan adjusted yesterday down to 1 mg every 8 hours. #9 hyperlipidemia: Statins held. #10 history of adrenal insufficiency: Continue Florinef. #11 DVT prophylaxis: Subcu Lovenox. This note was generated with [employer] dictation software. It may contain incorrect words, spelling, and punctuation that were not noted in checking the note before signing. Inpatient E&M: 09017 Subs Hosp L2
[2020-05-31] MEDS: Famotidine 20 MG Tablet PO (08:30)
[2020-05-31] MEDS: Fludrocortisone Acetate 0.1 MG Tablet 0.2 MG PO (08:31)
[2020-05-31] MEDS: Enoxaparin 40 MG/0.4 ML Syringe SC (08:31)
[2020-05-31] MEDS: QUEtiapine 100 MG Tablet 400 MG PO ×2 (08:31→21:31)
[2020-05-31] MEDS: Labetalol 200 MG Tablet PO ×2 (08:31→21:31)
[2020-05-31] MEDS: Haloperidol 5 MG Tablet 2.5 MG PO ×2 (08:31→21:30)
[2020-05-31] MEDS: Vancomycin IV 1,000 MG/200 ML BAG 200 MG IV ×2 (08:31→20:48)
[2020-05-31] MEDS: Benztropine 2 MG Tablet PO (08:31)
[2020-05-31 10:50] LABS: Bedside Glucose 228 mg/dL (70-110)
[2020-05-31 16:26] LABS: Bedside Glucose 228 mg/dL (70-110)
[2020-05-31 21:46] LABS: Bedside Glucose 271 mg/dL (70-110)
[2020-05-31 21:52] LABS: Vancomycin, Trough Level 34.2 ug/mL (5.0-15.0)
[2020-05-31 23:25] LABS: Bedside Glucose 278 mg/dL (70-110)
[2020-06-01] VITALS (16 sets, daily range): BP systolic 149–181; BP diastolic 66–98; PULSE 59–84; RESP 17–24; TEMP 36.4–36.9; O2SAT 93–97
[2020-06-01] MEDS: Ipratropium/Albuterol Sulfate 3 ML AMPUL.NEB INHALATION ×4 (00:26→20:12)
--- NOTE | 2020-06-01 00:48 | EKG12_ITS ---
Test Reason : AM EKG Blood Pressure : / mmHG Vent. Rate : 066 BPM Atrial Rate : 066 BPM P-R Int : 150 ms QRS Dur : 078 ms QT Int : 472 ms P-R-T Axes : 024 060 011 degrees QTc Int : 494 ms Normal sinus rhythm Nonspecific T wave abnormality Prolonged QT Abnormal ECG Confirmed by CLOVER COYLE, ED ([id number]), social media editor DENZEL KOEHLER ([id number]) on 06/03/2020 10:36:53 AM Referred By: GI Confirmed By:ED GALO MD
[2020-06-01] MEDS: hydrALAZINE 20 MG/ML Vial 5 MG IV (01:12)
[2020-06-01] MEDS: 0.9% Saline Lock 10 ML Syringe IV ×2 (01:12→02:10)
--- NOTE | 2020-06-01 01:27 | PN_ITS ---
Progress Note Because of bradycardia going to the 50s repeat EKG was initiated by nurses. EKG showed QTC of 538 which is increased from previous. Patient Haldol had already been decreased from 5 mg twice daily to 2.5 mg twice daily. Patient is on Seroquel 400 mg twice daily. In a.m. give Seroquel 200 mg x 1 instead of 400 mg.. Continue Seroquel 400 mg twice daily later in the evening. 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 Check magnesium level. STROKE Vital Signs/Narrative: Vital Signs Temp Pulse Resp BP Pulse Ox 06/01/20 01:12 62 181/98 H 06/01/20 00:41 97.5 F L 62 18 181/98 H 95 06/01/20 00:27 78 20 H
[2020-06-01 02:27] LABS: Magnesium 2.4 mg/dL (1.6-2.6)
--- NOTE | 2020-06-01 04:10 | PN_ITS ---
Progress Note Patient pulled his PICC line. Discontinue D5 infusion. Patient is not hypoglycemic at this time. On IV vancomycin for MRSA in his sputum. Disc ontinue vancomycin. Put On linezolid p.o. STROKE Vital Signs/Narrative: Vital Signs Temp Pulse Resp BP Pulse Ox 06/01/20 03:01 67 06/01/20 02:24 97.6 F L 60 19 H 160/88 H 97 06/01/20 01:12 62 181/98 H 06/01/20 00:41 97.5 F L 62 18 181/98 H 95 06/01/20 00:27 78 20 H
[2020-06-01] MEDS: Insulin Lispro 100 UNIT/ML INSULN.PEN SC ×4 (05:31→23:30)
[2020-06-01] MEDS: Acetaminophen 325 MG Tablet 650 MG PO (05:31)
[2020-06-01 05:41] LABS: Bedside Glucose 185 mg/dL (70-110)
--- NOTE | 2020-06-01 08:37 | PN_ITS ---
Patient Problems: Active and Suspected Problems (Last Reviewed 05/24/20 @ 04:[address] Aubrey Powell MD) Severe sepsis (Acute) Subjective: Chief complaint: Follow-up after admission for severe sepsis secondary to probable pneumonia versus COVID-19 infection, encephalopathy, acute kidney injury and left leg cellulitis. Patient seen and examined. No acute events overnight. Today, patient is more alert and awake. He was able to tell me his full name but he could not tell what he is at or what is the time. He denied any pain. This morning, EKG repeated and revealed QTC of 536 ms, heart rate has been in the high 50s. Blood pressure stable. Other vital signs are stable. - Physical Exam Vitals/I&O's: Vital Signs Temp Pulse Resp BP Pulse Ox 98.0 F 59 L 17 158/82 H 94 06/01/20 05:28 06/01/20 07:05 06/01/20 05:28 06/01/20 05:28 06/01/20 05:28 Oxygen Flow Rate (L/min) 2 Oxygen Delivery Method Room Air Weight: 356 lb 4.272 oz Body Mass Index (BMI) 46.6 Intake and Output for Last 24 Hours 05/30/20 05/31/20 06/01/20 23:59 23:59 23:59 Intake Total 2011.50 / 2011.50 2496.25 / 2496.25 836.25 / 836.25 Output Total 550 / 800 1820 / 1820 400 / 400 Balance 1462.50 / 1212.50 676.25 / 676.25 436.25 / 436.25 General: Alert, Cooperative, Disoriented, - - Minimally short of breath. HEENT: Atraumatic, PERRLA, EOMI, Normocephalic Oral: Moist Mucosa, No Gingival or Mucosal Lesions/ Ulcerations Neck: Supple, No JVD, Negative Carotid Bruits, Trachea Midline, Thyroid Normal Size and Texture Lungs: Clear to auscultation, No rhonchi, No wheeze, No rales, Diminished Cardiovascular: Regular rate, Regular Rhythm, Normal S1, Normal S2, PMI Normal Abdomen: Bowel Sounds Present, Soft, Non Tender, Non-Distended, No Hepato- splenomegaly, Obese Extremities: No clubbing, No cyanosis, Edema Skin: No rashes, No breakdown Lymphatic: No Cervical, Supraclavicular, or Inguinal Adenopathy Neurological: Cranial nerves II-XII grossly intact, - - Moving all limbs. Psych/Mental Status: Flat Affect, Impulsive Microbiology Past 72 Hours 05/27/20 04:05 Sputum, Expectorated/Coughed Gram Stain - Final 05/27/20 04:05 Sputum, Expectorated/Coughed Respiratory Culture - Final Meth. resistant Staph. aureus 05/24/20 00:45 Blood Culture (Wb) - Right Hand Blood Culture - Final Bacillus sp., not anthracis 05/24/20 00:45 Blood Culture (Wb) - Anticubital Left Blood Culture - Final No growth in 5 days. Laboratory Results 05/31/20 10:43: POC Glucose 228 H 05/31/20 16:16: POC Glucose 228 H 05/31/20 20:05: Vancomycin Trough 34.2 H 05/31/20 21:28: POC Glucose 271 H 05/31/20 23:17: POC Glucose 278 H 06/01/20 02:05: Magnesium 2.4 06/01/20 05:26: POC Glucose 185 H Current Medications Acetaminophen (Tylenol) 650 mg PO Q4H PRN PRN PRN Reason: Pain Score 1-10/Temp > 100.7 F Last Admin: 06/01/20 05:31 Dose: 650 mg Documented by: Albuterol Sulfate (Ventolin Aerosols) 2.5 mg INHALATION Q2H PRN PRN PRN Reason: SOB/Wheezing Last Admin: 05/28/20 19:01 Dose: 2.5 mg Documented by: Albuterol/Ipratropium (Duoneb) 3 ml INHALATION Q6H.RT [facility] Last Admin: 06/01/20 07:10 Dose: 3 ml Documented by: Benztropine Mesylate (Cogentin) 2 mg PO DAILY [facility] Last Admin: 05/31/20 08:31 Dose: 2 mg Documented by: Dextrose (D50w Syringe) 0 gm IV X1 PRN; Protocol PRN Reason: Hypoglycemia Enoxaparin Sodium (Lovenox) 40 mg SC DAILY [facility] Last Admin: 05/31/20 08:31 Dose: 40 mg Documented by: Famotidine (Pepcid) 20 mg PO DAILY [facility] Last Admin: 05/31/20 08:30 Dose: 20 mg Documented by: Fludrocortisone Acetate (Florinef) 0.2 mg PO DAILY@0800 [facility] Last Admin: 05/31/20 08:31 Dose: 0.2 mg Documented by: Glucagon () 1 mg IM .X1 PRN PRN Reason: Hypoglycemia Haloperidol (Haldol) 2.5 mg PO BID [facility] Last Admin: 05/31/20 21:30 Dose: 2.5 mg Documented by: Hydralazine HCl (Apresoline Iv) 5 mg IV Q6H PRN PRN PRN Reason: SBP > 160 Last Admin: 06/01/20 01:12 Dose: 5 mg Documented by: Sodium Chloride () 250 mls @ 15 mls/hr IV .[id number] PRN PRN Reason: Saline Flush Last Infusion: 05/31/20 00:32 Dose: Infused Documented by: Sodium Chloride () 250 mls @ 15 mls/hr IV .[id number] PRN PRN Reason: Additional IVPB Infusion Insulin Glargine (Lantus (Bkc)) 20 units SC QHS [facility] Last Admin: 05/31/20 21:30 Dose: Not Given Documented by: Insulin Human Lispro (Humalog Kwikpen (Bkc)) 0 unit SC Q6 [facility]; Protocol Last Admin: 06/01/20 05:31 Dose: 1 u Documented by: Labetalol HCl (Trandate) 10 mg IV Q6H PRN PRN Reason: SBP>160 Last Admin: 05/28/20 18:53 Dose: 10 mg Documented by: Labetalol HCl (Trandate) 200 mg PO BID [facility] Last Admin: 05/31/20 21:31 Dose: 200 mg Documented by: Linezolid (Zyvox) 600 mg PO BID [facility] Lorazepam (Ativan) 1 mg PO 0800,1700,2000 [facility] Last Admin: 05/31/20 20:21 Dose: 1 mg Documented by: Quetiapine Fumarate (Seroquel) 400 mg PO BID [facility] Quetiapine Fumarate (Seroquel) 200 mg PO X1 ONE Stop: 06/01/20 10:01 Sodium Chloride () 10 - 40 ml IV UD PRN PRN Reason: SALINE FLUSH Last Admin: 06/01/20 02:10 Dose: 20 ml Documented by: Medical Necessity - Tobacco Use Smoking Status: Unknown if ever smoked Assessment/Plan All Active Problems (Last Reviewed 05/24/20 @ 04:[address] Aubrey Powell MD) Encephalopathy (Acute) Community acquired pneumonia (Acute) Rhabdomyolysis (Acute) Acute kidney injury (Acute) Severe sepsis (Acute) This is a 55 years old male patient presented to the emergency room because of shortness of breath, has been having high-grade fever, initially there was a concern that patient may have neuroleptic management syndrome, found to have rhabdomyolysis with acute kidney injury as well as severe sepsis secondary to community-acquired pneumonia. He developed QT prolongation and bradycardia. #1 severe sepsis: Secondary to both probable pneumonia and left leg cellulitis. Patient pulled his midline overnight, started on p.o. Zyvox. He has been afebrile, was able to come off oxygen. 1 bottle of blood culture revealed bacillus species, not bacillus anthracis and the other bottle of blood culture showed no growth in 5 days. Urine culture showed no growth. COVID-19 PCR came back negative. COVID-19 antibody serology was nonreactive. Sputum culture revealed MRSA. Infectious disease is already on the case, awaiting their recommendations today. Plan to continue same treatment, repeat CBC and BMP tomorrow morning. #2 probable community-acquired pneumonia: Now, he is on p.o. Zyvox as above. Sputum culture revealed MRSA. Pneumococcal and Legionella antigen to 200 mg p.o. twice daily. Negative. COVID-19 ruled out. Plan as above. #3 acute left leg cellulitis: Received a total 5 days of IV cefazolin as above. Erythema and swelling of the left leg is improving. Currently is on p.o. Zyvox as above. #4 acute kidney injury/rhabdomyolysis: IV fluids discontinued. CPK continues to drop, it is down to 2217 yesterday. Serum creatinine yesterday is 2.82, remained the same, no significant improvement urine output satisfactory. Kidney ultrasound was unremarkable. Nephrology on the case. Patient is on maintenance fluids and clear liquids. Awaiting nephrology recommendations today. #5 encephalopathy: Multifactorial secondary to severe sepsis in addition to history of schizophrenia and anxiety, being on Seroquel XL, Haldol and Ativan. We have been adjusting his Ativan and Haldol down. Today, patient is more alert and awake. QTC is prolonged and going up, it is [address] scan brain showed no acute findings. Plan: Continue current dose of Ativan and Haldol, decrease Seroquel down to 200 mg p.o. twice daily. #6 bradycardia/prolonged QT interval: EKG from today reviewed, revealed QTC of 536, heart rate has been in the high 50s to 60s. Blood pressure stable. Plan as above to decrease Seroquel down to 200 p.o. twice daily. Dose of Ativan haloperidol already decreased yesterday. #7 type 2 diabetes mellitus: Blood sugar stable, he is only on sliding scale. #8 schizophrenia/anxiety: Continue Seroquel, adjust albuterol as above, Ativan adjusted yesterday down to 1 mg every 8 hours. #9 hyperlipidemia: Statins held. #10 history of adrenal insufficiency: Continue Florinef. #11 DVT prophylaxis: Subcu Lovenox. This note was generated with [employer] dictation software. It may contain incorrect words, spelling, and punctuation that were not noted in checking the note before signing. Inpatient E&M: 18023 Subs Hosp L2
--- NOTE | 2020-06-01 09:44 | NURSING ---
Multiple attempts made to administer morning medications. Pt refused multiple times stating no I don't want that. This RN educated pt on importance of taking medications and provided encouragement. Pt continues to refuse to take medications.
--- NOTE | 2020-06-01 10:18 | CASEMGMT ---
Social Work Phone call placed to Kimber at [facility] and precert is pending. Insurance is requesting updated clinicals. Clinicals faxed and will await determination. Plan: [facility] ECF, pending precert DELVIN Sánchez
--- NOTE | 2020-06-01 10:46 | PCM.PN.PUL ---
Patient Problems: Active and Suspected Problems (Last Reviewed 05/24/20 @ 04:[address] Aubrey Powell MD) Severe sepsis (Acute) Subjective: Patient did okay overnight. Patient reportedly is much more interactive today compared to yesterday. Patient did become agitated overnight and removed his IV access. Patient is not reporting any pain, nausea or dyspnea at this time. - Physical Exam Vitals/I&O's: Vital Signs Temp Pulse Resp BP Pulse Ox 36.6 C 80 17 149/66 H 97 06/01/20 09:33 06/01/20 09:33 06/01/20 09:33 06/01/20 09:33 06/01/20 09:33 Oxygen Flow Rate (L/min) 2 Oxygen Delivery Method Room Air Weight: 161.6 kg Body Mass Index (BMI) 46.6 Intake and Output for Last 24 Hours 05/30/20 05/31/20 06/01/20 23:59 23:59 23:59 Intake Total 2011.50 / 2011.50 2496.25 / 2496.25 836.25 / 836.25 Output Total 550 / 800 1820 / 1820 400 / 400 Balance 1462.50 / 1212.50 676.25 / 676.25 436.25 / 436.25 General: Alert, Confused, Disoriented, - - No conversational dyspnea HEENT: Atraumatic, PERRLA, EOMI, Normocephalic, - - Slight scleral injection without icterus Oral: Moist Mucosa, No Gingival or Mucosal Lesions/ Ulcerations Neck: Supple, No JVD, No Nodes, Trachea Midline Lungs: Diminished, Rhonchi - Faint, but improves with coughing, Wheezes - Sporadic Cardiovascular: Regular rate, Regular Rhythm, Normal S1, Normal S2, No murmurs, No rub noted, No Gallop Abdomen: Bowel Sounds Present, Soft, Non Tender, Non-Distended, Obese Extremities: No clubbing, No cyanosis, Edema - Lower extremities wrapped Skin: - - Some superficial wounds noted of the lower extremities Musculoskeletal: No Tenderness to Palpation of Joints or Extremities Lymphatic: No Cervical, Supraclavicular, or Inguinal Adenopathy Neurological: Cranial nerves II-XII grossly intact, Neuro grossly intact, Motor Exam 5/5 strength throughout Psych/Mental Status: Flat Affect Microbiology Past 72 Hours 05/27/20 04:05 Sputum, Expectorated/Coughed Gram Stain - Final 05/27/20 04:05 Sputum, Expectorated/Coughed Respiratory Culture - Final Meth. resistant Staph. aureus 05/24/20 00:45 Blood Culture (Wb) - Right Hand Blood Culture - Final Bacillus sp., not anthracis 05/24/20 00:45 Blood Culture (Wb) - Anticubital Left Blood Culture - Final No growth in 5 days. Laboratory Results 05/31/20 10:43: POC Glucose 228 H 05/31/20 16:16: POC Glucose 228 H 05/31/20 20:05: Vancomycin Trough 34.2 H 05/31/20 21:28: POC Glucose 271 H 05/31/20 23:17: POC Glucose 278 H 06/01/20 02:05: Magnesium 2.4 06/01/20 05:26: POC Glucose 185 H Current Medications Acetaminophen (Tylenol) 650 mg PO Q4H PRN PRN PRN Reason: Pain Score 1-10/Temp > 100.7 F Last Admin: 06/01/20 05:31 Dose: 650 mg Documented by: Albuterol Sulfate (Ventolin Aerosols) 2.5 mg INHALATION Q2H PRN PRN PRN Reason: SOB/Wheezing Last Admin: 05/28/20 19:01 Dose: 2.5 mg Documented by: Albuterol/Ipratropium (Duoneb) 3 ml INHALATION Q6H.RT [facility] Last Admin: 06/01/20 07:10 Dose: 3 ml Documented by: Benztropine Mesylate (Cogentin) 2 mg PO DAILY [facility] Last Admin: 06/01/20 09:35 Dose: Not Given Documented by: Dextrose (D50w Syringe) 0 gm IV X1 PRN; Protocol PRN Reason: Hypoglycemia Enoxaparin Sodium (Lovenox) 40 mg SC DAILY [facility] Last Admin: 06/01/20 09:35 Dose: Not Given Documented by: Famotidine (Pepcid) 20 mg PO DAILY [facility] Last Admin: 06/01/20 09:36 Dose: Not Given Documented by: Fludrocortisone Acetate (Florinef) 0.2 mg PO DAILY@0800 [facility] Last Admin: 06/01/20 09:35 Dose: Not Given Documented by: Glucagon () 1 mg IM .X1 PRN PRN Reason: Hypoglycemia Haloperidol (Haldol) 2.5 mg PO BID [facility] Last Admin: 06/01/20 09:35 Dose: Not Given Documented by: Hydralazine HCl (Apresoline Iv) 5 mg IV Q6H PRN PRN PRN Reason: SBP > 160 Last Admin: 06/01/20 01:12 Dose: 5 mg Documented by: Sodium Chloride () 250 mls @ 15 mls/hr IV .[id number] PRN PRN Reason: Saline Flush Last Infusion: 05/31/20 00:32 Dose: Infused Documented by: Sodium Chloride () 250 mls @ 15 mls/hr IV .[id number] PRN PRN Reason: Additional IVPB Infusion Insulin Glargine (Lantus ([facility])) 20 units SC QHS [facility] Last Admin: 05/31/20 21:30 Dose: Not Given Documented by: Insulin Human Lispro (Humalog Kwikpen ([facility])) 0 unit SC Q6 [facility]; Protocol Last Admin: 06/01/20 05:31 Dose: 1 u Documented by: Labetalol HCl (Trandate) 10 mg IV Q6H PRN PRN Reason: SBP>160 Last Admin: 05/28/20 18:53 Dose: 10 mg Documented by: Labetalol HCl (Trandate) 200 mg PO BID [facility] Last Admin: 06/01/20 09:36 Dose: Not Given Documented by: Linezolid (Zyvox) 600 mg PO BID [facility] Lorazepam (Ativan) 1 mg PO 0800,1700,2000 [facility] Last Admin: 06/01/20 09:43 Dose: Not Given Documented by: Quetiapine Fumarate (Seroquel) 200 mg PO BID [facility] Sodium Chloride () 10 - 40 ml IV UD PRN PRN Reason: SALINE FLUSH Last Admin: 06/01/20 02:10 Dose: 20 ml Documented by: Medical Necessity - Tobacco Use Smoking Status: Unknown if ever smoked Assessment/Plan All Active Problems (Last Reviewed 05/24/20 @ 04:[address] Aubrey Powell MD) Encephalopathy (Acute) Community acquired pneumonia (Acute) Rhabdomyolysis (Acute) Acute kidney injury (Acute) Severe sepsis (Acute) RECOMMENDATIONS: 1. Continue antimicrobials per ID recommendations. 2. Consider current psychiatric medication regimen with dose adjustments having been made to Ativan, Haldol and Seroquel. 3. Continue home Florinef regimen. 4. Continue to work with therapy. IMPRESSIONS: 1. Severe sepsis with possible right-sided pneumonia versus COVID-19 infection The patient's initial chest x-ray was difficult to interpret given poor inspiratory effort. However, there is a questionable right-sided infiltrate. The patient also appeared to have a possible source of infection with cellulitis affecting his left lower extremity. Procalcitonin level was also elevated. The patient has been managed with antimicrobials under the discretion of infectious diseases. It appears that an element of patient's febrile illness was related to Precedex. Coronavirus PCR was negative and serology was nonreactive. Patient is out of advanced respiratory precautions, but continues with contact precautions given MRSA in the sputum. 2. Encephalopathy Improving. Initially felt to be infectious/metabolic in nature. May be at baseline at this time. Extensive work-up negative for complicating factors. Unclear with the patient's baseline mentation is truly like. Adjustments have been made to the patient's baseline psychiatric medication regimen secondary to concerns with QT prolongation. 3. Acute kidney injury Possibly secondary to ATN in the setting #1. Renal ultrasound was unremarkable. Nephrology is currently following. Continue to monitor urine output. No current indication for renal replacement therapy. 4. History of adrenal insufficiency/schizophrenia/diabetes mellitus/morbid obesity Complicates care, management, recovery and prognosis. Continue Seroquel, Haldol and scheduled Ativan as manipulated secondary to QT issues. Inpatient E&M: 34316 [facility] Hosp L2
[2020-06-01 11:06] LABS: Bedside Glucose 239 mg/dL (70-110)
[2020-06-01 11:41] LABS: Pathologist Review Reviewed
--- NOTE | 2020-06-01 12:05 | NURSING ---
wound photo: left anterior lower leg
--- NOTE | 2020-06-01 12:05 | NURSING ---
wound photo: left posteromedial lower leg
[2020-06-01] MEDS: LORazepam 1 MG Tablet PO ×2 (14:48→20:29)
--- NOTE | 2020-06-01 16:11 | PN.RENAL_ITS ---
Patient Problems: Active and Suspected Problems (Last Reviewed 05/24/20 @ 04:[address] Aubrey Powell MD) Severe sepsis (Acute) Subjective: events noted, somewhat drowsy - Physical Exam Vitals/I&O's: Vital Signs Temp Pulse Resp BP Pulse Ox 98.4 F 84 18 176/72 H 96 06/01/20 15:18 06/01/20 15:18 06/01/20 15:18 06/01/20 15:18 06/01/20 15:18 Oxygen Flow Rate (L/min) 2 Oxygen Delivery Method Room Air Weight: 161.6 kg Body Mass Index (BMI) 46.6 Intake and Output for Last 24 Hours 05/30/20 05/31/20 06/01/20 23:59 23:59 23:59 Intake Total 50 / 2496.25 / 2496.25 1036.25 / 1036.25 Output Total 550 / 800 1820 / 1820 800 / 800 Balance 1462.50 / 1212.50 676.25 / 676.25 236.25 / 236.25 General: Confused HEENT: Atraumatic, PERRLA, EOMI, Normocephalic Neck: Supple, No JVD, Negative Carotid Bruits Lungs: Clear to auscultation, Normal air movement Cardiovascular: Regular rate, No murmurs Abdomen: Bowel Sounds Present, Soft, Non Tender Extremities: No edema, Capillary Refill Less than 3 Seconds Skin: No rashes, No breakdown Musculoskeletal: No Tenderness to Palpation of Joints or Extremities Neurological: Cranial nerves II-XII grossly intact Microbiology Past 72 Hours 05/27/20 04:05 Sputum, Expectorated/Coughed Gram Stain - Final 05/27/20 04:05 Sputum, Expectorated/Coughed Respiratory Culture - Final Meth. resistant Staph. aureus Laboratory Results 05/30/20 05:38: Diff Path Review Reviewed 05/31/20 16:16: POC Glucose 228 H 05/31/20 20:05: Vancomycin Trough 34.2 H 05/31/20 21:28: POC Glucose 271 H 05/31/20 23:17: POC Glucose 278 H 06/01/20 02:05: Magnesium 2.4 06/01/20 05:26: POC Glucose 185 H 06/01/20 10:52: POC Glucose 239 H Current Medications Acetaminophen (Tylenol) 650 mg PO Q4H PRN PRN PRN Reason: Pain Score 1-10/Temp > 100.7 F Last Admin: 06/01/20 05:31 Dose: 650 mg Documented by: Albuterol Sulfate (Ventolin Aerosols) 2.5 mg INHALATION Q2H PRN PRN PRN Reason: SOB/Wheezing Last Admin: 05/28/20 19:01 Dose: 2.5 mg Documented by: Albuterol/Ipratropium (Duoneb) 3 ml INHALATION Q6H.RT [facility] Last Admin: 06/01/20 12:28 Dose: 3 ml Documented by: Benztropine Mesylate (Cogentin) 2 mg PO DAILY [facility] Last Admin: 06/01/20 09:35 Dose: Not Given Documented by: Dextrose (D50w Syringe) 0 gm IV X1 PRN; Protocol PRN Reason: Hypoglycemia Enoxaparin Sodium (Lovenox) 40 mg SC DAILY [facility] Last Admin: 06/01/20 09:35 Dose: Not Given Documented by: Famotidine (Pepcid) 20 mg PO DAILY [facility] Last Admin: 06/01/20 09:36 Dose: Not Given Documented by: Fludrocortisone Acetate (Florinef) 0.2 mg PO DAILY@0800 [facility] Last Admin: 06/01/20 09:35 Dose: Not Given Documented by: Glucagon () 1 mg IM .X1 PRN PRN Reason: Hypoglycemia Haloperidol (Haldol) 2.5 mg PO BID [facility] Last Admin: 06/01/20 09:35 Dose: Not Given Documented by: Hydralazine HCl (Apresoline Iv) 5 mg IV Q6H PRN PRN PRN Reason: SBP > 160 Last Admin: 06/01/20 01:12 Dose: 5 mg Documented by: Sodium Chloride () 250 mls @ 15 mls/hr IV .[id number] PRN PRN Reason: Saline Flush Last Infusion: 05/31/20 00:32 Dose: Infused Documented by: Sodium Chloride () 250 mls @ 15 mls/hr IV .[id number] PRN PRN Reason: Additional IVPB Infusion Insulin Glargine (Lantus ([facility])) 20 units SC QHS [facility] Last Admin: 05/31/20 21:30 Dose: Not Given Documented by: Insulin Human Lispro (Humalog Kwikpen ([facility])) 0 unit SC Q6 [facility]; Protocol Last Admin: 06/01/20 10:56 Dose: 3 u Documented by: Labetalol HCl (Trandate) 10 mg IV Q6H PRN PRN Reason: SBP>160 Last Admin: 05/28/20 18:53 Dose: 10 mg Documented by: Labetalol HCl (Trandate) 200 mg PO BID [facility] Last Admin: 06/01/20 09:36 Dose: Not Given Documented by: Linezolid (Zyvox) 600 mg PO BID [facility] Last Admin: 06/01/20 10:54 Dose: Not Given Documented by: Lorazepam (Ativan) 1 mg PO 0800,1700,2000 [facility] Last Admin: 06/01/20 14:48 Dose: 1 mg Documented by: Quetiapine Fumarate (Seroquel) 200 mg PO BID [facility] Quetiapine Fumarate (Seroquel) 200 mg PO X1 ONE Stop: 06/01/20 16:00 Sodium Chloride () 10 - 40 ml IV UD PRN PRN Reason: SALINE FLUSH Last Admin: 06/01/20 02:10 Dose: 20 ml Documented by: Medical Necessity - Tobacco Use Smoking Status: Unknown if ever smoked Assessment/Plan All Active Problems (Last Reviewed 05/24/20 @ 04:[address] Aubrey Powell MD) Encephalopathy (Acute) Community acquired pneumonia (Acute) Rhabdomyolysis (Acute) Acute kidney injury (Acute) Severe sepsis (Acute) MARIA T. Pneumonia suspected COVID Rhabdomyolysis possible NMS now better urine output has been ok CK is less than 5000 pulled out his midline last night ok to encourage PO fluids overall cr has been stable for last 3 days sodium remains high. encourage PO fluids rosemarie Ochoa
[2020-06-01] MEDS: QUEtiapine 100 MG Tablet 200 MG PO ×2 (16:19→21:47)
--- NOTE | 2020-06-01 16:34 | NURSING ---
This RN called [facility] and spoke with АЛЕКСАНДР Mark. Jas stated patient's baseline is A&Ox3, never refuses medications, and will talk to father very actively about family and sports. She also stated patient is very paranoid and likes to see medications prior to taking them. Dr. Ochoa made aware.
[2020-06-01 18:16] LABS: Bedside Glucose 272 mg/dL (70-110)
[2020-06-01] MEDS: Labetalol 200 MG Tablet PO (21:47)
[2020-06-01] MEDS: Linezolid 600 MG Tablet PO (21:47)
[2020-06-01] MEDS: Haloperidol 5 MG Tablet 2.5 MG PO (21:47)
[2020-06-01 22:05] LABS: Bedside Glucose 231 mg/dL (70-110)
[2020-06-01 23:36] LABS: Bedside Glucose 221 mg/dL (70-110)
[2020-06-02] VITALS (10 sets, daily range): BP systolic 143–179; BP diastolic 78–91; PULSE 55–79; RESP 17–24; TEMP 36.6–36.7; O2SAT 96–98
[2020-06-02 05:59] LABS: Absolute Lymphocyte Count 1.22 X10^3/uL (0.83-4.51); Absolute Neutrophil Count 11.5 X10^3/uL (2.0-7.7); Basophil# 0.01 X10^3/uL; Basophil% 0.1 % (0-1); Eosinophil# 0.45 X10^3/uL; Eosinophils% 3.1 % (0-5); Hematocrit 33.8 % (40-54); Hemoglobin 10.3 g/dL (13.0-16.5); Lymphocyte # 1.22 X10^3/ul (4.0); Lymphocyte % 8.5 % (19-41); Mean Corp Hgb Conc 30.5 g/dL (32-36); Mean Corpuscular Hgb 27.1 pg (27.0-32.0); Mean Corpuscular Volume 88.9 fL (80-94); Mean Platelet Vol. 10.7 fl (6.2-12.0); Monocyte# 0.97 X10^3/uL; Monocyte% 6.8 % (0-10); NRBC Flagged by Analyzer 0 % (0-5); Neutrophil # 11.48 X10^3/uL (2.7-7.7); Platelet Count 172 K/mm3 (150-450); RBC Distribution Width SD 52.2 fl (35.1-43.9); White Blood Count 14.4 K/mm3 (4.4-11.0)
[2020-06-02] MEDS: Insulin Lispro 100 UNIT/ML INSULN.PEN SC ×3 (05:59→16:56)
[2020-06-02 06:05] LABS: Bedside Glucose 244 mg/dL (70-110)
[2020-06-02 06:24] LABS: Anion Gap 5 (5-15); BUN 31 mg/dL (7-18); Calcium,Total 7.3 mg/dL (8.5-10.1); Chloride 110 mmol/L (98-107); Creatinine, Serum 2.39 mg/dL (0.70-1.30); EST Glomerular Filtration Rate 30 mL/min (>60); Est Glom Filt Rate - Afr Amer 36 mL/min (>60); Estimated Creatinine Clearance 37.88 ml/min; Glucose 250 mg/dL (74-106); Potassium 3.6 mmol/L (3.5-5.1); Sodium Level 140 mmol/L (136-145)
[2020-06-02] MEDS: Ipratropium/Albuterol Sulfate 3 ML AMPUL.NEB INHALATION ×3 (07:45→19:10)
--- NOTE | 2020-06-02 08:23 | PCM.PN.PUL ---
Patient Problems: Active and Suspected Problems (Last Reviewed 05/24/20 @ 04:[address] Aubrey Powell MD) Severe sepsis (Acute) Subjective: Patient doing very well. Patient more appropriate overnight. Patient with no complaints this morning. - Physical Exam Vitals/I&O's: Vital Signs Temp Pulse Resp BP Pulse Ox 36.7 C 61 24 H 143/87 H 96 06/02/20 03:30 06/02/20 07:45 06/02/20 07:45 06/02/20 03:30 06/02/20 07:45 Oxygen Flow Rate (L/min) 2 Oxygen Delivery Method Room Air Weight: 161.6 kg Body Mass Index (BMI) 46.6 Intake and Output for Last 24 Hours 05/31/20 06/01/20 06/02/20 23:59 23:59 23:59 Intake Total 2496.25 / 2496.25 2836.25 / 2836.25 500 / 500 Output Total 1820 / 1820 1900 / 1900 400 / 400 Balance 676.25 / 676.25 936.25 / 936.25 100 / 100 General: Alert, Cooperative, No apparent distress, - - Morbidly obese. Speaking in full sentences. HEENT: Atraumatic, PERRLA, EOMI, Normocephalic, - - No scleral icterus or injection noted Oral: Moist Mucosa, No Gingival or Mucosal Lesions/ Ulcerations, - - Crowded posterior pharynx Neck: Supple, No JVD, No Nodes, Trachea Midline Lungs: Clear to auscultation, Normal air movement, No rhonchi, No wheeze, No rales, - - Symmetric expansion. Cardiovascular: Normal S1, Normal S2, No murmurs, No rub noted, No Gallop Abdomen: Bowel Sounds Present, Soft, Non Tender, Non-Distended, Obese Extremities: No clubbing, No cyanosis, Edema Skin: - - No change compared to previous Musculoskeletal: No Tenderness to Palpation of Joints or Extremities Lymphatic: No Cervical, Supraclavicular, or Inguinal Adenopathy Neurological: Cranial nerves II-XII grossly intact, Neuro grossly intact, Motor Exam 5/5 strength throughout Psych/Mental Status: Appropriate, Flat Affect Microbiology Past 72 Hours 05/27/20 04:05 Sputum, Expectorated/Coughed Gram Stain - Final 05/27/20 04:05 Sputum, Expectorated/Coughed Respiratory Culture - Final Meth. resistant Staph. aureus Laboratory Results 05/30/20 05:38: Diff Path Review Reviewed 06/01/20 10:52: POC Glucose 239 H 06/01/20 18:09: POC Glucose 272 H 06/01/20 21:46: POC Glucose 231 H 06/01/20 23:27: POC Glucose 221 H 06/02/20 05:48: WBC 14.4 H, RBC 3.80 L, Hgb 10.3 L, Hct 33.8 L, MCV 88.9, MCH 27.1, MCHC 30.5 L, RDW Std Deviation 52.2 H, RDW Coeff of Gume 17.0 H, Plt Count 172, MPV 10.7, Immature Gran % (Auto) 1.500 H, Neut % (Auto) 80.0 H, Lymph % (Auto) 8.5 L, [place] % (Auto) 6.8, Eos % (Auto) 3.1, Baso % (Auto) 0.1, Absolute Neuts (auto) 11.5 H, Absolute Lymphs (auto) 1.22, Nucleated RBC % 0 06/02/20 05:48: Sodium 140, Potassium 3.6, Chloride 110 H, Carbon Dioxide 25.0, Anion Gap 5, BUN 31 H, Creatinine 2.39 H, Estim Creat Clear Calc 37.88, Est GFR (MDRD) Af Amer 36 L, Est GFR (MDRD) Non-Af 30 L, BUN/Creatinine Ratio 13.0, Glucose 250 H, Calcium 7.3 L 06/02/20 05:57: POC Glucose 244 H Current Medications Acetaminophen (Tylenol) 650 mg PO Q4H PRN PRN PRN Reason: Pain Score 1-10/Temp > 100.7 F Last Admin: 06/01/20 05:31 Dose: 650 mg Documented by: Albuterol Sulfate (Ventolin Aerosols) 2.5 mg INHALATION Q2H PRN PRN PRN Reason: SOB/Wheezing Last Admin: 05/28/20 19:01 Dose: 2.5 mg Documented by: Albuterol/Ipratropium (Duoneb) 3 ml INHALATION Q6H.RT CATHLEEN Last Admin: 06/02/20 07:45 Dose: 3 ml Documented by: Benztropine Mesylate (Cogentin) 2 mg PO DAILY [facility] Last Admin: 06/01/20 09:35 Dose: Not Given Documented by: Dextrose (D50w Syringe) 0 gm IV X1 PRN; Protocol PRN Reason: Hypoglycemia Enoxaparin Sodium (Lovenox) 40 mg SC DAILY [facility] Last Admin: 06/01/20 09:35 Dose: Not Given Documented by: Famotidine (Pepcid) 20 mg PO DAILY [facility] Last Admin: 06/01/20 09:36 Dose: Not Given Documented by: Fludrocortisone Acetate (Florinef) 0.2 mg PO DAILY@0800 [facility] Last Admin: 06/01/20 09:35 Dose: Not Given Documented by: Glucagon () 1 mg IM .X1 PRN PRN Reason: Hypoglycemia Haloperidol (Haldol) 2.5 mg PO BID [facility] Last Admin: 06/01/20 21:47 Dose: 2.5 mg Documented by: Hydralazine HCl (Apresoline Iv) 5 mg IV Q6H PRN PRN PRN Reason: SBP > 160 Last Admin: 06/01/20 01:12 Dose: 5 mg Documented by: Sodium Chloride () 250 mls @ 15 mls/hr IV .[id number] PRN PRN Reason: Saline Flush Last Infusion: 05/31/20 00:32 Dose: Infused Documented by: Sodium Chloride () 250 mls @ 15 mls/hr IV .[id number] PRN PRN Reason: Additional IVPB Infusion Insulin Glargine (Lantus (Bkc)) 20 units SC QHS [facility] Last Admin: 06/01/20 21:49 Dose: Not Given Documented by: Insulin Human Lispro (Humalog Kwikpen (Bk)) 0 unit SC Q6 [facility]; Protocol Last Admin: 06/02/20 05:59 Dose: 3 u Documented by: Labetalol HCl (Trandate) 10 mg IV Q6H PRN PRN Reason: SBP>160 Last Admin: 05/28/20 18:53 Dose: 10 mg Documented by: Labetalol HCl (Trandate) 200 mg PO BID [facility] Last Admin: 06/01/20 21:47 Dose: 200 mg Documented by: Linezolid (Zyvox) 600 mg PO BID [facility] Last Admin: 06/01/20 21:47 Dose: 600 mg Documented by: Lorazepam (Ativan) 1 mg PO 0800,1700,2000 [facility] Last Admin: 06/01/20 20:29 Dose: 1 mg Documented by: Quetiapine Fumarate (Seroquel) 200 mg PO BID [facility] Last Admin: 06/01/20 21:47 Dose: 200 mg Documented by: Sodium Chloride () 10 - 40 ml IV UD PRN PRN Reason: SALINE FLUSH Last Admin: 06/01/20 02:10 Dose: 20 ml Documented by: Medical Necessity - Tobacco Use Smoking Status: Unknown if ever smoked Assessment/Plan All Active Problems (Last Reviewed 05/24/20 @ 04:[address] Aubrey Powell MD) Encephalopathy (Acute) Community acquired pneumonia (Acute) Rhabdomyolysis (Acute) Acute kidney injury (Acute) Severe sepsis (Acute) RECOMMENDATIONS: 1. Continue antimicrobials per ID recommendations. 2. Consider current psychiatric medication regimen with dose adjustments having been made to Ativan, Haldol and Seroquel. 3. Continue home Florinef regimen. 4. Continue to work with therapy. 5. Okay to discharge from a pulmonary/critical care perspective IMPRESSIONS: 1. Severe sepsis with possible right-sided pneumonia versus COVID-19 infection The patient's initial chest x-ray was difficult to interpret given poor inspiratory effort. However, there is a questionable right-sided infiltrate. The patient also appeared to have a possible source of infection with cellulitis affecting his left lower extremity. Procalcitonin level was also elevated. The patient has been managed with antimicrobials under the discretion of infectious diseases. It appears that an element of patient's febrile illness was related to Precedex. Coronavirus PCR was negative and serology was nonreactive. Patient is out of advanced respiratory precautions, but continues with contact precautions given MRSA in the sputum. 2. Encephalopathy Appears to be at baseline. Initially felt to be infectious/metabolic in nature. Extensive work-up negative for complicating factors. Unclear with the patient's baseline mentation is truly like. Adjustments have been made to the patient's baseline psychiatric medication regimen secondary to concerns with QT prolongation. 3. Acute kidney injury Possibly secondary to ATN in the setting #1. Renal ultrasound was unremarkable. Nephrology is currently following. Continue to monitor urine output. No current indication for renal replacement therapy. 4. History of adrenal insufficiency/schizophrenia/diabetes mellitus/morbid obesity Complicates care, management, recovery and prognosis. Continue Seroquel, Haldol and scheduled Ativan as manipulated secondary to QT issues. Inpatient E&M: 97466 Subs Hosp L2
[2020-06-02] MEDS: LORazepam 1 MG Tablet PO ×2 (09:06→16:58)
[2020-06-02] MEDS: Fludrocortisone Acetate 0.1 MG Tablet 0.2 MG PO (09:07)
[2020-06-02] MEDS: QUEtiapine 100 MG Tablet 200 MG PO (09:07)
[2020-06-02] MEDS: Labetalol 200 MG Tablet PO (09:07)
[2020-06-02] MEDS: Haloperidol 5 MG Tablet 2.5 MG PO (09:07)
[2020-06-02] MEDS: Famotidine 20 MG Tablet PO (09:07)
[2020-06-02] MEDS: Enoxaparin 40 MG/0.4 ML Syringe SC (09:08)
[2020-06-02] MEDS: Benztropine 2 MG Tablet PO (09:08)
[2020-06-02] MEDS: Linezolid 600 MG Tablet PO (09:10)
--- NOTE | 2020-06-02 09:42 | PCM.TXEXTCAR ---
- Diet 05/29/20 11:36 Diet: ADA diet, 2200 angel. Type of Dietary Supplement:: Ensure Clear Is pt able to select menu?: No - Routine Orders/Code Status Code Status: Full Code - Wound(s) LOWER ABD Wound Type: nonhealing wound Left Calf Wound Type: Abrasion lew elbows Wound Type: Abrasion upper/lower lip Wound Type: open sores (mouth breathing) left posteromedial lower leg Wound Type: stasis dermatitis Dressing Change: Adaptic - Suggestions for Active Care Change Position every (hours): 3 Hours to sit in a chair: 2 Times a day to sit in chair: 3 - Therapies Weight Bearing: Weight bearing as tolerated Physical Therapy: Eval and Treat Occupational Therapy: Eval and Treat - Allergies/Procedures Done in Hospital Allergies/Adverse Reactions: Allergies No Known Allergies Allergy (Verified 05/24/20 00:41) - Type of Care/Length of Stay Estimated LOS: Convalescent Care Less Than 30 days Type of Care Needed: Skilled Rehab Potential: Fair Prognosis: Fair - Additional Orders/Day of Discharge H&P will serve as current which was dated: 05/24/20 Day of Discharge: 06/02/20 - Dietary and Speech Recommendations Dietitian Recommendations/Changes: Continue liberal Regular diet until po intake improves, then consider therapeutic diet d/t pmhx and BMI (ie 2200 calorie). - Follow Up Care Primary Care Physician: Alonso Ramos MD [Primary Care Provider] - Please follow up with your Primary Care Physician in: 1 week.
--- NOTE | 2020-06-02 10:01 | PHA.DC.MR ---
Pharmacy Service has performed discharge medication reconciliation for this patient upon transfer to [facility]. Patient going home on PO Zyvoxx therapy. Discussed with hospitalist, plan is to hold Lexapro at discharge until Zyvoxx is completed, as the combination is contraindicated. The patient's discharge medication list was reviewed for discrepancies and discrepancies were resolved. Home Medications Acetaminophen [Tylenol] 650 mg PO Q4H PRN PRN 05/24/20 Aspirin [Aspirin, Baby] 81 mg PO DAILY@0800 05/24/20 Benztropine Mesylate 2 mg PO DAILY 05/24/20 Bisacodyl [Dulcolax] 10 mg RECTAL DAILY PRN PRN 05/24/20 Calcium (Elemental) [Os-Alfredo 500] 500 mg PO BIDCM 05/24/20 Cholecalciferol (Vitamin D3) [Vitamin D3] 2,000 unit PO DAILY 05/24/20 Ergocalciferol [Vitamin D] 50,000 unit PO Q7D 05/24/20 Escitalopram Oxalate [Lexapro] 10 mg PO DAILY 05/24/20 --> HOLDING WHILE FINISHING ZYVOXX THERAPY Famotidine [Pepcid] 20 mg PO DAILY 05/24/20 Fludrocortisone Acetate 0.2 mg PO DAILY 05/24/20 Insulin Aspart [Novolog Flexpen] 10 units SUBCUT TIDCM 05/24/20 Insulin Glargine [Lantus SoloStar Pen] 36 units SUBCUT QHS 05/24/20 Linagliptin [Tradjenta] 5 mg PO DAILY 05/24/20 Magnesium Hydroxide [Milk Of Magnesia] 30 ml PO DAILY PRN PRN 05/24/20 Simvastatin [Zocor] 10 mg PO QHS 05/24/20 Tamsulosin HCl [Flomax] 0.4 mg PO DAILY 05/24/20 Haloperidol [Haldol] 2.5 mg PO BID #30 tab 06/02/20 Linezolid [Zyvox] 600 mg PO BID #7 tab 06/02/20 Lorazepam [Ativan] 1 mg PO 0800,1700,2000 #30 tab 06/02/20 Quetiapine Fumarate [Seroquel] 200 mg PO BID #30 tab 06/02/20
--- NOTE | 2020-06-02 10:35 | PCM.PROGNOTE ---
Patient Problems: Active and Suspected Problems (Last Reviewed 05/24/20 @ 04:[address] Aubrey Powell MD) Severe sepsis (Acute) Subjective: Chief complaint: Follow-up after admission for severe sepsis secondary to probable pneumonia versus COVID-19 infection, encephalopathy, acute kidney injury and left leg cellulitis. Patient seen and examined. No acute events overnight. Smiling, he is alert, awake, answering questions appropriately. He denied any complaints. His vital signs are stable. - Physical Exam Vitals/I&O's: Vital Signs Temp Pulse Resp BP Pulse Ox 97.9 F 62 17 179/91 H 98 06/02/20 09:12 06/02/20 09:12 06/02/20 09:12 06/02/20 09:12 06/02/20 09:12 Oxygen Flow Rate (L/min) 2 Oxygen Delivery Method Room Air Weight: 356 lb 4.272 oz Body Mass Index (BMI) 46.6 Intake and Output for Last 24 Hours 05/31/20 06/01/20 06/02/20 23:59 23:59 23:59 Intake Total 2496.25 / 2496.25 2836.25 / 2836.25 500 / 500 Output Total 1820 / 1820 1900 / 1900 400 / 400 Balance 676.25 / 676.25 936.25 / 936.25 100 / 100 General: Alert, Cooperative, No apparent distress HEENT: Atraumatic, PERRLA, EOMI, Normocephalic Oral: Moist Mucosa, No Gingival or Mucosal Lesions/ Ulcerations Neck: Supple, No JVD, Negative Carotid Bruits, Trachea Midline, Thyroid Normal Size and Texture Lungs: Clear to auscultation, Normal air movement, No rhonchi, No wheeze, No rales, Diminished Cardiovascular: Regular rate, Regular Rhythm, Normal S1, Normal S2 Abdomen: Bowel Sounds Present, Soft, Non Tender, Non-Distended, No Hepato-splenomegaly, Obese Extremities: No clubbing, No cyanosis, Edema Skin: No rashes, No breakdown Lymphatic: No Cervical, Supraclavicular, or Inguinal Adenopathy Neurological: Cranial nerves II-XII grossly intact, Neuro grossly intact Psych/Mental Status: Flat Affect Microbiology Past 72 Hours 05/27/20 04:05 Sputum, Expectorated/Coughed Gram Stain - Final 05/27/20 04:05 Sputum, Expectorated/Coughed Respiratory Culture - Final Meth. resistant Staph. aureus Laboratory Results 05/30/20 05:38: Diff Path Review Reviewed 06/01/20 10:52: POC Glucose 239 H 06/01/20 18:09: POC Glucose 272 H 06/01/20 21:46: POC Glucose 231 H 06/01/20 23:27: POC Glucose 221 H 06/02/20 05:48: WBC 14.4 H, RBC 3.80 L, Hgb 10.3 L, Hct 33.8 L, MCV 88.9, MCH 27.1, MCHC 30.5 L, RDW Std Deviation 52.2 H, RDW Coeff of Gume 17.0 H, Plt Count 172, MPV 10.7, Immature Gran % (Auto) 1.500 H, Neut % (Auto) 80.0 H, Lymph % (Auto) 8.5 L, [place] % (Auto) 6.8, Eos % (Auto) 3.1, Baso % (Auto) 0.1, Absolute Neuts (auto) 11.5 H, Absolute Lymphs (auto) 1.22, Nucleated RBC % 0 06/02/20 05:48: Sodium 140, Potassium 3.6, Chloride 110 H, Carbon Dioxide 25.0, Anion Gap 5, BUN 31 H, Creatinine 2.39 H, Estim Creat Clear Calc 37.88, Est GFR (MDRD) Af Amer 36 L, Est GFR (MDRD) Non-Af 30 L, BUN/Creatinine Ratio 13.0, Glucose 250 H, Calcium 7.3 L 06/02/20 05:57: POC Glucose 244 H Current Medications Acetaminophen (Tylenol) 650 mg PO Q4H PRN PRN PRN Reason: Pain Score 1-10/Temp > 100.7 F Last Admin: 06/01/20 05:31 Dose: 650 mg Documented by: Albuterol Sulfate (Ventolin Aerosols) 2.5 mg INHALATION Q2H PRN PRN PRN Reason: SOB/Wheezing Last Admin: 05/28/20 19:01 Dose: 2.5 mg Documented by: Albuterol/Ipratropium (Duoneb) 3 ml INHALATION Q6H.RT CATHLEEN Last Admin: 06/02/20 07:45 Dose: 3 ml Documented by: Benztropine Mesylate (Cogentin) 2 mg PO DAILY [facility] Last Admin: 06/02/20 09:08 Dose: 2 mg Documented by: Dextrose (D50w Syringe) 0 gm IV X1 PRN; Protocol PRN Reason: Hypoglycemia Enoxaparin Sodium (Lovenox) 40 mg SC DAILY [facility] Last Admin: 06/02/20 09:08 Dose: 40 mg Documented by: Famotidine (Pepcid) 20 mg PO DAILY [facility] Last Admin: 06/02/20 09:07 Dose: 20 mg Documented by: Fludrocortisone Acetate (Florinef) 0.2 mg PO DAILY@0800 [facility] Last Admin: 06/02/20 09:07 Dose: 0.2 mg Documented by: Glucagon () 1 mg IM .X1 PRN PRN Reason: Hypoglycemia Haloperidol (Haldol) 2.5 mg PO BID [facility] Last Admin: 06/02/20 09:07 Dose: 2.5 mg Documented by: Hydralazine HCl (Apresoline Iv) 5 mg IV Q6H PRN PRN PRN Reason: SBP > 160 Last Admin: 06/01/20 01:12 Dose: 5 mg Documented by: Sodium Chloride () 250 mls @ 15 mls/hr IV .[id number] PRN PRN Reason: Saline Flush Last Infusion: 05/31/20 00:32 Dose: Infused Documented by: Sodium Chloride () 250 mls @ 15 mls/hr IV .[id number] PRN PRN Reason: Additional IVPB Infusion Insulin Glargine (Lantus (Bkc)) 20 units SC QHS [facility] Last Admin: 06/01/20 21:49 Dose: Not Given Documented by: Insulin Human Lispro (Humalog Kwikpen (Bkc)) 0 unit SC Q6 [facility]; Protocol Last Admin: 06/02/20 05:59 Dose: 3 u Documented by: Labetalol HCl (Trandate) 10 mg IV Q6H PRN PRN Reason: SBP>160 Last Admin: 05/28/20 18:53 Dose: 10 mg Documented by: Labetalol HCl (Trandate) 200 mg PO BID [facility] Last Admin: 06/02/20 09:07 Dose: 200 mg Documented by: Linezolid (Zyvox) 600 mg PO BID [facility] Last Admin: 06/02/20 09:10 Dose: 600 mg Documented by: Lorazepam (Ativan) 1 mg PO 0800,1700,2000 [facility] Last Admin: 06/02/20 09:06 Dose: 1 mg Documented by: Quetiapine Fumarate (Seroquel) 200 mg PO BID [facility] Last Admin: 06/02/20 09:07 Dose: 200 mg Documented by: Sodium Chloride () 10 - 40 ml IV UD PRN PRN Reason: SALINE FLUSH Last Admin: 06/01/20 02:10 Dose: 20 ml Documented by: Medical Necessity - Tobacco Use Smoking Status: Unknown if ever smoked Assessment/Plan All Active Problems (Last Reviewed 05/24/20 @ 04:[address] Aubrey Powell MD) Encephalopathy (Acute) Community acquired pneumonia (Acute) Rhabdomyolysis (Acute) Acute kidney injury (Acute) Severe sepsis (Acute) This is a 55 years old male patient presented to the emergency room because of shortness of breath, has been having high-grade fever, initially there was a concern that patient may have neuroleptic management syndrome, found to have rhabdomyolysis with acute kidney injury as well as severe sepsis secondary to community-acquired pneumonia. He developed QT prolongation and bradycardia. #1 severe sepsis: Secondary to both probable pneumonia and left leg cellulitis. Currently, he is on Zyvox. He has been afebrile, maintaining pulse ox on room air. 1 bottle of blood culture revealed bacillus species, not bacillus anthracis and the other bottle of blood culture showed no growth in 5 days. Urine culture showed no growth. COVID-19 PCR came back negative. COVID-19 antibody serology was nonreactive. Sputum culture revealed MRSA. Plan to continue same treatment, awaiting insurance approval for placement to long-term facility. #2 probable community-acquired pneumonia: Currently, he is on Zyvox as above. Sputum culture revealed MRSA. Pneumococcal and Legionella antigen are negative. COVID-19 ruled out. Plan as above. #3 acute left leg cellulitis: Received a total 5 days of IV cefazolin as above. Erythema and swelling of the left leg is improving. Currently is on p.o. Zyvox as above. #4 acute kidney injury/rhabdomyolysis: Kidney function is getting better, creatinine is down to 2.39. Sodium and potassium are normal today. CPK was trending down. Urine output is satisfactory. Kidney ultrasound was unremarkable. Nephrology on the case, recommended same treatment. Plan to follow-up with nephrology as outpatient. #5 encephalopathy: Multifactorial secondary to severe sepsis in addition to history of schizophrenia and anxiety, being on Seroquel XL, Haldol and Ativan. Today, patient is alert, awake, responding to questions appropriately. He was not agitated. CT scan brain showed no acute findings. Plan to keep him on the current Ativan, Seroquel and Haldol dosage. #6 bradycardia/prolonged QT interval: Attributed to Haldol and Seroquel. Heart rate stabilized as well as blood pressure. Doses of Haldol, Ativan and Cipro adjusted. Plan as above. #7 type 2 diabetes mellitus: Blood sugar stable, he is only on sliding scale. #8 schizophrenia/anxiety: Continue adjusted doses of Seroquel, Ativan and Haldol. #9 hyperlipidemia: Statins held. #10 history of adrenal insufficiency: Continue Florinef. #11 DVT prophylaxis: Subcu Lovenox. This note was generated with [employer] dictation software. It may contain incorrect words, spelling, and punctuation that were not noted in checking the note before signing. Inpatient E&M: 61558 Subs Hosp L2
[2020-06-02 12:26] LABS: Bedside Glucose 293 mg/dL (70-110)
--- NOTE | 2020-06-02 14:06 | PCM.DC.SUM ---
Discharge Date and Diagnosis Date of Admission: 05/24/20 Date of Discharge: 06/02/20 - Primary Discharge Diagnosis Acute Problems: Active Problems (Last Reviewed 05/24/20 @ 04:[address] Aubrey Powell MD) #1 severe sepsis. #2 MRSA community-acquired pneumonia. #3 left leg cellulitis. #4 acute kidney injury. #5 rhabdomyolysis. #6 encephalopathy, attributed to metabolic encephalopathy secondary to severe sepsis and medications. #7 bradycardia/prolonged QT interval. - Secondary Discharge Diagnosis Chronic Problems: Chronic Problems (Last Reviewed 05/24/20 @ 04:[address] Aubrey Powell MD) Anxiety (Chronic) Adrenal insufficiency (Chronic) Type 2 diabetes mellitus (Chronic) Hyperlipidemia (Chronic) Schizophrenia (Chronic) Hospital Course and Treatment Imaging Results: Clinical Impression(s) from Imaging Studies Chest X-Ray 05/24/20 00:56 IMPRESSION: Pulmonary hypoexpansion with pulmonary venous congestion. at 0128 Reported and signed by: Baldemar Angulo MD Electronically Signed: Baldemar Angulo MD at 1:27 EDT Tel , Service support , Chest X-Ray 05/26/20 08:50 IMPRESSION: Borderline cardiomegaly with venous congestion. Electronically Signed: Alfredito Hampton, at 9:25 EDT , Service support , Chest X-Ray 05/26/20 11:10 IMPRESSION: The tip of the right PICC line catheter is at the junction of the superior vena cava and right atrium. The vascular congestion has improved. Electronically Signed: Alfredito Hampton, at 12:22 EDT , Service support , Renal Ultrasound 05/26/20 11:19 IMPRESSION: Normal ultrasound of the kidneys. Electronically Signed: Alfredito Hampton, at 15:32 EDT , Service support , Brain CT 05/28/20 07:48 IMPRESSION: Normal unenhanced CT scan of the brain. 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 Medley/Dr. Dumont, critical care. Dr. Dickinson, nephrology. Dr. Ariza, infectious disease. Procedures: 2-D Echocardiogram, EKG Summary of Care Provided: Patient seen and examined on the day of discharge and appeared to be stable to be discharged to senior care facility. He was awake, alert, responding appropriately and answering questions appropriately. His vital signs are stable. This is a 55 years old male patient presented to the emergency room because of shortness of breath, has been having high-grade fever, initially there was a concern that patient may have neuroleptic management syndrome, found to have rhabdomyolysis with acute kidney injury as well as severe sepsis secondary to community-acquired pneumonia. He developed QT prolongation and bradycardia. #1 severe sepsis: Attributed to pneumonia and left leg cellulitis. Initially, treated with IV cefazolin and vancomycin. Later, he was switched to oral Zyvox. He is on Zyvox. 1 bottle of blood culture revealed bacillus species, not bacillus anthracis and the other bottle of blood culture showed no growth in 5 days. Urine culture showed no growth. COVID-19 PCR came back negative. COVID-19 antibody serology was nonreactive. Sputum culture revealed MRSA. He was discharged on oral Zyvox to complete total of 8 days of treatment. #2 MRSA community-acquired pneumonia: Treated with IV antibiotics as mentioned above, discharged on p.o. Zyvox. Sputum culture revealed MRSA. Pneumococcal and Legionella antigen are negative. COVID-19 ruled out. #3 acute left leg cellulitis: Treated with IV cefazolin. Erythema and swelling of the left leg significantly improved. #4 acute kidney injury/rhabdomyolysis: Treated with IV fluids. Nephrology consulted and recommended conservative treatment. On admission, serum creatinine was 2.29, went up to 2.92 and upon discharge, it was 2.39. With IV fluids, CPK trended down. Urine output is satisfactory. Kidney ultrasound was unremarkable. Plan to follow-up with nephrology as outpatient. #5 encephalopathy: Multifactorial secondary to severe sepsis in addition to history of schizophrenia and anxiety, being on Seroquel XL, Haldol and Ativan. Initially, patient was very agitated and restless for which she was started on IV Precedex drip in the ICU. Later, IV Precedex discontinued and patient remained very sleepy and lethargic. Dosage of Seroquel, Ativan and haloperidol adjusted. CT scan brain showed no acute findings. On the day of discharge, patient was alert, responding appropriately and comfortable. #6 bradycardia/prolonged QT interval: Attributed to Haldol and Seroquel. Heart rate improved after adjusting Seroquel and Haldol, blood pressure was stable. #7 type 2 diabetes mellitus: Continue with on NovoLog 3 times daily and Lantus nightly as well as Tradjenta. #8 schizophrenia/anxiety: Medications adjusted as follow: Seroquel 200 mg p.o. twice daily, Ativan 1 mg p.o. 3 times daily and haloperidol 2.5 mg p.o. twice daily. #9 hyperlipidemia: Continued on statins. #10 history of adrenal insufficiency: Continued on Florinef. Patient discharged to senior care facility in a stable medical condition, discharged on Zyvox for 3 days more of treatment to complete total of 8 days of treatment, doses of Seroquel, Ativan and haloperidol adjust as above, continued on other previous medications, recommended trial with PCP in 1 week. This note was generated with Sproxilation software. It may contain incorrect words, spelling, and punctuation that were not noted in checking the note before signing. - Physical Exam Vitals/I&O's: Vital Signs Temp Pulse Resp BP Pulse Ox 98 F 70 18 150/78 H 97 06/02/20 12:11 06/02/20 12:58 06/02/20 12:58 06/02/20 12:11 06/02/20 12:11 Oxygen Flow Rate (L/min) 2 Oxygen Delivery Method Room Air Weight: 356 lb 4.272 oz Body Mass Index (BMI) 46.6 Intake and Output for Last 24 Hours 05/31/20 06/01/20 06/02/20 23:59 23:59 23:59 Intake Total 2496.25 / 2496.25 2836.25 / 2836.25 980 / 980 Output Total 1820 / 1820 1900 / 1900 875 / 875 Balance 676.25 / 676.25 936.25 / 936.25 105 / 105 General: Alert, Cooperative, No apparent distress HEENT: Atraumatic, PERRLA, EOMI, Normocephalic Oral: Moist Mucosa, No Gingival or Mucosal Lesions/ Ulcerations Neck: Supple, No JVD, Negative Carotid Bruits, Trachea Midline, Thyroid Normal Size and Texture Lungs: Clear to auscultation, Normal air movement, No rhonchi, No wheeze, No rales, Diminished Cardiovascular: Regular rate, Regular Rhythm, Normal S1, Normal S2, PMI Normal Abdomen: Bowel Sounds Present, Soft, Non Tender, Non-Distended, No Hepato-splenomegaly, Obese Extremities: No clubbing, No cyanosis, Edema Skin: No rashes, No breakdown Lymphatic: No Cervical, Supraclavicular, or Inguinal Adenopathy Neurological: Cranial nerves II-XII grossly intact, Neuro grossly intact Psych/Mental Status: Flat Affect Laboratory Results 06/01/20 18:09: POC Glucose 272 H 06/01/20 21:46: POC Glucose 231 H 06/01/20 23:27: POC Glucose 221 H 06/02/20 05:48: WBC 14.4 H, RBC 3.80 L, Hgb 10.3 L, Hct 33.8 L, MCV 88.9, MCH 27.1, MCHC 30.5 L, RDW Std Deviation 52.2 H, RDW Coeff of Gume 17.0 H, Plt Count 172, MPV 10.7, Immature Gran % (Auto) 1.500 H, Neut % (Auto) 80.0 H, Lymph % (Auto) 8.5 L, [place] % (Auto) 6.8, Eos % (Auto) 3.1, Baso % (Auto) 0.1, Absolute Neuts (auto) 11.5 H, Absolute Lymphs (auto) 1.22, Nucleated RBC % 0 06/02/20 05:48: Sodium 140, Potassium 3.6, Chloride 110 H, Carbon Dioxide 25.0, Anion Gap 5, BUN 31 H, Creatinine 2.39 H, Estim Creat Clear Calc 37.88, Est GFR (MDRD) Af Amer 36 L, Est GFR (MDRD) Non-Af 30 L, BUN/Creatinine Ratio 13.0, Glucose 250 H, Calcium 7.3 L 06/02/20 05:57: POC Glucose 244 H 06/02/20 11:50: POC Glucose 293 H Current Medications Acetaminophen (Tylenol) 650 mg PO Q4H PRN PRN PRN Reason: Pain Score 1-10/Temp > 100.7 F Last Admin: 06/01/20 05:31 Dose: 650 mg Documented by: Albuterol Sulfate (Ventolin Aerosols) 2.5 mg INHALATION Q2H PRN PRN PRN Reason: SOB/Wheezing Last Admin: 05/28/20 19:01 Dose: 2.5 mg Documented by: Albuterol/Ipratropium (Duoneb) 3 ml INHALATION Q6H.RT [facility] Last Admin: 06/02/20 12:58 Dose: 3 ml Documented by: Benztropine Mesylate (Cogentin) 2 mg PO DAILY [facility] Last Admin: 06/02/20 09:08 Dose: 2 mg Documented by: Dextrose (D50w Syringe) 0 gm IV X1 PRN; Protocol PRN Reason: Hypoglycemia Enoxaparin Sodium (Lovenox) 40 mg SC DAILY [facility] Last Admin: 06/02/20 09:08 Dose: 40 mg Documented by: Famotidine (Pepcid) 20 mg PO DAILY [facility] Last Admin: 06/02/20 09:07 Dose: 20 mg Documented by: Fludrocortisone Acetate (Florinef) 0.2 mg PO DAILY@0800 [facility] Last Admin: 06/02/20 09:07 Dose: 0.2 mg Documented by: Glucagon () 1 mg IM .X1 PRN PRN Reason: Hypoglycemia Haloperidol (Haldol) 2.5 mg PO BID [facility] Last Admin: 06/02/20 09:07 Dose: 2.5 mg Documented by: Hydralazine HCl (Apresoline Iv) 5 mg IV Q6H PRN PRN PRN Reason: SBP > 160 Last Admin: 06/01/20 01:12 Dose: 5 mg Documented by: Sodium Chloride () 250 mls @ 15 mls/hr IV .[id number] PRN PRN Reason: Saline Flush Last Infusion: 05/31/20 00:32 Dose: Infused Documented by: Sodium Chloride () 250 mls @ 15 mls/hr IV .[id number] PRN PRN Reason: Additional IVPB Infusion Insulin Glargine (Lantus ([facility])) 20 units SC QHS [facility] Last Admin: 06/01/20 21:49 Dose: Not Given Documented by: Insulin Human Lispro (Humalog Kwikpen ([facility])) 0 unit SC Q6 [facility]; Protocol Last Admin: 06/02/20 11:52 Dose: 4 u Documented by: Labetalol HCl (Trandate) 10 mg IV Q6H PRN PRN Reason: SBP>160 Last Admin: 05/28/20 18:53 Dose: 10 mg Documented by: Labetalol HCl (Trandate) 200 mg PO BID [facility] Last Admin: 06/02/20 09:07 Dose: 200 mg Documented by: Linezolid (Zyvox) 600 mg PO BID [facility] Last Admin: 06/02/20 09:10 Dose: 600 mg Documented by: Lorazepam (Ativan) 1 mg PO 0800,1700,2000 [facility] Last Admin: 06/02/20 09:06 Dose: 1 mg Documented by: Quetiapine Fumarate (Seroquel) 200 mg PO BID [facility] Last Admin: 06/02/20 09:07 Dose: 200 mg Documented by: Sodium Chloride () 10 - 40 ml IV UD PRN PRN Reason: SALINE FLUSH Last Admin: 06/01/20 02:10 Dose: 20 ml Documented by: Home Medications: Medications to take at Discharge Acetaminophen [Tylenol] 650 mg PO Q4H PRN PRN 05/24/20 Aspirin [Aspirin, Baby] 81 mg PO DAILY@0800 05/24/20 Benztropine Mesylate 2 mg PO DAILY 05/24/20 Bisacodyl [Dulcolax] 10 mg RECTAL DAILY PRN PRN 05/24/20 Calcium (Elemental) [Os-Alfredo 500] 500 mg PO BIDCM 05/24/20 Cholecalciferol (Vitamin D3) [Vitamin D3] 2,000 unit PO DAILY 05/24/20 Ergocalciferol [Vitamin D] 50,000 unit PO Q7D 05/24/20 Escitalopram Oxalate [Lexapro] 10 mg PO DAILY 05/24/20 Famotidine [Pepcid] 20 mg PO DAILY 05/24/20 Fludrocortisone Acetate 0.2 mg PO DAILY 05/24/20 Insulin Aspart [Novolog Flexpen] 10 units SUBCUT TIDCM 05/24/20 Insulin Glargine [Lantus SoloStar Pen] 36 units SUBCUT QHS 05/24/20 Linagliptin [Tradjenta] 5 mg PO DAILY 05/24/20 Magnesium Hydroxide [Milk Of Magnesia] 30 ml PO DAILY PRN PRN 05/24/20 Simvastatin [Zocor] 10 mg PO QHS 05/24/20 Tamsulosin HCl [Flomax] 0.4 mg PO DAILY 05/24/20 Haloperidol [Haldol] 2.5 mg PO BID #30 tab 06/02/20 Linezolid [Zyvox] 600 mg PO BID #7 tab 06/02/20 Lorazepam [Ativan] 1 mg PO 0800,1700,1999 #30 tab 06/02/20 Quetiapine Fumarate [Seroquel] 200 mg PO BID #30 tab 06/02/20 Following Prescrptions Were Given to Patient: Lorazepam [Ativan] 1 mg PO 0800,1700,2000 #30 tab Prescription Printed Haloperidol [Haldol] 2.5 mg PO BID #30 tab Prescription Printed Quetiapine Fumarate [Seroquel] 200 mg PO BID #30 tab Prescription Printed Linezolid [Zyvox] 600 mg PO BID #7 tab Prescription Printed Primary Care Physician: Alonso Ramos MD [Primary Care Provider] - Please follow up with your Primary Care Physician in: 1 week. Disposition: [facility] facility Minutes spent on discharge:: 35 Patient Condition:: Stable Medical Necessity - Tobacco Use Smoking Status: Unknown if ever smoked Meaningful Use Info Meaningful Use Diagnoses (Choose all that apply): None applicable Inpatient E&M: 08351 [facility]
--- NOTE | 2020-06-02 14:27 | CASEMGMT ---
MARIJA received a call from Kimber at [facility] and she received insurance authorization. MARIJA faxed orders to [facility]. SW called [facility] and they will pick patient up at 5p via bariatric cot. MARIJA notified RN, plate filler, Kimebr at [facility], and patient's father. Patient tends to get anxious and try and get out of bed. Therefore, MARIJA did not tell patient. MARIJA did call Sweta at [facility] and let her know patient is leaving today. Plan: d/c to [facility] under skilled level of care. [facility] transported patient at 5p via bariatric cot. Noni PALENCIA MSW
[2020-06-02 17:05] LABS: Bedside Glucose 313 mg/dL (70-110)
== END 2020-06-02 19:50 | disposition skilled nursing facility (03) | DRG 871 ==
LOC: ED 02:42 → ICU 03:16 → PCU 05-29 15:25
PROVIDERS: Internal Medicine; Internal Medicine Critical Care Medicine; Internal Medicine Infectious Disease; Admitting Provider Hospitalist; Emergency Provider Emergency Medicine; PCP Family Medicine; Visit Provider Hospitalist
DX: A41.02 Sepsis due to Methicillin resistant Staphylococcus aureus (principal); G93.41 Metabolic encephalopathy; N17.0 Acute kidney failure with tubular necrosis; J15.212 Pneumonia due to Methicillin resistant Staphylococcus aureus; M62.82 Rhabdomyolysis; L03.116 Cellulitis of left lower limb; E27.40 Unspecified adrenocortical insufficiency; Z68.43 Body mass index [BMI] 50.0-59.9, adult; E87.1 Hypo-osmolality and hyponatremia; R65.20 Severe sepsis without septic shock; F31.9 Bipolar disorder, unspecified; F20.9 Schizophrenia, unspecified; N18.9 Chronic kidney disease, unspecified; E11.22 Type 2 diabetes mellitus with diabetic chronic kidney disease; E78.5 Hyperlipidemia, unspecified; F41.9 Anxiety disorder, unspecified; E66.01 Morbid (severe) obesity due to excess calories; K21.9 Gastro-esophageal reflux disease without esophagitis; E87.6 Hypokalemia; E11.65 Type 2 diabetes mellitus with hyperglycemia; Z78.1 Physical restraint status; F79 Unspecified intellectual disabilities
CPT/HCPCS: 36415; 36569; 36600; 70450; 71045; 76770; 80048; 80053; 80076; 80202; 81001; 82140; 82550; 82728; 82803; 82962; 83605; 83615; 83735; 83880; 84100; 84145; 84443; 84478; 84484; 85025; 85027; 85379; 85384; 85610; 85730; 86140; 86769; 87040; 87070; 87077; 87086; 87186; 87205; 87449; 87633; 87635; 87641; 93005; 93306; 94640; 94667; 94668; 97110; 97162; 97166; 97530; 99285; G2023; J7030; J7040; J7050; J7120; Q9957; A4216; C8929; J3490; U0003

== ENCOUNTER 2020-11-01 22:18 | Inpatient (IN) | payer MEDICARE, MEDICAID, SELFPAY ==
[2020-05-24 04:00] VITALS: BMI 46.6
[2020-11-01 22:21] VITALS: BP 165/73; PULSE 108; RESP 39; TEMP 38.3; O2SAT 96; BMI 47.4
--- NOTE | 2020-11-01 22:26 | RAD_ITS ---
HISTORY: SOB, CONFUSION EXAMINATION/TECHNIQUE: XR Chest 1 View: AP portable COMPARISON: 05/26/2020 FINDINGS: Cardiac telemetry leads in place. Limited inspiration with hypoventilation of the lung bases. No pulmonary consolidation or focal infiltrate. Normal heart size. No vascular congestion or pleural effusion. No pneumothorax. RAD/Chest 1 View (Portable) IMPRESSION: Limited inspiration. No acute cardiopulmonary disease. at 0034 Reported and signed by: Stephen Mcbride MD Electronically Signed: Stephen Mcbride, at 0:33 EST Tel , Service support ,
--- NOTE | 2020-11-01 22:26 | EKG12_ITS ---
Test Reason : DYSRHYTHMIA Blood Pressure : / mmHG Vent. Rate : 103 BPM Atrial Rate : 103 BPM P-R Int : 164 ms QRS Dur : 082 ms QT Int : 336 ms P-R-T Axes : 041 029 044 degrees QTc Int : 440 ms Sinus tachycardia Otherwise normal ECG Confirmed by CLOVER COYLE, ED ([id number]), news assignment editor EUGENE SEGUNDO ([id number]) on 11/04/2020 12:48:34 PM Referred By: CL Confirmed By:ED GALO MD
--- NOTE | 2020-11-01 22:32 | ED.VIS.GEN ---
History of Present Illness Chief Complaint: Confusion Informant: Patient, [employer], SN[facility] Narrative: 55-year-old male with extensive past medical history including diabetes, hyperlipidemia, schizophrenia presents with concern for altered mental status. Patient presents from snf facility with concern for declining mental function over the past 2 days. EMS cannot elaborate on how his mental function has declined. Patient was hospitalized in May for cellulitis of the left lower extremity as well as MRSA pneumonia. This time patient was exhibiting similar symptoms with a likely metabolic encephalopathy secondary to septic process. Patient cannot provide history of present illness given his confusion. Past Medical History - Allergies and Home Meds Allergies/Adverse Reactions: Allergies No Known Allergies Allergy (Verified 11/01/20 22:28) Prior records reviewed: Yes Past Medical History: - - Diabetes, hyperlipidemia, schizophrenia, chronic adrenal insufficiency Surgical History: - - Unable to obtain since patient is confused. 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 Lives: [facility] Smoking Status: Unknown if ever smoked Alcohol: None Drugs: None - Family History Maternal Family History: Reports: - - Unable to obtain since patient is confused. 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 Paternal Family History: Reports: - - Unable to obtain since patient is confused. 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 Review of Systems ROS: Unable to Obtain Physical Exam Vital Signs/Narrative: Vital Signs Temp Pulse Resp BP Pulse Ox 11/01/20 22:21 100.9 F H 108 H 39 H 165/73 H 96 Inital Vital Signs reviewed: Yes General: Well nourished, Obese, No Acute Distress Head: Normocephalic, Atraumatic Eyes: Perrl, EOMI ENT: Moist mucous membranes, No rhinorrhea Neck: Supple, Nontender Cardiovascular: Regular rhythm, No murmurs, Tachycardia Respiratory: No distress, CTA bilaterally, Chest nontender Abdomen: Soft, Nontender, Nondistended, Normal bowel sounds Back: Nontender, Normal Inspection Extremities: Nontender, No edema Skin: - - Edema and erythema of the LLE. Neurological: Alert, Cranial nerves II-XII grossly intact, Normal Strength, Normal Sensation Psychological: Normal affect, Normal Mood Diagnostic/Tx/Re-eval Chest X-Ray - ED: 1 View, Read by ED Physician, Read by Radiologist, Normal Clinical Impression(s) from Imaging Studies Chest X-Ray 11/01/20 22:26 IMPRESSION: Limited inspiration. No acute cardiopulmonary disease. at 0034 Reported and signed by: Stephen Mcbride MD Electronically Signed: Stephen Mcbride, at 0:33 EST Tel , Service support , Laboratory Data 11/01/20 11/01/20 11/01/20 00:05 22:40 22:40 WBC 14.6 H RBC 4.05 L Hgb 10.9 L Hct 32.6 L MCV 80.5 MCH 26.9 L MCHC 33.4 RDW Std Deviation 39.8 RDW Coeff of Gume 13.6 Plt Count 134 L MPV 11.1 Immature Gran % (Auto) 0.900 Neut % (Auto) 90.0 H Lymph % (Auto) 2.6 L [place] % (Auto) 6.4 Eos % (Auto) 0.0 Baso % (Auto) 0.1 Absolute Neuts (auto) 13.1 H Absolute Lymphs (auto) 0.38 L Nucleated RBC % 0 Differential Comment SCANNED PT 15.8 H INR 1.3 APTT 38.2 H Specimen Type Sample Site pH Bicarbonate Actual Total CO2 Base Excess O2 Saturation ABG pCO2 ABG pO2 Nick Test O2 Delivery Device Sodium Potassium Chloride Carbon Dioxide Anion Gap BUN Creatinine Estim Creat Clear Calc Est GFR (MDRD) Af Amer Est GFR (MDRD) Non-Af BUN/Creatinine Ratio Glucose Lactic Acid Calcium Total Bilirubin AST ALT Alkaline Phosphatase Troponin I Total Protein Albumin Globulin Albumin/Globulin Ratio Urine Color Yellow Urine Clarity Clear Urine pH 6.0 Ur Specific [place] 1.010 Urine Protein 100 H Urine Glucose (UA) Normal Urine Ketones Negative Urine Occult Blood 25 H Urine Nitrite Negative Urine Bilirubin Negative Urine Urobilinogen Normal Ur Leukocyte Esterase Negative Urine RBC 0-5 SEEN Urine WBC 0 SEEN Ur Squamous Epith Cells 0 SEEN Urine Bacteria 0 SEEN Urine Mucus 0 SEEN 11/01/20 11/01/20 11/01/20 22:40 22:40 22:45 WBC RBC Hgb Hct MCV MCH MCHC RDW Std Deviation RDW Coeff of Gume Plt Count MPV Immature Gran % (Auto) Neut % (Auto) Lymph % (Auto) [place] % (Auto) Eos % (Auto) Baso % (Auto) Absolute Neuts (auto) Absolute Lymphs (auto) Nucleated RBC % Differential Comment PT INR APTT Specimen Type ART Sample Site L Radial pH 7.47 H Bicarbonate Actual 17.9 L Total CO2 19 Base Excess -6 L O2 Saturation 96 ABG pCO2 24.8 L ABG pO2 76 Nick Test Positive O2 Delivery Device Room Air Sodium 127 L Potassium 4.2 Chloride 95 L Carbon Dioxide 22.0 Anion Gap 10 BUN 34 H Creatinine 2.76 H Estim Creat Clear Calc 32.80 Est GFR (MDRD) Af Amer 31 L Est GFR (MDRD) Non-Af 25 L BUN/Creatinine Ratio 12.3 Glucose 211 H Lactic Acid 1.6 Calcium 8.3 L Total Bilirubin 0.60 AST 18 ALT 21 Alkaline Phosphatase 79 Troponin I < 0.015 Total Protein 7.8 Albumin 2.8 L Globulin 5.0 H Albumin/Globulin Ratio 0.6 L Urine Color Urine Clarity Urine pH Ur Specific [place] Urine Protein Urine Glucose (UA) Urine Ketones Urine Occult Blood Urine Nitrite Urine Bilirubin Urine Urobilinogen Ur Leukocyte Esterase Urine RBC Urine WBC Ur Squamous Epith Cells Urine Bacteria Urine Mucus - Rhythm Strip Rhythm Strip: Sinus Tach Rate: 103 Ectopy: None - EKG Initial EKG Interpretation: Sinus Tachycardia - Sinus tachycardia at 103 bpm. SD interval of 164 ms. QTC of 440 ms. No evidence of ST elevation or depression at this time. - Medical Decision Making Patient appears ill but nontoxic. Tachycardic, tachypneic, febrile upon arrival. Normotensive without hypoxemia. Leukocytosis likely secondary to a left lower extremity cellulitis. No significant lactic acidosis. Patient was given small fluid bolus as well as Zosyn and vancomycin. Chest x-ray and urine clear. CT brain negative. CTA was considered given the patient's tachycardia as well as concern for increased respiratory rate however patient has poor kidney function. More likely cause of patient's symptoms are sepsis secondary to a left lower extremity cellulitis. Patient is confused without focal deficits secondary to metabolic encephalopathy. On reevaluation at 0 100 patient's heart rate is improving. Patient is no longer febrile. Patient will be started on maintenance fluids. Spoke with hospitalist who is agreeable with admission to the medical surgical floor. Stable at time of admission. Impression: 1. Sepsis secondary to left lower extremity cellulitis 2. Hyponatremia 3. Acute renal insufficiency 4. Chronic anemia 5. Chronic thrombocytopenia 6. Metabolic encephalopathy ED Disposition - Plan for ED Patient: Disposition: Home or Assisted Living
[2020-11-01 22:50] LABS: Allen Test Positive; Base Excess -6 mmol/L (-2 to +2); Bicarbonate 17.9 mmol/L (22-26); Blood Gas Specimen Type ART; O2 Delivery Device Room Air; PO2 76 mmHG (75-100); SITE L Radial; SO2 96 % (95-99); Total Carbon Dioxide 19 mmol/L; pCO2 24.8 mmHg (35-45); pH 7.47 (7.35-7.45)
[2020-11-01 22:53] LABS: Absolute Lymphocyte Count 0.38 X10^3/uL (0.83-4.51); Absolute Neutrophil Count 13.1 X10^3/uL (2.0-7.7); Basophil# 0.02 X10^3/uL; Basophil% 0.1 % (0-1); Hematocrit 32.6 % (40-54); Hemoglobin 10.9 g/dL (13.0-16.5); Lymphocyte # 0.38 X10^3/ul (4.0); Lymphocyte % 2.6 % (19-41); Mean Corp Hgb Conc 33.4 g/dL (32-36); Mean Corpuscular Hgb 26.9 pg (27.0-32.0); Mean Corpuscular Volume 80.5 fL (80-94); Mean Platelet Vol. 11.1 fl (6.2-12.0); Monocyte# 0.93 X10^3/uL; Monocyte% 6.4 % (0-10); NRBC Flagged by Analyzer 0 % (0-5); Neutrophil # 13.12 X10^3/uL (2.7-7.7); POSITIVE DIFFERENTIAL YES; Platelet Count 134 K/mm3 (150-450); RBC Distribution Width CV 13.6 % (11.6-14.6); RBC Distribution Width SD 39.8 fl (35.1-43.9); Red Blood Count 4.05 M/mm3 (4.6-6.2); White Blood Count 14.6 K/mm3 (4.4-11.0)
[2020-11-01 22:58] LABS: Differential Indicated SCAN CRITERIA MET
[2020-11-01 23:02] LABS: International Normalized Ratio 1.3; Partial Thromboplast Time 38.2 Seconds (24.1-36.2); Prothrombin Time (Protime)PT. 15.8 SECONDS (11.7-14.9)
[2020-11-01 23:14] LABS: ALB/GLOB Ratio 0.6 RATIO (0.9-2.4); AST(SGOT) 18 U/L (15-37); Alanine Aminotransfer ALT/SGPT 21 U/L (16-61); Albumin, Serum 2.8 g/dL (3.2-5.0); Alkaline Phosphatase 79 U/L (45-117); Anion Gap 10 (5-15); BUN 34 mg/dL (7-18); BUN/Creat Ratio 12.3 RATIO (10-20); Calcium,Total 8.3 mg/dL (8.5-10.1); Chloride 95 mmol/L (98-107); Creatinine, Serum 2.76 mg/dL (0.70-1.30); EST Glomerular Filtration Rate 25 mL/min (>60); Est Glom Filt Rate - Afr Amer 31 mL/min (>60); Glucose 211 mg/dL (74-106); Potassium 4.2 mmol/L (3.5-5.1); Protein, Total 7.8 g/dL (6.4-8.2); Sodium Level 127 mmol/L (136-145)
[2020-11-01 23:15] LABS: Lactic Acid 1.6 mmol/L (0.4-1.9)
[2020-11-01 23:19] LABS: Differential Comment SCANNED
[2020-11-01] MEDS: Acetaminophen 500 MG Tablet 1000 MG PO (23:30)
[2020-11-02] VITALS (10 sets, daily range): BP systolic 101–159; BP diastolic 45–90; PULSE 90–102; RESP 18–27; TEMP 36.6–38.3; O2SAT 95–98; BMI 45.1
[2020-11-02 00:18] LABS: Bacteria 0 SEEN /hpf (None Seen); Mucous, Urine 0 SEEN /hpf (<or=2+); Squamous Epithelial Cells - UA 0 SEEN /hpf (0-5); White Blood Cells 0 SEEN /hpf (0-5)
[2020-11-02 00:20] LABS: Color, Urine Yellow (Yellow); Glucose, Dipstick Normal (Normal); Ketone-Dipstick Negative (Negative); Leukocyte Esterase-Dipstick Negative /ul (Negative); Nitrite-Dipstick Negative (Negative); Occult Blood-Urine 25 /ul (Negative); Protein-Dipstick 100 mg/dl (Negative); Urine Bilirubin Dipstick Negative (Negative); Urine Clarity Clear (Clear); Urine Urobilinogen Normal (Normal)
[2020-11-02 00:26] LABS: Red Blood Cells-Urine 0-5 SEEN /hpf (0-5)
--- NOTE | 2020-11-02 01:17 | HP.PCM_ITS ---
Problem List (1) Sepsis Status: Acute (2) Cellulitis Status: Acute (3) Encephalopathy Status: Acute (4) Community acquired pneumonia Status: Inactive (5) Rhabdomyolysis Status: Inactive (6) Acute kidney injury Status: Acute (7) Anxiety Status: Chronic (8) Adrenal insufficiency Status: Chronic (9) Type 2 diabetes mellitus Status: Chronic (10) Hyperlipidemia Status: Chronic (11) Severe sepsis Status: Inactive (12) Schizophrenia Status: Chronic History of Present Illness Date of Admission: 11/02/20 Chief Complaint: Altered mental status The patient is a 55 year old M with a significant history of hypertension; diabetes mellitus; adrenal insufficiency; and who [facility] a [facility] presenting with confusion. Associated with his symptoms is incontinence, and left leg edema. Reportedly his respiratory rate at the [facility] he came from was 48. T-max at emergency department was 100.9F. At the ED Patient had tachycardia and tachypnea. Past Medical History Past Medical History (Chronic Problems): Chronic Problems (Last Reviewed 11/02/20 @ 04:[address] Aubrey Powell MD) Anxiety (Chronic) Adrenal insufficiency (Chronic) Type 2 diabetes mellitus (Chronic) Hyperlipidemia (Chronic) Schizophrenia (Chronic) Medical History: Medical History (Last Reviewed 11/02/20 @ 04:[address] Aubrey Powell MD) Diabetes mellitus E11.9 Allergies No Known Allergies Allergy (Verified 11/01/20 22:28) Home Medications: Ambulatory Orders Medication Instructions Recorded Acetaminophen [Tylenol] 650 mg PO Q4H PRN PRN 05/24/20 Aspirin [Aspirin, Baby] 81 mg PO DAILY@0800 05/24/20 Benztropine Mesylate 2 mg PO DAILY 05/24/20 Bisacodyl [Dulcolax] 10 mg RECTAL DAILY PRN PRN 05/24/20 Calcium (Elemental) [Os-Alfredo 500] 500 mg PO BIDCM 05/24/20 Cholecalciferol (Vitamin D3) 2,000 unit PO DAILY 05/24/20 [Vitamin D3] Ergocalciferol [Vitamin D] 50,000 unit PO Q7D 05/24/20 Escitalopram Oxalate [Lexapro] 10 mg PO DAILY 05/24/20 Famotidine [Pepcid] 20 mg PO DAILY 05/24/20 Fludrocortisone Acetate 0.2 mg PO DAILY 05/24/20 Insulin Aspart [Novolog Flexpen] 10 units SUBCUT TIDCM 05/24/20 Insulin Glargine [Lantus SoloStar 36 units SUBCUT QHS 05/24/20 Pen] Linagliptin [Tradjenta] 5 mg PO DAILY 05/24/20 Magnesium Hydroxide [Milk Of 30 ml PO DAILY PRN PRN 05/24/20 Magnesia] Simvastatin [Zocor] 10 mg PO QHS 05/24/20 Tamsulosin HCl [Flomax] 0.4 mg PO DAILY 05/24/20 Lorazepam [Ativan] 1 mg PO 0800,1700,2000 #30 tab 06/02/20 Quetiapine Fumarate [Seroquel] 200 mg PO BID #30 tab 06/02/20 Haloperidol [Haldol] 5 mg PO BID 11/02/20 Surgical History: - - Unable to obtain since patient is confused. No family by bedside and it is late night/surgical elastic knitter hand frame. Lives: [facility] Smoking Status: Never smoker Alcohol: None Drugs: None - *Family History Maternal History Items: - - Unable to obtain since patient is confused. No family by bedside and it is late night/surgical elastic knitter hand frame. Paternal History Items: - - Unable to obtain since patient is confused. No family by bedside and it is late night/surgical elastic knitter hand frame. Review of Systems Unable to obtain accurate/complete ROS d/t: confusion VTE Information - Inpt Only VTE Present on Admission: No VTE Mechan Device Prophylaxis: None VTE Pharm Prophylaxis ordered?: Yes Patient Problems: Active and Suspected Problems (Last Reviewed 11/02/20 @ 04:[address] Aubrey Powell MD) Sepsis (Acute) Cellulitis (Acute) Encephalopathy (Acute) Acute kidney injury (Acute) - Physical Exam Vitals/I&O's: Vital Signs Temp Pulse Resp BP Pulse Ox 100.9 F H 101 H 27 H 112/67 98 11/01/20 22:21 11/02/20 01:15 11/02/20 01:15 11/02/20 01:15 11/02/20 01:15 Oxygen Delivery Method Room Air Weight: 158.5 kg Body Mass Index (BMI) 47.4 Intake and Output for Last 24 Hours 10/31/20 11/01/20 11/02/20 23:59 23:59 23:59 Intake Total 600 / 600 Balance 600 / 600 General: Confused, Lethargic HEENT: Atraumatic, PERRLA, EOMI, Normocephalic Neck: Supple, No JVD, Negative Carotid Bruits Lungs: Clear to auscultation, Normal air movement Cardiovascular: Normal S1, Normal S2, No murmurs, Tachycardic Abdomen: Bowel Sounds Present, Soft, Non Tender Extremities: Capillary Refill Less than 3 Seconds, Edema - Left leg Skin: - - erythema of left leg; oozing from left leg Musculoskeletal: No Tenderness to Palpation of Joints or Extremities Neurological: Cranial nerves II-XII grossly intact, - - Confused. Does not follow commands to do cranial exams Psych/Mental Status: - - Confused Microbiology Past 72 Hours 11/01/20 22:59 Mucosa - Nose SARS-CoV-2 Antigen (Rapid) - Final Laboratory Results 11/01/20 00:05: Urine Color Yellow, Urine Clarity Clear, Urine pH 6.0, Ur Specific [place] 1.010, Urine Protein 100 H, Urine Glucose (UA) Normal, Urine Ketones Negative, Urine Occult Blood 25 H, Urine Nitrite Negative, Urine Bilirubin Negative, Urine Urobilinogen Normal, Ur Leukocyte Esterase Negative, Urine RBC 0-5 SEEN, Urine WBC 0 SEEN, Ur Squamous Epith Cells 0 SEEN, Urine Bacteria 0 SEEN, Urine Mucus 0 SEEN 11/01/20 22:40: WBC 14.6 H, RBC 4.05 L, Hgb 10.9 L, Hct 32.6 L, MCV 80.5, MCH 26.9 L, MCHC 33.4, RDW Std Deviation 39.8, RDW Coeff of Gume 13.6, Plt Count 134 L, MPV 11.1, Immature Gran % (Auto) 0.900, Neut % (Auto) 90.0 H, Lymph % (Auto) 2.6 L, [place] % (Auto) 6.4, Eos % (Auto) 0.0, Baso % (Auto) 0.1, Absolute Neuts (auto) 13.1 H, Absolute Lymphs (auto) 0.38 L, Nucleated RBC % 0, Differential Comment SCANNED 11/01/20 22:40: PT 15.8 H, INR 1.3, APTT 38.2 H 11/01/20 22:40: Sodium 127 L, Potassium 4.2, Chloride 95 L, Carbon Dioxide 22.0, Anion Gap 10, BUN 34 H, Creatinine 2.76 H, Estim Creat Clear Calc 32.80, Est GFR (MDRD) Af Amer 31 L, Est GFR (MDRD) Non-Af 25 L, BUN/Creatinine Ratio 12.3, Glucose 211 H, Calcium 8.3 L, Total Bilirubin 0.60, AST 18, ALT 21, Alkaline Phosphatase 79, Troponin I < 0.015, Total Protein 7.8, Albumin 2.8 L, Globulin 5.0 H, Albumin/Globulin Ratio 0.6 L 11/01/20 22:40: Lactic Acid 1.6 11/01/20 22:45: Specimen Type ART, Sample Site L Radial, pH 7.47 H, Bicarbonate Actual 17.9 L, Total CO2 19, Base Excess -6 L, O2 Saturation 96, ABG pCO2 24.8 L , ABG pO2 76, Nick Test Positive, O2 Delivery Device Room Air Current Medications Vancomycin HCl 1,500 mg/ (Sodium Chloride) 530 mls @ 250 mls/hr IV X1 ONE Stop: 11/02/20 01:37 Last Admin: 11/02/20 00:41 Dose: 250 mls/hr Documented by: Sodium Chloride () 1,000 mls @ 150 mls/hr IV .[id number] CATHLEEN Iopamidol (Contrast Allergy Safety Check) 0 ml IV X1 CATHLENE Assessment/Plan All Active Problems (Last Reviewed 11/02/20 @ 04:[address] Aubrey Powell MD) Sepsis (Acute) Cellulitis (Acute) Encephalopathy (Acute) Acute kidney injury (Acute) Sepsis from cellulitis. And with tachycardia; tachypnea; few of 100.9 Fahrenheit; and leukocytosis. Patient with redness; oozing from left leg and tenderness left leg. Vancomycin and Zosyn given at emergency department. Patient was admitted at our hospital on 05/24/2020 and discharged on 06/02/2020. At a time he had severe sepsis; MRSA community-acquired pneumonia; left leg cellulitis; acute kidney injury; rhabdomyolysis; encephalopathy; bradycardia/prolonged QT interval. On that admission patient was treated with IV cefazolin and vancomycin. Later he was switched to Zyvox. One bottle of blood culture revealed a bacillus species, not bacillus anthracis. Patient was discharged on oral Zyvox to complete a total of 8 days. Will order Zyvox IV. Of note patient is on a low-dose of Lexapro. Of note with Zyvox he is at risk of serotonin syndrome. Lactic acid was unremarkable Blood culture x2 is pending. Rapid Covid antigen was negative and a chest x-ray is not concerning for Covid. Urinalysis is unrevealing. Urine culture is pending; follow. On patient's last visit patient saw infectious disease. Consider infectious disease consult. Tylenol as needed. MARIA T on CKD stage III; baseline creatinine within 2.26-2.39. Creatinine presentation was 2.76. BUN over creatinine is 12.3. Gentle IV hydration Avoid nephrotoxins Trend BMP. On previous admission patient had rhabdomyolysis. On present presentation urinalysis showed urine occult blood with 0-5 RBCs. CPK ordered. Hyponatremia Likely secondary to hypovolemia IV hydration as above Trend BMP. Diabetes mellitus with hyperglycemia Patient with hyperglycemia on presentation Basal insulin continued Adjust prandial insulin. Accu-Chek q. ACH with correction scale insulin. Acute encephalopathy Likely sepsis superimposed on baseline schizophrenia and anxiety. Reportedly patient had decreased mentation at the [facility]iary. Reported patient tried getting out of bed at emergency department. On examination patient looked lethargic. De-escalate dose of Haldol and Seroquel. Treatment of sepsis as above. History of adrenal insufficiency: Florinef continued. Schizophrenia: Seroquel and Haldol as above. Continue benztropine. DVT Prophylaxis: Subcutaneous Lovenox ordered. [id number]
[2020-11-02] MEDS: 0.9% Normal Saline 1,000 ML 150 ML IV (01:48)
--- NOTE | 2020-11-02 02:17 | ED.RN ---
ESTELA IBARRA, NURSE AT [facility], CALLED AND WAS UPDATED ON PT'S ADMISSION AND BEHAVIORS. PT HAS BEEN YELLING AND ATTEMPTING TO GET OOB, THIS NURSE AND SHEYLA MACIASRN, ATTEMPTED TO ASSIST PT BACK INTO BED, PT WAS SITTING ON THE FOOT OF THE BED TRYING TO GET CLOTHES ON AND LEAVE. DR. SETH ENTERED ROOM AND FOR THE SECOND TIME TODAY, HELPED BOOST PT UP IN BED. DR. SETH TOLD THE PT TO LIE STILL IN BED AND TRY TO RELAX. PT HAS BEEN RESTING QUIETLY SINCE.
[2020-11-02] MEDS: 0.9% Normal Saline 1,000 ML 75 ML IV (04:03)
[2020-11-02 04:41] LABS: Bedside Glucose 169 mg/dL (70-110)
--- NOTE | 2020-11-02 06:04 | NURSING ---
Call placed to [facility] ([phone]) spoke with nurse on duty, Terra. She was able to verify pt was given Influenza vaccine on 09/06/20
[2020-11-02 06:27] LABS: Absolute Lymphocyte Count 0.55 X10^3/uL (0.83-4.51); Absolute Neutrophil Count 10.7 X10^3/uL (2.0-7.7); Basophil# 0.02 X10^3/uL; Basophil% 0.2 % (0-1); Hematocrit 33.4 % (40-54); Hemoglobin 10.8 g/dL (13.0-16.5); Lymphocyte # 0.55 X10^3/ul (4.0); Lymphocyte % 4.4 % (19-41); Mean Corp Hgb Conc 32.3 g/dL (32-36); Mean Corpuscular Hgb 26.3 pg (27.0-32.0); Mean Corpuscular Volume 81.3 fL (80-94); Mean Platelet Vol. 11.1 fl (6.2-12.0); Monocyte# 1.03 X10^3/uL; Monocyte% 8.3 % (0-10); NRBC Flagged by Analyzer 0 % (0-5); Neutrophil # 10.71 X10^3/uL (2.7-7.7); Neutrophil % 86.5 % (47-70); POSITIVE DIFFERENTIAL YES; Platelet Count 121 K/mm3 (150-450); RBC Distribution Width CV 13.8 % (11.6-14.6); RBC Distribution Width SD 40.4 fl (35.1-43.9); Red Blood Count 4.11 M/mm3 (4.6-6.2); White Blood Count 12.4 K/mm3 (4.4-11.0)
[2020-11-02 06:54] LABS: Differential Indicated SCAN CRITERIA MET
[2020-11-02 06:58] LABS: Anion Gap 8 (5-15); BUN 30 mg/dL (7-18); BUN/Creat Ratio 11.7 RATIO (10-20); CPK Total, Creatine Kinase 259 U/L (39-308); Calcium,Total 8.8 mg/dL (8.5-10.1); Chloride 101 mmol/L (98-107); Creatinine, Serum 2.57 mg/dL (0.70-1.30); EST Glomerular Filtration Rate 28 mL/min (>60); Est Glom Filt Rate - Afr Amer 33 mL/min (>60); Estimated Creatinine Clearance 36.27 ml/min; Glucose 155 mg/dL (74-106); Potassium 3.5 mmol/L (3.5-5.1); Sodium Level 133 mmol/L (136-145)
[2020-11-02 07:21] LABS: Bedside Glucose 136 mg/dL (70-110)
[2020-11-02] MEDS: Insulin Lispro 100 UNIT/ML INSULN.PEN 6 UNIT SC ×3 (08:07→16:33)
[2020-11-02] MEDS: Enoxaparin 40 MG/0.4 ML Syringe SC (08:08)
[2020-11-02] MEDS: Calcium (Elemental) 500 MG Tablet PO ×2 (08:08→16:33)
[2020-11-02] MEDS: LORazepam 1 MG Tablet PO ×2 (08:11→18:41)
[2020-11-02] MEDS: Linezolid 600 MG 600 MG/300 ML BAG 200 MG IV ×2 (09:23→21:58)
[2020-11-02] MEDS: QUEtiapine 100 MG Tablet PO ×2 (09:23→21:05)
[2020-11-02] MEDS: Benztropine 2 MG Tablet PO (09:23)
[2020-11-02] MEDS: Aspirin 81 MG TAB.CHEW PO (09:23)
[2020-11-02] MEDS: Tamsulosin HCl 0.4 MG Capsule PO (09:23)
[2020-11-02] MEDS: Haloperidol 5 MG Tablet 2.5 MG PO ×2 (09:23→21:04)
[2020-11-02] MEDS: Escitalopram Oxalate 10 MG Tablet PO (09:23)
[2020-11-02] MEDS: Fludrocortisone Acetate 0.1 MG Tablet 0.2 MG PO (09:23)
[2020-11-02] MEDS: Famotidine 20 MG Tablet PO (09:24)
[2020-11-02] MEDS: LINAGLIPTIN 5 MG TABLET PO (09:27)
--- NOTE | 2020-11-02 09:39 | CASEMGMT ---
Addendum entered by Josefina Espinoza 11/02/20 17:45: SW faxed updated clinicals to [facility]. SW never heard back from [facility]. MARIJA will follow up with [facility] tomorrow. Addendum entered by Josefina Espinoza 11/02/20 09:52: SW received call from [facility] stating pt will likely have to go to their sister facility [facility] for 14 days of isolation and then return to [facility]. Staff have already talked to pt's father regarding this. Staff states they are waiting for call back from [facility] to confirm if they will be able to accept pt. Pt will need pre-cert to admit to [facility]. SW waiting for call back. Josefina RAE, DELVIN Original Note: Social Work Note Pt is listed as being from [facility]. MARIJA placed a call to [facility], left message for admissions regarding pt. SW waiting for call back. Josefina RAE, TIE CUTTER
--- NOTE | 2020-11-02 11:17 | NURSING ---
skin photo: left lower leg
[2020-11-02] MEDS: Insulin Lispro 100 UNIT/ML INSULN.PEN SC ×3 (11:54→21:08)
[2020-11-02 12:01] LABS: Bedside Glucose 202 mg/dL (70-110)
--- NOTE | 2020-11-02 13:33 | PCM.PN.HOSP ---
Patient Problems: Active and Suspected Problems (Last Reviewed 11/02/20 @ 04:[address] Aubrey Powell MD) Sepsis (Acute) Cellulitis (Acute) Encephalopathy (Acute) Acute kidney injury (Acute) Reason for Visit: cellulitis Subjective: confusion today. Vitals/I&O's: Vital Signs Temp Pulse Resp BP Pulse Ox 38.2 C H 101 H 18 126/67 H 98 11/02/20 09:20 11/02/20 09:20 11/02/20 09:20 11/02/20 09:20 11/02/20 09:20 Oxygen Delivery Method Room Air Weight: 155.219 kg Body Mass Index (BMI) 45.1 Intake and Output for Last 24 Hours 10/31/20 11/01/20 11/02/20 23:59 23:59 23:59 Intake Total 3017.25 / 3017.25 Output Total 1350 / 1350 Balance 1667.25 / 1667.25 General: Alert, No apparent distress HEENT: Atraumatic, Normocephalic Oral: Moist Mucosa, No Gingival or Mucosal Lesions/ Ulcerations Neck: No Nodes, Thyroid Normal Size and Texture Lungs: Clear to auscultation, Normal air movement, No rhonchi, No wheeze, No rales Cardiovascular: Regular rate, Regular Rhythm, Normal S1, Normal S2 Abdomen: Bowel Sounds Present, Soft, Non Tender, Non-Distended, No Hepato-splenomegaly Extremities: - Skin: No rashes, No breakdown Psych/Mental Status: Normal Affect, Appropriate Microbiology Past 72 Hours 11/01/20 22:59 Mucosa - Nose SARS-CoV-2 Antigen (Rapid) - Final Laboratory Results 11/01/20 00:05: Urine Color Yellow, Urine Clarity Clear, Urine pH 6.0, Ur Specific [place] 1.010, Urine Protein 100 H, Urine Glucose (UA) Normal, Urine Ketones Negative, Urine Occult Blood 25 H, Urine Nitrite Negative, Urine Bilirubin Negative, Urine Urobilinogen Normal, Ur Leukocyte Esterase Negative, Urine RBC 0-5 SEEN, Urine WBC 0 SEEN, Ur Squamous Epith Cells 0 SEEN, Urine Bacteria 0 SEEN, Urine Mucus 0 SEEN 11/01/20 22:40: WBC 14.6 H, RBC 4.05 L, Hgb 10.9 L, Hct 32.6 L, MCV 80.5, MCH 26.9 L, MCHC 33.4, RDW Std Deviation 39.8, RDW Coeff of Gume 13.6, Plt Count 134 L, MPV 11.1, Immature Gran % (Auto) 0.900, Neut % (Auto) 90.0 H, Lymph % (Auto) 2.6 L, [place] % (Auto) 6.4, Eos % (Auto) 0.0, Baso % (Auto) 0.1, Absolute Neuts (auto) 13.1 H, Absolute Lymphs (auto) 0.38 L, Nucleated RBC % 0, Differential Comment SCANNED 11/01/20 22:40: PT 15.8 H, INR 1.3, APTT 38.2 H 11/01/20 22:40: Sodium 127 L, Potassium 4.2, Chloride 95 L, Carbon Dioxide 22.0, Anion Gap 10, BUN 34 H, Creatinine 2.76 H, Estim Creat Clear Calc 32.80, Est GFR (MDRD) Af Amer 31 L, Est GFR (MDRD) Non-Af 25 L, BUN/Creatinine Ratio 12.3, Glucose 211 H, Calcium 8.3 L, Total Bilirubin 0.60, AST 18, ALT 21, Alkaline Phosphatase 79, Troponin I < 0.015, Total Protein 7.8, Albumin 2.8 L, Globulin 5.0 H, Albumin/Globulin Ratio 0.6 L 11/01/20 22:40: Lactic Acid 1.6 11/01/20 22:45: Specimen Type ART, Sample Site L Radial, pH 7.47 H, Bicarbonate Actual 17.9 L, Total CO2 19, Base Excess -6 L, O2 Saturation 96, ABG pCO2 24.8 L, ABG pO2 76, Nick Test Positive, O2 Delivery Device Room Air 11/02/20 04:32: POC Glucose 169 H 11/02/20 05:47: WBC 12.4 H, RBC 4.11 L, Hgb 10.8 L, Hct 33.4 L, MCV 81.3, MCH 26.3 L, MCHC 32.3, RDW Std Deviation 40.4, RDW Coeff of Gume 13.8, Plt Count 121 L, MPV 11.1, Immature Gran % (Auto) 0.600, Neut % (Auto) 86.5 H, Lymph % (Auto) 4.4 L, [place] % (Auto) 8.3, Eos % (Auto) 0.0, Baso % (Auto) 0.2, Absolute Neuts (auto) 10.7 H, Absolute Lymphs (auto) 0.55 L, Nucleated RBC % 0 11/02/20 05:47: Sodium 133 L, Potassium 3.5, Chloride 101, Carbon Dioxide 24.0, Anion Gap 8, BUN 30 H, Creatinine 2.57 H, Estim Creat Clear Calc 36.27, Est GFR (MDRD) Af Amer 33 L, Est GFR (MDRD) Non-Af 28 L, BUN/Creatinine Ratio 11.7, Glucose 155 H, Calcium 8.8, Total Creatine Kinase 259 11/02/20 07:12: POC Glucose 136 H 11/02/20 11:51: POC Glucose 202 H Current Medications Acetaminophen (Acetaminophen 325 Mg Tablet) 650 mg PO Q6H PRN PRN PRN Reason: Pain Score 1-10/Temp > 100.7 F Aspirin (Aspirin 81 Mg Tab.Chew) 81 mg PO DAILY [facility] Last Admin: 11/02/20 09:23 Dose: 81 mg Documented by: Atorvastatin Calcium (Atorvastatin Calcium 10 Mg Tablet) 5 mg PO QHS [facility] Benztropine Mesylate (Benztropine 2 Mg Tablet) 2 mg PO DAILY [facility] Last Admin: 11/02/20 09:23 Dose: 2 mg Documented by: Bisacodyl (Bisacodyl 10 Mg Suppository) 10 mg RECTAL DAILY PRN PRN PRN Reason: Constipation Calcium Carbonate (Calcium (Elemental) 500 Mg Tablet) 500 mg PO BIDCM [facility] Last Admin: 11/02/20 08:08 Dose: 500 mg Documented by: Dextrose (Dextrose 50%-Water 25 Gm/50 Ml Disp.Syrin) 0 gm IV X1 PRN; Protocol PRN Reason: Hypoglycemia Enoxaparin Sodium (Enoxaparin 40 Mg/0.4 Ml Syringe) 40 mg SC DAILY [facility] Last Admin: 11/02/20 08:08 Dose: 40 mg Documented by: Ergocalciferol (Ergocalciferol 50,000 Unit Capsule) 50,000 unit PO Q7D [facility] Escitalopram Oxalate (Escitalopram Oxalate 10 Mg Tablet) 10 mg PO DAILY [facility] Last Admin: 11/02/20 09:23 Dose: 10 mg Documented by: Famotidine (Famotidine 20 Mg Tablet) 20 mg PO DAILY [facility] Last Admin: 11/02/20 09:24 Dose: 20 mg Documented by: Fludrocortisone Acetate (Fludrocortisone Acetate 0.1 Mg Tablet) 0.2 mg PO DAILY [facility] Last Admin: 11/02/20 09:23 Dose: 0.2 mg Documented by: Glucagon (Glucagon 1 Mg/Ml Syringe) 1 mg IM .X1 PRN PRN Reason: Hypoglycemia Haloperidol (Haloperidol 5 Mg Tablet) 2.5 mg PO BID [facility] Last Admin: 11/02/20 09:23 Dose: 2.5 mg Documented by: Sodium Chloride () 1,000 mls @ 75 mls/hr IV .[id number] [facility] Stop: 11/02/20 14:54 Last Infusion: 11/02/20 10:53 Dose: 75 mls/hr Documented by: Piperacillin Sod/Tazobactam (Sod 3.375 gm/ Sodium Chloride) 50 mls @ 12.5 mls/hr IV Q12 [facility] Last Admin: 11/02/20 10:44 Dose: 12.5 mls/hr Documented by: Linezolid (Zyvox 600mg) 600 mg in 300 mls @ 200 mls/hr IV Q12 [facility] Last Infusion: 11/02/20 10:53 Dose: Infused Documented by: Sodium Chloride () 250 mls @ 15 mls/hr IV .[id number] PRN PRN Reason: Saline Flush Last Infusion: 11/02/20 10:46 Dose: 0 mls/hr Documented by: Insulin Glargine (Insulin Glargine 100 Units/Ml Pen) 36 units SC QHS [facility] Insulin Human Lispro (Insulin Lispro 100 Unit/Ml Insuln.Pen) 6 unit SC 0800,1200,1700 [facility] Last Admin: 11/02/20 11:54 Dose: 6 units Documented by: Insulin Human Lispro (Insulin Lispro 100 Unit/Ml Insuln.Pen) 0 unit SC ACHS [facility]; Protocol Last Admin: 11/02/20 11:54 Dose: 4 units Documented by: Linagliptin (Linagliptin 5 Mg Tablet) 5 mg PO DAILY [facility] Last Admin: 11/02/20 09:27 Dose: 5 mg Documented by: Lorazepam (Lorazepam 1 Mg Tablet) 1 mg PO BID [facility] Magnesium Hydroxide (Magnesium Hydroxide 30 Ml Udc) 30 ml PO DAILY PRN PRN PRN Reason: Constipation Ondansetron HCl (Ondansetron 4 Mg/2 Ml Vial) 4 mg IV Q8H PRN PRN PRN Reason: NAUSEA/VOMITING Quetiapine Fumarate (Quetiapine 100 Mg Tablet) 100 mg PO BID [facility] Last Admin: 11/02/20 09:23 Dose: 100 mg Documented by: Sodium Chloride (0.9% Saline Lock 10 Ml Syringe) 10 - 40 ml IV UD PRN PRN Reason: SALINE FLUSH Tamsulosin HCl (Tamsulosin Hcl 0.4 Mg Capsule) 0.4 mg PO DAILY [facility] Last Admin: 11/02/20 09:23 Dose: 0.4 mg Documented by: Medical Necessity - Tobacco Use Smoking Status: Never smoker Tobacco Use: Non-smoker Assessment/Plan All Active Problems (Last Reviewed 11/02/20 @ 04:[address] Aubrey Powell MD) Sepsis (Acute) Cellulitis (Acute) Encephalopathy (Acute) Acute kidney injury (Acute) 1. LLE cellulitis on pip/tazo and linezolid likely 2/2 excoriation unlikely to be gram negative, so will dc pip/tazo 2. MARIA T: ruled out, no further work up. at baseline CKD 4 3. schizophrenia: unknown baseline, but pt reorientable. decrease lorazepam to BID from TID. 4. VTE prophylaxis: LMWH Procedures: Other Procedure - See Report - non billable rounding as pt seen after midnight.
[2020-11-02] MEDS: Acetaminophen 325 MG Tablet 650 MG PO (14:27)
[2020-11-02 16:40] LABS: Bedside Glucose 272 mg/dL (70-110)
[2020-11-02] MEDS: Atorvastatin Calcium 10 MG Tablet 5 MG PO (21:05)
[2020-11-02 21:15] LABS: Bedside Glucose 180 mg/dL (70-110)
--- NOTE | 2020-11-02 22:27 | CT_ITS ---
HISTORY: CONFUSION,LT LEG CELLULITIS,PT UNABLE TO HOLD STILL HX:DIABETES,,SCHIZOPHRENIA EXAMINATION: CT Head or Brain W/O Contrast Injection TECHNIQUE: Multiple axial images were obtained of the brain without intravenous contrast. A radiation dose optimization technique was used for this scan. IV Contrast dosage and agent: 05/28/2020 COMPARISON: FINDINGS: Mild motion artifact and overall improved exam with less motion artifact than prior. Normal ventricles. No intracranial mass, hemorrhage, or acute parenchymal abnormality. Posterior fossa structures are unremarkable. No suspicious extra-axial fluid collection. The calvarium appears intact. As visualized, the mastoids and paranasal sinuses are clear. CT/Brain/Head without Contrast IMPRESSION: Negative exam. No intracranial hemorrhage or acute intracranial disease identified. Individualized dose optimization techniques were used for this CT. at 0120 Reported and signed by: Stephen Mcbride MD Electronically Signed: Stephen Mcbride, at 1:19 EST Tel , Service support ,
[2020-11-03 02:08] VITALS: BP 127/57; PULSE 89; RESP 20; TEMP 37.9; O2SAT 97
[2020-11-03 08:01] LABS: Bedside Glucose 115 mg/dL (70-110)
--- NOTE | 2020-11-03 08:51 | CASEMGMT ---
Addendum entered by Josefina Espinoza 11/03/20 15:25: MARIJA faxed updated clinicals to [facility]. Addendum entered by Josefina Espinoza 11/03/20 10:11: MARIJA received call from Sandra at [facility] stating pt will be returning to [facility]. Sandra states all the other facilities she has tried to get pt at for isolation all have COVID and doesn't feel comfortable with pt isolating at a facility with COVID. Sandra states pt doesn't need pre-cert to return, can return when medically cleared. MARIJA updated Sandra pt is not medically ready for discharge today. Plan: Return to [facility] once medically cleared Original Note: Social Work Note MARIJA placed a call to [facility], requested to speak with Sweta in admissions. Sweta not available. MARIJA asked for Sweta to call this worker back to confirm which facility pt will be discharged to. Josefina Espinoza FLOWER STRIPPER, SERVICE STATION MANAGER
--- NOTE | 2020-11-03 08:52 | NURSING ---
Spoke with patients father, Alon. Pt is ok to be listed in the directory. Registration notified.
[2020-11-03 09:47] VITALS: O2SAT 96
[2020-11-03 10:00] VITALS: BP 123/62; PULSE 98; RESP 18; TEMP 37.2; O2SAT 99
[2020-11-03] MEDS: Linezolid 600 MG 600 MG/300 ML BAG 200 MG IV ×2 (10:19→22:42)
[2020-11-03] MEDS: 0.9% Saline Lock 10 ML Syringe IV ×3 (10:19→22:42)
[2020-11-03] MEDS: Haloperidol 5 MG Tablet 2.5 MG PO ×2 (10:31→22:41)
[2020-11-03] MEDS: LINAGLIPTIN 5 MG TABLET PO (10:31)
[2020-11-03] MEDS: Tamsulosin HCl 0.4 MG Capsule PO (10:31)
[2020-11-03] MEDS: LORazepam 1 MG Tablet PO ×2 (10:31→22:41)
[2020-11-03] MEDS: QUEtiapine 100 MG Tablet PO ×2 (10:31→22:41)
[2020-11-03] MEDS: Famotidine 20 MG Tablet PO (10:32)
[2020-11-03] MEDS: Fludrocortisone Acetate 0.1 MG Tablet 0.2 MG PO (10:32)
[2020-11-03] MEDS: Benztropine 2 MG Tablet PO (10:32)
[2020-11-03] MEDS: Escitalopram Oxalate 10 MG Tablet PO (10:32)
[2020-11-03] MEDS: Calcium (Elemental) 500 MG Tablet PO ×2 (10:32→16:49)
[2020-11-03] MEDS: Aspirin 81 MG TAB.CHEW PO (10:32)
[2020-11-03] MEDS: Enoxaparin 40 MG/0.4 ML Syringe SC (10:33)
[2020-11-03] MEDS: Insulin Lispro 100 UNIT/ML INSULN.PEN 6 UNIT SC ×3 (10:33→16:48)
[2020-11-03] MEDS: Insulin Lispro 100 UNIT/ML INSULN.PEN SC ×3 (11:51→22:40)
[2020-11-03 12:01] LABS: Bedside Glucose 199 mg/dL (70-110)
--- NOTE | 2020-11-03 14:34 | PCM.PN.HOSP ---
Patient Problems: Active and Suspected Problems (Last Reviewed 11/02/20 @ 04:[address] Aubrey Powell MD) Sepsis (Acute) Cellulitis (Acute) Encephalopathy (Acute) Acute kidney injury (Acute) Reason for Visit: cellulitis Subjective: Patient declining to keep his legs down. Vitals/I&O's: Vital Signs Temp Pulse Resp BP Pulse Ox 37.9 C H 89 20 H 127/57 H 96 11/03/20 02:08 11/03/20 02:08 11/03/20 02:08 11/03/20 02:08 11/03/20 09:47 Oxygen Delivery Method Room Air Weight: 155.2 kg Body Mass Index (BMI) 45.1 Intake and Output for Last 24 Hours 11/01/20 11/02/20 11/03/20 23:59 23:59 23:59 Intake Total 4549.75 / 4549.75 300 / 300 Output Total 2150 / 2150 900 / 900 Balance 2399.75 / 2399.75 -600 / -600 General: Alert, No apparent distress HEENT: Atraumatic, Normocephalic Oral: Moist Mucosa, No Gingival or Mucosal Lesions/ Ulcerations Neck: No Nodes, Thyroid Normal Size and Texture Lungs: Clear to auscultation, Normal air movement, No rhonchi, No wheeze, No rales Cardiovascular: Regular rate, Regular Rhythm, Normal S1, Normal S2, No murmurs Abdomen: Bowel Sounds Present, Soft, Non Tender, Non-Distended, No Hepato-splenomegaly Extremities: - - leg wrapped--did not remove Microbiology Past 72 Hours 11/01/20 00:05 Urine, Catheterized Urine Culture - Preliminary Culture exhibits no growth. 11/01/20 22:40 Blood Culture (Wb) - Anticubital Right Blood Culture - Preliminary Coag Negative Staph 11/01/20 22:59 Mucosa - Nose SARS-CoV-2 Antigen (Rapid) - Final Laboratory Results 11/02/20 16:32: POC Glucose 272 H 11/02/20 21:07: POC Glucose 180 H 11/03/20 07:53: POC Glucose 115 H 11/03/20 11:39: POC Glucose 199 H Current Medications Acetaminophen (Acetaminophen 325 Mg Tablet) 650 mg PO Q6H PRN PRN PRN Reason: Pain Score 1-10/Temp > 100.7 F Last Admin: 11/02/20 14:27 Dose: 650 mg Documented by: Aspirin (Aspirin 81 Mg Tab.Chew) 81 mg PO DAILY [facility] Last Admin: 11/03/20 10:32 Dose: 81 mg Documented by: Atorvastatin Calcium (Atorvastatin Calcium 10 Mg Tablet) 5 mg PO QHS [facility] Last Admin: 11/02/20 21:05 Dose: 5 mg Documented by: Benztropine Mesylate (Benztropine 2 Mg Tablet) 2 mg PO DAILY [facility] Last Admin: 11/03/20 10:32 Dose: 2 mg Documented by: Bisacodyl (Bisacodyl 10 Mg Suppository) 10 mg RECTAL DAILY PRN PRN PRN Reason: Constipation Calcium Carbonate (Calcium (Elemental) 500 Mg Tablet) 500 mg PO BIDCM [facility] Last Admin: 11/03/20 10:32 Dose: 500 mg Documented by: Dextrose (Dextrose 50%-Water 25 Gm/50 Ml Disp.Syrin) 0 gm IV X1 PRN; Protocol PRN Reason: Hypoglycemia Enoxaparin Sodium (Enoxaparin 40 Mg/0.4 Ml Syringe) 40 mg SC DAILY [facility] Last Admin: 11/03/20 10:33 Dose: 40 mg Documented by: Ergocalciferol (Ergocalciferol 50,000 Unit Capsule) 50,000 unit PO Q7D [facility] Escitalopram Oxalate (Escitalopram Oxalate 10 Mg Tablet) 10 mg PO DAILY [facility] Last Admin: 11/03/20 10:32 Dose: 10 mg Documented by: Famotidine (Famotidine 20 Mg Tablet) 20 mg PO DAILY [facility] Last Admin: 11/03/20 10:32 Dose: 20 mg Documented by: Fludrocortisone Acetate (Fludrocortisone Acetate 0.1 Mg Tablet) 0.2 mg PO DAILY [facility] Last Admin: 11/03/20 10:32 Dose: 0.2 mg Documented by: Glucagon (Glucagon 1 Mg/Ml Syringe) 1 mg IM .X1 PRN PRN Reason: Hypoglycemia Haloperidol (Haloperidol 5 Mg Tablet) 2.5 mg PO BID [facility] Last Admin: 11/03/20 10:31 Dose: 2.5 mg Documented by: Linezolid (Zyvox 600mg) 600 mg in 300 mls @ 200 mls/hr IV Q12 [facility] Last Infusion: 11/03/20 11:49 Dose: Infused Documented by: Sodium Chloride () 250 mls @ 15 mls/hr IV .[id number] PRN PRN Reason: Saline Flush Last Infusion: 11/02/20 16:13 Dose: 0 mls/hr Documented by: Insulin Glargine (Insulin Glargine 100 Units/Ml Pen) 36 units SC QHS [facility] Last Admin: 11/02/20 21:09 Dose: 36 u Documented by: Insulin Human Lispro (Insulin Lispro 100 Unit/Ml Insuln.Pen) 6 unit SC 0800,1200,1700 [facility] Last Admin: 11/03/20 12:00 Dose: 6 units Documented by: Insulin Human Lispro (Insulin Lispro 100 Unit/Ml Insuln.Pen) 0 unit SC ACHS [facility]; Protocol Last Admin: 11/03/20 11:51 Dose: 2 units Documented by: Linagliptin (Linagliptin 5 Mg Tablet) 5 mg PO DAILY [facility] Last Admin: 11/03/20 10:31 Dose: 5 mg Documented by: Lorazepam (Lorazepam 1 Mg Tablet) 1 mg PO BID [facility] Last Admin: 11/03/20 10:31 Dose: 1 mg Documented by: Magnesium Hydroxide (Magnesium Hydroxide 30 Ml Udc) 30 ml PO DAILY PRN PRN PRN Reason: Constipation Ondansetron HCl (Ondansetron 4 Mg/2 Ml Vial) 4 mg IV Q8H PRN PRN PRN Reason: NAUSEA/VOMITING Quetiapine Fumarate (Quetiapine 100 Mg Tablet) 100 mg PO BID [facility] Last Admin: 11/03/20 10:31 Dose: 100 mg Documented by: Sodium Chloride (0.9% Saline Lock 10 Ml Syringe) 10 - 40 ml IV UD PRN PRN Reason: SALINE FLUSH Last Admin: 11/03/20 11:51 Dose: 10 ml Documented by: Tamsulosin HCl (Tamsulosin Hcl 0.4 Mg Capsule) 0.4 mg PO DAILY [facility] Last Admin: 11/03/20 10:31 Dose: 0.4 mg Documented by: Medical Necessity - Tobacco Use Smoking Status: Never smoker Tobacco Use: Non-smoker Assessment/Plan All Active Problems (Last Reviewed 11/02/20 @ 04:[address] Aubrey Powell MD) Sepsis (Acute) Cellulitis (Acute) Encephalopathy (Acute) Acute kidney injury (Acute) 1. LLE cellulitis on pip/tazo and linezolid likely 2/2 excoriation unlikely to be gram negative, so will dc pip/tazo DW wound RN, appeared more red, though patient not keeping his legs down monitor another night prior to DC. 2. MARIA T: ruled out, no further work up. at baseline CKD 4 3. schizophrenia: unknown baseline, but pt reorientable. decrease lorazepam to BID from TID. 4. VTE prophylaxis: LMWH 5. 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 No further merrill. Inpatient E&M: 65914 Subs Hosp L2
[2020-11-03 17:00] VITALS: BP 138/67; PULSE 88; RESP 16; TEMP 36.4; O2SAT 99
[2020-11-03 17:00] LABS: Bedside Glucose 152 mg/dL (70-110)
[2020-11-03 22:32] VITALS: BP 107/52; PULSE 77; RESP 16; TEMP 36.9; O2SAT 99
[2020-11-03] MEDS: Atorvastatin Calcium 10 MG Tablet 5 MG PO (22:40)
[2020-11-03 23:10] LABS: Bedside Glucose 153 mg/dL (70-110)
[2020-11-04 05:04] VITALS: BP 126/68; PULSE 71; RESP 18; TEMP 36.6; O2SAT 98
[2020-11-04 06:55] LABS: Bedside Glucose 93 mg/dL (70-110)
[2020-11-04 06:57] VITALS: O2SAT 97
--- NOTE | 2020-11-04 09:02 | PCM.TXEXTCAR ---
- Diet 11/02/20 15:23 Diet: Cardiac: Calorie-Controlled Food consistency:: Regular Liquid Consistency:: Regular/Thin Dietary Modifications:: Sodium Restricted Consistent Carbohydrate How many daily calories?: 2200 calorie - Routine Orders/Code Status Enema Type: Fleetz Routine Lab Work: CBC, BMP Code Status: Full Code - Wound(s) LLE Wound Type: superficial scratches and dry cracked areas Dressing Change: Adaptic - Therapies Weight Bearing: Full weight bearing - Allergies/Procedures Done in Hospital Allergies/Adverse Reactions: Allergies No Known Allergies Allergy (Verified 11/01/20 22:28) Procedures: None - Type of Care/Length of Stay Estimated LOS: More Than 30 Days Type of Care Needed: Skilled Nursing/Assisted Living Rehab Potential: Fair Prognosis: Good - Additional Orders/Day of Discharge H&P will serve as current which was dated: 11/02/20 Day of Discharge: 11/04/20 - Dietary and Speech Recommendations Dietitian Recommendations/Changes: Will change diet to 2200 calorie; carbohydrate-controlled; cardiac/sodium-restricted---will monitor need to restrict protein as indicated. - Follow Up Care Primary Care Physician: Alonso Ramos MD [Primary Care Provider] - Within 1 Week
--- NOTE | 2020-11-04 09:04 | PCM.DC.SUM ---
Discharge Date and Diagnosis - Problem List Patient Problems: Active and Suspected Problems (Last Reviewed 11/02/20 @ 04:[address] Aubrey Powell MD) Sepsis (Acute) Cellulitis (Acute) Encephalopathy (Acute) Acute kidney injury (Acute) Date of Admission: 11/02/20 Date of Discharge: 11/04/20 - Primary Discharge Diagnosis Acute Problems: Active Problems (Last Reviewed 11/02/20 @ 04:[address] Aubrey Powell MD) Sepsis (Acute) Cellulitis (Acute) Encephalopathy (Acute) Acute kidney injury (Acute) - Secondary Discharge Diagnosis Chronic Problems: Chronic Problems (Last Reviewed 11/02/20 @ 04:[address] Aubrey Powell MD) Anxiety (Chronic) Adrenal insufficiency (Chronic) Type 2 diabetes mellitus (Chronic) Hyperlipidemia (Chronic) Schizophrenia (Chronic) Hospital Course and Treatment Consultations 11/02/20 05:40 Consult: Onc/Wound/bid clerk Routine Comment: Operations: None Procedures: None Summary of Care Provided: The patient is a 55 year old M presents with a left lower extremity cellulitis. Patient started on broad-spectrum antibiotics with linezolid and Zosyn. Given that this was likely gram-positive the Zosyn was discontinued. Patient did have improvement though he did not keep his legs down the redness persisted. Anton that patient developed cellulitis due to scratching his legs as he had obvious excoriations. Patient overall improved and will be discharged with Bactrim upon discharge complete a week course of antibiotics. Patient did have some agitation but was never combative during this hospitalization. Is my recommendation at the patient's lorazepam being weaned to off over the coming weeks and have made recommendations in the discharge MAR.. The lorazepam should be used strictly as needed. [] Patient Problems: Active and Suspected Problems (Last Reviewed 11/02/20 @ 04:[address] Aubrey Powell MD) Sepsis (Acute) Cellulitis (Acute) Encephalopathy (Acute) Acute kidney injury (Acute) - Physical Exam Vitals/I&O's: Vital Signs Temp Pulse Resp BP Pulse Ox 36.6 C 71 18 126/68 H 97 11/04/20 05:04 11/04/20 05:04 11/04/20 05:04 11/04/20 05:04 11/04/20 06:57 Oxygen Delivery Method Room Air Weight: 155.2 kg Body Mass Index (BMI) 45.1 Intake and Output for Last 24 Hours 11/02/20 11/03/20 11/04/20 23:59 23:59 23:59 Intake Total 4549.75 / 4549.75 300 / 300 1000 / 1000 Output Total 2150 / 2150 1500 / 1500 Balance 2399.75 / 2399.75 -1200 / -1200 1000 / 1000 General: Alert, Cooperative, No apparent distress HEENT: Atraumatic, Normocephalic Oral: Moist Mucosa, No Gingival or Mucosal Lesions/ Ulcerations Extremities: - - Resolving erythema of the left lower extremity. Microbiology Past 72 Hours 11/01/20 22:40 Blood Culture (Wb) - Anticubital Right Blood Culture - Preliminary Coag Negative Staph 11/01/20 23:27 Blood Culture (Wb) - Right Forearm Blood Culture - Preliminary No growth in 48 hours. 11/01/20 00:05 Urine, Catheterized Urine Culture - Preliminary Culture exhibits no growth. 11/01/20 22:59 Mucosa - Nose SARS-CoV-2 Antigen (Rapid) - Final Laboratory Results 11/03/20 11:39: POC Glucose 199 H 11/03/20 16:47: POC Glucose 152 H 11/03/20 22:39: POC Glucose 153 H 11/04/20 06:52: POC Glucose 93 Current Medications Acetaminophen (Acetaminophen 325 Mg Tablet) 650 mg PO Q6H PRN PRN PRN Reason: Pain Score 1-10/Temp > 100.7 F Last Admin: 11/02/20 14:27 Dose: 650 mg Documented by: Aspirin (Aspirin 81 Mg Tab.Chew) 81 mg PO DAILY [facility] Last Admin: 11/03/20 10:32 Dose: 81 mg Documented by: Atorvastatin Calcium (Atorvastatin Calcium 10 Mg Tablet) 5 mg PO QHS [facility] Last Admin: 11/03/20 22:40 Dose: 5 mg Documented by: Benztropine Mesylate (Benztropine 2 Mg Tablet) 2 mg PO DAILY [facility] Last Admin: 11/03/20 10:32 Dose: 2 mg Documented by: Bisacodyl (Bisacodyl 10 Mg Suppository) 10 mg RECTAL DAILY PRN PRN PRN Reason: Constipation Calcium Carbonate (Calcium (Elemental) 500 Mg Tablet) 500 mg PO BIDCM [facility] Last Admin: 11/03/20 16:49 Dose: 500 mg Documented by: Dextrose (Dextrose 50%-Water 25 Gm/50 Ml Disp.Syrin) 0 gm IV X1 PRN; Protocol PRN Reason: Hypoglycemia Enoxaparin Sodium (Enoxaparin 40 Mg/0.4 Ml Syringe) 40 mg SC DAILY [facility] Last Admin: 11/03/20 10:33 Dose: 40 mg Documented by: Ergocalciferol (Ergocalciferol 50,000 Unit Capsule) 50,000 unit PO Q7D [facility] Escitalopram Oxalate (Escitalopram Oxalate 10 Mg Tablet) 10 mg PO DAILY [facility] Last Admin: 11/03/20 10:32 Dose: 10 mg Documented by: Famotidine (Famotidine 20 Mg Tablet) 20 mg PO DAILY [facility] Last Admin: 11/03/20 10:32 Dose: 20 mg Documented by: Fludrocortisone Acetate (Fludrocortisone Acetate 0.1 Mg Tablet) 0.2 mg PO DAILY [facility] Last Admin: 11/03/20 10:32 Dose: 0.2 mg Documented by: Glucagon (Glucagon 1 Mg/Ml Syringe) 1 mg IM .X1 PRN PRN Reason: Hypoglycemia Haloperidol (Haloperidol 5 Mg Tablet) 2.5 mg PO BID [facility] Last Admin: 11/03/20 22:41 Dose: 2.5 mg Documented by: Linezolid (Zyvox 600mg) 600 mg in 300 mls @ 200 mls/hr IV Q12 [facility] Last Infusion: 11/04/20 01:28 Dose: Infused Documented by: Sodium Chloride () 250 mls @ 15 mls/hr IV .[id number] PRN PRN Reason: Saline Flush Last Infusion: 11/02/20 16:13 Dose: 0 mls/hr Documented by: Insulin Glargine (Insulin Glargine 100 Units/Ml Pen) 36 units SC QHS [facility] Last Admin: 11/03/20 22:40 Dose: 36 u Documented by: Insulin Human Lispro (Insulin Lispro 100 Unit/Ml Insuln.Pen) 6 unit SC 0800,1200,1700 [facility] Last Admin: 11/03/20 16:48 Dose: 6 units Documented by: Insulin Human Lispro (Insulin Lispro 100 Unit/Ml Insuln.Pen) 0 unit SC ACHS [facility]; Protocol Last Admin: 11/03/20 22:40 Dose: 2 units Documented by: Linagliptin (Linagliptin 5 Mg Tablet) 5 mg PO DAILY [facility] Last Admin: 11/03/20 10:31 Dose: 5 mg Documented by: Lorazepam (Lorazepam 1 Mg Tablet) 1 mg PO BID [facility] Last Admin: 11/03/20 22:41 Dose: 1 mg Documented by: Magnesium Hydroxide (Magnesium Hydroxide 30 Ml Udc) 30 ml PO DAILY PRN PRN PRN Reason: Constipation Ondansetron HCl (Ondansetron 4 Mg/2 Ml Vial) 4 mg IV Q8H PRN PRN PRN Reason: NAUSEA/VOMITING Quetiapine Fumarate (Quetiapine 100 Mg Tablet) 100 mg PO BID [facility] Last Admin: 11/03/20 22:41 Dose: 100 mg Documented by: Sodium Chloride (0.9% Saline Lock 10 Ml Syringe) 10 - 40 ml IV UD PRN PRN Reason: SALINE FLUSH Last Admin: 11/03/20 22:42 Dose: 10 ml Documented by: Tamsulosin HCl (Tamsulosin Hcl 0.4 Mg Capsule) 0.4 mg PO DAILY [facility] Last Admin: 11/03/20 10:31 Dose: 0.4 mg Documented by: Discharge Diet: No Restrictions Discharge Activity: Return to Normal Activity Home Medications: Medications to take at Discharge Acetaminophen [Tylenol] 650 mg PO Q4H PRN PRN 05/24/20 Aspirin [Aspirin, Baby] 81 mg PO DAILY@0800 05/24/20 Benztropine Mesylate 2 mg PO DAILY 05/24/20 Bisacodyl [Dulcolax] 10 mg RECTAL DAILY PRN PRN 05/24/20 Calcium (Elemental) [Os-Alfredo 500] 500 mg PO BID 05/24/20 Cholecalciferol (Vitamin D3) [Vitamin D3] 2,000 unit PO DAILY 05/24/20 Ergocalciferol [Vitamin D] 50,000 unit PO Q7D 05/24/20 Escitalopram Oxalate [Lexapro] 10 mg PO DAILY 05/24/20 Famotidine [Pepcid] 20 mg PO DAILY 05/24/20 Fludrocortisone Acetate 0.2 mg PO DAILY 05/24/20 Insulin Aspart [Novolog Flexpen] 10 units SUBCUT TIDCM 05/24/20 Insulin Glargine [Lantus SoloStar Pen] 36 units SUBCUT QHS 05/24/20 Linagliptin [Tradjenta] 5 mg PO DAILY 05/24/20 Magnesium Hydroxide [Milk Of Magnesia] 30 ml PO DAILY PRN PRN 05/24/20 Simvastatin [Zocor] 10 mg PO QHS 05/24/20 Tamsulosin HCl [Flomax] 0.4 mg PO DAILY 05/24/20 Quetiapine Fumarate [Seroquel] 200 mg PO BID #30 tab 06/02/20 Haloperidol [Haldol] 5 mg PO BID 11/02/20 Lorazepam [Ativan] 1 mg PO BID #4 tab 11/04/20 Smz/Tmp Ds [Bactrim Ds] 1 tablet PO BID #10 tablet 11/04/20 Following Prescriptions Were Given to Patient: Lorazepam [Ativan] 1 mg PO BID #4 tab Prescription Printed Smz/Tmp Ds [Bactrim Ds] 1 tablet PO BID #10 tablet Primary Care Physician: Alonso Ramos MD [Primary Care Provider] - Within 1 Week Disposition: Asstd Living/Non-Skill NH Minutes spent on discharge:: 32 Patient Condition:: Good Medical Necessity - Tobacco Use Smoking Status: Never smoker Tobacco Use: Non-smoker Meaningful Use Info Meaningful Use Diagnoses (Choose all that apply): None applicable Inpatient E&M: 83401 [facility] Hosp
[2020-11-04] MEDS: Linezolid 600 MG 600 MG/300 ML BAG 200 MG IV (09:32)
[2020-11-04] MEDS: 0.9% Saline Lock 10 ML Syringe IV (09:32)
[2020-11-04] MEDS: Famotidine 20 MG Tablet PO (09:42)
[2020-11-04] MEDS: Tamsulosin HCl 0.4 MG Capsule PO (09:42)
[2020-11-04] MEDS: LINAGLIPTIN 5 MG TABLET PO (09:42)
[2020-11-04] MEDS: Aspirin 81 MG TAB.CHEW PO (09:42)
[2020-11-04] MEDS: QUEtiapine 100 MG Tablet PO (09:42)
[2020-11-04] MEDS: Fludrocortisone Acetate 0.1 MG Tablet 0.2 MG PO (09:43)
[2020-11-04] MEDS: Benztropine 2 MG Tablet PO (09:44)
[2020-11-04] MEDS: Calcium (Elemental) 500 MG Tablet PO (09:44)
[2020-11-04] MEDS: Escitalopram Oxalate 10 MG Tablet PO (09:44)
[2020-11-04] MEDS: Enoxaparin 40 MG/0.4 ML Syringe SC (09:45)
[2020-11-04] MEDS: LORazepam 1 MG Tablet PO (09:51)
[2020-11-04] MEDS: Haloperidol 5 MG Tablet 2.5 MG PO (10:11)
--- NOTE | 2020-11-04 10:42 | CASEMGMT ---
Social Work Note [place] [facility] [place] MARIJA spoke with RN, RN states pt is safe to be transported via wheelchair van, requests 11:00am or later excelsior picker time. MARIJA faxed completed [place] [facility] [place] to [place] facility, signed medication list, any scripts and COVID screening tool. Original in SNF folder and copy on pt's chart. MARIJA accessed trip assist and scheduled transportation for 11:30am via wheelchair van. Transportation form completed and placed on SNF folder and copy on pt's chart. SW in to speak with pt, pt soundly sleeping. MARIJA updated RN on discharge and transportation time, asked RN to update pt if pt awakes. MARIJA placed a call [place] [facility] and spoke with Sweta. MARIJA updated Sweta that pt is going to be [place] [facility] [place]. Sweta then transferred phone call to RN station. MARIJA spoke with Mile. MARIJA updated Mile that pt will be [place] [facility] [place] with transportation time at 11:30am. Mile states understanding, confirms she received discharge paperwork. MARIJA placed a call to pt's father Alon and updated him on discharge and transportation time. Alon states understanding. 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
[2020-11-04 10:50] VITALS: BP 139/66; PULSE 78; RESP 16; TEMP 36.6; O2SAT 99
== END 2020-11-04 11:45 | disposition intermediate care facility (04) | DRG 871 ==
LOC: ED 22:45 → MS3 11-02 02:09
PROVIDERS: Admitting Provider Hospitalist; Emergency Provider Emergency Medicine; PCP Family Medicine
DX: A41.9 Sepsis, unspecified organism (principal); G93.41 Metabolic encephalopathy; L03.116 Cellulitis of left lower limb; E27.40 Unspecified adrenocortical insufficiency; E87.1 Hypo-osmolality and hyponatremia; N18.4 Chronic kidney disease, stage 4 (severe); Z68.42 Body mass index [BMI] 45.0-49.9, adult; F20.9 Schizophrenia, unspecified; E78.5 Hyperlipidemia, unspecified; E11.65 Type 2 diabetes mellitus with hyperglycemia; D69.6 Thrombocytopenia, unspecified; D64.9 Anemia, unspecified; F41.9 Anxiety disorder, unspecified; E11.22 Type 2 diabetes mellitus with diabetic chronic kidney disease; I12.9 Hypertensive chronic kidney disease with stage 1 through stage 4 chronic kidney disease, or unspecified chronic kidney disease; E66.9 Obesity, unspecified
CPT/HCPCS: 36415; 36600; 70450; 71045; 80048; 80053; 81001; 82550; 82803; 82962; 83605; 84484; 85025; 85610; 85730; 87040; 87077; 87086; 87426; 93005; 97162; 99285; J2020; J7030; J7040; J7050; A4216